=== PATIENT | female | born 1950 | race African-American/Black ===

== ENCOUNTER → 2017-08-12 11:40 | Outpatient (CLI) | payer MEDICARE, SELFPAY ==
[2017-08-12 13:11] LABS: Absolute Lymphocyte Count 1.58 X10^3/ul (0.83-4.51); Absolute Neutrophil Count 3.1 X10^3/uL (2.0-7.7); Basophil# 0.04 X10^3/uL; Basophil% 0.7 % (0-1); Eosinophil# 0.09 X10^3/uL; Eosinophils% 1.7 % (0-5); Hemoglobin 10.9 g/dl (12.0-15.0); Lymphocyte # 1.58 X10^3/ul (4.0); Lymphocyte % 29.4 % (19-41); Mean Corp Hgb Conc 32.1 g/gl (32-36); Mean Corpuscular Hgb 28.2 pg (27.0-32.0); Mean Corpuscular Volume 87.9 fL (81-99); Mean Platelet Vol. 11.7 fl (6.2-12.0); Monocyte# 0.54 X10^3/uL; Monocyte% 10.1 % (0-10); Neutrophil # 3.11 X10^3/uL (2.7-7.7); Neutrophil % 57.9 % (47-70); Platelet Count 206 K/mm3 (150-450); RBC Distribution Width CV 15.2 % (11.6-14.6); RBC Distribution Width SD 48.5 fl (35.1-43.9); Red Blood Count 3.87 M/mm3 (4.2-5.4); White Blood Count 5.4 K/mm3 (4.4-11.0)
[2017-08-12 13:27] LABS: ALB/GLOB Ratio 0.9 RATIO (0.9-2.4); AST(SGOT) 12 U/L (15-37); Alanine Aminotransfer ALT/SGPT 16 U/L (13-56); Albumin, Serum 3.4 g/dL (3.2-5.0); Alkaline Phosphatase 89 U/L (45-117); Anion Gap 10 (5-15); BUN 14 mg/dL (7-18); BUN/Creat Ratio 16.8 RATIO (10-20); Calcium,Total 8.8 mg/dL (8.5-10.1); Chloride 109 mmol/L (98-107); Creatinine, Serum 0.84 mg/dL (0.55-1.02); EST Glomerular Filtration Rate 72 mL/min (>60); Est Glom Filt Rate - Afr Amer 87 mL/min (>60); Globulin 3.8 g/dL (2.2-4.2); Glucose 164 mg/dL (74-106); Potassium 3.4 mmol/L (3.5-5.1); Protein, Total 7.2 g/dL (6.4-8.2); Sodium Level 142 mmol/L (136-145); Thyroid Stim Hormone (TSH) 1.43 uIU/mL (0.358-3.74)
[2017-08-13 08:23] LABS: Vitamin D,25 Hydroxy 67.2 ng/mL (29.95-100.01)
== END ==
PROVIDERS: Family Provider Family Medicine Geriatric Medicine; PCP Family Medicine Geriatric Medicine; Visit Provider Family Medicine Geriatric Medicine
DX: E55.9 Vitamin D deficiency, unspecified (principal); I10 Essential (primary) hypertension; E11.9 Type 2 diabetes mellitus without complications
CPT/HCPCS: 36415; 80053; 82306; 84443; 85025

== ENCOUNTER → 2017-11-15 12:13 | Outpatient (CLI) | payer MEDICARE, SELFPAY ==
--- NOTE | 2017-11-15 12:17 | BI_ITS ---
MAMMOGRAPHY - BILATERAL SCREENING REASON FOR EXAM: Female, 67 years old. Routine annual screening examination. PERTINENT HISTORY: Sister with breast cancer. TECHNIQUE: Digital bilateral breast cortney (3D mammographic acquisition) in the CC and MLO projections. 2-D mediolateral oblique (MLO) and craniocaudad (CC) views of both breasts were obtained. CAD: Full Field Digital Mammography with Computer Added Detection was performed. COMPARISON: Comparison is made with prior study dated November 11, 2016 and November 11, 2015. FINDINGS: Breast Composition: The breasts are heterogeneously dense, which may obscure small masses. There are no dominant masses or suspicious calcifications. A pacemaker battery pack is once again seen in the axillary region of the left breast. No other significant abnormalities are identified. There has been no significant change since the prior study. BI/SCREENING MAMM (CAD), BILAT IMPRESSION: Stable bilateral screening mammogram. Yearly follow-up mammogram recommended. (A) ASSESSMENT CATEGORY: BIRADS Category 2: Benign. A letter regarding these results will be sent to the patient by the facility within 30 days. Approximately 10% of breast cancers are not detected by mammography. A normal mammogram should not delay biopsy of a clinically suspicious abnormality. [id number] Electronically Signed: Keanu Hartley MD at 13:57 EDT Tel [phone], Service support ,
== END ==
PROVIDERS: Family Provider Family Medicine Geriatric Medicine; PCP Family Medicine Geriatric Medicine; Visit Provider Obstetrics & Gynecology Gynecology
DX: Z12.31 Encounter for screening mammogram for malignant neoplasm of breast (principal)
CPT/HCPCS: 77063; 77067

== ENCOUNTER → 2018-02-16 11:29 | Outpatient (CLI) | payer MEDICARE, SELFPAY ==
[2018-02-16 12:32] LABS: Absolute Lymphocyte Count 1.31 X10^3/ul (0.83-4.51); Absolute Neutrophil Count 2.9 X10^3/uL (2.0-7.7); Basophil# 0.04 X10^3/uL; Basophil% 0.8 % (0-1); Eosinophil# 0.09 X10^3/uL; Eosinophils% 1.9 % (0-5); Hematocrit 35.1 % (37-47); Hemoglobin 11.1 g/dl (12.0-15.0); Lymphocyte # 1.31 X10^3/ul (4.0); Lymphocyte % 27.6 % (19-41); Mean Corp Hgb Conc 31.6 g/gl (32-36); Mean Corpuscular Hgb 27.8 pg (27.0-32.0); Mean Corpuscular Volume 87.8 fL (81-99); Mean Platelet Vol. 10.8 fl (6.2-12.0); Monocyte# 0.42 X10^3/uL; Monocyte% 8.9 % (0-10); Neutrophil # 2.88 X10^3/uL (2.7-7.7); Neutrophil % 60.8 % (47-70); Platelet Count 225 K/mm3 (150-450); RBC Distribution Width CV 15.3 % (11.6-14.6); RBC Distribution Width SD 49.4 fl (35.1-43.9); White Blood Count 4.7 K/mm3 (4.4-11.0)
[2018-02-16 12:34] LABS: POSITIVE COUNT NO; POSITIVE DIFFERENTIAL NO; POSITIVE MORPHOLOGY NO
[2018-02-16 12:53] LABS: Vitamin D,25 Hydroxy 52.4 ng/mL (29.95-100.01)
[2018-02-16 13:01] LABS: ALB/GLOB Ratio 0.9 RATIO (0.9-2.4); AST(SGOT) 16 U/L (15-37); Alanine Aminotransfer ALT/SGPT 16 U/L (13-56); Albumin, Serum 3.5 g/dL (3.2-5.0); Alkaline Phosphatase 81 U/L (45-117); Anion Gap 7 (5-15); BUN 13 mg/dL (7-18); BUN/Creat Ratio 14.5 RATIO (10-20); Calcium,Total 9.2 mg/dL (8.5-10.1); Chloride 107 mmol/L (98-107); Cholesterol 138 mg/dL (200); EST Glomerular Filtration Rate 66 mL/min (>60); Est Glom Filt Rate - Afr Amer 80 mL/min (>60); Globulin 3.9 g/dL (2.2-4.2); Glucose 170 mg/dL (74-106); High Density Lipoprotein 49 mg/dL; Potassium 3.7 mmol/L (3.5-5.1); Protein, Total 7.4 g/dL (6.4-8.2); Sodium Level 140 mmol/L (136-145); Thyroid Stim Hormone (TSH) 1.98 uIU/mL (0.358-3.74); Triglycerides 85 mg/dL; Very Low Density Lipoprotein 17 mg/dL (5-40)
== END ==
PROVIDERS: Family Provider Family Medicine Geriatric Medicine; PCP Family Medicine Geriatric Medicine; Visit Provider Family Medicine Geriatric Medicine
DX: E11.9 Type 2 diabetes mellitus without complications (principal); E55.9 Vitamin D deficiency, unspecified
CPT/HCPCS: 36415; 80053; 80061; 82306; 84443; 85025

== ENCOUNTER → 2018-03-03 11:28 | Outpatient (CLI) | payer MEDICARE, SELFPAY ==
[2018-03-03 12:31] LABS: AST(SGOT) 16 U/L (15-37); Alanine Aminotransfer ALT/SGPT 20 U/L (13-56); Albumin, Serum 3.5 g/dL (3.2-5.0); Alkaline Phosphatase 75 U/L (45-117); Bilirubin, Direct 0.15 mg/dL (0.00-0.30); Cholesterol 146 mg/dL (200); Globulin 3.9 g/dL (2.2-4.2); High Density Lipoprotein 49 mg/dL; Protein, Total 7.4 g/dL (6.4-8.2); Triglycerides 81 mg/dL; Very Low Density Lipoprotein 16 mg/dL (5-40)
== END ==
PROVIDERS: Family Provider Family Medicine Geriatric Medicine; PCP Family Medicine Geriatric Medicine; Visit Provider Internal Medicine Cardiovascular Disease
DX: I10 Essential (primary) hypertension (principal); E78.5 Hyperlipidemia, unspecified
CPT/HCPCS: 36415; 80061; 80076

== ENCOUNTER → 2018-08-18 11:17 | Outpatient (CLI) | payer MEDICARE, SELFPAY ==
[2018-01-20 13:57] VITALS: BMI 30.4
[2018-08-18 12:49] LABS: Absolute Lymphocyte Count 2.27 X10^3/ul (0.83-4.51); Basophil# 0.04 X10^3/uL; Basophil% 0.7 % (0-1); Eosinophil# 0.13 X10^3/uL; Eosinophils% 2.1 % (0-5); Hematocrit 33.5 % (37-47); Hemoglobin 10.8 g/dl (12.0-15.0); Lymphocyte # 2.27 X10^3/ul (4.0); Lymphocyte % 37.2 % (19-41); Mean Corp Hgb Conc 32.2 g/gl (32-36); Mean Corpuscular Hgb 27.6 pg (27.0-32.0); Mean Corpuscular Volume 85.5 fL (81-99); Mean Platelet Vol. 10.9 fl (6.2-12.0); Monocyte# 0.61 X10^3/uL; Neutrophil # 3.04 X10^3/uL (2.7-7.7); Neutrophil % 49.8 % (47-70); Platelet Count 224 K/mm3 (150-450); RBC Distribution Width CV 15.9 % (11.6-14.6); RBC Distribution Width SD 49.8 fl (35.1-43.9); Red Blood Count 3.92 M/mm3 (4.2-5.4); White Blood Count 6.1 K/mm3 (4.4-11.0)
[2018-08-18 12:51] LABS: POSITIVE COUNT NO; POSITIVE DIFFERENTIAL NO; POSITIVE MORPHOLOGY NO
[2018-08-18 13:18] LABS: AST(SGOT) 16 U/L (15-37); Alanine Aminotransfer ALT/SGPT 18 U/L (13-56); Albumin, Serum 3.6 g/dL (3.2-5.0); Alkaline Phosphatase 82 U/L (45-117); Anion Gap 7 (5-15); BUN 20 mg/dL (7-18); BUN/Creat Ratio 23.1 RATIO (10-20); Calcium,Total 9.1 mg/dL (8.5-10.1); Chloride 109 mmol/L (98-107); Cholesterol 151 mg/dL (200); Creatinine, Serum 0.87 mg/dL (0.55-1.02); EST Glomerular Filtration Rate 69 mL/min (>60); Est Glom Filt Rate - Afr Amer 84 mL/min (>60); Globulin 3.6 g/dL (2.2-4.2); Glucose 108 mg/dL (74-106); High Density Lipoprotein 53 mg/dL; Potassium 3.5 mmol/L (3.5-5.1); Protein, Total 7.2 g/dL (6.4-8.2); Sodium Level 141 mmol/L (136-145); Thyroid Stim Hormone (TSH) 1.97 uIU/mL (0.358-3.74); Triglycerides 81 mg/dL; Very Low Density Lipoprotein 16 mg/dL (5-40)
[2018-08-18 14:15] LABS: Vitamin D,25 Hydroxy 53.3 ng/mL (29.95-100.01)
== END ==
PROVIDERS: Family Provider Family Medicine Geriatric Medicine; PCP Family Medicine Geriatric Medicine; Visit Provider Family Medicine Geriatric Medicine
DX: E11.9 Type 2 diabetes mellitus without complications (principal); E55.9 Vitamin D deficiency, unspecified; E78.5 Hyperlipidemia, unspecified; I10 Essential (primary) hypertension
CPT/HCPCS: 36415; 80053; 80061; 82306; 84443; 85025

== ENCOUNTER → 2018-11-16 12:47 | Outpatient (CLI) | payer MEDICARE, SELFPAY ==
[2018-09-15 11:31] VITALS: BMI 29.5
--- NOTE | 2018-11-16 12:50 | BI_ITS ---
MAMMOGRAPHY - BILATERAL SCREENING REASON FOR EXAM: Female, 68 years old. Routine annual screening examination. PERTINENT HISTORY: Sister with breast cancer. TECHNIQUE: Digital bilateral breast hiro (3D mammographic acquisition) in the CC and MLO projections. 2-D mediolateral oblique (MLO) and craniocaudad (CC) views of both breasts were obtained. CAD: Full Field Digital Mammography with Computer Added Detection was performed. COMPARISON: Comparison is made with prior study dated November 15, 2017 and November 11, 2016. FINDINGS: Breast Composition: The breasts are heterogeneously dense, which may obscure small masses. There are no dominant masses or suspicious calcifications. Stable appearance of the bilateral axillary lymph nodes. A pacemaker battery pack is once again seen in the left axillary region. No other significant abnormalities are identified. There has been no significant change since the prior study. BI/SCREEN MAMM (CAD) W/HIRO BILAT IMPRESSION: Stable bilateral screening mammogram. Yearly follow-up mammogram recommended. (A) ASSESSMENT CATEGORY: BIRADS Category 2: Benign. A letter regarding these results will be sent to the patient by the facility within 30 days. Approximately 10% of breast cancers are not detected by mammography. A normal mammogram should not delay biopsy of a clinically suspicious abnormality. [id number] Electronically Signed: Keanu Hartley, at 14:05 EDT , Service support ,
== END ==
PROVIDERS: Family Provider Family Medicine Geriatric Medicine; PCP Family Medicine Geriatric Medicine; Referring Provider Obstetrics & Gynecology Gynecology; Visit Provider Obstetrics & Gynecology Gynecology
DX: Z12.31 Encounter for screening mammogram for malignant neoplasm of breast (principal)
CPT/HCPCS: 77063; 77067

== ENCOUNTER → 2019-02-20 11:33 | Outpatient (CLI) | payer MEDICARE, SELFPAY ==
[2019-02-16 11:45] VITALS: BMI 29.7
[2019-02-20 12:44] LABS: Absolute Lymphocyte Count 2.02 X10^3/uL (0.83-4.51); Absolute Neutrophil Count 2.6 X10^3/uL (2.0-7.7); Basophil# 0.04 X10^3/uL; Basophil% 0.8 % (0-1); Eosinophil# 0.09 X10^3/uL; Eosinophils% 1.7 % (0-5); Hematocrit 35.3 % (37-47); Hemoglobin 11.2 g/dL (12.0-15.0); Lymphocyte # 2.02 X10^3/ul (4.0); Lymphocyte % 38.3 % (19-41); Mean Corp Hgb Conc 31.7 g/dL (32-36); Mean Corpuscular Hgb 27.7 pg (27.0-32.0); Mean Corpuscular Volume 87.2 fL (81-99); Mean Platelet Vol. 11.2 fl (6.2-12.0); Monocyte# 0.48 X10^3/uL; Monocyte% 9.1 % (0-10); NRBC Flagged by Analyzer 0 % (0-5); Neutrophil # 2.63 X10^3/uL (2.7-7.7); Neutrophil % 49.9 % (47-70); Platelet Count 215 K/mm3 (150-450); RBC Distribution Width CV 15.1 % (11.6-14.6); RBC Distribution Width SD 48.3 fl (35.1-43.9); Red Blood Count 4.05 M/mm3 (4.2-5.4); White Blood Count 5.3 K/mm3 (4.4-11.0)
[2019-02-20 13:09] LABS: ALB/GLOB Ratio 0.9 RATIO (0.9-2.4); AST(SGOT) 16 U/L (15-37); Alanine Aminotransfer ALT/SGPT 14 U/L (13-56); Albumin, Serum 3.5 g/dL (3.2-5.0); Alkaline Phosphatase 76 U/L (45-117); Anion Gap 7 (5-15); BUN 11 mg/dL (7-18); BUN/Creat Ratio 13.8 RATIO (10-20); Calcium,Total 9.2 mg/dL (8.5-10.1); Chloride 109 mmol/L (98-107); Cholesterol 127 mg/dL (200); EST Glomerular Filtration Rate 76 mL/min (>60); Est Glom Filt Rate - Afr Amer 92 mL/min (>60); Globulin 3.8 g/dL (2.2-4.2); Glucose 106 mg/dL (74-106); High Density Lipoprotein 48 mg/dL; Potassium 3.7 mmol/L (3.5-5.1); Protein, Total 7.3 g/dL (6.4-8.2); Sodium Level 140 mmol/L (136-145); Thyroid Stim Hormone (TSH) 1.91 uIU/mL (0.358-3.74); Triglycerides 75 mg/dL; Very Low Density Lipoprotein 15 mg/dL (5-40)
[2019-02-20 13:16] LABS: Vitamin D,25 Hydroxy 59.3 ng/mL (29.95-100.01)
== END ==
PROVIDERS: Family Provider Family Medicine Geriatric Medicine; PCP Family Medicine Geriatric Medicine; Visit Provider Family Medicine Geriatric Medicine
DX: E11.9 Type 2 diabetes mellitus without complications (principal); E78.5 Hyperlipidemia, unspecified; I10 Essential (primary) hypertension; E55.9 Vitamin D deficiency, unspecified
CPT/HCPCS: 36415; 80053; 80061; 82306; 84443; 85025

== ENCOUNTER → 2019-03-01 09:07 | Outpatient (CLI) | payer MEDICARE, SELFPAY ==
[2019-02-16 11:45] VITALS: BMI 29.7
--- NOTE | 2019-03-01 09:24 | BD_ITS ---
STUDY: DUAL ENERGY X-RAY ABSORPTIOMETRY / DXA REASON FOR EXAM: Female, 68 years old. The patient is postmenopausal. Loss of height. TECHNIQUE: Bone Mineral Density (BMD) measurements of lumbar spine and bilateral hips were obtained. COMPARISON: Comparison is made with prior examination dated August 22, 2009. FINDINGS: Lumbar Spine (L1-L4): g/cm2 (1.089) / T-score (-0.6) / Z-score (0.3) Findings are suggestive of normal bone density with a low fracture risk. Increased kyphosis. Left Femur Total: g/cm2 (1.144) / T-score (1.1) / Z-score (1.5) Left Femoral Neck: g/cm2 (1.049) / T-score (0.1) / Z-score (0.8) Right Femur Total: g/cm2 (1.104) / T-score (0.8) / Z-score (1.2) Right Femoral Neck: g/cm2 (1.035) / T-score (0.0) / Z-score (0.7) The T-Scores on the most recent prior examination were: Lumbar Spine (L1-L4): There has been worsening of bone density since the previous examination. Left Femur Total: which represents a worsening of 6%. Right Femur Total: which represents a worsening of 10.6%. BD/Dexa Bone Density Study IMPRESSION: The patient is considered normal as outlined below according to World Jose Organization (WHO) criteria with a low fracture risk. There has been worsening of bone density since the previous examination. Reference Information: The T-score is the number of standard deviations above or below the standard which is normal for young adults at their peak bone mineral density. The World Health Organization (WHO) interprets the T-scores as follows: Above -1 Normal bone density Between -1 and -2.5 Osteopenia Equal to / or below -2.5 Osteoporosis As a practical clinical guideline, osteopenia may be graded as follows: Mild -1 through -1.5 Moderate -1.6 through -2.0 Severe -2.1 through -2.4 The Z-score is the number of standard deviations above or below age-matched controls. A Z-score of less than -1.5 would be considered abnormal. References: 1. NIH Osteoporosis and Related Bone Diseases http://www.osteo.org 2. International Society for Clinical Densitometry http://www.iscd.org 3. National Osteoporosis Foundation http://www.nof.org Electronically Signed: Keanu Hartley, at 10:39 EST , Service support ,
== END ==
PROVIDERS: Family Provider Family Medicine Geriatric Medicine; PCP Family Medicine Geriatric Medicine; Referring Provider Family Medicine Geriatric Medicine; Visit Provider Family Medicine Geriatric Medicine
DX: Z78.0 Asymptomatic menopausal state (principal)
CPT/HCPCS: 77080

== ENCOUNTER → 2019-06-08 | Outpatient (CLI) | payer MEDICARE, SELFPAY ==
[2019-02-16 11:45] VITALS: BMI 29.7
--- NOTE | 2019-06-08 17:07 | RAD_ITS ---
STUDY: X-RAY - LEFT HAND REASON FOR EXAM: Left hand and wrist pain. TECHNIQUE: 3 view(s) of the hand. COMPARISON: None. FINDINGS: Normal radiocarpal articulation. Normal distal radioulnar joint. Normal visualized carpal bones. There is mild joint space narrowing of the scaphotrapezoid articulation. Normal carpometacarpal articulation of the thumb. Normal second through fifth carpometacarpal joints. Normal metacarpi. Normal metacarpophalangeal joint of the thumb. Normal interphalangeal joint of the thumb. Normal proximal and distal phalanges of the thumb. Normal metacarpophalangeal joints of the second through fifth fingers. Normal proximal and distal interphalangeal joints of the second through fifth fingers. Normal phalanges of the second through fifth fingers. There is chondrocalcinosis of the wrist. RAD/Hand Min 3 Views IMPRESSION: Mild arthrosis of the scaphotrapezoid articulation. Chondrocalcinosis of the wrist. Otherwise, unremarkable x-ray examination of the left hand. Electronically Signed: Stephen Yap MD at 15:23 EST Tel , Service support ,
--- NOTE | 2019-06-08 17:08 | RAD_ITS ---
STUDY: X-RAY - LEFT WRIST REASON FOR EXAM: Left hand and wrist pain. TECHNIQUE: 3 view(s) of the wrist were obtained. COMPARISON: None. FINDINGS: Normal visualized distal radius and ulna. Normal radiocarpal articulation. Normal distal radioulnar articulation. Normal carpal bones. There is mild joint space narrowing of the scaphotrapezoid articulation. Normal carpometacarpal articulation of the thumb. Normal second through fifth carpometacarpal articulations. Normal visualized metacarpal bones. There is chondrocalcinosis in the triangular fibrocartilage, lunotriquetral ligament and radial joint capsule of the wrist. RAD/Wrist min 3 Views IMPRESSION: Mild arthrosis of the scaphotrapezoid articulation. Chondrocalcinosis. Otherwise, unremarkable x-ray examination of the left wrist. Electronically Signed: Stephen Yap MD at 15:30 EST Tel , Service support ,
[2019-06-08 17:20] LABS: Absolute Neutrophil Count 5.8 X10^3/uL (2.0-7.7); Basophil# 0.03 X10^3/uL; Basophil% 0.4 % (0-1); Eosinophil# 0.05 X10^3/uL; Eosinophils% 0.6 % (0-5); Hematocrit 37.8 % (37-47); Hemoglobin 12.1 g/dL (12.0-15.0); Lymphocyte % 21.3 % (19-41); Mean Corpuscular Hgb 28.2 pg (27.0-32.0); Mean Corpuscular Volume 88.1 fL (81-99); Mean Platelet Vol. 10.9 fl (6.2-12.0); Monocyte# 0.76 X10^3/uL; NRBC Flagged by Analyzer 0 % (0-5); Neutrophil # 5.78 X10^3/uL (2.7-7.7); Neutrophil % 68.3 % (47-70); Platelet Count 226 K/mm3 (150-450); RBC Distribution Width CV 14.5 % (11.6-14.6); RBC Distribution Width SD 46.8 fl (35.1-43.9); Red Blood Count 4.29 M/mm3 (4.2-5.4); White Blood Count 8.5 K/mm3 (4.4-11.0)
[2019-06-08 17:57] LABS: Erythrocyte Sedimentation Rate 67 mm/hr (0-30)
[2019-06-08 17:59] LABS: Anion Gap 6 (5-15); BUN 13 mg/dL (7-18); BUN/Creat Ratio 15.3 RATIO (10-20); Calcium,Total 9.6 mg/dL (8.5-10.1); Chloride 107 mmol/L (98-107); Creatinine, Serum 0.85 mg/dL (0.55-1.02); EST Glomerular Filtration Rate 71 mL/min (>60); Est Glom Filt Rate - Afr Amer 85 mL/min (>60); Glucose 82 mg/dL (74-106); Potassium 3.3 mmol/L (3.5-5.1); Sodium Level 139 mmol/L (136-145); Uric Acid 2.9 mg/dL (2.6-6.0)
== END | disposition home or self-care (01) ==
PROVIDERS: PCP Family Medicine Geriatric Medicine; Referring Provider Family Medicine Geriatric Medicine; Visit Provider Family Medicine Geriatric Medicine
DX: M79.642 Pain in left hand (principal); M25.532 Pain in left wrist; R79.9 Abnormal finding of blood chemistry, unspecified
CPT/HCPCS: 36415; 73110; 73130; 80048; 84550; 85025; 85652; 86140

== ENCOUNTER → 2019-08-23 | Outpatient (CLI) | payer MEDICARE, SELFPAY ==
[2019-02-16 11:45] VITALS: BMI 29.7
[2019-08-23 13:13] LABS: Absolute Lymphocyte Count 1.98 X10^3/uL (0.83-4.51); Absolute Neutrophil Count 4.2 X10^3/uL (2.0-7.7); Basophil# 0.05 X10^3/uL; Basophil% 0.7 % (0-1); Eosinophil# 0.07 X10^3/uL; Hematocrit 37.4 % (37-47); Hemoglobin 11.7 g/dL (12.0-15.0); Lymphocyte # 1.98 X10^3/ul (4.0); Lymphocyte % 28.6 % (19-41); Mean Corp Hgb Conc 31.3 g/dL (32-36); Mean Corpuscular Hgb 28.2 pg (27.0-32.0); Mean Corpuscular Volume 90.1 fL (81-99); Monocyte# 0.59 X10^3/uL; Monocyte% 8.5 % (0-10); NRBC Flagged by Analyzer 0 % (0-5); Neutrophil # 4.21 X10^3/uL (2.7-7.7); Neutrophil % 60.8 % (47-70); Platelet Count 215 K/mm3 (150-450); RBC Distribution Width SD 53.2 fl (35.1-43.9); Red Blood Count 4.15 M/mm3 (4.2-5.4); White Blood Count 6.9 K/mm3 (4.4-11.0)
[2019-08-23 13:53] LABS: Vitamin D,25 Hydroxy 71.6 ng/mL
[2019-08-23 14:02] LABS: ALB/GLOB Ratio 0.9 RATIO (0.9-2.4); AST(SGOT) 17 U/L (15-37); Alanine Aminotransfer ALT/SGPT 21 U/L (13-56); Albumin, Serum 3.5 g/dL (3.2-5.0); Alkaline Phosphatase 73 U/L (45-117); Anion Gap 6 (5-15); BUN 15 mg/dL (7-18); BUN/Creat Ratio 18.7 RATIO (10-20); Calcium,Total 9.5 mg/dL (8.5-10.1); Chloride 108 mmol/L (98-107); Cholesterol 169 mg/dL (200); EST Glomerular Filtration Rate 75 mL/min (>60); Est Glom Filt Rate - Afr Amer 91 mL/min (>60); Globulin 3.7 g/dL (2.2-4.2); Glucose 138 mg/dL (74-106); High Density Lipoprotein 63 mg/dL; Potassium 3.9 mmol/L (3.5-5.1); Protein, Total 7.2 g/dL (6.4-8.2); Sodium Level 141 mmol/L (136-145); Thyroid Stim Hormone (TSH) 1.41 uIU/mL (0.358-3.74); Triglycerides 95 mg/dL; Very Low Density Lipoprotein 19 mg/dL (5-40)
== END | disposition home or self-care (01) ==
LOC: LAB 12:18
PROVIDERS: PCP Family Medicine Geriatric Medicine; Visit Provider Family Medicine Geriatric Medicine
DX: E11.9 Type 2 diabetes mellitus without complications (principal); E55.9 Vitamin D deficiency, unspecified; E78.5 Hyperlipidemia, unspecified; I10 Essential (primary) hypertension
CPT/HCPCS: 36415; 80053; 80061; 82306; 84443; 85025

== ENCOUNTER → 2019-11-20 | Outpatient (CLI) | payer MEDICARE, SELFPAY ==
[2019-02-16 11:45] VITALS: BMI 29.7
--- NOTE | 2019-11-20 14:55 | BI_ITS ---
MAMMOGRAPHY - BILATERAL SCREENING REASON FOR EXAM: Female, 69 years old. Routine annual screening examination. PERTINENT HISTORY: Sister with breast cancer. TECHNIQUE: Digital bilateral breast hior (3D mammographic acquisition) in the CC and MLO projections. 2-D mediolateral oblique (MLO) and craniocaudad (CC) views of both breasts were obtained. CAD: Full Field Digital Mammography with Computer Added Detection was performed. COMPARISON: Comparison is made with prior examination dated 11/16/2018 and 11/15/2017. FINDINGS: Breast Composition: The breasts are heterogeneously dense, which may obscure small masses. There are no dominant masses or suspicious calcifications. A battery pack from a pacemaker is seen in the left axillary region. This is unchanged. No other significant abnormalities are identified. There has been no significant change since the prior study. BI/SCREEN MAMM (CAD) W/HIRO BILAT IMPRESSION: Stable bilateral screening mammogram. Yearly follow-up mammogram recommended. (A) ASSESSMENT CATEGORY: BIRADS Category 2: Benign. A letter regarding these results will be sent to the patient by the facility within 30 days. Approximately 10% of breast cancers are not detected by mammography. A normal mammogram should not delay biopsy of a clinically suspicious abnormality. [id number] Electronically Signed: Keanu Hartley, at 15:26 EDT , Service support ,
== END | disposition home or self-care (01) ==
LOC: OPBI 14:50
PROVIDERS: PCP Family Medicine Geriatric Medicine; Referring Provider Obstetrics & Gynecology Gynecology; Visit Provider Obstetrics & Gynecology Gynecology
DX: Z12.31 Encounter for screening mammogram for malignant neoplasm of breast (principal)
CPT/HCPCS: 77063; 77067

== ENCOUNTER → 2019-11-22 10:46 | Outpatient (CLI) | payer MEDICARE, SELFPAY ==
[2019-02-16 11:45] VITALS: BMI 29.7
[2019-11-22 12:19] LABS: Absolute Lymphocyte Count 1.76 X10^3/uL (0.83-4.51); Basophil# 0.03 X10^3/uL; Basophil% 0.6 % (0-1); Eosinophil# 0.06 X10^3/uL; Eosinophils% 1.1 % (0-5); Hematocrit 34.4 % (37-47); Lymphocyte # 1.76 X10^3/ul (4.0); Mean Corpuscular Hgb 28.7 pg (27.0-32.0); Mean Corpuscular Volume 89.8 fL (81-99); Mean Platelet Vol. 11.9 fl (6.2-12.0); Monocyte# 0.48 X10^3/uL; NRBC Flagged by Analyzer 0 % (0-5); Neutrophil # 2.99 X10^3/uL (2.7-7.7); Neutrophil % 55.9 % (47-70); Platelet Count 221 K/mm3 (150-450); RBC Distribution Width CV 14.3 % (11.6-14.6); Red Blood Count 3.83 M/mm3 (4.2-5.4); White Blood Count 5.3 K/mm3 (4.4-11.0)
[2019-11-22 12:33] LABS: Vitamin D,25 Hydroxy 75.4 ng/mL
[2019-11-22 12:47] LABS: ALB/GLOB Ratio 0.9 RATIO (0.9-2.4); AST(SGOT) 11 U/L (15-37); Alanine Aminotransfer ALT/SGPT 12 U/L (13-56); Albumin, Serum 3.4 g/dL (3.2-5.0); Alkaline Phosphatase 60 U/L (45-117); Anion Gap 3 (5-15); BUN 15 mg/dL (7-18); BUN/Creat Ratio 18.9 RATIO (10-20); Calcium,Total 9.2 mg/dL (8.5-10.1); Chloride 110 mmol/L (98-107); Cholesterol 138 mg/dL (200); Creatinine, Serum 0.79 mg/dL (0.55-1.02); EST Glomerular Filtration Rate 76 mL/min (>60); Est Glom Filt Rate - Afr Amer 92 mL/min (>60); Globulin 3.7 g/dL (2.2-4.2); Glucose 99 mg/dL (74-106); High Density Lipoprotein 45 mg/dL; Potassium 3.6 mmol/L (3.5-5.1); Protein, Total 7.1 g/dL (6.4-8.2); Sodium Level 142 mmol/L (136-145); Thyroid Stim Hormone (TSH) 1.74 uIU/mL (0.358-3.74); Triglycerides 69 mg/dL; Very Low Density Lipoprotein 14 mg/dL (5-40)
== END ==
PROVIDERS: PCP Family Medicine Geriatric Medicine; Visit Provider Family Medicine Geriatric Medicine
DX: E11.9 Type 2 diabetes mellitus without complications (principal); E55.9 Vitamin D deficiency, unspecified; E78.5 Hyperlipidemia, unspecified; I10 Essential (primary) hypertension
CPT/HCPCS: 36415; 80053; 80061; 82306; 84443; 85025

== ENCOUNTER → 2020-02-22 11:00 | Outpatient (CLI) | payer MEDICARE, SELFPAY ==
[2020-02-13 14:39] VITALS: BMI 27.0
[2020-02-22 12:21] LABS: Absolute Lymphocyte Count 1.64 X10^3/uL (0.83-4.51); Absolute Neutrophil Count 2.7 X10^3/uL (2.0-7.7); Basophil# 0.05 X10^3/uL; Eosinophil# 0.07 X10^3/uL; Eosinophils% 1.5 % (0-5); Hematocrit 35.4 % (37-47); Hemoglobin 11.2 g/dL (12.0-15.0); Lymphocyte # 1.64 X10^3/ul (4.0); Lymphocyte % 34.1 % (19-41); Mean Corp Hgb Conc 31.6 g/dL (32-36); Mean Corpuscular Hgb 28.1 pg (27.0-32.0); Mean Corpuscular Volume 88.9 fL (81-99); Mean Platelet Vol. 11.1 fl (6.2-12.0); Monocyte# 0.36 X10^3/uL; Monocyte% 7.5 % (0-10); NRBC Flagged by Analyzer 0 % (0-5); Neutrophil # 2.67 X10^3/uL (2.7-7.7); Neutrophil % 55.5 % (47-70); Platelet Count 248 K/mm3 (150-450); RBC Distribution Width CV 15.1 % (11.6-14.6); RBC Distribution Width SD 49.6 fl (35.1-43.9); Red Blood Count 3.98 M/mm3 (4.2-5.4); White Blood Count 4.8 K/mm3 (4.4-11.0)
[2020-02-22 12:35] LABS: ALB/GLOB Ratio 0.9 RATIO (0.9-2.4); AST(SGOT) 15 U/L (15-37); Alanine Aminotransfer ALT/SGPT 17 U/L (13-56); Albumin, Serum 3.6 g/dL (3.2-5.0); Alkaline Phosphatase 68 U/L (45-117); Anion Gap 6 (5-15); BUN 19 mg/dL (7-18); BUN/Creat Ratio 22.1 RATIO (10-20); Calcium,Total 9.1 mg/dL (8.5-10.1); Chloride 106 mmol/L (98-107); Cholesterol 136 mg/dL (200); Creatinine, Serum 0.86 mg/dL (0.55-1.02); EST Glomerular Filtration Rate 69 mL/min (>60); Est Glom Filt Rate - Afr Amer 84 mL/min (>60); Globulin 3.9 g/dL (2.2-4.2); Glucose 129 mg/dL (74-106); High Density Lipoprotein 59 mg/dL; Potassium 3.9 mmol/L (3.5-5.1); Protein, Total 7.5 g/dL (6.4-8.2); Sodium Level 138 mmol/L (136-145); Thyroid Stim Hormone (TSH) 1.73 uIU/mL (0.358-3.74); Triglycerides 67 mg/dL; Very Low Density Lipoprotein 13 mg/dL (5-40)
== END ==
PROVIDERS: PCP Family Medicine Geriatric Medicine; Visit Provider Family Medicine Geriatric Medicine
DX: E55.9 Vitamin D deficiency, unspecified (principal); E78.5 Hyperlipidemia, unspecified; I10 Essential (primary) hypertension
CPT/HCPCS: 36415; 80053; 80061; 82306; 84443; 85025

== ENCOUNTER → 2020-02-27 10:50 | Outpatient (CLI) | payer MEDICARE, SELFPAY ==
[2020-02-13 14:39] VITALS: BMI 27.0
--- NOTE | 2020-02-27 10:51 | ECHOD_ITS ---
Reason For Study: HTN Procedure This was a 2D Doppler, Color Flow transthoracic echocardiogram. Exam performed in department. Left Ventricle Normal LV size. Left ventricular systolic function is lower limits of normal. The estimated ejection fraction is 53 %. Stage 1 diastolic dysfunction. No regional wall motion abnormalities noted. Right Ventricle Normal RV size. ICD or pacer leads identified within the right ventricle. Normal systolic function. Atria Normal left atrium. Normal right atrium. Mitral Valve Normal mitral valve. Tricuspid Valve Normal tricuspid valve. Mild tricuspid valve insufficiency. Pulmonary artery systolic pressure is 33 mmHg. Aortic Valve Trisinus/trileaflet aortic valve. Great Vessels Normal aortic root. The pulmonary artery is normal size. Normal inferior vena cava. Pericardium/Pleural No pericardial effusion. MMode/2D Measurements & Calculations LVIDd: 3.9 cm IVSd: 0.84 cm Ao root diam: 3.4 cm LVIDs: 3.1 cm LVPWd: 1.0 cm RVDd: 2.8 cm FS: 22.5 % LAV(MOD-bp): 40.7 ml LA A4 area: 16.5 cm2 LA dimension(2D): 4.3 cm LAV(MOD-bp) Indexed: 25.9 ml/m2 LAV(MOD-sp2): 35.1 ml LAV(MOD-sp4): 46.3 ml RA A4 area: 12.2 cm2 Time Measurements MV dec time: 0.18 sec Doppler Measurements & Calculations MV E max amol: 57.8 cm/sec Lat Peak E' Amol: 5.7 cm/sec Med Peak E' Amol: 4.3 cm/sec MV A max amol: 104.6 cm/sec E/E' lat: 10.2 E/E' med: 13.4 MV E/A: 0.55 Ao V2 max: 148.7 cm/sec LV V1 max: 85.4 cm/sec PA V2 max: 81.3 cm/sec Ao max P.9 mmHg LV V1 max P.9 mmHg TR max amol: 267.2 cm/sec TR max P.6 mmHg Interpretation Summary Normal LV size. Left ventricular systolic function is lower limits of normal. The estimated ejection fraction is 53 %. Stage 1 diastolic dysfunction. Compared to prior study, there is no significant change. Ordering Physician: Nik Felton Referring Physician: ANNI COREAS Performed By: Nandini Alvarado, ROMAINE, RVT
== END ==
PROVIDERS: PCP Family Medicine Geriatric Medicine; Referring Provider Internal Medicine Cardiovascular Disease; Visit Provider Internal Medicine Cardiovascular Disease
DX: I42.8 Other cardiomyopathies (principal); I10 Essential (primary) hypertension
CPT/HCPCS: 93306

== ENCOUNTER → 2020-05-22 11:22 | Outpatient (CLI) | payer MEDICARE, SELFPAY ==
[2020-02-13 14:39] VITALS: BMI 27.0
[2020-05-22 12:37] LABS: Absolute Lymphocyte Count 1.82 X10^3/uL (0.83-4.51); Absolute Neutrophil Count 4.3 X10^3/uL (2.0-7.7); Basophil# 0.03 X10^3/uL; Basophil% 0.4 % (0-1); Eosinophil# 0.09 X10^3/uL; Eosinophils% 1.3 % (0-5); Hematocrit 33.1 % (37-47); Hemoglobin 10.4 g/dL (12.0-15.0); Lymphocyte # 1.82 X10^3/ul (4.0); Lymphocyte % 26.6 % (19-41); Mean Corp Hgb Conc 31.4 g/dL (32-36); Mean Corpuscular Hgb 27.7 pg (27.0-32.0); Mean Platelet Vol. 11.1 fl (6.2-12.0); Monocyte# 0.56 X10^3/uL; Monocyte% 8.2 % (0-10); NRBC Flagged by Analyzer 0 % (0-5); Neutrophil # 4.33 X10^3/uL (2.7-7.7); Neutrophil % 63.2 % (47-70); Platelet Count 202 K/mm3 (150-450); RBC Distribution Width SD 48.3 fl (35.1-43.9); Red Blood Count 3.76 M/mm3 (4.2-5.4); White Blood Count 6.9 K/mm3 (4.4-11.0)
[2020-05-22 13:01] LABS: ALB/GLOB Ratio 0.8 RATIO (0.9-2.4); AST(SGOT) 14 U/L (15-37); Alanine Aminotransfer ALT/SGPT 20 U/L (13-56); Albumin, Serum 3.4 g/dL (3.2-5.0); Alkaline Phosphatase 90 U/L (45-117); Anion Gap 6 (5-15); BUN 20 mg/dL (7-18); BUN/Creat Ratio 24.2 RATIO (10-20); Calcium,Total 9.5 mg/dL (8.5-10.1); Chloride 110 mmol/L (98-107); Cholesterol 178 mg/dL (200); Creatinine, Serum 0.83 mg/dL (0.55-1.02); EST Glomerular Filtration Rate 72 mL/min (>60); Est Glom Filt Rate - Afr Amer 88 mL/min (>60); Globulin 4.2 g/dL (2.2-4.2); Glucose 112 mg/dL (74-106); High Density Lipoprotein 61 mg/dL; Potassium 3.6 mmol/L (3.5-5.1); Protein, Total 7.6 g/dL (6.4-8.2); Sodium Level 141 mmol/L (136-145); Triglycerides 63 mg/dL; Uric Acid 3.8 mg/dL (2.6-6.0); Very Low Density Lipoprotein 13 mg/dL (5-40)
[2020-05-22 13:05] LABS: Vitamin D,25 Hydroxy 42.6 ng/mL
== END ==
PROVIDERS: PCP Family Medicine Geriatric Medicine; Visit Provider Family Medicine Geriatric Medicine
DX: E11.9 Type 2 diabetes mellitus without complications (principal); E55.9 Vitamin D deficiency, unspecified; E78.5 Hyperlipidemia, unspecified; I10 Essential (primary) hypertension; M10.9 Gout, unspecified
CPT/HCPCS: 36415; 80053; 80061; 82306; 84443; 84550; 85025

== ENCOUNTER → 2020-05-29 15:24 | Outpatient (CLI) | payer MEDICARE, SELFPAY ==
[2020-02-13 14:39] VITALS: BMI 27.0
[2020-05-29 17:23] LABS: Absolute Lymphocyte Count 1.58 X10^3/uL (0.83-4.51); Absolute Neutrophil Count 3.9 X10^3/uL (2.0-7.7); Basophil# 0.02 X10^3/uL; Basophil% 0.3 % (0-1); Eosinophils% 1.6 % (0-5); Hematocrit 34.9 % (37-47); Hemoglobin 11.1 g/dL (12.0-15.0); Lymphocyte # 1.58 X10^3/ul (4.0); Lymphocyte % 25.6 % (19-41); Mean Corp Hgb Conc 31.8 g/dL (32-36); Mean Corpuscular Volume 87.9 fL (81-99); Mean Platelet Vol. 11.2 fl (6.2-12.0); Monocyte# 0.52 X10^3/uL; Monocyte% 8.4 % (0-10); NRBC Flagged by Analyzer 0 % (0-5); Neutrophil # 3.92 X10^3/uL (2.7-7.7); Neutrophil % 63.8 % (47-70); Platelet Count 314 K/mm3 (150-450); RBC Distribution Width CV 14.2 % (11.6-14.6); RET-HE 30.7 pg (30-35); Red Blood Count 3.97 M/mm3 (4.2-5.4); White Blood Count 6.2 K/mm3 (4.4-11.0)
[2020-05-29 17:35] LABS: Vitamin B12 1006 pg/mL (211-911)
[2020-05-29 17:57] LABS: Ferritin 54 ng/mL (8-252); Iron 55 ug/dL (50-170); Iron Binding Capacity,Total 330 ug/dL (250-450); PERCENT IRON SATURATION 16.7 % (15.0-55.0)
== END ==
PROVIDERS: PCP Family Medicine Geriatric Medicine; Visit Provider Family Medicine Geriatric Medicine
DX: D64.9 Anemia, unspecified (principal)
CPT/HCPCS: 36415; 82607; 82728; 82746; 83540; 83550; 85025; 85045

== ENCOUNTER → 2020-08-20 11:05 | Outpatient (CLI) | payer MEDICARE, SELFPAY ==
[2020-08-13 14:25] VITALS: BMI 27.0
[2020-08-20 12:34] LABS: Absolute Lymphocyte Count 1.55 X10^3/uL (0.83-4.51); Absolute Neutrophil Count 3.1 X10^3/uL (2.0-7.7); Basophil# 0.04 X10^3/uL; Basophil% 0.8 % (0-1); Eosinophil# 0.09 X10^3/uL; Eosinophils% 1.7 % (0-5); Hematocrit 35.7 % (37-47); Hemoglobin 11.1 g/dL (12.0-15.0); Lymphocyte # 1.55 X10^3/ul (0.83-4.51); Lymphocyte % 29.4 % (19-41); Mean Corp Hgb Conc 31.1 g/dL (32-36); Mean Corpuscular Hgb 26.9 pg (27.0-32.0); Mean Corpuscular Volume 86.7 fL (81-99); Mean Platelet Vol. 11.4 fl (6.2-12.0); Monocyte# 0.53 X10^3/uL; NRBC Flagged by Analyzer 0 % (0-5); Neutrophil # 3.06 X10^3/uL (2.7-7.7); Neutrophil % 57.9 % (47-70); Platelet Count 239 K/mm3 (150-450); RBC Distribution Width CV 15.5 % (11.6-14.6); RBC Distribution Width SD 49.4 fl (35.1-43.9); Red Blood Count 4.12 M/mm3 (4.2-5.4); White Blood Count 5.3 K/mm3 (4.4-11.0)
[2020-08-20 12:49] LABS: Vitamin D,25 Hydroxy 45.6 ng/mL
[2020-08-20 13:06] LABS: ALB/GLOB Ratio 0.9 RATIO (0.9-2.4); AST(SGOT) 16 U/L (15-37); Alanine Aminotransfer ALT/SGPT 16 U/L (13-56); Albumin, Serum 3.6 g/dL (3.2-5.0); Alkaline Phosphatase 103 U/L (45-117); Anion Gap 6 (5-15); BUN 19 mg/dL (7-18); Chloride 107 mmol/L (98-107); EST Glomerular Filtration Rate 58 mL/min (>60); Est Glom Filt Rate - Afr Amer 70 mL/min (>60); Globulin 3.8 g/dL (2.2-4.2); Glucose 122 mg/dL (74-106); Potassium 4.2 mmol/L (3.5-5.1); Protein, Total 7.4 g/dL (6.4-8.2); Sodium Level 140 mmol/L (136-145); Thyroid Stim Hormone (TSH) 1.83 uIU/mL (0.358-3.74)
== END ==
PROVIDERS: PCP Family Medicine Geriatric Medicine; Visit Provider Family Medicine Geriatric Medicine
DX: E11.9 Type 2 diabetes mellitus without complications (principal); E55.9 Vitamin D deficiency, unspecified; I10 Essential (primary) hypertension
CPT/HCPCS: 36415; 80053; 82306; 84443; 85025

== ENCOUNTER → 2020-11-19 09:07 | Outpatient (CLI) | payer MEDICARE, SELFPAY ==
[2020-08-13 14:25] VITALS: BMI 27.0
[2020-11-19 12:37] LABS: Absolute Lymphocyte Count 1.55 X10^3/uL (0.83-4.51); Absolute Neutrophil Count 2.8 X10^3/uL (2.0-7.7); Basophil# 0.04 X10^3/uL; Basophil% 0.8 % (0-1); Hemoglobin 10.9 g/dL (12.0-15.0); Lymphocyte # 1.55 X10^3/ul (0.83-4.51); Mean Corp Hgb Conc 31.1 g/dL (32-36); Mean Corpuscular Hgb 27.3 pg (27.0-32.0); Mean Corpuscular Volume 87.7 fL (81-99); Mean Platelet Vol. 11.5 fl (6.2-12.0); Monocyte# 0.46 X10^3/uL; Monocyte% 9.2 % (0-10); NRBC Flagged by Analyzer 0 % (0-5); Neutrophil # 2.83 X10^3/uL (2.7-7.7); Neutrophil % 56.6 % (47-70); Platelet Count 243 K/mm3 (150-450); RBC Distribution Width CV 15.3 % (11.6-14.6); RBC Distribution Width SD 49.1 fl (35.1-43.9); Red Blood Count 3.99 M/mm3 (4.2-5.4)
[2020-11-19 13:07] LABS: Vitamin D,25 Hydroxy 57.8 ng/mL
[2020-11-19 13:10] LABS: ALB/GLOB Ratio 0.8 RATIO (0.9-2.4); AST(SGOT) 19 U/L (15-37); Alanine Aminotransfer ALT/SGPT 21 U/L (13-56); Albumin, Serum 3.5 g/dL (3.2-5.0); Alkaline Phosphatase 87 U/L (45-117); Anion Gap 7 (5-15); BUN 16 mg/dL (7-18); BUN/Creat Ratio 17.2 RATIO (10-20); Calcium,Total 9.4 mg/dL (8.5-10.1); Chloride 106 mmol/L (98-107); Cholesterol 159 mg/dL (200); Creatinine, Serum 0.93 mg/dL (0.55-1.02); EST Glomerular Filtration Rate 63 mL/min (>60); Est Glom Filt Rate - Afr Amer 76 mL/min (>60); Globulin 4.2 g/dL (2.2-4.2); Glucose 190 mg/dL (74-106); High Density Lipoprotein 58 mg/dL; Potassium 3.6 mmol/L (3.5-5.1); Protein, Total 7.7 g/dL (6.4-8.2); Sodium Level 139 mmol/L (136-145); Thyroid Stim Hormone (TSH) 1.61 uIU/mL (0.358-3.74); Triglycerides 114 mg/dL; Very Low Density Lipoprotein 23 mg/dL (5-40)
== END ==
PROVIDERS: PCP Family Medicine Geriatric Medicine; Visit Provider Family Medicine Geriatric Medicine
DX: E11.9 Type 2 diabetes mellitus without complications (principal); E55.9 Vitamin D deficiency, unspecified; E78.5 Hyperlipidemia, unspecified; I10 Essential (primary) hypertension
CPT/HCPCS: 36415; 80053; 80061; 82306; 84443; 85025

== ENCOUNTER → 2020-11-22 12:50 | Outpatient (CLI) | payer MEDICARE, SELFPAY ==
[2020-08-13 14:25] VITALS: BMI 27.0
--- NOTE | 2020-11-22 12:51 | BI_ITS ---
MAMMOGRAPHY - BILATERAL SCREENING REASON FOR EXAM: Female, 70 years old. Routine annual screening examination. PERTINENT HISTORY: Sister with breast cancer. TECHNIQUE: Digital bilateral breast hiro (3D mammographic acquisition) in the CC and MLO projections. 2-D mediolateral oblique (MLO) and craniocaudad (CC) views of both breasts were obtained. CAD: Full Field Digital Mammography with Computer Added Detection was performed. COMPARISON: Comparison is made with prior study dated 11/20/2019 and 11/16/2018. FINDINGS: Breast Composition: The breasts are heterogeneously dense, which may obscure small masses. There are no dominant masses or suspicious calcifications. Once again, a battery pack from a pacemaker device is seen in the left axillary region. No other significant abnormalities are identified. There has been no significant change since the prior study. BI/SCRN MAMM (CAD)W/HIRO BILAT IMPRESSION: Stable bilateral screening mammogram. Yearly follow-up mammogram recommended. (A) ASSESSMENT CATEGORY: BIRADS Category 2: Benign. A letter regarding these results will be sent to the patient by the facility within 30 days. Approximately 10% of breast cancers are not detected by mammography. A normal mammogram should not delay biopsy of a clinically suspicious abnormality. [id number] Electronically Signed: Keanu Hartley MD at 9:33 EDT , Service support ,
== END ==
PROVIDERS: PCP Family Medicine Geriatric Medicine; Referring Provider Obstetrics & Gynecology Gynecology; Visit Provider Obstetrics & Gynecology Gynecology
DX: Z12.31 Encounter for screening mammogram for malignant neoplasm of breast (principal)
CPT/HCPCS: 77063; 77067

== ENCOUNTER → 2021-02-25 11:28 | Outpatient (CLI) | payer MEDICARE, SELFPAY ==
[2021-02-25 12:37] LABS: Absolute Lymphocyte Count 1.61 X10^3/uL (0.83-4.51); Absolute Neutrophil Count 3.8 X10^3/uL (2.0-7.7); Basophil# 0.03 X10^3/uL; Basophil% 0.5 % (0-1); Eosinophil# 0.09 X10^3/uL; Eosinophils% 1.5 % (0-5); Hematocrit 31.9 % (37-47); Hemoglobin 10.4 g/dL (12.0-15.0); Lymphocyte # 1.61 X10^3/ul (0.83-4.51); Mean Corp Hgb Conc 32.6 g/dL (32-36); Mean Corpuscular Hgb 28.3 pg (27.0-32.0); Mean Corpuscular Volume 86.7 fL (81-99); Mean Platelet Vol. 11.4 fl (6.2-12.0); Monocyte# 0.61 X10^3/uL; Monocyte% 9.9 % (0-10); NRBC Flagged by Analyzer 0 % (0-5); Neutrophil # 3.83 X10^3/uL (2.7-7.7); Neutrophil % 61.8 % (47-70); Platelet Count 233 K/mm3 (150-450); RBC Distribution Width CV 14.6 % (11.6-14.6); RBC Distribution Width SD 46.5 fl (35.1-43.9); Red Blood Count 3.68 M/mm3 (4.2-5.4); White Blood Count 6.2 K/mm3 (4.4-11.0)
[2021-02-25 12:53] LABS: Vitamin D,25 Hydroxy 44.9 ng/mL
[2021-02-25 12:56] LABS: ALB/GLOB Ratio 0.8 RATIO (0.9-2.4); AST(SGOT) 14 U/L (15-37); Alanine Aminotransfer ALT/SGPT 21 U/L (13-56); Albumin, Serum 3.1 g/dL (3.2-5.0); Alkaline Phosphatase 84 U/L (45-117); Anion Gap 6 (5-15); BUN 31 mg/dL (7-18); BUN/Creat Ratio 32.9 RATIO (10-20); Chloride 113 mmol/L (98-107); Cholesterol 151 mg/dL (200); Creatinine, Serum 0.94 mg/dL (0.55-1.02); EST Glomerular Filtration Rate 62 mL/min (>60); Est Glom Filt Rate - Afr Amer 75 mL/min (>60); Glucose 125 mg/dL (74-106); High Density Lipoprotein 48 mg/dL; Potassium 3.9 mmol/L (3.5-5.1); Protein, Total 7.1 g/dL (6.4-8.2); Sodium Level 142 mmol/L (136-145); Thyroid Stim Hormone (TSH) 1.02 uIU/mL (0.358-3.74); Triglycerides 102 mg/dL; Very Low Density Lipoprotein 20 mg/dL (5-40)
== END ==
PROVIDERS: PCP Family Medicine Geriatric Medicine; Visit Provider Family Medicine Geriatric Medicine
DX: E11.9 Type 2 diabetes mellitus without complications (principal); E55.9 Vitamin D deficiency, unspecified; E78.5 Hyperlipidemia, unspecified; I10 Essential (primary) hypertension
CPT/HCPCS: 36415; 80053; 80061; 82306; 84443; 85025

== ENCOUNTER 2021-05-09 13:05 | Outpatient (CLI) | payer MEDICARE, SELFPAY | END 2021-05-09 23:59 | disposition short-term general hospital (02) | LOC: PSN 13:07 | PROVIDERS: PCP Family Medicine Geriatric Medicine; Referring Provider Family Medicine Geriatric Medicine; Visit Provider Family Medicine Geriatric Medicine | DX: U07.1 COVID-19 (principal); R68.83 Chills (without fever) | CPT/HCPCS: 87635; 87804; 87807; C9803; U0003; U0005 ==

== ENCOUNTER → 2021-08-26 | Outpatient (CLI) | payer MEDICARE, SELFPAY ==
[2021-08-26 12:31] LABS: Absolute Lymphocyte Count 1.39 X10^3/uL (0.83-4.51); Absolute Neutrophil Count 6.1 X10^3/uL (2.0-7.7); Basophil# 0.01 X10^3/uL; Basophil% 0.1 % (0-1); Eosinophil# 0.01 X10^3/uL; Eosinophils% 0.1 % (0-5); Lymphocyte # 1.39 X10^3/ul (0.83-4.51); Lymphocyte % 17.4 % (19-41); Mean Corp Hgb Conc 33.3 g/dL (32-36); Mean Corpuscular Hgb 28.3 pg (27.0-32.0); Mean Corpuscular Volume 84.8 fL (81-99); Mean Platelet Vol. 11.3 fl (6.2-12.0); Monocyte# 0.43 X10^3/uL; Monocyte% 5.4 % (0-10); NRBC Flagged by Analyzer 0 % (0-5); Neutrophil # 6.12 X10^3/uL (2.7-7.7); Neutrophil % 76.7 % (47-70); Platelet Count 228 K/mm3 (150-450); RBC Distribution Width CV 15.5 % (11.6-14.6); Red Blood Count 3.89 M/mm3 (4.2-5.4)
[2021-08-26 12:45] LABS: Vitamin D,25 Hydroxy 51.8 ng/mL
[2021-08-26 13:44] LABS: ALB/GLOB Ratio 0.8 RATIO (0.9-2.4); AST(SGOT) 17 U/L (15-37); Alanine Aminotransfer ALT/SGPT 19 U/L (13-56); Albumin, Serum 3.5 g/dL (3.2-5.0); Alkaline Phosphatase 72 U/L (45-117); Anion Gap 9 (5-15); BUN 20 mg/dL (7-18); BUN/Creat Ratio 24.6 RATIO (10-20); Calcium,Total 9.6 mg/dL (8.5-10.1); Chloride 108 mmol/L (98-107); Cholesterol 189 mg/dL (200); Creatinine, Serum 0.81 mg/dL (0.55-1.02); EST Glomerular Filtration Rate 74 mL/min (>60); Est Glom Filt Rate - Afr Amer 89 mL/min (>60); Globulin 4.2 g/dL (2.2-4.2); Glucose 130 mg/dL (74-106); High Density Lipoprotein 60 mg/dL; Potassium 3.8 mmol/L (3.5-5.1); Protein, Total 7.7 g/dL (6.4-8.2); Sodium Level 139 mmol/L (136-145); Thyroid Stim Hormone (TSH) 0.85 uIU/mL (0.358-3.74); Triglycerides 67 mg/dL; Very Low Density Lipoprotein 13 mg/dL (5-40)
== END | disposition home or self-care (01) ==
LOC: POLAB3 11:52
PROVIDERS: PCP Family Medicine Geriatric Medicine; Visit Provider Family Medicine Geriatric Medicine
DX: E11.9 Type 2 diabetes mellitus without complications (principal); E55.9 Vitamin D deficiency, unspecified; E78.5 Hyperlipidemia, unspecified; I10 Essential (primary) hypertension
CPT/HCPCS: 36415; 80053; 80061; 82306; 84443; 85025

== ENCOUNTER → 2021-11-18 | Outpatient (CLI) | payer MEDICARE, SELFPAY ==
--- NOTE | 2021-11-18 15:38 | BI_ITS ---
MAMMOGRAPHY - BILATERAL SCREENING 3-D TOMOSYNTHESIS REASON FOR EXAM: Female, 71 years old. Routine screening PERTINENT HISTORY: Sister with breast cancer.. TECHNIQUE: 2-D mammograms and 3-D Tomosynthesis of the breast (s) were performed. CAD was performed. COMPARISON: 11/22/2020 FINDINGS: The breast composition is composed of scattered fibroglandular density. Scattered benign calcifications are seen. No dense spiculated masses or suspicious microcalcifications are identified. No architectural distortion is identified. There is no skin thickening or retraction. There has been no significant change since the prior study. BI/SCRN MAMM (CAD)W/HIRO BILAT IMPRESSION: No mammographic signs of malignancy. Routine yearly mammograms recommended. ASSESSMENT CATEGORY: BIRADS Category 2: Benign. A letter regarding these results will be sent to the patient by the facility within 30 days. FOLLOW UP RECOMMENDATION: Yearly follow up mammogram recommended. (A) Approximately 10% of breast cancers are not detected by mammography. A normal mammogram should not delay biopsy of a clinically suspicious abnormality. Electronically Signed: Harshal Garg MD at 11:19 EDT ,
== END | disposition home or self-care (01) ==
LOC: OPBI 15:34
PROVIDERS: PCP Family Medicine Geriatric Medicine; Visit Provider Obstetrics & Gynecology Gynecology
DX: Z12.31 Encounter for screening mammogram for malignant neoplasm of breast (principal); Z80.3 Family history of malignant neoplasm of breast
CPT/HCPCS: 77063; 77067

== ENCOUNTER → 2022-03-03 | Outpatient (CLI) | payer MEDICARE, SELFPAY ==
[2022-03-03 12:18] LABS: Absolute Lymphocyte Count 1.77 X10^3/uL (0.83-4.51); Basophil# 0.05 X10^3/uL; Basophil% 0.9 % (0-1); Eosinophil# 0.07 X10^3/uL; Eosinophils% 1.3 % (0-5); Hematocrit 35.2 % (37-47); Hemoglobin 11.3 g/dL (12.0-15.0); Lymphocyte # 1.77 X10^3/ul (0.83-4.51); Lymphocyte % 33.4 % (19-41); Mean Corp Hgb Conc 32.1 g/dL (32-36); Mean Corpuscular Hgb 26.8 pg (27.0-32.0); Mean Corpuscular Volume 83.6 fL (81-99); Mean Platelet Vol. 11.3 fl (6.2-12.0); Monocyte# 0.43 X10^3/uL; Monocyte% 8.1 % (0-10); NRBC Flagged by Analyzer 0 % (0-5); Neutrophil # 2.96 X10^3/uL (2.7-7.7); Neutrophil % 55.9 % (47-70); Platelet Count 296 K/mm3 (150-450); RBC Distribution Width CV 16.2 % (11.6-14.6); RBC Distribution Width SD 49.1 fl (35.1-43.9); Red Blood Count 4.21 M/mm3 (4.2-5.4); White Blood Count 5.3 K/mm3 (4.4-11.0)
[2022-03-03 12:54] LABS: Vitamin D,25 Hydroxy 58.7 ng/mL
[2022-03-03 13:01] LABS: ALB/GLOB Ratio 0.8 RATIO (0.9-2.4); AST(SGOT) 16 U/L (15-37); Alanine Aminotransfer ALT/SGPT 16 U/L (13-56); Albumin, Serum 3.3 g/dL (3.2-5.0); Alkaline Phosphatase 81 U/L (45-117); Anion Gap 6 (5-15); BUN 17 mg/dL (7-18); BUN/Creat Ratio 20.3 RATIO (10-20); Calcium,Total 9.6 mg/dL (8.5-10.1); Chloride 112 mmol/L (98-107); Cholesterol 170 mg/dL (200); Creatinine, Serum 0.84 mg/dL (0.55-1.02); EST Glomerular Filtration Rate 71 mL/min (>60); Est Glom Filt Rate - Afr Amer 86 mL/min (>60); Globulin 4.4 g/dL (2.2-4.2); Glucose 108 mg/dL (74-106); High Density Lipoprotein 58 mg/dL; Potassium 3.6 mmol/L (3.5-5.1); Protein, Total 7.7 g/dL (6.4-8.2); Sodium Level 143 mmol/L (136-145); Triglycerides 76 mg/dL; Very Low Density Lipoprotein 15 mg/dL (5-40)
== END | disposition home or self-care (01) ==
LOC: POLAB3 09:47
PROVIDERS: PCP Family Medicine Geriatric Medicine; Visit Provider Family Medicine Geriatric Medicine
DX: E11.9 Type 2 diabetes mellitus without complications (principal); I10 Essential (primary) hypertension; E55.9 Vitamin D deficiency, unspecified; E78.5 Hyperlipidemia, unspecified
CPT/HCPCS: 36415; 80053; 80061; 82306; 84443; 85025

== ENCOUNTER → 2022-07-14 | Outpatient (CLI) | payer MEDICARE, SELFPAY ==
[2022-07-14 16:02] LABS: Bacteria 0 SEEN /hpf (None Seen); Mucous, Urine 0 SEEN /hpf (<or=2+); Red Blood Cells-Urine 0 SEEN /hpf (0-5); Squamous Epithelial Cells - UA 0 SEEN /hpf (5-10); White Blood Cells 0 SEEN /hpf (0-5)
[2022-07-14 16:17] LABS: Color, Urine Yellow (Yellow); Glucose, Dipstick Normal (Normal); Ketone-Dipstick Negative (Negative); Leukocyte Esterase-Dipstick 25 /ul (Negative); Nitrite-Dipstick Negative (Negative); Occult Blood-Urine Negative /ul (Negative); Protein-Dipstick Negative (Negative); Urine Bilirubin Dipstick Negative (Negative); Urine Clarity Clear (Clear); Urine Urobilinogen Normal (Normal)
[2022-07-14 16:23] LABS: Hematocrit 36.1 % (37-47); Hemoglobin 11.5 g/dL (12.0-15.0); Mean Corp Hgb Conc 31.9 g/dL (32-36); Mean Corpuscular Hgb 27.5 pg (27.0-32.0); Mean Corpuscular Volume 86.4 fL (81-99); Mean Platelet Vol. 10.6 fl (6.2-12.0); Platelet Count 228 K/mm3 (150-450); RBC Distribution Width CV 15.7 % (11.6-14.6); RBC Distribution Width SD 49.3 fl (35.1-43.9); Red Blood Count 4.18 M/mm3 (4.2-5.4); White Blood Count 6.5 K/mm3 (4.4-11.0)
[2022-07-14 17:01] LABS: Anion Gap 3 (5-15); BUN 14 mg/dL (7-18); BUN/Creat Ratio 17.5 RATIO (10-20); Calcium,Total 9.3 mg/dL (8.5-10.1); Chloride 110 mmol/L (98-107); EST Glomerular Filtration Rate 75 mL/min (>60); Est Glom Filt Rate - Afr Amer 91 mL/min (>60); Glucose 103 mg/dL (74-106); Potassium 3.8 mmol/L (3.5-5.1); Prothrombin Time (Protime)PT. 12.7 SECONDS (11.7-14.9); Sodium Level 139 mmol/L (136-145)
== END | disposition home or self-care (01) ==
LOC: LAB 15:55
PROVIDERS: PCP Family Medicine Geriatric Medicine; Visit Provider Internal Medicine Cardiovascular Disease
DX: I42.8 Other cardiomyopathies (principal); I44.7 Left bundle-branch block, unspecified; Z95.810 Presence of automatic (implantable) cardiac defibrillator
CPT/HCPCS: 36415; 80048; 81001; 85027; 85610

== ENCOUNTER → 2022-07-16 | Outpatient (CLI) | payer MEDICARE, SELFPAY ==
--- NOTE | 2022-07-16 14:47 | ECHOD_ITS ---
Reason For Study: CARDIOMYOPATHY Procedure This was a 2D Doppler, Color Flow transthoracic echocardiogram. Exam performed in department. Left Ventricle Normal LV size. Left ventricular systolic function is normal. The estimated ejection fraction is 55 %. No regional wall motion abnormalities noted. Right Ventricle Normal RV size. ICD or pacer leads identified within the right ventricle. Normal systolic function. Atria Normal left atrium. Normal right atrium. Mitral Valve Mild (1+) eccentric mitral valve insufficiency. Tricuspid Valve Normal tricuspid valve. Mild tricuspid valve insufficiency. Pulmonary artery systolic pressure is 29 mmHg. Aortic Valve Trisinus/trileaflet aortic valve. Normal aortic valve. Pulmonic Valve Normal pulmonic valve. Great Vessels Normal aortic root. The pulmonary artery is normal size. Normal inferior vena cava. Pericardium/Pleural No pericardial effusion. MMode/2D Measurements & Calculations LVIDd: 3.7 cm IVSd: 1.1 cm Ao root diam: 3.3 cm LVIDs: 2.7 cm LVPWd: 1.1 cm RVDd: 4.3 cm FS: 27.3 % LAV(MOD-bp): 46.7 ml LVAd ap4: 25.8 cm2 LVAd ap2: 24.6 cm2 LAV(MOD-bp) Indexed: 28.8 ml/m2 LVLd ap4: 7.3 cm LVLd ap2: 7.5 cm LAV(MOD-sp2): 44.9 ml EDV(MOD-sp4): 77.9 ml EDV(MOD-sp2): 67.5 ml LAV(MOD-sp4): 44.9 ml EDV(sp4-el): 77.4 ml EDV(sp2-el): 68.5 ml LVAs ap4: 14.5 cm2 LVAs ap2: 13.9 cm2 LVLs ap4: 5.9 cm LVLs ap2: 6.5 cm ESV(MOD-sp4): 33.0 ml ESV(MOD-sp2): 27.6 ml ESV(sp4-el): 30.2 ml ESV(sp2-el): 25.3 ml EF(MOD-sp4): 57.6 % EF(MOD-sp2): 59.1 % EF(sp4-el): 60.9 % SV(MOD-sp4): 44.9 ml SV(MOD-sp2): 39.9 ml SV(sp4-el): 47.2 ml LA dimension(2D): 3.3 cm LA A4 area: 16.0 cm2 RA A4 area: 18.1 cm2 Time Measurements MV dec time: 0.28 sec Doppler Measurements & Calculations MV E max amol: 47.7 cm/sec Lat Peak E' Amol: 5.8 cm/sec Med Peak E' Amol: 4.0 cm/sec MV A max amol: 90.4 cm/sec E/E' lat: 8.2 E/E' med: 12.0 MV E/A: 0.53 MV dec slope: 181.4 cm/sec2 Ao V2 max: 116.3 cm/sec LV V1 max: 74.1 cm/sec Ao max P.4 mmHg LV V1 max P.2 mmHg Ao V2 mean: 83.1 cm/sec LV V1 mean P.2 mmHg Ao mean P.1 mmHg LV V1 mean: 50.7 cm/sec Ao V2 VTI: 26.3 cm LV V1 VTI: 16.3 cm AV (velocity ratio): 0.62 MR max amol: 541.5 cm/sec PA V2 max: 83.8 cm/sec PI dec slope: 90.3 cm/sec2 MR max P.3 mmHg MR mean amol: 440.5 cm/sec MR mean P.3 mmHg MR VTI: 187.8 cm TR max amol: 249.7 cm/sec TR max P.9 mmHg ECHO/Echo Complete Interpretation Summary Normal LV size. Left ventricular systolic function is normal. The estimated ejection fraction is 55 %. ICD or pacer leads identified within the right ventricle. Pulmonary artery systolic pressure is 29 mmHg. Compared to previous study, the left ventricular systolic function is the same. . Ordering Physician: Lisset Vo Referring Physician: Tej Lloyd Chi Performed By: Nina Hdz, ROMAINE, RVT
== END | disposition home or self-care (01) ==
LOC: CVS 14:46
PROVIDERS: PCP Family Medicine Geriatric Medicine; Referring Provider Physician Assistant Medical; Visit Provider Physician Assistant Medical
DX: I42.8 Other cardiomyopathies (principal)
CPT/HCPCS: 93306

== ENCOUNTER 2022-07-23 10:05 | Day surgery (SDC) | payer MEDICARE, SELFPAY ==
[2022-07-22 07:42] VITALS: BMI 28.1
--- NOTE | 2022-07-23 12:42 | ELECTROSTU_ITS ---
Electrophysiology Report Electrophysiology Report Diagnosis: NONISCHEMIC Cardiomyopathy with NYHA Class II. ICD for PRIMARY prevention. Device generator replacement for normal battery depletion Preoperative diagnosis is device at end of life for normal battery depletion. Postoperative diagnosis same as above. After informed consent and IV antibiotics the patient was brought to the [facility] catheterization laboratory and the skin over the device was prepped and draped in the usual sterile manner. Intermittent boluses of Versed, and fentanyl were used for sedation and analgesia as well as 1% subcutaneous lidocaine. An incision was made over the pre-existing device. Using blunt and Bovie dissection the pocket was opened and the device was removed. Careful attention was paid not to injure the pre-existing leads. The leads were removed from the device header and they were interrogated. There is normal lead function. H emostasis was obtained. The pocket was flushed with antibiotic solution. The sponge and needle count were correct. The new device was brought to the field. The leads were placed in the appropriate position in the header and secured by the set screw. The leads and the device were then placed in the pocket. The pocket was closed with a deep layer of running 2-0 Vicryl, a superficial layer of running 4-0 Vicryl, skin with Steri-Strips which were covered with a rolled 4 x 4 and Tegaderm. Patient left the room with the device programmed to proper parameters and there were no complications. The device is a BiV ICD [employer] generator. All lead parameters were tested and found to be functionally normal. Lead and device serial and model numbers are available in the chart documents provided by the device company business services representative procedure summary.
== END 2022-07-23 14:30 | disposition home or self-care (01) ==
LOC: CLSP 10:07
PROVIDERS: PCP Family Medicine Geriatric Medicine; Referring Provider Internal Medicine Cardiovascular Disease; Visit Provider Internal Medicine Cardiovascular Disease
DX: Z45.02 Encounter for adjustment and management of automatic implantable cardiac defibrillator (principal); I42.8 Other cardiomyopathies; E11.9 Type 2 diabetes mellitus without complications; I10 Essential (primary) hypertension; Z95.810 Presence of automatic (implantable) cardiac defibrillator; E78.5 Hyperlipidemia, unspecified; Z79.84 Long term (current) use of oral hypoglycemic drugs; Z79.899 Other long term (current) drug therapy
CPT/HCPCS: 33264; 93641; 99152; 99153; J7040; J7050

== ENCOUNTER → 2022-08-25 | Outpatient (CLI) | payer MEDICARE, SELFPAY ==
[2022-08-25 12:55] LABS: Absolute Lymphocyte Count 1.88 X10^3/uL (0.83-4.51); Absolute Neutrophil Count 3.1 X10^3/uL (2.0-7.7); Basophil# 0.06 X10^3/uL; Basophil% 1.1 % (0-1); Eosinophils% 1.8 % (0-5); Hematocrit 36.7 % (37-47); Hemoglobin 11.8 g/dL (12.0-15.0); Lymphocyte # 1.88 X10^3/ul (0.83-4.51); Lymphocyte % 33.5 % (19-41); Mean Corp Hgb Conc 32.2 g/dL (32-36); Mean Corpuscular Volume 87.2 fL (81-99); Mean Platelet Vol. 12.5 fl (6.2-12.0); Monocyte# 0.51 X10^3/uL; Monocyte% 9.1 % (0-10); NRBC Flagged by Analyzer 0 % (0-5); Neutrophil # 3.05 X10^3/uL (2.7-7.7); Neutrophil % 54.3 % (47-70); Platelet Count 201 K/mm3 (150-450); RBC Distribution Width CV 15.5 % (11.6-14.6); RBC Distribution Width SD 49.1 fl (35.1-43.9); Red Blood Count 4.21 M/mm3 (4.2-5.4); White Blood Count 5.6 K/mm3 (4.4-11.0)
[2022-08-25 13:13] LABS: Vitamin D,25 Hydroxy 74.1 ng/mL
[2022-08-25 13:38] LABS: ALB/GLOB Ratio 0.8 RATIO (0.9-2.4); AST(SGOT) 21 U/L (15-37); Alanine Aminotransfer ALT/SGPT 18 U/L (13-56); Albumin, Serum 3.3 g/dL (3.2-5.0); Alkaline Phosphatase 86 U/L (45-117); Anion Gap 9 (5-15); BUN 16 mg/dL (7-18); BUN/Creat Ratio 18.4 RATIO (10-20); Calcium,Total 9.6 mg/dL (8.5-10.1); Chloride 108 mmol/L (98-107); Creatinine, Serum 0.87 mg/dL (0.55-1.02); EST Glomerular Filtration Rate 68 mL/min (>60); Est Glom Filt Rate - Afr Amer 82 mL/min (>60); Globulin 4.3 g/dL (2.2-4.2); Glucose 134 mg/dL (74-106); Potassium 3.3 mmol/L (3.5-5.1); Protein, Total 7.6 g/dL (6.4-8.2); Sodium Level 140 mmol/L (136-145)
== END | disposition home or self-care (01) ==
LOC: POLAB3 10:42
PROVIDERS: PCP Family Medicine Geriatric Medicine; Visit Provider Family Medicine Geriatric Medicine
DX: I10 Essential (primary) hypertension (principal); E11.65 Type 2 diabetes mellitus with hyperglycemia; E55.9 Vitamin D deficiency, unspecified
CPT/HCPCS: 36415; 80053; 82306; 84443; 85025

== ENCOUNTER 2022-09-18 11:46 | Emergency (ER) | payer MEDICARE, SELFPAY ==
[2022-09-18 11:46] VITALS: BP 190/89; PULSE 77; RESP 18; TEMP 36.7; O2SAT 100; BMI 27.7
--- NOTE | 2022-09-18 12:00 | EDS_ITS ---
HPI History of Present Illness Chief Complaint: Back [facility] Medical History Anemia Diabetes Essential (primary) hypertension HLD (hyperlipidemia) ROB (iron deficiency anemia) Left bundle branch block Non-ischemic cardiomyopathy Home Medications timolol maleate 0.5 % eye drops 1 drp EACH EYE BID 03/01/13 [History Last Taken 03/02/13] atorvastatin 40 mg tablet 40 mg PO QHS 09/06/18 [History Last Taken Unknown] dorzolamide (PF) 2 % (PF) eye drops 10 ml OP BID 09/06/18 [History Last Taken Unknown] metformin 500 mg tablet 500 mg PO BID 02/16/19 [History Last Taken Unknown] cholecalciferol (vitamin D3) 25 mcg (1,000 unit) capsule 25 mcg PO DAILY 02/13/20 [History Last Taken Unknown] latanoprost (PF) 0.005 % eye drops 1 drp ophthalmic (eye) QHS 07/02/21 [History Last Taken 07/23/22] carvedilol 25 mg tablet (Coreg) 25 mg PO BID #180 tabs 05/04/22 [Rx Last Taken 07/23/22] amlodipine 10 mg tablet 10 mg PO QDAY #90 tabs 07/14/22 [Rx Last Taken 07/23/22] Allergy/AdvReac Type Severity Reaction Status Date / Time RAND Inhibitors Allergy Severe Swelling Verified 09/18/22 11:49 Sulfa (Sulfonamide Allergy Mild Rash Verified 09/18/22 11:49 Antibiotics) Family History Father No problems noted. Sister Breast cancer Sister Colon cancer Surgical History Biventricular ICD (implantable cardioverter-defibrillator) in place (07/23/22) H/O: hysterectomy History of left heart catheterization (1994) Hx of cataract surgery Social History Smoking Status: Never smoker alcohol intake: never substance use type: does not use caffeine: No EXAM Physical Exam Const Vital Signs: 09/18/22 11:46 Temperature 98.1 F Temperature Source Temporal Pulse Rate 77 Respiratory Rate 18 Blood Pressure 190/89 H Blood Pressure Mean 122 Pulse Ox 100 Oxygen Delivery Method Room Air Discharge Plan Triage Chief Complaint: Back ED Midlevel Provider: Viola Chapin ED Provider: Bill Foreman Dx/Rx/DC Orders Prescriptions: No Action metformin 500 mg tablet 500 mg PO BID cholecalciferol (vitamin D3) 25 mcg (1,000 unit) capsule 25 mcg PO DAILY amlodipine 10 mg tablet 10 mg PO QDAY Qty: 90 0RF timolol maleate 1 DROP drops 1 drp EACH EYE BID atorvastatin 40 MG tablet 40 mg PO QHS dorzolamide (PF) 10 ML drops 10 ml OP BID Rx Instructions: 1 gtt both eyes bid latanoprost (PF) 0.005 % drops 1 drp ophthalmic (eye) QHS Rx Instructions: 1 gtt both eyes qhs carvedilol [Coreg] 25 mg tablet 25 mg PO BID Qty: 180 3RF Rx Instructions: give with food (meal/snack) Primary Care Provider: Tej Lloyd Chi Referrals: Tej Lloyd Chi, MD [Primary Care Provider] -
--- NOTE | 2022-09-18 12:01 | EDS_ITS ---
HPI <FEMI Wilson - Last Filed: 09/18/22 14:48> History of Present Illness Chief Complaint: Back Narrative Narrative: Presenting today due to left-sided thoracic back pain that she has had now since Wednesday. She reports that on Wednesday she was in her garage cleaning and was lifting heavy objects, and doing things I am not supposed to be doing. The pain is worsened with range of motion. She has not tried taking anything today for her pain. She denies any fever, chills, urinary symptoms, history of IV drug use, bowel/bladder incontinence, saddle paresthesia. PFSH <FEMI Wilson - Last Filed: 09/18/22 14:48> [facility] Medical History Anemia Diabetes Essential (primary) hypertension HLD (hyperlipidemia) ROB (iron deficiency anemia) Left bundle branch block Non-ischemic cardiomyopathy Home Medications timolol maleate 0.5 % eye drops 1 drp EACH EYE BID 03/01/13 [History Last Taken 03/02/13] atorvastatin 40 mg tablet 40 mg PO QHS 09/06/18 [History Last Taken Unknown] dorzolamide (PF) 2 % (PF) eye drops 10 ml OP BID 09/06/18 [History Last Taken Unknown] metformin 500 mg tablet 500 mg PO BID 02/16/19 [History Last Taken Unknown] cholecalciferol (vitamin D3) 25 mcg (1,000 unit) capsule 25 mcg PO DAILY 02/13/20 [History Last Taken Unknown] latanoprost (PF) 0.005 % eye drops 1 drp ophthalmic (eye) QHS 07/02/21 [History Last Taken 07/23/22] carvedilol 25 mg tablet (Coreg) 25 mg PO BID #180 tabs 05/04/22 [Rx Last Taken 07/23/22] amlodipine 10 mg tablet 10 mg PO QDAY #90 tabs 07/14/22 [Rx Last Taken 07/23/22] Allergy/AdvReac Type Severity Reaction Status Date / Time RAND Inhibitors Allergy Severe Swelling Verified 09/18/22 11:49 Sulfa (Sulfonamide Allergy Mild Rash Verified 09/18/22 11:49 Antibiotics) Family History Father No problems noted. Sister Breast cancer Sister Colon cancer Surgical History Biventricular ICD (implantable cardioverter-defibrillator) in place (07/23/22) H/O: hysterectomy History of left heart catheterization (1994) Hx of cataract surgery Social History Smoking Status: Never smoker alcohol intake: never substance use type: does not use caffeine: No ROS <FEMI Wilson - Last Filed: 09/18/22 14:48> ROS ED Constitutional Constitutional ED: Denies chills or fever(s) Cardiovascular Cardiovascular: Denies chest pain or palpitations Respiratory/Chest Respiratory/Chest: Denies cough or dyspnea Gastrointestinal Gastrointestinal: Denies abdominal pain, nausea or vomiting Genitourinary Genitourinary ED: Denies dysuria, hematuria or urinary urgency Musculoskeletal Musculoskeletal: Reports back pain; Denies neck pain Integumentary Denies abscess, Abrasions or rash Neurologic Neurologic: Denies paresthesias or weakness EXAM <FEMI Wilson - Last Filed: 09/18/22 14:48> Physical Exam Const Vital Signs: 09/18/22 11:46 Temperature 98.1 F Temperature Source Temporal Pulse Rate 77 Respiratory Rate 18 Blood Pressure 190/89 H Blood Pressure Mean 122 Pulse Ox 100 Oxygen Delivery Method Room Air Positive well nourished, well developed and no apparent distress General Appearance ED: well developed HEENT Reports normocephalic and head/scalp atraumatic Mouth ED: Yes moist mucous membranes normal Eyes PERRL and EOMs intact bilaterally Neck full ROM and supple Chest Wall inspection of chest normal Resp normal respiratory effort and clear to auscultation bilaterally Cardio regular rate and regular rhythm GI soft to palpation, non-tender, non-distended and no masses Back/Spine normal ROM, normal to inspection and no thoracic nor lumbar tenderness Back/Spine Narrative: Paraspinal tenderness to the left thoracic region, no midline tenderness. Cervical Spine: Negative for cervical spine tenderness Extremity normal to inspection and full ROM Neuro oriented x3, CN's II-XII intact bilaterally, moves all extremities, no focal motor deficits and no sensory deficits noted Sensorium / Orientation: awake and alert Motor Exam: strength 5/5 throughout Psych mental status grossly normal and thought process normal Skin no rashes or lesions noted and no wounds <Dr. Bill Foreman, - Last Filed: 09/18/22 12:20> Physical Exam Const Vital Signs: 09/18/22 11:46 Temperature 98.1 F Temperature Source Temporal Pulse Rate 77 Respiratory Rate 18 Blood Pressure 190/89 H Blood Pressure Mean 122 Pulse Ox 100 Oxygen Delivery Method Room Air [facility] <FEMI Wilson - Last Filed: 09/18/22 14:48> [facility] Narrative Medical decision making narrative: Patient presenting today with back pain that she has had since Wednesday morning when she woke up. On Wednesday she was cleaning her garage and moving a lot of heavy objects. I have considered imaging, but it is not indicated given patient had no injury to her back, I considered cauda equina syndrome and spinal abscess but these are not likely given patient's history. Pain is reproducible to the left thoracic paraspinal muscles and is reproducible with range of motion and patient sitting up in the examination bed. She has not tried taking anything today for her pain. Given her age, mutual decision making was made regarding narcotic pain medication and patient would rather try [id number]-[id number] meds first. She has been given Tylenol here as well as a lidocaine patch. She is to tile [employer] and Tylenol and ibuprofen from the store for her back pain. She is to follow-up with her PCP and has been given strict return instructions. She will be discharged home in stable condition and is comfortable with plan. <Dr. Bill Foreman DO - Last Filed: 09/18/22 12:20> [facility] Treatment and Re-Evaluation Narrative: ED attending note: I evaluated the patient in conjunction with the JEREMIAS. I agree with his/her statements and above findings. I have personally performed a face to face assessment of the patient and have reviewed the JEREMIAS Note. I performed a substantive portion of the visit including all aspects of the following. I personally saw the patient performed chart review, physical exam, reviewed labs, imaging (if obtained), and formulated a treatment and management plan. Exam: Nursing triage notes reviewed, Vital signs reviewed Constitutional: please see [facility] Abdomen: Soft, there is no tenderness, rigidity, rebound or guarding, no obvious peritoneal signs, no palpable pulsatile abdominal masses, no auscultated abdominal bruit : No CVAT Extremities: No edema Neuro: Intact sensation L1-S1 dermatomal distributions. Intact 5/5 strength in hip flexion (T12-L3). Knee extension (L2-L4). Ankle dorsiflexion (L4-L5). Ankle plantar flexion (S1). Great toe extension (L5). 2+ patellar and Achilles DTRs. Skin: No rash or lesions noted MDM/plan: Chief Complaint: Back pain External records reviewed: No recent advanced imaging of the axial skeleton I considered the following differential diagnosis: Space-occupying lesion of spine, cauda equina, AAA, nephrolithiasis, pyelonephritis, muscle skeletal back pain. The patient's history and physical exam was most consistent with musculoskeletal back pain. She had no back pain red flags such as bowel or bladder incontinence, urinary retention, IV drug use, fever, loss of sensation or movement to suggest baseline by lesion spine or cauda equina. Abdominal exam is benign with no auscultated bruits or pulsatile abdominal masses to suggest AAA. She no urinary symptoms to suggest pyelonephritis or nephrolithiasis. We will give symptomatic treatment here in the form of anti-inflammatories, narcotic pain medicine and lidocaine pain patches. Will suggest similar medicines to go home. We gave strict return precautions and follow-up instructions. The patient presented complaining of back pain. There was no history of recent fall or trauma. There was no evidence to support genitourinary etiology. There is also no evidence to suggest vascular pathology such as AAA dissection. No fevers or other evidence to suspect infectious processes, abscess, osteomyelitis etc. The patient?s neurological exam is normal with normal motor and sensory. There is no saddle paresthesias reported and no bowel or bladder incontinence or retention. I suspect the pain is mechanical in nature. Clinical suspicion, plan of care and management was discussed with the patient. The patient was instructed to follow up with their health care provider. The patient was also instructed to return if the pain worsened, changed, or developed weakness or bowel or bladder trouble. The patient agreed with plan. I completed a structured, evidence-based clinical evaluation to screen for acute non-traumatic spinal emergencies. The patient has a normal detailed neurologic exam and red flag historical factors were negative. The evidence indicates that the patient is very low risk for an acute spinal emergency and this is consistent with my clinical intuition. The risk of further workup is higher than the likelihood of the patient having a spinal epidural abscess or other dangerous emergency spinal condition. It is, therefore, in the patient?s best interest not to do additional emergent testing at this time. Shared Decision-Making I have discussed with the patient my clinical impression and the result of an evidence-based clinical evaluation to screen for spinal epidural abscess and other spinal emergencies, as well as the risk of further testing and hospitalization. The evidence shows that the risk for an acute spinal emergency is less than 1%. Although the risk of an acute spinal emergency has not been completely eliminated, the risks of further testing likely exceed any potential benefit, and the patient agrees with not pursuing further emergent evaluation for causes of back pain at this time. Factors affecting care: Anemia, type 2 diabetes, hypertension, hyperlipidemia, left intermittent blood Social determinants of health: No drug use History obtained from others: None Shared decision making: I will have a discussion with the patient and or visitors regarding risk/benefits of further testing or admission. They will be made aware of of t he risk/benefits inherent in this decision they will be given the opportunity to voice understanding. Consults: None Discharge Plan Triage Chief Complaint: Back ED Midlevel Provider: Viola Chapin ED Provider: Bill Foreman Dx/Rx/DC Orders Clinical Impression: Strain of thoracic back region Instructions: ED Back Sprain/Strain Prescriptions: No Action metformin 500 mg tablet 500 mg PO BID cholecalciferol (vitamin D3) 25 mcg (1,000 unit) capsule 25 mcg PO DAILY amlodipine 10 mg tablet 10 mg PO QDAY Qty: 90 0RF timolol maleate 1 DROP drops 1 drp EACH EYE BID atorvastatin 40 MG tablet 40 mg PO QHS dorzolamide (PF) 10 ML drops 10 ml OP BID Rx Instructions: 1 gtt both eyes bid latanoprost (PF) 0.005 % drops 1 drp ophthalmic (eye) QHS Rx Instructions: 1 gtt both eyes qhs carvedilol [Coreg] 25 mg tablet 25 mg PO BID Qty: 180 3RF Rx Instructions: give with food (meal/snack) Primary Care Provider: Tej Lloyd Chi Referrals: Tej Lloyd Chi, MD [Primary Care Provider] - Activity Restrictions/Additional Instructions: Thank you for trusting us with your care today! Please take Tylenol (2 pills, 650 mg), ibuprofen (2 pills, 400 mg) every 6 hours as needed for pain and fever control. Please return to the emergency department if your symptoms change or worsen. Specifically if you develop bowel or bladder incontinence, urinary retention, loss of sensation or movement in your lower extremities. If you can tolerate you are able to drive as necessary. Please limit driving to necessity such as grocery store shopping, errands for bills etc. Please follow with your primary care physician for further outpatient evaluation and management. Disposition Disposition: Home, Self Care Discharge Date/Time: 09/18/22 12:38
[2022-09-18] MEDS: Lidocaine 5% Patch 1 PATCH TOPICAL (12:25)
[2022-09-18] MEDS: Acetaminophen 325 MG Tablet 650 MG PO (12:25)
[2022-09-18] MEDS: dexAMETHasone 4 MG Tablet PO (12:25)
== END 2022-09-18 12:38 | disposition home or self-care (01) ==
PROVIDERS: Emergency Provider Emergency Medicine; PCP Family Medicine Geriatric Medicine; Visit Provider Emergency Medicine
DX: S29.012A Strain of muscle and tendon of back wall of thorax, initial encounter (principal); E11.9 Type 2 diabetes mellitus without complications; D64.9 Anemia, unspecified; I10 Essential (primary) hypertension; E78.5 Hyperlipidemia, unspecified; X50.0XXA Overexertion from strenuous movement or load, initial encounter
CPT/HCPCS: 99283

== ENCOUNTER → 2022-09-18 | Outpatient (CLI) | payer MEDICARE, SELFPAY ==
[2022-09-18 13:21] LABS: Anion Gap 7 (5-15); BUN 14 mg/dL (7-18); BUN/Creat Ratio 16.1 RATIO (10-20); Calcium,Total 10.4 mg/dL (8.5-10.1); Chloride 108 mmol/L (98-107); Creatinine, Serum 0.87 mg/dL (0.55-1.02); EST Glomerular Filtration Rate 68 mL/min (>60); Est Glom Filt Rate - Afr Amer 82 mL/min (>60); Glucose 116 mg/dL (74-106); Potassium 4.4 mmol/L (3.5-5.1); Sodium Level 141 mmol/L (136-145)
== END | disposition home or self-care (01) ==
LOC: LAB 11:30
PROVIDERS: PCP Family Medicine Geriatric Medicine; Referring Provider Family Medicine Geriatric Medicine; Visit Provider Family Medicine Geriatric Medicine
DX: E87.6 Hypokalemia (principal)
CPT/HCPCS: 36415; 80048

== ENCOUNTER 2022-11-20 07:12 | Day surgery (SDC) | payer MEDICARE, SELFPAY ==
--- NOTE | 2022-11-20 07:24 | HP.PCM_ITS ---
History and Physical Date of Admission: 11/20/22 Date of Service: 11/02/22 MR#: [id number] Acct: [id number] Name: DARLEEN PIRES Rep #: [id number] : 1950 Provider: Dr. Kellie Jc MD Age/Sex: 71/F Location: [facility] Status: Signed Intake Vital Signs 09/18/2310:46 11/02/2313:06 Height 5 ft 5 ft Weight: 149 lb BMI 29.0 BP 154/88 H Blood Pressure Location Rt brachial Position Sitting Respiration 18 Pulse 80 Pulse Source Monitor Temp 97.2 F L Temp Source Tympanic Intake Visit Reasons: COLONOSCOPY Chief Complaint: colonoscopy Allergies RAND Inhibitors Allergy (Severe, Verified 11/02/22 14:07) SwellingSulfa (Sulfonamide Antibiotics) Allergy (Mild, Verified 11/02/22 14:07) Rash Medications timolol maleate 0.5 % eye drops 1 drp EACH EYE BID 03/01/13 [History Confirmed 08/28/22] atorvastatin 40 mg tablet 40 mg PO QHS 09/06/18 [History Confirmed 08/28/22] dorzolamide (PF) 2 % (PF) eye drops 10 ml OP BID 09/06/18 [History Confirmed 08/28/22] metformin 500 mg tablet 500 mg PO BID 02/16/19 [History Confirmed 08/28/22] cholecalciferol (vitamin D3) 25 mcg (1,000 unit) capsule 25 mcg PO DAILY 02/13/20 [History Confirmed 08/28/22] latanoprost (PF) 0.005 % eye drops 1 drp ophthalmic (eye) QHS 07/02/21 [History Confirmed 08/28/22] carvedilol 25 mg tablet (Coreg) 25 mg PO BID #180 tabs 05/04/22 [Rx Confirmed 08/28/22] amlodipine 10 mg tablet 10 mg PO QDAY #90 tabs 07/14/22 [Rx Confirmed 08/28/22] PFSH Medical History Anemia Diabetes Essential (primary) hypertension HLD (hyperlipidemia) ROB (iron deficiency anemia) Left bundle branch block Non-ischemic cardiomyopathy Surgical History Biventricular ICD (implantable cardioverter-defibrillator) in place (07/23/22) H/O: hysterectomy History of left heart catheterization (1994) Hx of cataract surgery Family History Father No problems noted. Sister Breast cancerSister Colon cancer Social History Smoking Status: Never smoker alcohol intake: never substance use type: does not use caffeine: No HPI HPI HPI: -year-old female presents for history of colon polyps for colonoscopy. Patient's previous colonoscopies were done by Dr. Hicks last one was on 08/13/2016 patient had a tubular adenoma in the right colon and then villous adenoma in the distal transverse colon. Patient is unable to have further screening with Dr. Hicks as he is now out of network. Patient currently does have Suprep at home. Patient states she has bowel movements daily or every other day denies any blood. Patient denies any abdominal pain nausea vomiting or reflux. Patient never had any abdominal surgeries. Patient does currently have a cardiac pacer patient states she has had no issues with this. Patient's sister was diagnosed with colon cancer. ROS General General: No weight change, appetite, fatigue, colon cancer or breast cancer HEENT HEENT: No difficulty swallowing, eye injury, eye surgery, swollen glands or hoarseness Endo Endocrine: No thyroid disease, diabetes mellitus, thyroid cancer, Hair loss, heat intolerance or cold intolerance Skin Skin: No rash or changing moles Musc Musculoskeletal: No back problems, arthritis, rheumatoid arthritis, gout or joint pain Cardio Cardiovascular: Yes pacemaker, high blood pressure and heart attack; No murmur, heart disease, atrial fibrillation, heart stent, palpitations, shortness of breat with exertion or chest pain Psych Psychiatric: No depression, anxiety or hearing voices Resp Respiratory: No shortness of breath, No sleep apnea, No cough, No COPD, No asthma, No emphysema and No wheezing Gastro Gastrointestinal: No abdominal pain, No nausea or vomiting, No diarrhea, No constipation, No blood in stool, No acid reflux, No hemorrhoids, No ulcers, No gallbladder problem and No black,tarry stools Darrel Hematologic: No blood thinners, No blood disorders, No bleeding, No anemia and No blood clots Neuro Neurologic: No numbness and No tingling Exam Const General: cooperative, healthy appearing, comfortable and no acute distress Neck Neck: normal visual inspection Resp Effort & Inspection: normal respiratory effort Cardio Rate: regular rate GI Inspection: non-distended Palpation: soft, no guarding and nontender Skin General: no rashes or lesions noted Neuro General: patient oriented x3 Psych Affect: normal affect Assessment and Plan Assessment and Plan (1) Villous adenoma of colon: Status: Acute Comment: hx of- on 2016 colonoscopy (2) Biventricular ICD (implantable cardioverter-defibrillator) in place: Status: Chronic Comment: implant 07/03/2003 08/23/08, 03/01 Bi-V ICD, Gen change 07/23/2022 Orders: Orders Colonoscopy Today Plan I have discussed the above with the patient. I have offered the patient colonoscopy for evaluation. I have explained the risks/benefits of the procedure and described the procedure. I have discussed the risks with the patient, including but not limited to: infection, bleeding, perforation of the GI tract requiring emergency surgery, inability to complete the procedure, injury to any internal organs, complications of anesthesia, etc. - the patient understands and agrees to proceed. I have answered all the patient's questions to the patient's satisfaction and the patient has no further questions. The patient has been given instructions for the colon cleansing preparation. Suprep as patient already has at home Kellie Jc M.D. Pager: [phone] [facility] [address] [place] [address], [address] [place] [id number] Office: [phone] Coding Level of Care Code Off vis,new,level 3 Diagnoses Villous adenoma of colon D37.4 Biventricular ICD (implantable cardioverter-defibrillator) in place Z95.810 11/02/22 1427 <Electronically signed by Kellie cJ MD> Date Kellie Jc MD
[2022-11-20 07:41] VITALS: BP 186/82; PULSE 72; RESP 18; TEMP 36.9; O2SAT 100; BMI 27.1
[2022-11-20] MEDS: Lactated Ringers 1,000 ML 15 ML IV (07:50)
[2022-11-20 08:17] LABS: Bedside Glucose 125 mg/dL (74-106)
[2022-11-20 08:31] VITALS: BP 186/82; BP 90/44; PULSE 77; RESP 18; TEMP 36.7; O2SAT 99
[2022-11-20 08:34] VITALS: BP 186/82; BP 88/40; PULSE 75; RESP 12; O2SAT 100
[2022-11-20 08:35] VITALS: BP 106/52; BP 186/82; PULSE 65; RESP 14; O2SAT 99
--- NOTE | 2022-11-20 08:40 | OP.COLON_ITS ---
Patient Name: Gila Gould Procedure Date: 11/20/2022 7:56 AM Date of : 1950 Age: 72 Procedure: Colonoscopy Indications: High risk colon cancer surveillance: Personal history of adenoma with villous component Providers: Kellie Jc MD Referring MD: Kellie Jc MD Medicines: Monitored Anesthesia Care Patient Profile: This is a 72 year old female. Last Colonoscopy: 2016. Complications: No immediate complications. Procedure: Pre-Anesthesia Assessment: - Prior to the procedure, a History and Physical was performed, and patient medications and allergies were reviewed. The patient's tolerance of previous anesthesia was also reviewed. The risks and benefits of the procedure and the sedation options and risks were discussed with the patient. All questions were answered, and informed consent was obtained. Prior Anticoagulants: The patient has taken no previous anticoagulant or antiplatelet agents. ASA Grade Assessment: Per anesthesia. After reviewing the risks and benefits, the patient was deemed in satisfactory condition to undergo the procedure. After I obtained informed consent, the scope was passed under direct vision. Throughout the procedure, the patient's blood pressure, pulse, and oxygen saturations were monitored continuously. The Colonoscope was introduced through the anus and advanced to the cecum, identified by appendiceal orifice and ileocecal valve. The colonoscopy was performed without difficulty. The patient tolerated the procedure well. The quality of the bowel preparation was good. Scope In: 8:09:13 AM Scope Withdrawal Time 0 hours 11 minutes 5 seconds Scope Out: 8:27:15 AM Total Procedure Duration Time 0 hours 18 minutes 2 seconds Findings: Hemorrhoids were found on perianal exam. Non-bleeding internal hemorrhoids were found. The hemorrhoids were Grade I (internal hemorrhoids that do not prolapse). Previous tattoo area-in about descending- no polyps in this area The entire examined colon appeared normal. Impression: - Hemorrhoids found on perianal exam. - Non-bleeding internal hemorrhoids. - The entire examined colon is normal. - No specimens collected. Recommendation: - Discharge patient to home. - Resume previous diet. - Continue present medications. - Repeat colonoscopy in 5 years for screening purposes. Procedure Code(s): --- Professional --- G0105, PT, Colorectal cancer screening; colonoscopy on individual at high risk Diagnosis Code(s): --- Professional --- Z86.010, Personal history of colonic polyps K64.0, First degree hemorrhoids CPT copyright 2017 [employer]. All rights reserved. The codes documented in this report are preliminary and upon chief of police review may be revised to meet current compliance requirements. MD Kellie Hernandez MD 11/20/2022 8:40:27 AM This report has been signed electronically. Number of Addenda: 0 Note Initiated On: 11/20/2022 7:56 AM
--- NOTE | 2022-11-20 08:41 | OP.CCLET_ITS ---
11/20/2022 Tej Lloyd MD [address] [place] [address] Re : Colonoscopy procedure for Gila Gould Dear Dr. Lloyd This procedure was performed on Sunday, November 20, 2022. My impressions and recommendations are as follows: Impressions : - Hemorrhoids found on perianal exam. - Non-bleeding internal hemorrhoids. - The entire examined colon is normal. - No specimens collected. Recommendations : - Discharge patient to home. - Resume previous diet. - Continue present medications. - Repeat colonoscopy in 5 years for screening purposes. My findings are described in the full procedure note, which is enclosed. If I can be of further assistance, please feel free to contact me at Doctor phone number(s): , Work: . Sincerely, MD Kellie Hernandez MD 11/20/2022 8:40:27 AM This report has been signed electronically.
[2022-11-20 08:49] VITALS: BP 117/54; BP 186/82; PULSE 60; RESP 18; TEMP 36.3; O2SAT 98
[2022-11-20 09:00] VITALS: BP 186/82
== END 2022-11-20 09:23 | disposition home or self-care (01) ==
LOC: EN 07:14 → AC 07:16
PROVIDERS: PCP Family Medicine Geriatric Medicine; Referring Provider Family Medicine Geriatric Medicine; Visit Provider Surgery
PROC: 0DJD8ZZ Inspection of Lower Intestinal Tract, Via Natural or Artificial Opening Endoscopic (ICD-10-PCS; CPT 45378; principal; 2022-11-20 08:10)
DX: Z12.11 Encounter for screening for malignant neoplasm of colon (principal); E11.9 Type 2 diabetes mellitus without complications; K64.0 First degree hemorrhoids; Z80.0 Family history of malignant neoplasm of digestive organs; Z95.810 Presence of automatic (implantable) cardiac defibrillator; Z79.84 Long term (current) use of oral hypoglycemic drugs; E78.00 Pure hypercholesterolemia, unspecified; I10 Essential (primary) hypertension; Z86.010 Personal history of colon polyps; K64.8 Other hemorrhoids; Z79.899 Other long term (current) drug therapy
CPT/HCPCS: G0105; 82962; J7120; J2405

== ENCOUNTER → 2022-11-23 | Outpatient (CLI) | payer MEDICARE, SELFPAY ==
--- NOTE | 2022-11-23 15:49 | BI_ITS ---
MAMMOGRAPHY - BILATERAL SCREENING REASON FOR EXAM: Female, 72 years old. Routine annual screening examination. PERTINENT HISTORY: Sister with breast cancer. TECHNIQUE: Digital bilateral breast hiro (3D mammographic acquisition) in the CC and MLO projections. 2-D mediolateral oblique (MLO) and craniocaudad (CC) views of both breasts were obtained. CAD: Full Field Digital Mammography with Computer Added Detection was performed. COMPARISON: Comparison is made with prior study November 18, 2021 and November 22, 2020. FINDINGS: Breast Composition: There are scattered areas of fibroglandular density. There are no dominant masses or suspicious calcifications. A battery pack from a pacemaker device is seen in the left axillary region. No other significant abnormalities are identified. There has been no significant change since the prior study. BI/SCRN MAMM (CAD)W/HIRO BILAT IMPRESSION: Stable bilateral screening mammogram. Yearly follow-up mammogram recommended. (A) ASSESSMENT CATEGORY: BIRADS Category 2: Benign. A letter regarding these results will be sent to the patient by the facility within 30 days. Approximately 10% of breast cancers are not detected by mammography. A normal mammogram should not delay biopsy of a clinically suspicious abnormality. [id number] Electronically Signed: Keanu Hartley MD at 10:52 EDT ,
== END | disposition home or self-care (01) ==
LOC: OPBI 15:47
PROVIDERS: PCP Family Medicine Geriatric Medicine; Referring Provider Obstetrics & Gynecology Gynecology; Visit Provider Obstetrics & Gynecology Gynecology
DX: Z12.31 Encounter for screening mammogram for malignant neoplasm of breast (principal); Z80.3 Family history of malignant neoplasm of breast
CPT/HCPCS: 77063; 77067

== ENCOUNTER → 2023-03-16 | Outpatient (CLI) | payer MEDICARE, SELFPAY ==
--- NOTE | 2023-03-16 12:35 | RAD_ITS ---
STUDY: X-RAY - RIGHT ELBOW REASON FOR EXAM: Female, 72 years old. Pain. TECHNIQUE: 3 view(s) of the elbow. COMPARISON: None. FINDINGS: Normal visualized humerus, radius and ulna. Normal radiocapitellar and ulnotrochlear articulations. Normal soft tissues. RAD/Elbow min 3 Views IMPRESSION: Normal x-ray examination of the elbow. Electronically Signed: Evan Hansen MD at 14:44 EST ,
--- NOTE | 2023-03-16 12:35 | RAD_ITS ---
STUDY: X-RAY - RIGHT WRIST REASON FOR EXAM: Female, 72 years old. Pain. TECHNIQUE: 3 view(s) of the wrist were obtained. COMPARISON: None. FINDINGS: Osteopenia. Mild arthrosis of the radiocarpal articulation. Mild arthrosis of the distal radioulnar articulation. Moderate arthrosis of the radial carpal row. Moderate arthrosis of the CMC joint. Moderate arthrosis of the visualized MCP and IP joints. Chondrocalcinosis and vascular calcification. RAD/Wrist min 3 Views IMPRESSION: Osteopenia with osteoarthritic changes and chondrocalcinosis. Electronically Signed: Evan Hansen MD at 12:05 EST ,
[2023-03-16 12:57] LABS: Vitamin D,25 Hydroxy 65.3 ng/mL
[2023-03-16 13:04] LABS: Erythrocyte Sedimentation Rate 33 mm/hr (0-30)
[2023-03-16 13:06] LABS: Absolute Neutrophil Count 5.4 X10^3/uL (2.0-7.7); Basophil# 0.06 X10^3/uL; Basophil% 0.7 % (0-1); Eosinophil# 0.08 X10^3/uL; Hemoglobin 10.9 g/dL (12.0-15.0); Lymphocyte % 24.2 % (19-41); Mean Corp Hgb Conc 31.1 g/dL (32-36); Mean Corpuscular Hgb 27.1 pg (27.0-32.0); Mean Corpuscular Volume 87.1 fL (81-99); Mean Platelet Vol. 12.3 fl (6.2-12.0); Monocyte# 0.72 X10^3/uL; Monocyte% 8.7 % (0-10); NRBC Flagged by Analyzer 0 % (0-5); Neutrophil # 5.39 X10^3/uL (2.7-7.7); Neutrophil % 65.2 % (47-70); Platelet Count 238 K/mm3 (150-450); RBC Distribution Width CV 15.9 % (11.6-14.6); RBC Distribution Width SD 51.1 fl (35.1-43.9); Red Blood Count 4.02 M/mm3 (4.2-5.4); White Blood Count 8.3 K/mm3 (4.4-11.0)
[2023-03-16 13:07] LABS: ALB/GLOB Ratio 0.8 RATIO (0.9-2.4); AST(SGOT) 11 U/L (15-37); Alanine Aminotransfer ALT/SGPT 18 U/L (13-56); Albumin, Serum 3.4 g/dL (3.2-5.0); Alkaline Phosphatase 76 U/L (45-117); Anion Gap 8 (5-15); BUN 15 mg/dL (7-18); BUN/Creat Ratio 17.4 RATIO (10-20); Calcium,Total 9.1 mg/dL (8.5-10.1); Chloride 111 mmol/L (98-107); Creatinine, Serum 0.86 mg/dL (0.55-1.02); EST Glomerular Filtration Rate 69 mL/min (>60); Est Glom Filt Rate - Afr Amer 83 mL/min (>60); Globulin 4.2 g/dL (2.2-4.2); Glucose 132 mg/dL (74-106); Potassium 3.5 mmol/L (3.5-5.1); Protein, Total 7.6 g/dL (6.4-8.2); Sodium Level 142 mmol/L (136-145); Thyroid Stim Hormone (TSH) 1.93 uIU/mL (0.358-3.74); Uric Acid 4.1 mg/dL (2.6-6.0)
== END | disposition home or self-care (01) ==
LOC: POLAB3 11:22 → RAD 12:29
PROVIDERS: PCP Family Medicine Geriatric Medicine; Referring Provider Family Medicine Geriatric Medicine; Visit Provider Family Medicine Geriatric Medicine
DX: I10 Essential (primary) hypertension (principal); E11.65 Type 2 diabetes mellitus with hyperglycemia; E55.9 Vitamin D deficiency, unspecified; M25.521 Pain in right elbow; M25.531 Pain in right wrist
CPT/HCPCS: 36415; 73080; 73110; 80053; 82306; 84443; 84550; 85025; 85652; 86140

== ENCOUNTER → 2023-04-05 | Outpatient (CLI) | payer MEDICARE, SELFPAY ==
--- NOTE | 2023-04-05 14:39 | CT_ITS ---
STUDY: CT BRAIN WITHOUT CONTRAST REASON FOR EXAM: Female, 72 years old. HEADACHES RADIATION DOSAGE (If Supplied By Facility): CTDIvol = ( 44.99 ) mGy, DLP = ( 745.49 ) mGycm TECHNIQUE: Transaxial CT imaging of the brain was performed without administration of intravenous contrast material. Individualized dose optimization techniques were used for this CT. COMPARISON: No relevant priors. FINDINGS: Normal soft tissue structures. Normal calvarium. There is mild cerebral atrophy with widening of the extra-axial spaces and ventricular dilatation. There are areas of decreased attenuation within the white matter tracts of the supratentorial brain, consistent with microvascular disease changes. Normal basal ganglia and thalami. Normal brainstem. Normal cerebellum. There is no intracranial hemorrhage. There are no findings of an acute ischemic infarction. There is a 1.8 cm retention cyst or polyp in the posterior aspect of the right maxillary sinus. CT/Brain/Head without Contrast IMPRESSION: Chronic involutional changes of the brain. Electronically Signed: Keanu Hartley MD at 15:06 EST ,
== END | disposition home or self-care (01) ==
LOC: CT 14:36
PROVIDERS: PCP Family Medicine Geriatric Medicine; Referring Provider Family Medicine Geriatric Medicine; Visit Provider Family Medicine Geriatric Medicine
DX: R51.9 Headache, unspecified (principal)
CPT/HCPCS: 70450

== ENCOUNTER → 2023-08-19 | Outpatient (CLI) | payer MEDICARE, SELFPAY ==
--- NOTE | 2023-08-19 14:36 | VDLE_ITS ---
Reason For Study: RLE PAIN RIGHT LEFT GSV is normal. CFV is compressible, spontaneous, phasic, CFV is compressible, spontaneous, phasic, competent, and demonstrates normal competent and demonstrates normal augmentation. augmentation. FV is compressible, spontaneous, phasic, competent and demonstrates normal augmentation. POP V is compressible, spontaneous, phasic, competent and demonstrates normal augmentation. T/P Trunk is compressible. PTV is compressible. RT PerV is compressible. Procedure This is a venous duplex using B-mode, color flow and spectral Doppler. Exam performed in department. A preliminary report was called and/or faxed to Dr. Felton @ 3 pm. VL/Venous Duplex US, Unilateral Interpretation Summary Deep veins of the right lower extremity are patent and compressible segmentally . There is no evidence of right lower extremity deep vein thrombosis. The right great sapheno us vein appears patent and compressible segmentally. Ordering Physician: Nik Felton Referring Physician: Tej Lloyd Chi Performed By: Nina Hdz, ROMAINE, RVT
== END | disposition home or self-care (01) ==
PROVIDERS: PCP Family Medicine Geriatric Medicine; Referring Provider Internal Medicine Cardiovascular Disease; Visit Provider Internal Medicine Cardiovascular Disease
DX: M79.604 Pain in right leg (principal)
CPT/HCPCS: 93971

== ENCOUNTER → 2023-09-16 | Outpatient (CLI) | payer MEDICARE, SELFPAY ==
[2023-09-16 14:55] LABS: Absolute Lymphocyte Count 1.99 X10^3/uL (0.83-4.51); Absolute Neutrophil Count 3.7 X10^3/uL (2.0-7.7); Basophil# 0.05 X10^3/uL; Basophil% 0.8 % (0-1); Eosinophils% 1.6 % (0-5); Hematocrit 38.1 % (37-47); Hemoglobin 12.1 g/dL (12.0-15.0); Lymphocyte # 1.99 X10^3/ul (0.83-4.51); Lymphocyte % 31.4 % (19-41); Mean Corp Hgb Conc 31.8 g/dL (32-36); Mean Corpuscular Hgb 27.8 pg (27.0-32.0); Mean Corpuscular Volume 87.4 fL (81-99); Mean Platelet Vol. 11.5 fl (6.2-12.0); Monocyte# 0.51 X10^3/uL; NRBC Flagged by Analyzer 0 % (0-5); Neutrophil # 3.67 X10^3/uL (2.7-7.7); Neutrophil % 57.9 % (47-70); Platelet Count 200 K/mm3 (150-450); RBC Distribution Width CV 15.2 % (11.6-14.6); RBC Distribution Width SD 48.5 fl (35.1-43.9); Red Blood Count 4.36 M/mm3 (4.2-5.4); White Blood Count 6.3 K/mm3 (4.4-11.0)
[2023-09-16 16:23] LABS: Vitamin D,25 Hydroxy 50.8 ng/mL
[2023-09-16 16:33] LABS: ALB/GLOB Ratio 0.9 RATIO (0.9-2.4); AST(SGOT) 18 U/L (15-37); Alanine Aminotransfer ALT/SGPT 14 U/L (13-56); Albumin, Serum 3.7 g/dL (3.2-5.0); Alkaline Phosphatase 69 U/L (45-117); Anion Gap 6 (5-15); BUN 16 mg/dL (7-18); BUN/Creat Ratio 19.3 RATIO (10-20); Calcium,Total 9.7 mg/dL (8.5-10.1); Chloride 107 mmol/L (98-107); Creatinine, Serum 0.83 mg/dL (0.55-1.02); EST Glomerular Filtration Rate 72 mL/min (>60); Est Glom Filt Rate - Afr Amer 87 mL/min (>60); Globulin 4.1 g/dL (2.2-4.2); Glucose 131 mg/dL (74-106); Potassium 3.8 mmol/L (3.5-5.1); Protein, Total 7.8 g/dL (6.4-8.2); Sodium Level 137 mmol/L (136-145); Thyroid Stim Hormone (TSH) 2.23 uIU/mL (0.358-3.74)
== END | disposition home or self-care (01) ==
LOC: LAB 13:51
PROVIDERS: PCP Family Medicine Geriatric Medicine; Referring Provider Family Medicine Geriatric Medicine; Visit Provider Family Medicine Geriatric Medicine
DX: E11.65 Type 2 diabetes mellitus with hyperglycemia (principal); I10 Essential (primary) hypertension; E55.9 Vitamin D deficiency, unspecified
CPT/HCPCS: 36415; 80053; 82306; 84443; 85025

== ENCOUNTER → 2023-11-25 | Outpatient (CLI) | payer MEDICARE, SELFPAY ==
--- NOTE | 2023-11-25 11:53 | BI_ITS ---
MAMMOGRAPHY - BILATERAL SCREENING 3-D TOMOSYNTHESIS REASON FOR EXAM: Female, 73 years old. SCREENING PERTINENT HISTORY: No significant family history. TECHNIQUE: 2-D mammograms and 3-D Tomosynthesis of the breast (s) were performed. CAD was performed. COMPARISON: 11/23/2022 FINDINGS: The breast composition is composed of scattered fibroglandular density. Scattered benign calcifications are seen. No dense spiculated masses or suspicious microcalcifications are identified. No architectural distortion is identified. There is no skin thickening or retraction. There has been no significant change since the prior study. BI/SCRN MAMM (CAD)W/HIRO BILAT IMPRESSION: No mammographic signs of malignancy. Routine yearly mammograms recommended. ASSESSMENT CATEGORY: BIRADS Category 1: Negative. A letter regarding these results will be sent to the patient by the facility within 30 days. FOLLOW UP RECOMMENDATION: Yearly follow up mammogram recommended. (A) Approximately 10% of breast cancers are not detected by mammography. A normal mammogram should not delay biopsy of a clinically suspicious abnormality. Electronically Signed: George Romo MD at 13:11 EDT ,
== END | disposition home or self-care (01) ==
LOC: OPBI 11:51
PROVIDERS: PCP Family Medicine Geriatric Medicine; Referring Provider Obstetrics & Gynecology Gynecology; Visit Provider Obstetrics & Gynecology Gynecology
DX: Z12.31 Encounter for screening mammogram for malignant neoplasm of breast (principal)
CPT/HCPCS: 77063; 77067

== ENCOUNTER → 2024-03-22 | Outpatient (CLI) | payer MEDICARE, SELFPAY ==
[2024-03-22 13:11] LABS: Absolute Lymphocyte Count 2.26 X10^3/uL (0.83-4.51); Absolute Neutrophil Count 3.1 X10^3/uL (2.0-7.7); Basophil# 0.06 X10^3/uL; Eosinophil# 0.09 X10^3/uL; Eosinophils% 1.5 % (0-5); Hematocrit 35.5 % (37-47); Hemoglobin 11.3 g/dL (12.0-15.0); Lymphocyte # 2.26 X10^3/ul (0.83-4.51); Mean Corp Hgb Conc 31.8 g/dL (32-36); Mean Corpuscular Hgb 27.3 pg (27.0-32.0); Mean Corpuscular Volume 85.7 fL (81-99); Mean Platelet Vol. 10.3 fl (6.2-12.0); Monocyte# 0.57 X10^3/uL; Monocyte% 9.3 % (0-10); NRBC Flagged by Analyzer 0 % (0-5); Neutrophil # 3.12 X10^3/uL (2.7-7.7); Platelet Count 255 K/mm3 (150-450); RBC Distribution Width SD 47.4 fl (35.1-43.9); Red Blood Count 4.14 M/mm3 (4.2-5.4); White Blood Count 6.1 K/mm3 (4.4-11.0)
[2024-03-22 13:39] LABS: ALB/GLOB Ratio 0.8 RATIO (0.9-2.4); AST(SGOT) 19 U/L (15-37); Alanine Aminotransfer ALT/SGPT 15 U/L (13-56); Albumin, Serum 3.5 g/dL (3.2-5.0); Alkaline Phosphatase 77 U/L (45-117); Anion Gap 6 (5-15); BUN 18 mg/dL (7-18); BUN/Creat Ratio 19.5 RATIO (10-20); Calcium,Total 9.5 mg/dL (8.5-10.1); Chloride 108 mmol/L (98-107); Creatinine, Serum 0.92 mg/dL (0.55-1.02); EST Glomerular Filtration Rate 63 mL/min (>60); Est Glom Filt Rate - Afr Amer 77 mL/min (>60); Globulin 4.2 g/dL (2.2-4.2); Glucose 141 mg/dL (74-106); Potassium 3.7 mmol/L (3.5-5.1); Protein, Total 7.7 g/dL (6.4-8.2); Sodium Level 140 mmol/L (136-145)
[2024-03-22 17:24] LABS: Vitamin D,25 Hydroxy 45.3 ng/mL
== END | disposition home or self-care (01) ==
PROVIDERS: PCP Family Medicine Geriatric Medicine; Visit Provider Family Medicine Geriatric Medicine
DX: E11.65 Type 2 diabetes mellitus with hyperglycemia (principal); I10 Essential (primary) hypertension; E55.9 Vitamin D deficiency, unspecified
CPT/HCPCS: 36415; 80053; 82306; 84443; 85025

== ENCOUNTER → 2024-09-13 | Outpatient (CLI) | payer MEDICARE, SELFPAY ==
[2024-09-13 15:01] LABS: Absolute Lymphocyte Count 2.07 X10^3/uL (0.83-4.51); Absolute Neutrophil Count 3.3 X10^3/uL (2.0-7.7); Basophil# 0.04 X10^3/uL; Basophil% 0.7 % (0-1); Eosinophil# 0.09 X10^3/uL; Eosinophils% 1.5 % (0-5); Hematocrit 35.3 % (37-47); Hemoglobin 11.5 g/dL (12.0-15.0); Lymphocyte # 2.07 X10^3/ul (0.83-4.51); Lymphocyte % 34.4 % (19-41); Mean Corp Hgb Conc 32.6 g/dL (32-36); Mean Corpuscular Volume 85.9 fL (81-99); Mean Platelet Vol. 11.2 fl (6.2-12.0); Monocyte# 0.51 X10^3/uL; Monocyte% 8.5 % (0-10); NRBC Flagged by Analyzer 0 % (0-5); Neutrophil # 3.29 X10^3/uL (2.7-7.7); Neutrophil % 54.6 % (47-70); Platelet Count 202 K/mm3 (150-450); RBC Distribution Width CV 16.4 % (11.6-14.6); RBC Distribution Width SD 51.8 fl (35.1-43.9); Red Blood Count 4.11 M/mm3 (4.2-5.4)
[2024-09-13 16:38] LABS: ALB/GLOB Ratio 1.3 RATIO (0.9-2.4); AST(SGOT) 25 U/L (<=31); Alanine Aminotransfer ALT/SGPT 15 U/L (<=34); Albumin, Serum 4.1 g/dL (3.4-4.8); Alkaline Phosphatase 86 U/L (35-104); Anion Gap 11 (5-15); BUN 14 mg/dL (4-19); BUN/Creat Ratio 17.5 RATIO (10-20); Calcium,Total 9.8 mg/dL (7.6-11.0); Carbon Dioxide 22.9 mmol/L (21.0-32.0); Chloride 106 mmol/L (98-108); Creatinine, Serum 0.81 mg/dL (0.70-1.20); EST Glomerular Filtration Rate 77 (>60); Globulin 3.3 g/dL (2.2-4.2); Glucose 131 mg/dL (70-99); Potassium 3.9 mmol/L (3.3-5.1); Protein, Total 7.4 g/dL (5.9-8.4); Sodium Level 140 mmol/L (133-145); Total Bilirubin 0.77 mg/dL (0.00-1.30); Vitamin D,25 Hydroxy 44.5 ng/mL (30-100)
== END | disposition home or self-care (01) ==
PROVIDERS: PCP Family Medicine Geriatric Medicine; Referring Provider Family Medicine Geriatric Medicine; Visit Provider Family Medicine Geriatric Medicine
DX: E11.65 Type 2 diabetes mellitus with hyperglycemia (principal); E55.9 Vitamin D deficiency, unspecified; I10 Essential (primary) hypertension
CPT/HCPCS: 36415; 80053; 82306; 84443; 85025

== ENCOUNTER → 2024-11-28 | Outpatient (CLI) | payer MEDICARE, SELFPAY ==
--- NOTE | 2024-11-28 13:56 | ECHOD_ITS ---
Reason For Study Reason For Study: CARDIOMYOPATHY Procedure This was a 2D Doppler, Color Flow transthoracic echocardiogram. Exam performed in department. Left Ventricle Normal LV size. The left ventricular ejection fraction is 45 %. Stage 1 diastolic dysfunction. No regional wall motion abnormalities noted. Right Ventricle Normal RV size. ICD or pacer leads identified within the right ventricle. Normal systolic function. Atria Normal left atrium. Normal right atrium. Mitral Valve Normal mitral valve. Mild (1+) eccentric mitral valve insufficiency. Tricuspid Valve Normal tricuspid valve. Mild to moderate (1-2+) tricuspid valve insufficiency. Pulmonary artery systolic pressure is 38 mmHg. Aortic Valve Trisinus/trileaflet aortic valve. Pulmonic Valve Normal pulmonic valve. Great Vessels Normal aortic root. The pulmonary artery is normal size. Inferior vena cava collapse with respiration. Pericardium/Pleural No pericardial effusion. MMode/2D Measurements & Calculations LVIDd: 3.6 cm IVSd: 0.99 cm LVOT diam: 1.9 cm LVIDs: 2.5 cm LVPWd: 1.0 cm LVOT area: 2.7 cm2 RVDd: 3.1 cm FS: 31.3 % asc Aorta Diam: 3.0 cm LAV(MOD-bp): 29.0 ml LVAd ap4: 17.9 cm2 LAV(MOD-bp) Indexed: 18.4 ml/m2 LVLd ap4: 6.9 cm LAV(MOD-sp2): 24.7 ml EDV(MOD-sp4): 38.8 ml LAV(MOD-sp4): 34.1 ml EDV(sp4-el): 39.5 ml LVAs ap4: 13.0 cm2 LVLs ap4: 6.5 cm ESV(MOD-sp4): 22.2 ml ESV(sp4-el): 22.1 ml EF(MOD-sp4): 42.7 % EF(sp4-el): 44.2 % LVAd ap2: 16.1 cm2 SV(MOD-sp4): 16.5 ml SV(MOD-sp2): 15.5 ml LVLd ap2: 6.5 cm SI(MOD-sp4): 10.5 ml/m2 SI(MOD-sp2): 9.8 ml/m2 EDV(MOD-sp2): 33.0 ml EDV(sp2-el): 34.0 ml LVAs ap2: 11.3 cm2 LVLs ap2: 6.1 cm ESV(MOD-sp2): 17.6 ml ESV(sp2-el): 17.7 ml EF(MOD-sp2): 46.8 % SV(sp4-el): 17.5 ml Ao sinus diam: 2.[address] Junction: 2.0 cm LA dimension(2D): 3.6 cm LA A4 area: 14.0 cm2 RA A4 area: 10.1 cm2 TAPSE: 1.6 cm Time Measurements MV dec time: 0.27 sec Doppler Measurements & Calculations MV E max amol: 51.6 cm/sec Lat Peak E' Amol: 6.3 cm/sec Med Peak E' Amol: 4.2 cm/sec MV A max amol: 92.9 cm/sec E/E' lat: 8.2 E/E' med: 12.2 MV E/A: 0.56 Ao V2 max: 139.4 cm/sec LV V1 max: 72.8 cm/sec PA V2 max: 77.2 cm/sec Ao max P.8 mmHg LV V1 max P.1 mmHg GERDA(V,D): 1.4 cm2 TR max amol: 288.2 cm/sec TR max P.2 mmHg ECHO/Echo Complete Interpretation Summary The left ventricular ejection fraction is 45 %. Normal LV size. Stage 1 diastolic dysfunction. Mild to moderate (1-2+) tricuspid valve insufficiency. Ordering Physician: Lisset Vo Referring Physician: Tej Lloyd Chi Performed By: Kori Todd RDCS
--- NOTE | 2024-11-28 14:46 | BI_ITS ---
EXAM: SCRN MAMM (CAD)W/HIRO BILAT DATE: 11/28/2024 CLINICAL HISTORY: F, Age 74 y/o , SCREENING TECHNIQUE: SCRN MAMM (CAD)W/HIRO BILAT COMPARISON: Prior exam(s) were compared FINDINGS: TISSUE DENSITY: The breasts are heterogeneously dense, which may obscure small masses. Bilateral Breast Mammographic Findings: No suspicious masses, calcifications or other abnormalities are identified. BI/SCRN MAMM (CAD)W/HIRO BILAT IMPRESSION: No mammographic evidence of malignancy in either breast OVERALL FINAL ASSESSMENT BI-RADS 1: NEGATIVE. RECOMMENDATION: Routine annual follow-up in 1 Year A letter with findings and recommendations will be mailed to the patient. Reading Location: [id number]
== END | disposition home or self-care (01) ==
LOC: OPBI 13:56
PROVIDERS: PCP Family Medicine Geriatric Medicine; Referring Provider Physician Assistant Medical; Visit Provider Physician Assistant Medical
DX: Z12.31 Encounter for screening mammogram for malignant neoplasm of breast (principal); I42.8 Other cardiomyopathies
CPT/HCPCS: 77063; 77067; 93306

== ENCOUNTER 2025-03-09 13:51 | Emergency (ER) | payer MEDICARE, SELFPAY ==
[2025-03-09 13:53] VITALS: BP 155/84; PULSE 84; RESP 16; TEMP 35.8; O2SAT 100; BMI 27.3
--- NOTE | 2025-03-09 16:06 | RAD_ITS ---
PROCEDURE: ELBOW MIN 3 VIEWS 03/09/2025 REASON FOR EXAM: PAIN. Pain from wrist to elbow for 2 days. TECHNIQUE: Procedure Code: RADCHRISTIANO Modality: DX Procedure: ELBOW MIN 3 VIEWS Laterality: Right COMPARISON: None. FINDINGS: BONES: No acute fracture or focal osseous lesion. JOINTS: No dislocation. An elbow joint effusion is present. The joint spaces are preserved. Chondrocalcinosis in the humeroradial joint. SOFT TISSUES: The soft tissues are unremarkable. RAD/Elbow min 3 Views IMPRESSION: Elbow joint effusion, without a fracture seen. In the setting of trauma, this o ften indicates an occult fracture. If no trauma, consider intra-articular infection or inflammation. Reading Location: [id number]
--- NOTE | 2025-03-09 16:35 | RAD_ITS ---
PROCEDURE: WRIST MIN 3 VIEWS 03/09/2025 REASON FOR EXAM: PAIN DIFFICULTY MOVING TECHNIQUE: Procedure Code: RADWR Modality: DX Procedure: WRIST MIN 3 VIEWS Laterality: Right COMPARISON: 03/16/2023 FINDINGS: BONES: No acute fracture or focal osseous lesion. JOINTS: No dislocation. Arthritic changes in the 1st MCP and IP joints, without significant change. Chondrocalcinosis the triangular fibrocartilage complex (TFCC). SOFT TISSUES: Vascular calcifications noted. RAD/Wrist min 3 Views IMPRESSION: NO ACUTE FRACTURE OR DISLOCATION. If acute hand or wrist trauma is suspected an d initial radiographs are negative or equivocal repeat radiographs in 10-14 days MRI without IV contrast or CT without IV contr ast is usually appropriate as the next imaging study. (ACR Appropriateness Criteria: Acute Hand and Wrist Trauma 2018) Reading Location: [id number]
--- OUTSIDE RECORDS SUMMARY | 2025-03-09 17:20 | XMS RPT_ITS | CCD ---
Author Organization [facility] Care Team Providers Care Mold Sander Name Role Phone Dr. Tej Lloyd Chi Primary Care Provider Purnima, Dr. Zaragoza Attending Provider [phone] Purnima, Dr. Zaragoza Referring Provider [phone] Gabino, Dr. Tej Trujillo Referring Provider FEMI Powell Attending Provider Gabino, Dr. Tej Trujillo Primary Care Provider [phone] Gabino, Dr. Tej Trujillo Referring Provider Purnima, Dr. Zaragoza Attending Provider Gabino, Dr. Tej Trujillo Primary Care Provider Purnima, Dr. Zaragoza Attending Provider Purnima, Dr. Zaragoza Referring Provider Gabino, Dr. Tej Trujillo Primary Care Provider [phone] Purnima, Dr. Zaragoza Attending Provider [phone] Purnima, Dr. Zaragoza Referring Provider Gabino, Dr. Tej Trujillo Referring Provider Kayla Queen Attending Provider Unavailable Gilda KAHN PA Lisset Romo Attending Provider Gabino, Dr. Tej Trujillo Primary Care Provider Purnima, Dr. Zaragoza Attending Provider Purnima, Dr. aZragoza Referring Provider Gabino, Tej Trujillo Primary Care Provider [phone] Gabino, Dr. Tej Trujillo Primary Care Provider Purnima, Dr. Zaragoza Attending Provider [phone] Purnima, Dr. Zaragoza Referring Provider [phone] Gabino, Dr. Tej Trujillo Primary Care Provider Purnima, Dr. Zaragoza Attending Provider [phone] Gabino, Dr. Tej Trujillo Referring Provider Hosea, Dr. Hopkins Attending Provider Kayla Queen Attending Provider Unavailable [facility] Other Provider GABINO BELLE, DR ZAMARRIPA Primary Care Physician GABINO BELLE, DR ZAMARRIPA Primary Care Unavailable AYAD BELLE, RAFAEL Benito Attending Unavail tomi GONZALEZ MD, DR WEEKS Attending Unavailandrews LLOYD MD, DR ZAMARRIPA Primary Care Unavailable Gabino, Dr. Tej Trujillo Primary Care Provider Gabino, Dr. Tej Trujillo Referring Provider [facility], Dr. Hopkins Attending Provider [facility], Dr. Hopkins Other Provider Gabino, Dr. Tej Trujillo Primary Care Provider Purnima, Dr. Zaragoza Attending Provider [phone] Gabino, Dr. Tej Trujillo Primary Care Provider Purnima, Dr. Zaragoza Attending Provider [phone] Purnima, Dr. Zaragoza Referring Provider [phone] Gabino, Dr. Tej Trujillo Referring Provider Dr. Ron Diaz Attending Provider [phone] SUSANNE BELLE, DR TRIPLETT Consulting Alejandra EVANS MD, DR NILS Rodriguez Attending Fred LLOYD MD, DR ZAMARRIPA Primary Care Unavailable GABINO BELLE, DR ZAMARRIPA Primary Care Unavailable ROSMERY NEWBERRY Attending Alejandra Lloyd MD, Dr. Tej Trujillo Primary Care Provider [phone] Purnima BELLE, Dr. Zaragoza Attending Provider [phone] Purnima BELLE, Dr. Zaragoza Referring Provider [phone] Gabino BELLE, Dr. Tej Trujillo Attending Provider Gabino BELLE, Dr. Tej Trujillo Referring Provider SUSANNE BELLE, DR TRIPLETT Attending Unavailable SUSANNE BELLE, DR TRIPLETT Admitting Unavailable GABINO BELLE, DR ZAMARRIPA Primary Care Unavailable Gabino BELLE, Dr. Tej Trujillo Primary Care Provider Purnima BELLE, Dr. Zaragoza Attending Provider [phone] Purnima BELLE, Dr. Zaragoza Referring Provider [phone] Kayla Queen Attending Provider Unavailable Lisset Powell Attending Provider [phone] Kia BELLE, Dr. Yancey Other Provider [phone] Lisset Powell Referring Provider [phone] Purnima, Wapello Referring Unavailable Gabino, Tej Chi Primary Care Unavailable Purnima, Wapello Attending Unavailable Gabino, Tej Chi Primary Care Unavailable Purnima, Nik Referring Unavailable Purnima, Nik Attending Unavailable Purnima, Wapello Referring Unavailable Purnima, Wapello Attending Unavailable Gabino, Tej Chi Primary Care Unavailable Purnmia, Nik Attending Unavailable Gabino, Tej Chi Primary Care Unavailable Gabino, Tej Chi Primary Care Unavailable Lisset Powell Attending Unavail able Gabino, Tej Chi Referring Unavailable Purnima, Nik Attending Unavailable Gabino, Tej Chi Primary Care Unavailable Purnima, Wapello Referring Unavailable Purnima, Wapello Attending Unavailable Gabino, Tej Chi Primary Care Unavailable Purnima, Wapello Referring Unavailable Purnima, Nik Attending Unavailable Purnima, Nik Referring Unavailable Gabino, Tej Chi Primary Care Unavailable Gabino, Tej Chi Primary Care Unavailable Gabino, Tej Chi Referring Unavailable Gabino, Tej Chi Attending Unavailable Naye Adam Consulting Unavailable Gabino, Tej Chi Primary Care Unavailable Lisset Powell Attending Unavail able Lisset Powell Referring Unavail able Gabino, Tej Chi Primary Care Unavailable Gabino, Tej Chi Attending Unavailable Gabino, Tej Chi Primary Care Unavailable Lisset Powell Referring Unavail able Lisset Powell Attending Unavail able Purnima, Wapello Referring Unavailable Gabino, Tej Chi Primary Care Unavailable Purnima, Nik Attending Unavailable Purnima, Wapello Referring Unavailable Gabino, Tej Chi Primary Care Unavailable Purnima, Nik Attending Unavailable Purnima, Wapello Referring Unavailable Gabino, Tej Chi Primary Care Unavailable Purnima, Wapello Attending Unavailable Purnima, Nik Referring Unavailable Gabino, Tej Chi Primary Care Unavailable Purnima, Nik Attending Unavailable Gabino, Tej Chi Primary Care Unavailable Gabino, Tej Chi Referring Unavailable Lisset Powell Attending Unavail able Kayla Queen Attending Unavailable Gabino, Tej Chi Primary Care Unavailable Gabino, Tej Chi Referring Unavailable Gabino, Tej Chi Primary Care Unavailable Purnima, Nik Attending Unavailable Purnima, Nik Referring Unavailable Gabino, Tej Chi Primary Care Unavailable Purnima, Nik Attending Unavailable Allergies Allergy Classification Reported Allergen(s) Allergy Type Date of Onset Reaction(s) Facility (20 sources) Angiotensin Converting Enzyme (Rand) Inhibitors; Translations: [RAND Inhibitors] Allergy to substance 2 Swelling [facility] (20 sources) Sulfonamides (Antibiotic); Translations: [Sulfa (Sulfonamide Antibiotics)] Allergy to substance 8 [facility] (5 sources) Lisinopril; Translations: [lisinopril] Drug Allergy 2 Swelling [facility] Work Phone: (1 source) Sulfonamides (Antibiotic); Translations: [sulfa drugs] Drug allergy [facility] (3 sources) Sulfonamide; Translations: [sulfa drugs] Drug allergy [facility] (6 sources) Environmental Allergies: Uncoded; Translations: [Environmental Allergies: Uncoded] Allergy to substance 5 Other [facility] Comment on above: nose runs, sneezing Medications Current Medications Medication Drug Class(es) Dates Sig (Normalized) Sig (Original) aspirin 81 mg chewable tablet (2 sources) Platelet Aggregation Inhibitor, Nonsteroidal Anti-inflammatory Drug Start: 09-27-2024 aspirin 81 mg oral tablet, chewable Dose : 81 mg = 1 tab(s), Oral, qDayM, # 90 tab(s), 3 Refill(s), Pharmacy: [facility], 137, cm, 09/27/24 2:47:00 EDT, Height, kg, 09/27/24 2:47:00 EDT, Dosing Weight Start Date: 09/27/24 Status: Ordered Quantity: 90.0 Unit: tab(s) Repeat number: 4 atorvastatin 40 mg oral tablet (20 sources) HMG-CoA Reductase Inhibitor Start: 06-30-2016 take 1 tablet by mouth at bedtime Atorvastatin 40 MG tablet Active 40 mg PO AT BEDTIME September 06, 2018 12:00am Comment on above: Take 40 mg by mouth once daily. carvedilol 25 mg oral tablet (20 sources) alpha-Adrenergic Ena, beta-Adrenergic Ena Start: 09-27-2024 carvedilol 6.25 mg oral tablet Dose : 6.25 mg = 1 tab(s), Oral, BIDM, # 60 tab(s), 3 Refill(s), Pharmacy: [facility], 137, cm, 09/27/24 2:47:00 EDT, Height, kg, 09/27/24 2:47:00 EDT, Dosing Weight Start Date: 09/27/24 Status: Ordered Quantity: 60.0 Unit: tab(s) Repeat number: 4 Start: 01-05-2016 End: 11-08-2024 take 1 tablet by mouth twice daily at mealtime Carvedilol (Coreg) 25 mg tablet Discontinued 25 mg PO TWICE A DAY 180 3 November 23, 2023 7:51am November 08, 2024 9:07am give with food (meal/snack) Start: 03-01-2013 End: 06-22-2017 take 1 capsule by mouth once daily Carvedilol Phosphate 40 MG capsule, ER multiphase 24 hr Discontinued 40 mg PO DAILY March 01, 2013 1:00am June 22, 2017 3:18pm Comment on above: Take 25 mg by mouth twice daily. cholecalciferol 0.025 mg oral capsule (20 sources) Vitamin D Start: 02-13-20 20 take 1 capsule by mouth once daily Cholecalciferol (Vitamin D3) 25 mcg (1,000 unit) capsule Active 25 ug PO DAILY February 13, 2020 12:00am dorzolamide (14 sources) Carbonic Anhydrase Inhibitor Start: 09-07-19 take 1 mL into the eye(s) twice daily Dorzolamide (Pf) Active 10 ML OP TWICE A DAY September 06, 2018 1:58pm 1 gtt both eyes bid Start: 09-06-2018 take 1 mL into the e ye(s) twice daily Dorzolamide (Pf) Active 10 ML OP TWICE A DAY September 05, 2018 11:00pm 1 gtt both eyes bid Start: 09-06-2018 take 1 mL into the e ye(s) twice daily Dorzolamide (Pf) Active 10 ML OP TWICE A DAY September 06, 2018 12:00am 1 gtt both eyes bid Dorzolamide (Pf) 10 ML drops (7 sources) Start: 09-06-2018 take 1 mL into the eye(s) twice daily Dorzolamide (Pf) 10 ML drops Active 10 mL OP TWICE A DAY September 06, 2018 12:00am 1 gtt both eyes bid latanoprost 0.05 mg/ml ophthalmic solution (20 sources) Prostaglandin Analog Start: 05-12-2019 take 1 drop(s) into the eye(s) once daily latanoprost 0.005% ophthalmic solution INSTILL 1 DROP INTO BOTH EYES EVERY DAY AT NIGHT Start Date: 05/12/19 Status: Ordered Repeat number: 1 Start: 09-06-2018 End: 07-02-2021 Latanoprost (Pf) 0.005 % stephanie ps Active 1 NMA OPHTHALMIC AT BEDTIME July 02, 2021 1:42pm 1 gtt both eyes qhs Start: 09-06-2018 End: 07-02-2021 Latanoprost (Pf) 7.5 ML drop s Discontinued 1 NMA OTIC AT BEDTIME September 06, 2018 12:00am July 02, 2021 1:43pm 1 gtt both eyes qhs Start: 05-14-2015 take 1 drop(s) into the eye(s) once daily at bedtime latanoprost (XALATAN) 0.005 % ophthalmic solution Use 1 Drop in both eyes daily at bedtime. 0 05/14/2015 Active Comment on above: Use 1 Drop in both e yes daily at bedtime. metFORMIN hydrochloride 500 mg oral tablet (20 sources) Biguanide Start: 02-16-2019 take 1 tablet by mouth twice daily Metformin 500 mg tablet Active 500 mg PO TWICE A DAY February 16, 2019 12:00am Start: 05-15-2017 take 1 tablet by vaishnavi twice daily metFORMIN (GLUCOPHAGE) 1,000 mg tablet Take 1,000 mg by mouth twice daily. 0 05/15/2017 Active Comment on above: Take 1,000 mg by vaishnavi twice daily. spironolactone 25 mg oral tablet (2 sources) Aldosterone Antagonist Start: 11-30-19 take 1 tablet by mouth once daily Spironolactone 25 mg tablet Active 25 mg PO DAILY 90 November 29, 2024 12:00am Timolol (20 sources) beta-Adrenergic Ena Start: 05-12-19 take 1 drop(s) into the eye(s) twice daily timolol maleate 0.5% ophthalmic solution INSTILL 1 DROP INTO BOTH EYES TWICE A DAY Start Date: 05/12/19 Status: Ordered Repeat number: 1 Start: 05-12-2019 take 1 drop(s) into the eye(s) twice daily timolol maleate 0.5% ophthalmic solution INSTILL 1 DROP INTO BOTH EYES TWICE A DAY Start Date: 05/12/19 Status: Ordered Start: 03-01-2013 Timolol Maleat e 1 DROP drops Active 1 NMA EACH EYE TWICE A DAY March 01, 2013 1:00am Start: 03-01-2013 Timolol Maleat e Active 1 DRP EACH EYE TWICE A DAY March 01, 2013 1:00am Start: 01-20-2008 TIMOLOL 0.5 % EYE DROPS OU twice daily 0 01/20/2008 Active Comment on above: OU twice daily Vitamin D3 (4 sources) Start: 05-12-2019 Vitamin D3 Dos e : 1,000 unit(s) = 1 tab(s), Oral, Daily, 0 Refill(s) Start Date: 05/12/19 Status: Ordered Repeat number: 1 Start: 05-12-2019 Vitamin D3 Dos e : 1,000 unit(s) = 1 tab(s), Oral, Daily, 0 Refill(s) Start Date: 05/12/19 Status: Ordered Completed/Discontinued Medications Medication Drug Class(es) Dates Sig (Normalized) Sig (Original) amLODIPine 10 mg oral tablet (20 sources) Dihydropyridine Calcium Channel Ena Start: 07-14-2022 End: 07-14-2022 take 5 mg by mouth once daily Amlodipine 10 mg tablet Discontinued 5 mg PO daily July 14, 2022 3:12pm July 14, 2022 3:38pm Start: 07-14-2022 End: 07-14-2022 take 5 mg by mouth once daily Amlodipine Discontinued 5 MG PO daily July 14, 2022 3:12pm July 14, 2022 3:38pm Start: 07-02-2021 End: 11-08-2024 take 1 tablet by mouth once daily Amlodipine 10 mg tablet Discontinued 10 mg PO daily 90 3 November 23, 2023 7:51am November 08, 2024 9:07am Start: 08-13-2020 End: 07-02-2021 take 5 mg by mouth once daily Amlodipine 10 mg tablet Discontinued 5 mg PO daily 45 3 January 28, 2021 9:45am July 02, 2021 2:05pm Start: 08-13-2020 End: 07-02-2021 take 5 mg by mouth once daily Amlodipine Discontinued 5 MG PO daily 45 January 28, 2021 9:45am July 02, 2021 2:05pm Start: 02-13-2020 End: 08-13-2020 take 1 tablet by mouth once daily Amlodipine 10 mg tablet Discontinued 10 mg PO daily 90 3 February 13, 2020 2:55pm August 13, 2020 2:24pm Start: 06-05-2016 End: 02-13-2020 take 1 tablet by mouth once daily Amlodipine 5 mg tablet Discontinued 5 mg PO daily 90 3 September 15, 2018 2:23pm February 13, 2020 2:55pm Comment on above: Take 5 mg by mouth o nce daily. brinzolamide 10 mg/ml ophthalmic suspension (1 source) Carbonic Anhydrase Inhibitor take 1 drop(s) into the eye(s) twice daily brinzolamide (AZOPT) 1 % ophthalmic suspension Use 1 Drop in both eyes twice daily. 0 Active Comment on above: Use 1 Drop in both e yes twice daily. cephalexin 500 mg oral capsule (12 sources) Cephalosporin Antibacterial Start: 023 End: 024 take 1 capsule by mouth twice daily Cephalexin 500 mg capsule Discontinued 500 mg PO TWICE A DAY 14 0 November 16, 2022 12:00am August 19, 2023 2:12pm ergocalciferol 1.25 mg oral capsule (1 source) Provitamin D2 Compound Start: 016 take 1 capsule by mouth every month VITAMIN D 50,000 unit capsule Take 50,000 Units by mouth once every month. 0 11/23/2015 Active Comment on above: Take 50,000 Units by mouth once every month. metFORMIN hydrochloride 1000 mg / SITagliptin 50 mg oral tablet (1 source) Biguanide, Dipeptidyl Peptidase 4 Inhibitor take 2 tablets by mouth once daily Sitagliptin-Metformin (JANUMET) 50-1,000 mg ORAL per tablet Take 2 tablets by mouth once daily. 0 Active Comment on above: Take 2 tablets by mo [facility] once daily. nitrofurantoin, macrocrystals 25 mg / nitrofurantoin, monohydrate 75 mg oral capsule (18 sources) Nitrofuran Antibacterial Start: 023 End: 023 take 1 capsule by mouth twice daily at mealtime Nitrofurantoin Monohyd/M-Cryst (Macrobid) 100 mg capsule Discontinued 100 mg PO TWICE A DAY 14 July 15, 2022 12:00am August 28, 2022 2:25pm must administer with a meal/food rosuvastatin calcium 40 mg oral tablet (1 source) HMG-CoA Reductase Inhibitor Start: rosuvastatin calcium(CRESTOR 40 MG TAB) Take one(1) tablet daily. 0 01/20/2008 Active Comment on above: Take one(1) tablet d aily. vitamin B12 (20 sources) Vitamin B12 Start: 019 End: 020 vitamin b 12 Discontinued IM EVERY MONTH February 16, 2019 1:54pm February 13, 2020 2:41pm Start: 02-16-2019 End: 02-13-2020 vitamin b 12 Discontinued IM EVERY MONTH 0 February 16, 2019 12:00am February 13, 2020 2:41pm Start: 02-16-2019 End: 02-13-2020 vitamin b 12 Discontinued IM EVERY MONTH February 15, 2019 11:00pm February 13, 2020 1:41pm Start: 02-16-2019 End: 02-13-2020 vitamin b 12 Discontinued IM EVERY MONTH February 16, 2019 12:00am February 13, 2020 2:41pm Start: 12-29-2010 inject 1 mL by intra muscular injection every week cyanocobalamin, Vitamin B12, (VITAMIN B-12) 1,000 mcg/mL INJECTION Soln Inject 1 mL intramuscularly once each week. 4 Syringe 0 12/29/2010 Active Comment on above: Inject 1 mL intramus cularly once each week. Problems Active Problems Problem Classification Problem Date Documented Da te Episodic/Chronic Conduction disorders (20 sources) Cardiac defibrillator in situ; Translations: [Presence of automatic (implantable) cardiac defibrillator] Onset: 02-17-2013 Chronic Comment on above: implant 07/03/2003, 03/01 Bi-V ICD, Gen change 07/23/2022 Congestive heart failure; nonhypertensive (1 source) Congestive heart failure; Translations: [Heart failure, unspecified] 01-20-2008 Chronic Diabetes mellitus with complications (1 source) Type 2 diabetes mellitus with hyperglycemia; Translations: [Type 2 diabetes mellitus with hyperglycemia] Onset: 09-19-2024 Chronic Diabetes mellitus without complication (4 sources) Type 2 diabetes mellitus 01-17-2017 Chronic Disorders of lipid metabolism (20 sources) Hyperlipidemia; Translations: [Hyperlipidemia, unspecified] Chronic Essential hypertension (20 sources) Essential hypertension; Translations: [Essential (primary) hypertension] Chronic Glaucoma (5 sources) Unspecified glaucoma; Translations: [Unspecified glaucoma] 01-20-2008 Chronic Neoplasms of unspecified nature or uncertain behavior (1 source) Monoclonal gammopathy (clinical); Translations: [Monoclonal gammopathy] Onset: 12-29-2010 12-29-2010 Chronic Neoplasms of unspecified nature or uncertain behavior (14 sources) Villous adenoma of colon; Translations: [Neoplasm of uncertain behavior of colon] 11-02-2022 Episodic Comment on above: hx of- on 2016 colon oscopy Nonspecific chest pain (2 sources) Chest pain; Translations: [Chest pain, unspecified] Onset: 09-26-2024 Episodic Nutritional deficiencies (4 sources) Vitamin D deficiency 02-19-2017 Chronic Nutritional deficiencies (5 sources) Cobalamin deficiency; Translations: [Deficiency of other specified B group vitamins] Onset: 01-26-2011 01-26-2011 Episodic Osteoarthritis (1 source) Osteoarthritis; Translations: [Unspecified osteoarthritis, unspecified site] Onset: 02-14-2023 Chronic Other connective tissue disease (1 source) Neuralgia; Translations: [Neuralgia and neuritis, unspecified] Onset: 02-14-2023 Episodic Other connective tissue disease (9 sources) Pain in right lower limb; Translations: [Pain in right leg] 08-19-2023 Episodic Other connective tissue disease (1 source) Pain in right leg; Translations: [Pain in limb] 08-19-2023 Episodic Other disorders of stomach and duodenum (4 sources) Gastroparesis syndrome 02-19-2017 Episodic Other non-traumatic joint disorders (1 source) Wrist joint pain; Translations: [Pain in unspecified wrist] Onset: 02-14-2023 Episodic Other screening for suspected conditions (not mental disorders or infectious disease) (1 source) Encounter for screening mammogram for malignant neoplasm of breast; Translations: [Encounter for screening mammogram for malignant neoplasm of breast] Onset: 12-05-2024 Episodic Jeri-; endo-; and myocarditis; cardiomyopathy (except that caused by tuberculosis or sexually transmitted disease) (20 sources) Cardiomyopathy; Translations: [Other cardiomyopathies] Onset: 11-15-2024 Chronic Sprains and strains (14 sources) Strain of thoracic region; Translations: [Strain of muscle and tendon of back wall of thorax, initial encounter] 09-18-2022 Episodic Past or Other Problems Problem Classification Problem Date Documented Da te Episodic/Chronic Deficiency and other anemia (1 source) Anemia; Translations: [Anemia, unspecified] Onset: 12-26-2010 12-26-2010 Episodic Results Test Name Value Interpretation Reference Range Facility Breast imaging reportOrdered By: Violet Nieto on 11-28-2024 Study report [facility] Imaging Services [address] [place], [place] [id number] SCRN MAMM (CAD)W/FABRICE BILAT MR#: [id number] Acct: [id number] Name: DARLEEN PIRES Rep #: [id number] : 1950 F 74 From: Dayrl Cordoba MD PCP: Dr. Tej Lloyd MD Status: SIMON ZAPATA Study:SCRN MAMM (CAD)W/FABRICE BILAT Date of Exa m: 11/28/24 Exam# [id number] Ordering Dr: Lisset Elliott PA EXAM: SCRN MAMM (CAD)W/FABRICE BILAT DATE: 11/28/2024 CLINICAL HISTORY: F, Age 74 y/o , SCREENING TECHNIQUE: SCRN MAMM (CAD)W/FABRICE BILAT COMPARISON: Prior exam(s) were compared FINDINGS: TISSUE DENSITY: The breasts are heterogeneously dense, which may obscure small masses. Bilateral Breast Mammographic Findings: No suspicious masses, calcifications or other abnormalities are identified. BI/SCRN MAMM (CAD)W/FABRICE BILAT IMPRESSION: No mammographic evidence of malignancy in either breast OVERALL FINAL ASSESSMENT BI-RADS 1: NEGATIVE. RECOMMENDATION: Routine annual follow-up in 1 Year A letter with findings and recommendations will be mailed to the patient. Reading Location: [id number] CC: Dr. Tej Lloyd MD; FEMI Sanders ~ Crust Sorter: Signed [facility] Echo Completeon 11-28-2024 Echo Complete [facility] Cardiovascular Services [address] [place] [address] Echo Complete 11/28/24 1406 MR#: [id number] Acct: [id number] Name: DARLEEN PIRES Rep #: [id number] : 1950 74 From: Nik Felton MD Attending Dr: FEMI Sanders Status: REG CLI Ordering Dr: Lisset Vo Date: 11/17 06/13 Location: [facility] Sex: F AA Admitted: Reason For Study Reason For Study: CARDIOMYOPATHY Procedure This was a 2D Doppler, Color Flow transthoracic echocardiogram. Exam performed in department. Left Ventricle Normal LV size. The left ventricular ejection fraction is 45 %. Stage 1 diastolic dysfunction. No regional wall motion abnormalities noted. Right Ventricle Normal RV size. ICD or pacer leads identified within the right ventricle. Normal systolic function. Atria Normal left atrium. Normal right atrium. Mitral Valve Normal mitral valve. Mild (1+) eccentric mitral valve insufficiency. Tricuspid Valve Normal tricuspid valve. Mild to moderate (1-2+) tricuspid valve insufficiency. Pulmonary artery systolic pressure is 38 mmHg. Aortic Valve Trisinus/trileaflet aortic valve. Pulmonic Valve Normal pulmonic valve. Great Vessels Normal aortic root. The pulmonary artery is normal size. Inferior vena cava collapse with respiration. Pericardium/Pleural No pericardial effusion. MMode/2D Measurements Calculations LVIDd: 3.6 cm IVSd: 0.99 cm LVOT diam: 1.9 cm LVIDs: 2.5 cm LVPWd: 1.0 cm LVOT area: 2.7 cm2 RVDd: 3.1 cm FS: 31.3 % asc Aorta Diam: 3.0 cm LAV(MOD-bp): 29.0 ml LVAd ap4: 17.9 cm2 LAV(MOD-bp) Indexed: 18.4 ml/m2 LVLd ap4: 6.9 cm LAV(MOD-sp2): 24.7 ml EDV(MOD-sp4): 38.8 ml LAV(MOD-sp4): 34.1 ml EDV(sp4-el): 39.5 ml LVAs ap4: 13.0 cm2 LVLs ap4: 6.5 cm ESV(MOD-sp4): 22.2 ml ESV(sp4-el): 22.1 ml EF(MOD-sp4): 42.7 % EF(sp4-el): 44.2 % LVAd ap2: 16.1 cm2 SV(MOD-sp4): 16.5 ml SV(MOD-sp2): 15.5 ml LVLd ap2: 6.5 cm SI(MOD-sp4): 10.5 ml/m2 SI(MOD-sp2): 9.8 ml/m2 EDV(MOD-sp2): 33.0 ml EDV(sp2-el): 34.0 ml LVAs ap2: 11.3 cm2 LVLs ap2: 6.1 cm ESV(MOD-sp2): 17.6 ml ESV(sp2-el): 17.7 ml EF(MOD-sp2): 46.8 % SV(sp4-el): 17.5 ml Ao sinus diam: 2.[address] Junction: 2.0 cm LA dimension(2D): 3.6 cm LA A4 area: 14.0 cm2 RA A4 area: 10.1 cm2 TAPSE: 1.6 cm Time Measurements MV dec time: 0.27 sec Doppler Measurements Calculations MV E max sunni: 51.6 cm/sec Lat Peak E' Sunni: 6.3 cm/sec Med Peak E' Sunni: 4.2 cm/sec MV A max sunni: 92.9 cm/sec E/E' lat: 8.2 E/E' med: 12.2 MV E/A: 0.56 Ao V2 max: 139.4 cm/sec LV V1 max: 72.8 cm/sec PA V2 max: 77.2 cm/sec Ao max P.8 mmHg LV V1 max P.1 mmHg GERDA(V,D): 1.4 cm2 TR max sunni: 288.2 cm/sec TR max P.2 mmHg ECHO/Echo Complete Interpretation Summary The left ventricular ejection fraction is 45 %. Normal LV size. Stage 1 diastolic dysfunction. Mild to moderate (1-2+) tricuspid valve insufficiency. Ordering Physician: Lisset Vo Referring Physician: Tej Lloyd Chi Performed By: Kori Todd RDCS 11/28/24 1741 Date Nik Felton MD CC: Dr. Tej Lloyd MD; FEMI Sanders Date Dictated: 11/28/24 140 Date Transcribed: 11/28/24 1741 Crust Sorter: Signed Normal [facility] Echocardiogram study reportO rdered By: Nik Felton on 11-28-2024 Study report [facility] Cardiovascular Services [address] [place] [address] Echo Complete 11/28/241405 MR#: [id number] Acct: [id number] Name: DARLEEN PIRES Rep #:[id number] : 1950 74 From: Nik Peacock Attending Dr: FEMI Sanders Status: REG CLI Ordering Dr: Lisset Vo Date: 11/28/24 Location: [facility] Sex: F AA Admitted: Reason For Study Reason For Study: CARDIOMYOPATHY Procedure This was a 2D Doppler, Color Flow transthoracic echocardiogram. Exam performed in department. Left Ventricle Normal LV size. The left ventricular ejection fraction is 45 %. Stage 1 diastolic dysfunction. No regional wall motion abnormalities noted. Right Ventricle Normal RV size. ICD or pacer leads identified within the right ventricle. Normalsystolic function. Atria Normal left atrium. Normal right atrium. Mitral Valve Normal mitral valve. Mild (1+) eccentric mitral valve insufficiency. Tricuspid Valve Normal tricuspid valve. Mild to moderate (1-2+) tricuspid valve insufficiency. Pulmonary artery systolic pressure is 38 mmHg. Aortic Valve Trisinus/trileaflet aortic valve. Pulmonic Valve Normal pulmonic valve. Great Vessels Normal aortic root. The pulmonary artery is normal size. Inferior vena cava collapse with respiration. Pericardium/Pleural No pericardial effusion. MMode/2D Measurements & Calculations LVIDd: 3.6 cm IVSd: 0.99 cm LVOT diam: 1.9 cm LVIDs: 2.5 cm LVPWd: 1.0 cm LVOT area: 2.7 cm2 RVDd: 3.1 cm FS: 31.3 % ___ asc Aorta Diam: 3.0 cm LAV(MOD-bp): 29.0 ml LVAd ap4: 17.9 cm2 LAV(MOD-bp) Indexed: 18.4 ml/m2 LVLd ap4: 6.9 cm LAV(MOD-sp2): 24.7 ml EDV(MOD-sp4): 38.8 ml LAV(MOD-sp4): 34.1 ml EDV(sp4-el): 39.5 ml LVAs ap4: 13.0 cm2 LVLs ap4: 6.5 cm ESV(MOD-sp4): 22.2 ml ESV(sp4-el): 22.1 ml EF(MOD-sp4): 42.7 % EF(sp4-el): 44.2 % LVAd ap2: 16.1 cm2 SV(MOD-sp4): 16.5 ml SV(MOD-sp2): 15.5 ml LVLd ap2: 6.5 cm SI(MOD-sp4): 10.5 ml/m2 SI(MOD-sp2): 9.8 ml/m2 EDV(MOD-sp2): 33.0 ml EDV(sp2-el): 34.0 ml LVAs ap2: 11.3 cm2 LVLs ap2: 6.1 cm ESV(MOD-sp2): 17.6 ml ESV(sp2-el): 17.7 ml EF(MOD-sp2): 46.8 % SV(sp4-el): 17.5 ml Ao sinus diam: 2.[address] Junction: 2.0 cm LA dimension(2D): 3.6 cm LA A4 area: 14.0 cm2 RA A4 area: 10.1 cm2 TAPSE: 1.6 cm Time Measurements MV dec time: 0.27 sec Doppler Measurements & Calculations MV E max sunni: 51.6 cm/sec Lat Peak E' Sunni: 6.3 cm/sec Med Peak E' Sunni: 4.2 cm/sec MV A max sunni: 92.9 cm/sec E/E' lat: 8.2 E/E' med: 12.2 MV E/A: 0.56 Ao V2 max: 139.4 cm/sec LV V1 max: 72.8 cm/sec PA V2 max: 77.2 cm/sec Ao max P.8 mmHg LV V1 max P.1 mmHg GERDA(V,D): 1.4 cm2 TR max sunni: 288.2 cm/sec TR max P.2 mmHg ECHO/Echo Complete Interpretation Summary The left ventricular ejection fraction is 45 %. Normal LV size. Stage 1 diastolic dysfunction. Mild to moderate (1-2+) tricuspid valve insufficiency. Ordering Physician: Lisset Vo Referring Physician: Tej Lloyd Chi Performed By: Kori Todd RDCS 11/28/241740 Date _ Nik Felton MD CC: Dr. Tej Lloyd MD; FEMI Sanders ~ Date Dictated: 11/28/241405 Date Transcribed: 11/28/241740 Crust Sorter: Signed [facility] Work Phone: SCRN MAMM (CAD)W/FABRICE BILATo n 11-28-2024 SCRN MAMM (CAD)W/FABRICE BILAT [facility] Imaging Services [address] [place] [address] SCRN MAMM (CAD)W/FABRICE BILAT MR#: [id number] Acct: [id number] Name: DARLEEN PIRES Rep #: [id number] : 1950 F 74 From: Violet Meza i, MD PCP: Dr. Tej Lloyd MD Status: [facility] CLI Study: SCRN MAMM (CAD)W/FABRICE BILAT Date of Exam: 11/17 06/13 Exam# [id number] Ordering Dr: Lisset Vo PA EXAM: SCRN MAMM (CAD)W/FABRICE BILAT DATE: 11/28/2024 CLINICAL HISTORY: F, Age 74 y/o , SCREENING TECHNIQUE: SCRN MAMM (CAD)W/FABRICE BILAT COMPARISON: Prior exam(s) were compared FINDINGS: TISSUE DENSITY: The breasts are heterogeneously dense, which may obscure small masses. Bilateral Breast Mammographic Findings: No suspicious masses, calcifications or other abnormalities are identified. BI/SCRN MAMM (CAD)W/FABRICE BILAT IMPRESSION: No mammographic evidence of malignancy in either breast OVERALL FINAL ASSESSMENT BI-RADS 1: NEGATIVE. RECOMMENDATION: Routine annual follow-up in 1 Year A letter with findings and recommendations will be mailed to the patient. Reading Location: [facility] CC: Dr. Tej Lloyd MD; FEMI Sanders Crust Sorter: Signed Normal [facility] Cardiology Visit Reporton Cardiology Visit Report [facility] [address] [place] [address] OFFICE VISIT Date of Service: 11/02/24 MR#: [id number] Acct: [id number] Name: DARLEEN PIRES Rep #: [id number] : 1950 Provider: FEMI Moe Age/Sex: 73/F Location: [facility] [place] Status: Signed HPI HPI History of Present Illness Details: DARLEEN PIRES, is a 72 F who presents to the office today for a follow-up visit. She is a lady with a history of nonischemic cardiomyopathy status post ICD implantation with cardiac resynchronization. She also has a history of diabetes mellitus and hyperlipidemia. Her major complaint at this time is that she has had right leg discomfort for over 3 weeks. From a cardiac standpoint, patient is doing well. She does not have any chest discomfort/heaviness/t ightness. She does not have any worsening symptoms of shortness of breath. She does not have any orthopnea. She denies PND. She does not have any symptoms of congestive heart failure. She does not have any palpitations that she is aware of. She does not have any lightheadedness or dizziness. She does not have any near-syncope or syncope. She does not have any lower extremity edema. She does not have any symptoms of claudication. Intake Vital Signs 08/19/23 14:00 11/02/24 15:38 11/02/24 15:46 Height 5 ft 5 ft Weight: 135 lb BMI 26.4 BP 154/87 H 150/85 H Blood Pressure Location Lt brachial Lt brachial Position Sitting Respiration 16 Pulse 63 Pulse Source Monitor Intake Visit Reasons: 1 Y FU/Sees Eliseo @ 3:30 Mechanic Required: No Accompanied by: Self Is patient in pain?: Yes (tightness in left chest) Pain scale (1-10): 6 Allergies RAND Inhibitors Allergy (Severe, Verified 11/02/24 15:39) Swelling Environmental Allergies: Uncoded Allergy (Mild, Verified 11/02/24 15:40) Other Sulfa (Sulfonamide Antibiotics) Allergy (Mild, Verified 11/02/24 15:39) Rash Medications ???Medication ???Instructions ???Recorded ???Confirmed ???Type timolol maleate 0.5 % eye drops 1 drp EACH EYE BID 03/01/13 History atorvastatin 40 mg tablet 40 mg PO QHS 09/06/18 11/02/24 His tory dorzolamide (PF) 2 % (PF) eye drops 10 ml OP BID 09/06/18 11/02/24 History metformin 500 mg tablet 500 mg PO BID 02/16/19 11/02/24 Hi story cholecalciferol (vitamin D3) 25 25 mcg PO DAILY 02/13/20 11/02/24 History mcg (1,000 unit) capsule latanoprost (PF) 0.005 % eye drops 1 drp ophthalmic (eye) QHS 07/0211/02/24 History amlodipine 10 mg tablet 10 mg PO QDAY #90 tabs 11/23/23 Rx carvedilol 25 mg tablet (Coreg) 25 mg PO BID #180 tabs 11/23/23 Rx Ejection fraction %: 55 Have you fallen in the past year?: No Nurse's Note: BP elevated but states she forgot to take BP pill in am today [facility] Medical History Wears glasses High cholesterol DVT (deep venous thrombosis) Non-smoker History of echocardiogram History of CHF (congestive heart failure) Hypertension Cardiology follow-up encounter Non-ischemic cardiomyopathy ROB (iron deficiency anemia) Anemia Diabetes Essential (primary) hypertension HLD (hyperlipidemia) Left bundle branch block Surgical History History of cardiac catheterization History of left heart catheterization (1994) Biventricular ICD (implantable cardioverter-defibrill ator) in place (07/23/22) H/O: hysterectomy Hx of cataract surgery Family History Father No problems noted. Sister Breast cancer Sister Colon cancer Social History Smoking Status: Never smoker alcohol intake: never substance use type: does not use caffeine: No ROS Const Const: Negative for fatigue or weakness Eyes Eyes: Negative for change in vision ENT ENT: Positive for dizziness and balance problems Cardio Chest Pain: Yes Frequency: daily Character: tightness Location: left chest Duration: minutes Palpitations: No Edema: None Resp Respiratory: Positive for SOB with activity; Negative for SOB at rest or SOB orthopnea SOB lying down GI GI: Positive for heartburn (occ); Negative nausea Musc Musc: Positive for balance problems Neuro Neuro: Positive for dizziness, lightheadedness and near syncope; Negative for syncope or weakness Endo Endo: Negative for fatigue Cardiology Exam Const Appearance: cooperative, no acute distress and well developed Orientation: alert, awake and oriented x3 Head Head: normocephalic and atraumatic Mouth: moist mucous membranes Eyes General: appearance normal, both eyes and all related structures Conjuncti (more content not included)... Normal [facility] Pacemaker Checkon 11-02-2024 Pacemaker Check [facility] [address] [place] [address] Pacemaker Check Date of Service: 11/02/241643 MR#: [id number] Acct: [id number] Name: DARLEEN PIRES Rep #: [id number] : 1950 From: Kayla Queen Age/Sex: 73/F Location: [facility] [place] Status: Signed Billing Codes ICD Device Billin ICD Dev Prog Eval, Multi Assessment and Plan Assessment and Plan (1) Non-ischemic cardiomyopathy: Status: Resolved (2) Biventricular ICD (implantable cardioverter-defibrill ator) in place: Status: Chronic Comment: implant 07/03/2003 08/23/08, 03/01 Bi-V ICD, Gen change 07/23/2022 11/02/24 164 Date Kayla Hannon Signature: Date (if applicable) CC: Normal [facility] .Auto Diffon 09-27-2024 Basophil, Absolute 0.1 10 3/mcL Normal 0.0-0.3 [facility] Comment on above: Performed By: #### A DIFF, PHOS, GFR, ANEU, MG, TSH, TROPHS, CAION, PBNP, CBC, CMP #### [address] [address] Basophils/100 WBC (Bld) 0.9 % Normal 0.0-2.5 [facility] Comment on above: Performed By: #### A DIFF, PHOS, GFR, ANEU, MG, TSH, TROPHS, CAION, PBNP, CBC, CMP #### [address] [address] Eosinophil, Absolute 0.1 10 3/mcL Normal 0.0-0.7 [facility] Comment on above: Performed By: #### A DIFF, PHOS, GFR, ANEU, MG, TSH, TROPHS, CAION, PBNP, CBC, CMP #### [address] [address] Eosinophils/100 WBC (Bld) 1.8 % Normal 0.0-6.0 [facility] Comment on above: Performed By: #### A DIFF, PHOS, GFR, ANEU, MG, TSH, TROPHS, CAION, PBNP, CBC, CMP #### [address] [address] Lymphocyte, Absolute 2.0 10 3/mcL Normal 0.9-4.3 [facility] Comment on above: Performed By: #### A DIFF, PHOS, GFR, ANEU, MG, TSH, TROPHS, CAION, PBNP, CBC, CMP #### [address] [address] Lymphocytes/100 WBC (Bld) 29.8 % Normal 20.0-40.0 [facility] Comment on above: Performed By: #### A DIFF, PHOS, GFR, ANEU, MG, TSH, TROPHS, CAION, PBNP, CBC, CMP #### [address] [address] Monocyte, Absolute 0.6 10 3/mcL Normal 0.1-1.4 [facility] Comment on above: Performed By: #### A DIFF, PHOS, GFR, ANEU, MG, TSH, TROPHS, CAION, PBNP, CBC, CMP #### [address] [address] Monocytes/100 WBC (Bld) 8.4 % Normal 2.0-13.0 [facility] Comment on above: Performed By: #### A DIFF, PHOS, GFR, ANEU, MG, TSH, TROPHS, CAION, PBNP, CBC, CMP #### [address] [address] Neutrophils/100 WBC (Bld) 59.1 % Normal 50.0-75.0 [facility] Comment on above: Performed By: #### A DIFF, PHOS, GFR, ANEU, MG, TSH, TROPHS, CAION, PBNP, CBC, CMP #### [address] [address] .GFRon 09-27-2024 Estimated Glomerular Filtration Rate 76 ml/min/1.73sqm Normal [facility] Comment on above: Result Comment: Stages of Chronic Kidney Disease (CKD) Stage Description eGFR(ml/min/1.73 sq.m.) CKD 1 Normal kidney function or >=90 normal kindney function with possible kidney damage (ex. Proteinuria) CKD 2 Kidney damage with mild loss 60-89 of kidney function CKD 3a Mild to moderate loss of kidney 45-59 function CKD 3b Moderate to severe loss of 30-44 of kindey function CKD 4 Severe loss of kidney function 15-29 CKD 5 Kidney failure <15 Note: (go live 2024) the eGFR calculation was updated to the 2020 CKD-EPI creatinine equation without a race factor to calculate the eGFR results. Performed By: #### A DIFF, PHOS, GFR, ANEU, MG, TSH, TROPHS, CAION, PBNP, CBC, CMP #### [address] [address] .NEUABSon 09-27-2024 Neutrophil, Absolute 3.9 10 3/mcL Normal 2.3-8.1 [facility] Comment on above: Performed By: #### A DIFF, PHOS, GFR, ANEU, MG, TSH, TROPHS, CAION, PBNP, CBC, CMP #### [address] [address] A1Con 09-27-2024 Glucose [Mass/Vol] 148 mg/dL Normal [facility] Comment on above: Result Comment: Pam mated Average Glucose calculated by equation ((28.7xA1C)-46.7) Estimated average glucose (eAG) is a calculated value from Hemoglobin A1C and is medical service representative of the average blood glucose level in the last 2-3 month period. Normal range: less than 114 mg/dL Performed By: #### A 1C #### [place] [address] HbA1c (Bld) [Mass fraction] 6.8 % High 4.0-6.0 [facility] Comment on above: Performed By: #### A 1C #### [place] [address] CAIONon 09-27-2024 Calcium Ionized 1.23 mmol/L Normal 1.12-1.32 [facility] Comment on above: Performed By: #### A DIFF, PHOS, GFR, ANEU, MG, TSH, TROPHS, CAION, PBNP, CBC, CMP #### [place] [address] CBCon 09-27-2024 Erythrocyte distribution width (RBC) [Ratio] 16.6 % High 11.5-15.5 [facility] Comment on above: Performed By: #### A DIFF, PHOS, GFR, ANEU, MG, TSH, TROPHS, CAION, PBNP, CBC, CMP #### [place] [address] Hematocrit (Bld) [Volume fraction] 33.8 % Low 34.0-46.0 [facility] Comment on above: Performed By: #### A DIFF, PHOS, GFR, ANEU, MG, TSH, TROPHS, CAION, PBNP, CBC, CMP #### [place] [address] Hgb 11.4 G/dL Low 12.0-16.0 [facility] Comment on above: Performed By: #### A DIFF, PHOS, GFR, ANEU, MG, TSH, TROPHS, CAION, PBNP, CBC, CMP #### [place] [address] MCH (RBC) [Entitic mass] 28.7 pg Normal 27.0-33.0 [facility] Comment on above: Performed By: #### A DIFF, PHOS, GFR, ANEU, MG, TSH, TROPHS, CAION, PBNP, CBC, CMP #### [place] [address] MCHC 33.7 G/dL Normal 32.0-36.0 [facility] Comment on above: Performed By: #### A DIFF, PHOS, GFR, ANEU, MG, TSH, TROPHS, CAION, PBNP, CBC, CMP #### [place] [address] MCV (RBC) [Entitic vol] 85.2 fL Normal 80.0-99.0 [facility] Comment on above: Performed By: #### A DIFF, PHOS, GFR, ANEU, MG, TSH, TROPHS, CAION, PBNP, CBC, CMP #### [place] [address] Platelet 173 10 3/mcL Normal 150-450 [facility] Comment on above: Performed By: #### A DIFF, PHOS, GFR, ANEU, MG, TSH, TROPHS, CAION, PBNP, CBC, CMP #### [place] [address] Platelet mean volume (Bld) [Entitic vol] 9.0 fL Normal 6.6-10.5 [facility] Comment on above: Performed By: #### A DIFF, PHOS, GFR, ANEU, MG, TSH, TROPHS, CAION, PBNP, CBC, CMP #### [place] [address] RBC 3.96 10 6/mcL Low 4.10-5.30 [facility] Comment on above: Performed By: #### A DIFF, PHOS, GFR, ANEU, MG, TSH, TROPHS, CAION, PBNP, CBC, CMP #### [place] [address] WBC 6.7 10 3/mcL Normal 4.5-10.8 [facility] Comment on above: Performed By: #### A DIFF, PHOS, GFR, ANEU, MG, TSH, TROPHS, CAION, PBNP, CBC, CMP #### [place] [address] CMPon 09-27-2024 Albumin Level 3.6 G/dL Normal 3.2-4.8 [facility] Comment on above: Performed By: #### A DIFF, PHOS, GFR, ANEU, MG, TSH, TROPHS, CAION, PBNP, CBC, CMP #### [address] [address] Albumin/Globulin [Mass ratio] 1.2 {ratio} Normal 0.9-1.6 [facility] Comment on above: Performed By: #### A DIFF, PHOS, GFR, ANEU, MG, TSH, TROPHS, CAION, PBNP, CBC, CMP #### [address] [address] ALP [Catalytic activity/Vol] 72 U/L Normal 38-126 [facility] Comment on above: Performed By: #### A DIFF, PHOS, GFR, ANEU, MG, TSH, TROPHS, CAION, PBNP, CBC, CMP #### [address] [address] ALT [Catalytic activity/Vol] 10 U/L Normal 10-49 [facility] Comment on above: Performed By: #### A DIFF, PHOS, GFR, ANEU, MG, TSH, TROPHS, CAION, PBNP, CBC, CMP #### [place] [id number] AST [Catalytic activity/Vol] 19 U/L Normal 8-34 [facility] Comment on above: Performed By: #### A DIFF, PHOS, GFR, ANEU, MG, TSH, TROPHS, CAION, PBNP, CBC, CMP #### [place] [id number] Bili Total 0.70 mg/dL Normal 0.20-1.20 [facility] Comment on above: Result Comment: Use of this assay is not recommended for patients undergoing treatment with eltrombopag due to the potential for falsely elevated results. Performed By: #### A DIFF, PHOS, GFR, ANEU, MG, TSH, TROPHS, CAION, PBNP, CBC, CMP #### [place] [id number] BUN/Creatinine Ratio 25.9 ratio High 10.0-22.0 [facility] Comment on above: Performed By: #### A DIFF, PHOS, GFR, ANEU, MG, TSH, TROPHS, CAION, PBNP, CBC, CMP #### [place] [id number] Calcium [Mass/Vol] 9.5 mg/dL Normal 8.7-10.4 [facility] Comment on above: Performed By: #### A DIFF, PHOS, GFR, ANEU, MG, TSH, TROPHS, CAION, PBNP, CBC, CMP #### [place] [id number] Chloride [Moles/Vol] 110 mmol/L Normal 98-110 [facility] Comment on above: Performed By: #### A DIFF, PHOS, GFR, ANEU, MG, TSH, TROPHS, CAION, PBNP, CBC, CMP #### [place] [id number] CO2 [Moles/Vol] 23 mmol/L Normal 22-32 [facility] Comment on above: Performed By: #### A DIFF, PHOS, GFR, ANEU, MG, TSH, TROPHS, CAION, PBNP, CBC, CMP #### [place] [id number] Creatinine [Mass/Vol] 0.81 mg/dL Normal 0.50-1.20 [facility] Comment on above: Result Comment: Test ing performed on [employer] analyzer using enzymatic creatinine methodology. Performed By: #### A DIFF, PHOS, GFR, ANEU, MG, TSH, TROPHS, CAION, PBNP, CBC, CMP #### [place] [id number] Electrolyte Balance 11.0 mEq/L Normal 4.0-15.0 [facility] Comment on above: Performed By: #### A DIFF, PHOS, GFR, ANEU, MG, TSH, TROPHS, CAION, PBNP, CBC, CMP #### [place] [id number] Globulin 3.1 G/dL Normal 2.5-4.2 [facility] Comment on above: Performed By: #### A DIFF, PHOS, GFR, ANEU, MG, TSH, TROPHS, CAION, PBNP, CBC, CMP #### [place] [id number] Glucose [Mass/Vol] 125 mg/dL High 82-115 [facility] Comment on above: Performed By: #### A DIFF, PHOS, GFR, ANEU, MG, TSH, TROPHS, CAION, PBNP, CBC, CMP #### [place] [id number] Potassium [Moles/Vol] 3.3 mmol/L Low 3.5-5.0 [facility] Comment on above: Performed By: #### A DIFF, PHOS, GFR, ANEU, MG, TSH, TROPHS, CAION, PBNP, CBC, CMP #### [place] [id number] Sodium [Moles/Vol] 144 mmol/L Normal 136-145 [facility] Comment on above: Performed By: #### A DIFF, PHOS, GFR, ANEU, MG, TSH, TROPHS, CAION, PBNP, CBC, CMP #### [place] [id number] Total Protein 6.7 G/dL Normal 5.7-8.2 [facility] Comment on above: Performed By: #### A DIFF, PHOS, GFR, ANEU, MG, TSH, TROPHS, CAION, PBNP, CBC, CMP #### [place] [id number] Urea nitrogen [Mass/Vol] 21.0 mg/dL Normal 8.0-22.0 [facility] Comment on above: Performed By: #### A DIFF, PHOS, GFR, ANEU, MG, TSH, TROPHS, CAION, PBNP, CBC, CMP #### [address] [address] LABORATORYOrdered By: Jenelle Renteria on 09-27-2024 Blood Glucose Testing Reason Routine (09/27/24 10:19 AM) [facility] Work Phone: Glucose [Mass/Vol] 195 mg/dL High 82 - 115 mg/dL [facility] Work Phone: LABORATORYOrdered By: SYSTEM SYSTEM on 09-27-2024 Troponin I.cardiac DL <= 0.01 ng/mL [Mass/Vol] 15 ng/L Normal 0 - 34 ng/L ADM SS Comment on above: Interpretive Data: High Sensitive Troponin I Reference Ranges: Female: 0-34 ng/L Male: 0-54 ng/L Testing performed on [employer] IM analyzer using direct chemiluminescent technology. Albumin BCP dye [Mass/Vol] 3.6 G/dL Normal 3.2 - 4.8 G/dL ADM SS Albumin/Globulin [Mass ratio] 1.2 {ratio} Normal 0.9 - 1.6 ratio AH ADM SS ALP [Catalytic activity/Vol] 72 U/L Normal 38 - 126 U/L ADM SS ALT No additional P-5'-P [Catalytic activity/Vol] 10 U/L Normal 10 - 49 U/L ADM SS AST [Catalytic activity/Vol] 19 U/L Normal 8 - 34 U/L ADM SS Basophils (Bld) [#/Vol] 0.1 103/mcL Normal 0.0 - 0.3 10^3/mcL Workflow SS Basophils/100 WBC (Bld) 0.9 % Normal 0.0 - 2.5 % Workflow SS Bilirubin [Mass/Vol] 0.70 mg/dL Normal 0.20 - 1.20 mg/dL ADM SS Comment on above: Interpretive Data: U se of this assay is not recommended for patients undergoing treatment with eltrombopag due to the potential for falsely elevated results. Calcium [Mass/Vol] 9.5 mg/dL Normal 8.7 - 10. 4 mg/dL ADM SS Chloride [Moles/Vol] 110 mmol/L Normal 98 - 11 0 mEq/L ADM SS CO2 [Moles/Vol] 23 mmol/L Normal 22 - 32 mEq/L AH ADM SS Creatinine [Mass/Vol] 0.81 mg/dL Normal 0.50 - 1.20 mg/dL ADM SS Comment on above: Interpretive Data: T esting performed on [employer] CH analyzer using enzymatic creatinine methodology. Electrolyte Balance 11.0 mEq/L Normal 4.0 - 15 .0 mEq/L ADM SS Eosinophils (Bld) [#/Vol] 0.1 103/mcL Normal 0.0 - 0.7 10^3/mcL Workflow SS Eosinophils/100 WBC (Bld) 1.8 % Normal 0.0 - 6.0 % Workflow SS Erythrocyte distribution width (RBC) [Ratio] 16.6 % High 11.5 - 15.5 % AH Workflow SS Estimated Glomerular Filtration Rate 76 ml/min/1.73sqm Invalid Interpretation Code ADM SS Comment on above: Interpretive Data: Stages of Chronic Kidney Disease (CKD) Stage Description eGFR(ml/min/1.73 sq.m.) CKD 1 Normal kidney function or >=90 normal kindney function with possible kidney damage (ex. Proteinuria) CKD 2 Kidney damage with mild loss 60-89 of kidney function CKD 3a Mild to moderate loss of kidney 45-59 function CKD 3b Moderate to severe loss of 30-44 of kindey function CKD 4 Severe loss of kidney function 15-29 CKD 5 Kidney failure <15 Note: (go live 2024) the eGFR calculation was updated to the 2020 CKD-EPI creatinine equation without a race factor to calculate the eGFR results. Globulin 3.1 G/dL Normal 2.5 - 4.2 G/dL ADM SS Glucose [Mass/Vol] 125 mg/dL High 82 - 115 mg/dL ADM SS Glucose [Mass/Vol] 148 mg/dL Invalid Interpretation Code Auto Chem SS Comment on above: Interpretive Data: E stimated average glucose (eAG) is a calculated value from Hemoglobin A1C and is medical service representative of the average blood glucose level in the last 2-3 month period. Normal range: less than 114 mg/dL HbA1c (Bld) [Mass fraction] 6.8 % High 4.0 - 6.0 % Auto Chem SS Hematocrit (Bld) [Volume fraction] 33.8 % Low 34.0 - 46.0 % Workflow SS Hemoglobin (Bld) [Mass/Vol] 11.4 G/dL Low 12.0 - 16.0 G/dL Workflow SS Lymphocytes (Bld) [#/Vol] 2.0 103/mcL Normal 0.9 - 4.3 10^3/mcL Workflow SS Lymphocytes/100 WBC (Bld) 29.8 % Normal 20.0 - 40.0 % Workflow SS Magnesium [Mass/Vol] 1.6 mg/dL Normal 1.6 - 2 .4 mg/dL AH ADM SS MCH (RBC) [Entitic mass] 28.7 pg Normal 27.0 - 33.0 pg AH Workflow SS MCHC 33.7 G/dL Normal 32.0 - 36.0 G/dL AH Workflow SS MCV (RBC) [Entitic vol] 85.2 fL Normal 80.0 - 99.0 fL AH Workflow SS Monocytes (Bld) [#/Vol] 0.6 103/mcL Normal 0.1 - 1.4 10^3/mcL AH Workflow SS Monocytes/100 WBC (Bld) 8.4 % Normal 2.0 - 13.0 % AH Workflow SS Natriuretic peptide.B prohormone N-Terminal IA [Mass/Vol] 125 pg/mL Normal 0 - 900 pg/mL AH ADM SS Neutrophils (Bld) [#/Vol] 3.9 103/mcL Normal 2.3 - 8.1 10^3/mcL AH Workflow SS Neutrophils/100 WBC (Bld) 59.1 % Normal 50.0 - 75.0 % AH Workflow SS Phosphate [Mass/Vol] 3.0 mg/dL Normal 2.4 - 5 .1 mg/dL AH ADM SS Platelet mean volume (Bld) [Entitic vol] 9.0 fL Normal 6.6 - 10.5 fL AH Workflow SS Platelets (Bld) [#/Vol] 173 103/mcL Normal 150 - 450 10^3/mcL AH Workflow SS Potassium [Moles/Vol] 3.3 mmol/L Low 3.5 - 5.0 mEq/L ADM SS Protein [Mass/Vol] 6.7 G/dL Normal 5.7 - 8.2 G/dL AH ADM SS RBC (Bld) [#/Vol] 3.96 106/mcL Low 4.10 - 5.3 0 10^6/mcL AH Workflow SS Sodium [Moles/Vol] 144 mmol/L Normal 136 - 145 mEq/L AH ADM SS Troponin I.cardiac DL <= 0.01 ng/mL [Mass/Vol] 15 ng/L Normal 0 - 34 ng/L AH ADM SS Comment on above: Interpretive Data: High Sensitive Troponin I Reference Ranges: Female: 0-34 ng/L Male: 0-54 ng/L Testing performed on [employer] analyzer using direct chemiluminescent technology. TSH Qn 4.540 mIU/mL Normal 0.550 - 4.780 mIU/mL AH ADM SS Urea nitrogen [Mass/Vol] 21.0 mg/dL Normal 8.0 - 22.0 mg/dL AH ADM SS Urea nitrogen/Creatinine [Mass ratio] 25.9 ratio High 10.0 - 22.0 ratio AH ADM SS WBC (Bld) [#/Vol] 6.7 103/mcL Normal 4.5 - 10.8 10^3/mcL Workflow SS LABORATORYOrdered By: Rickie Robin on 09-27-2024 Calcium Ionized 1.23 mmol/L Normal 1.12 - 1.32 mmol/L Main Rapid Comm SS MGon 09-27-2024 Magnesium [Mass/Vol] 1.6 mg/dL Normal 1.6-2.4 [facility] Comment on above: Performed By: #### A DIFF, PHOS, GFR, ANEU, MG, TSH, TROPHS, CAION, PBNP, CBC, CMP #### [place] [address] NM MYOCARDIAL SPECT STRESS/R ESTon 09-27-2024 NM MYOCARDIAL SPECT STRESS/REST ORIGINAL EXAMINATION: CARDIAC SPECT09/27/2024 9:53 am TECHNIQUE: The patient received an intravenous injection of 8.2 mCi of Tc-99m Sestamibi and resting emission tomographic (SPECT) images of the myocardium were acquired. The patient then received an intravenous infusion of 0.4 mg regadenoson (Lexiscan) followed by an additional injection of 27 mCi of Tc-99m Sestamibi. Stress phase SPECT images of the myocardium were then acquired. These included ECG-gated images to assess and quantify ventricular function. Low dose CT was acquired for attenuation correction. COMPARISON: None HISTORY: ORDERING SYSTEM PROVIDED HISTORY: Reason for Exam: Chest pain/anginal equiv, ECGs and troponins normal FINDINGS: Stress and rest images demonstrates grossly normal perfusion through the LV myocardium, without evidence of infarct or stress-induced ischemia. Decreased activity in the inferior wall demonstrates normal motion and thickening, and improves with attenuation correction, and is most suggestive of diaphragmatic or other extracardiac soft tissue attenuation artifact. The LV chamber is normal in size. Normal TID value. Gated post-stress images reveals normal myocardial contractility. The estimated LVEF is greater than 65%. Low-dose CT demonstrates no overt abnormalities. IMPRESSION: 1. No evidence of infarct or ischemia. 2. LV chamber is normal in size. 3. Normal LV wall motion, with LVEF of greater than 65%. I have personally reviewed the images of this examination and agree with the resident's findings and interpretation. Interpreted by: Kami Ford DO Preliminary Report By: Brooklyn Chen Electronically signed By Kami Ford DO Dictated Date: 09/27/2024 10:00:45 AM Prelim Date: 09/27/2024 10:49:00 AM Sign Date: 09/27/2024 10:49:00 AM Ordering Provider: REMY LUDWIG [facility] MAIN PBNPon 09-27-2024 Natriuretic peptide B (Bld) [Mass/Vol] 125 pg/mL Normal 0-900 [facility] Comment on above: Performed By: #### A DIFF, PHOS, GFR, ANEU, MG, TSH, TROPHS, CAION, PBNP, CBC, CMP #### [address] 09-27-2024 Phosphate [Mass/Vol] 3.0 mg/dL Normal 2.4-5.1 [facility] Comment on above: Performed By: #### A DIFF, PHOS, GFR, ANEU, MG, TSH, TROPHS, CAION, PBNP, CBC, CMP #### [address] 09-27-2024 High Sensitivity Troponin I 15 ng/L Normal 0-34 [facility] Comment on above: Result Comment: High Sensitive Troponin I Reference Ranges: Female: 0-34 ng/L Male: 0-54 ng/L Testing performed on AtellTreato IM analyzer using direct chemiluminescent technology. Performed By: #### A DIFF, PHOS, GFR, ANEU, MG, TSH, TROPHS, CAION, PBNP, CBC, CMP #### [place] [address] High Sensitivity Troponin I 15 ng/L Normal 0-[address] [place] [address] MAIN Comment on above: Result Comment: High Sensitive Troponin I Reference Ranges: Female: 0-34 ng/L Male: 0-54 ng/L Testing performed on AtellTreato IM analyzer using direct chemiluminescent technology. Performed By: #### A DIFF, PHOS, GFR, ANEU, MG, TSH, TROPHS, CAION, PBNP, CBC, CMP #### [address] [address] TSHon 09-27-2024 TSH 4.540 mIU/mL Normal 0.550-4.780 [facility] Comment on above: Performed By: #### A DIFF, PHOS, GFR, ANEU, MG, TSH, TROPHS, CAION, PBNP, CBC, CMP #### [address] [address] .Auto Diffon 09-26-2024 Basophil, Absolute 0.1 10 3/mcL Normal 0.0-0.3 [facility] Comment on above: Performed By: #### A DIFF, GFR, MDW, TROPHS, BMP, CBC, ANEU, DIMER, PBNP #### [address] [address] Basophils/100 WBC (Bld) 1.3 % Normal 0.0-2.5 [facility] Comment on above: Performed By: #### A DIFF, GFR, MDW, TROPHS, BMP, CBC, ANEU, DIMER, PBNP #### [address] [address] Eosinophil, Absolute 0.1 10 3/mcL Normal 0.0-0.7 [facility] Comment on above: Performed By: #### A DIFF, GFR, MDW, TROPHS, BMP, CBC, ANEU, DIMER, PBNP #### [address] [address] Eosinophils/100 WBC (Bld) 1.8 % Normal 0.0-6.0 [facility] Comment on above: Performed By: #### A DIFF, GFR, MDW, TROPHS, BMP, CBC, ANEU, DIMER, PBNP #### [address] [address] Lymphocyte, Absolute 1.5 10 3/mcL Normal 0.9-4.3 [facility] Comment on above: Performed By: #### A DIFF, GFR, MDW, TROPHS, BMP, CBC, ANEU, DIMER, PBNP #### [address] [address] Lymphocytes/100 WBC (Bld) 29.7 % Normal 20.0-40.0 [facility] Comment on above: Performed By: #### A DIFF, GFR, MDW, TROPHS, BMP, CBC, ANEU, DIMER, PBNP #### [address] [address] Monocyte, Absolute 0.4 10 3/mcL Normal 0.1-1.4 [facility] Comment on above: Performed By: #### A DIFF, GFR, MDW, TROPHS, BMP, CBC, ANEU, DIMER, PBNP #### [address] [address] Monocytes/100 WBC (Bld) 8.4 % Normal 2.0-13.0 [facility] Comment on above: Performed By: #### A DIFF, GFR, MDW, TROPHS, BMP, CBC, ANEU, DIMER, PBNP #### [address] [address] Neutrophils/100 WBC (Bld) 58.8 % Normal 50.0-75.0 [facility] Comment on above: Performed By: #### A DIFF, GFR, MDW, TROPHS, BMP, CBC, ANEU, DIMER, PBNP #### [address] [address] .GFRon 09-26-2024 Estimated Glomerular Filtration Rate 78 ml/min/1.73sqm Normal [facility] Comment on above: Result Comment: Stages of Chronic Kidney Disease (CKD) Stage Description eGFR(ml/min/1.73 sq.m.) CKD 1 Normal kidney function or >=90 normal kindney function with possible kidney damage (ex. Proteinuria) CKD 2 Kidney damage with mild loss 60-89 of kidney function CKD 3a Mild to moderate loss of kidney 45-59 function CKD 3b Moderate to severe loss of 30-44 of kindey function CKD 4 Severe loss of kidney function 15-29 CKD 5 Kidney failure <15 Note: (go live 2024) the eGFR calculation was updated to the 2020 CKD-EPI creatinine equation without a race factor to calculate the eGFR results. Performed By: #### A DIFF, GFR, MDW, TROPHS, BMP, CBC, ANEU, DIMER, PBNP ####[address] [address] .MDWon 09-26-2024 Monocyte Distribution Width 15.54 Normal 0.00-20.00 [facility] Comment on above: Result Comment: For ED adult patients suspected of sepsis, MDW<=20.0 does not rule out sepsis or risk of sepsis Performed By: #### A DIFF, GFR, MDW, TROPHS, BMP, CBC, ANEU, DIMER, PBNP #### [address] [address] .NEUABSon 09-26-2024 Neutrophil, Absolute 3.0 10 3/mcL Normal 2.3-8.1 [facility] Comment on above: Performed By: #### A DIFF, GFR, MDW, TROPHS, BMP, CBC, ANEU, DIMER, PBNP #### [address] [address] BMPon 09-26-2024 BUN/Creatinine Ratio 20 ratio Normal 7-27 [facility] Comment on above: Performed By: #### A DIFF, GFR, MDW, TROPHS, BMP, CBC, ANEU, DIMER, PBNP #### [address] [address] Calcium [Mass/Vol] 9.8 mg/dL Normal 8.4-10.2 [facility] Comment on above: Performed By: #### A DIFF, GFR, MDW, TROPHS, BMP, CBC, ANEU, DIMER, PBNP #### [address] [address] Chloride [Moles/Vol] 105 mmol/L Normal 98-107 [facility] Comment on above: Performed By: #### A DIFF, GFR, MDW, TROPHS, BMP, CBC, ANEU, DIMER, PBNP #### [address] [address] CO2 [Moles/Vol] 25 mmol/L Normal 23-31 [facility] Comment on above: Performed By: #### A DIFF, GFR, MDW, TROPHS, BMP, CBC, ANEU, DIMER, PBNP #### [address] [address] Creatinine [Mass/Vol] 0.79 mg/dL Normal 0.51-0.95 [facility] Comment on above: Performed By: #### A DIFF, GFR, MDW, TROPHS, BMP, CBC, ANEU, DIMER, PBNP #### [address] [address] Electrolyte Balance 10.0 mEq/L Normal 4.0-15.0 [facility] Comment on above: Performed By: #### A DIFF, GFR, MDW, TROPHS, BMP, CBC, ANEU, DIMER, PBNP #### [address] [address] Glucose [Mass/Vol] 202 mg/dL High 83-110 [facility] Comment on above: Performed By: #### A DIFF, GFR, MDW, TROPHS, BMP, CBC, ANEU, DIMER, PBNP #### [address] [address] Potassium [Moles/Vol] 3.6 mmol/L Normal 3.5-5.1 [facility] Comment on above: Performed By: #### A DIFF, GFR, MDW, TROPHS, BMP, CBC, ANEU, DIMER, PBNP #### [address] [address] Sodium [Moles/Vol] 140 mmol/L Normal 136-145 [facility] Comment on above: Performed By: #### A DIFF, GFR, MDW, TROPHS, BMP, CBC, ANEU, DIMER, PBNP #### [address] [address] Urea nitrogen [Mass/Vol] 16 mg/dL Normal 7-18 [facility] Comment on above: Performed By: #### A DIFF, GFR, MDW, TROPHS, BMP, CBC, ANEU, DIMER, PBNP #### [address] [address] CBCon 09-26-2024 Erythrocyte distribution width (RBC) [Ratio] 16.6 % High 11.5-15.5 [facility] Comment on above: Performed By: #### A DIFF, GFR, MDW, TROPHS, BMP, CBC, ANEU, DIMER, PBNP #### [address] [address] Hematocrit (Bld) [Volume fraction] 37.0 % Normal 34.0-46.0 [facility] Comment on above: Performed By: #### A DIFF, GFR, MDW, TROPHS, BMP, CBC, ANEU, DIMER, PBNP #### [address] [address] Hgb 12.2 G/dL Normal 12.0-16.0 [facility] Comment on above: Performed By: #### A DIFF, GFR, MDW, TROPHS, BMP, CBC, ANEU, DIMER, PBNP #### [address] [address] MCH (RBC) [Entitic mass] 28.3 pg Normal 27.0-33.0 [facility] Comment on above: Performed By: #### A DIFF, GFR, MDW, TROPHS, BMP, CBC, ANEU, DIMER, PBNP #### [address] [address] MCHC 33.0 G/dL Normal 32.0-36.0 [facility] Comment on above: Performed By: #### A DIFF, GFR, MDW, TROPHS, BMP, CBC, ANEU, DIMER, PBNP #### [address] [address] MCV (RBC) [Entitic vol] 85.8 fL Normal 80.0-99.0 [facility] Comment on above: Performed By: #### A DIFF, GFR, MDW, TROPHS, BMP, CBC, ANEU, DIMER, PBNP #### [address] [address] Platelet 195 10 3/mcL Normal 150-450 [facility] Comment on above: Performed By: #### A DIFF, GFR, MDW, TROPHS, BMP, CBC, ANEU, DIMER, PBNP #### [place] [address] [place], [place] [address] Platelet mean volume (Bld) [Entitic vol] 8.9 fL Normal 6.6-10.5 [facility] Comment on above: Performed By: #### A DIFF, GFR, MDW, TROPHS, BMP, CBC, ANEU, DIMER, PBNP #### [place] [address] [place], [place] [address] RBC 4.31 10 6/mcL Normal 4.10-5.30 [facility] Comment on above: Performed By: #### A DIFF, GFR, MDW, TROPHS, BMP, CBC, ANEU, DIMER, PBNP #### [address] [address] WBC 5.1 10 3/mcL Normal 4.5-10.8 [facility] Comment on above: Performed By: #### A DIFF, GFR, MDW, TROPHS, BMP, CBC, ANEU, DIMER, PBNP #### [address] [address] [address] ANGIOGRAPHY CHEST W/CONTR Reid 09-26-2024 CT ANGIOGRAPHY CHEST W/CONTRAST ORIGINAL EXAMINATION: CTA OF THE CHEST 09/26/2024 3:19 pm TECHNIQUE: CTA of the chest was performed after the administration of intravenous contrast. Multiplanar reformatted images are provided for review. MIP images are provided for review. Automated exposure control, iterative reconstruction, and/or weight based adjustment of the mA/kV was utilized to reduce the radiation dose to as low as reasonably achievable. COMPARISON: Same day chest x-ray HISTORY: ORDERING SYSTEM PROVIDED HISTORY: Reason for Exam: Pulmonary embolism (PE) suspected, low to intermediate prob, positive D-dimer FINDINGS: Pulmonary Arteries: Pulmonary arteries are adequately opacified for evaluation. No evidence of pulmonary embolism. Main pulmonary artery is normal in caliber. Mediastinum: No evidence of mediastinal lymphadenopathy. The heart and pericardium demonstrate no acute abnormality. There is no acute abnormality of the thoracic aorta. Lungs/pleura: The lungs are without acute process. No focal consolidation or pulmonary edema. No evidence of pleural effusion or pneumothorax. A 4 mm pulmonary nodule seen in the right middle lobe. Bibasilar atelectasis. Upper Abdomen: No acute abnormalities seen in the visualized portions of the upper abdomen. Partially visualized large simple appearing cyst in the left kidney measures up to 4.9 cm.. Soft Tissues/Bones: No acute bone or soft tissue abnormality. A left-sided AICD device is present. IMPRESSION: No evidence of pulmonary embolism or acute pulmonary abnormality. Right solid pulmonary nodule measuring 4 mm. Per Fleischner Society Guidelines, no routine follow-up imaging is recommended. These guidelines do not apply to immunocompromised patients and patients with cancer. Follow up in patients with significant comorbidities as clinically warranted. For lung cancer screening, adhere to Lung-RADS guidelines. Reference: Radiology. 2017; 284(1):228-43. I have personally reviewed the images of this examination and agree with the resident's findings and interpretation. Interpreted by: Philippe Hitchcock DO Preliminary Report By: Nish Gonzalez Electronically signed By Philippe Hitchcock DO Dictated Date: 09/26/2024 3:22:49 PM Prelim Date: 09/26/2024 3:49:35 PM Sign Date: 09/26/2024 3:49:35 PM Ordering Provider: CARLOS [place] [facility] DIMERon 09-26-2024 D-Dimer 594 ng/mL D-DU High 0-230 [facility] Comment on above: Result Comment: Resu lts reported in D-DU ng/mL. Positive for D-dimer. A positive D-Dimer may occur in the following: DVT, PE, DIC, Trauma, Cancer, Sepsis, , Rheumatoid arthritis, Myocardial infarction and Cirrhosis. The presence of Rheumatoid Factor and HAMA (human mouse antibody) produces an overestimation of test results. The result of the D-Dimer test should be evaluated in the context of all the clinical and laboratory data available. In those instances where the laboratory result does not agree with the clinical evaluation, additional tests should be performed accordingly. If the D-Dimer result is used to exclude DVT or PE, the recommended cutoff value is less than 230 ng/mL. The D-Dimer result should not be used alone to rule in DVT/PE, but should be used in conjunction with a clinical pretest probability (PTP)assessment model to exclude venous thromboembolism (VTE) in patients suspected of deep venous thrombosis (DVT) and pulmonary embolism (PE). Performed By: #### A DIFF, GFR, MDW, TROPHS, BMP, CBC, ANEU, DIMER, PBNP ####[address] [place], [place] [address] LABORATORYOrdered By: SYSTEM SYSTEM on 09-26-2024 Troponin I.cardiac DL <= 0.01 ng/mL [Mass/Vol] 29 ng/L Normal 0 - 51 ng/L AO ADM SS Comment on above: Interpretive Data: H igh Sensitive Troponin I Reference Ranges: Female: 0-51 ng/L Male: 0-76 ng/L Testing performed on Kid[employer]om using a homogeneous sandwich chemiluminescent immunoassay based on Acompli technology. Basophils (Bld) [#/Vol] 0.1 103/mcL Normal 0.0 - 0.3 10^3/mcL AO Workflow SS Basophils/100 WBC (Bld) 1.3 % Normal 0.0 - 2.5 % AO Workflow SS Calcium [Mass/Vol] 9.8 mg/dL Normal 8.4 - 10. 2 mg/dL AO ADM SS Chloride [Moles/Vol] 105 mmol/L Normal 98 - 10 7 mmol/L AO ADM SS CO2 [Moles/Vol] 25 mmol/L Normal 23 - 31 mmol/L AO ADM SS Creatinine [Mass/Vol] 0.79 mg/dL Normal 0.51 - 0.95 mg/dL AO ADM SS Electrolyte Balance 10.0 mEq/L Normal 4.0 - 15 .0 mEq/L AO ADM SS Eosinophil, Absolute 0.1 103/mcL Normal 0.0 - 0 .7 10^3/mcL AO Workflow SS Eosinophils/100 WBC (Bld) 1.8 % Normal 0.0 - 6.0 % AO Workflow SS Erythrocyte distribution width (RBC) [Ratio] 16.6 % High 11.5 - 15.5 % AO Workflow SS Estimated Glomerular Filtration Rate 78 ml/min/1.73sqm Invalid Interpretation Code AO Chemistry S Comment on above: Interpretive Data: Stages of Chronic Kidney Disease (CKD) Stage Description eGFR(ml/min/1.73 sq.m.) CKD 1 Normal kidney function or >=90 normal kindney function with possible kidney damage (ex. Proteinuria) CKD 2 Kidney damage with mild loss 60-89 of kidney function CKD 3a Mild to moderate loss of kidney 45-59 function CKD 3b Moderate to severe loss of 30-44 of kindey function CKD 4 Severe loss of kidney function 15-29 CKD 5 Kidney failure <15 Note: (go live 2024) the eGFR calculation was updated to the 2020 CKD-EPI creatinine equation without a race factor to calculate the eGFR results. Fibrin D-dimer DDU (PPP) [Mass/Vol] 594 ng/mL D-DU High 0 - 230 ng/mL D-DU AO [employer] SS Comment on above: Result Comment: Resu lts reported in D-DU ng/mL. Positive for D-dimer. A positive D-Dimer may occur in the following: DVT, PE, DIC, Trauma, Cancer, Sepsis, , Rheumatoid arthritis, Myocardial infarction and Cirrhosis. The presence of Rheumatoid Factor and HAMA (human mouse antibody) produces an overestimation of test results. Interpretive Data: T he result of the D-Dimer test should be evaluated in the context of all the clinical and laboratory data available. In those instances where the laboratory result does not agree with the clinical evaluation, additional tests should be performed accordingly. If the D-Dimer result is used to exclude DVT or PE, the recommended cutoff value is less than 230 ng/mL. The D-Dimer result should not be used alone to rule in DVT/PE, but should be used in conjunction with a clinical pretest probability (PTP)assessment model to exclude venous thromboembolism (VTE) in patients suspected of deep venous thrombosis (DVT) and pulmonary embolism (PE). Glucose [Mass/Vol] 202 mg/dL High 83 - 110 mg/dL AO ADM SS Hematocrit (Bld) [Volume fraction] 37.0 % Normal 34.0 - 46.0 % AO Workflow SS Hemoglobin (Bld) [Mass/Vol] 12.2 G/dL Normal 12.0 - 16.0 G/dL AO Workflow SS Lymphocytes (Bld) [#/Vol] 1.5 103/mcL Normal 0.9 - 4.3 10^3/mcL AO Workflow SS Lymphocytes/100 WBC (Bld) 29.7 % Normal 20.0 - 40.0 % AO Workflow SS MCH (RBC) [Entitic mass] 28.3 pg Normal 27.0 - 33.0 pg AO Workflow SS MCHC 33.0 G/dL Normal 32.0 - 36.0 G/dL AO Workflow SS MCV (RBC) [Entitic vol] 85.8 fL Normal 80.0 - 99.0 fL AO Workflow SS Monocyte distribution width Auto (Bld) [Entitic vol] 15.54 1 Normal 0.00 - 20.00 AO Workflow SS Comment on above: Result Comment: For ED adult patients suspected of sepsis, MDW<=20.0 does not rule out sepsis or risk of sepsis Monocytes (Bld) [#/Vol] 0.4 103/mcL Normal 0.1 - 1.4 10^3/mcL AO Workflow SS Monocytes/100 WBC (Bld) 8.4 % Normal 2.0 - 13.0 % AO Workflow SS Natriuretic peptide.B prohormone N-Terminal [Mass/Vol] 165 pg/mL High 0 - 125 pg/mL AO ADM SS Comment on above: Interpretive Data: N T-proBNP results of less than 300 pg/mL effectively rules out acute congestive heart failure with 99% negative predictive value. Neutrophils (Bld) [#/Vol] 3.0 103/mcL Normal 2.3 - 8.1 10^3/mcL AO Workflow SS Neutrophils/100 WBC (Bld) 58.8 % Normal 50.0 - 75.0 % AO Workflow SS Platelet mean volume (Bld) [Entitic vol] 8.9 fL Normal 6.6 - 10.5 fL AO Workflow SS Platelets (Bld) [#/Vol] 195 103/mcL Normal 150 - 450 10^3/mcL AO Workflow SS Potassium [Moles/Vol] 3.6 mmol/L Normal 3.5 - 5.1 mmol/L AO ADM SS RBC (Bld) [#/Vol] 4.31 106/mcL Normal 4.10 - 5.3 0 10^6/mcL AO Workflow SS Sodium [Moles/Vol] 140 mmol/L Normal 136 - 145 mmol/L AO ADM SS Troponin I.cardiac DL <= 0.01 ng/mL [Mass/Vol] 28 ng/L Normal 0 - 51 ng/L AO ADM SS Comment on above: Interpretive Data: H igh Sensitive Troponin I Reference Ranges: Female: 0-51 ng/L Male: 0-76 ng/L Testing performed on Kidamom using a homogeneous sandwich chemiluminescent immunoassay based on Acompli technology. Urea nitrogen [Mass/Vol] 16 mg/dL Normal 7 - 18 mg/dL AO ADM SS Urea nitrogen/Creatinine [Mass ratio] 20 ratio Normal 7 - 27 ratio AO ADM SS WBC (Bld) [#/Vol] 5.1 103/mcL Normal 4.5 - 10.8 10^3/mcL AO Workflow SS PBNPon 09-26-2024 Natriuretic peptide B (Bld) [Mass/Vol] 165 pg/mL High 0-125 [facility] Comment on above: Result Comment: NT-p roBNP results of less than 300 pg/mL effectively rules out acute congestive heart failure with 99% negative predictive value. Performed By: #### A DIFF, GFR, MDW, TROPHS, BMP, CBC, ANEU, DIMER, PBNP ####[address] [address] TROPHSon 09-26-2024 High Sensitivity Troponin I 29 ng/L Normal 0-51 [facility] Comment on above: Result Comment: High Sensitive Troponin I Reference Ranges: Female: 0-51 ng/L Male: 0-76 ng/L Testing performed on Dimension EX[employer] using a homogeneous sandwich chemiluminescent immunoassay based on Acompli technology. Performed By: #### Marilee RANDOLPH #### [address] [address] High Sensitivity Troponin I 28 ng/L Normal 0-51 [facility] Comment on above: Result Comment: High Sensitive Troponin I Reference Ranges: Female: 0-51 ng/L Male: 0-76 ng/L Testing performed on Dimension EXL using a homogeneous sandwich chemiluminescent immunoassay based on Acompli technology. Performed By: #### A DIFF, GFR, MDW, TROPHS, BMP, CBC, ANEU, DIMER, PBNP #### [address] [address] XR CHEST 1 VIEWon 09-26-2024 XR CHEST 1 VIEW ORIGINAL EXAMINATION: ONE XRAY VIEW OF THE CHEST 09/26/2024 1:44 pm COMPARISON: None. HISTORY: ORDERING SYSTEM PROVIDED HISTORY: Reason for Exam: chest pain FINDINGS: Low lung volumes with hypoventilatory changes. Rotation to the left. Triple lead left chest wall pacer device with leads overlying the region of the right atrium, right ventricle coronary sinus. Aortic arch calcifications. Vascular congestion and or bronchovascular crowding. Left cross phrenic angles obscured secondary to pacer. Right costophrenic angle is sharp. No pneumothorax. No acute osseous abnormality. IMPRESSION: Low lung volumes with hypoventilatory changes. Vascular congestion and or bronchovascular crowding. Interpreted by: Kyugn Honeycutt Preliminary Report By: Kyung Honeycutt Electronically signed By Kyung Honeycutt Dictated Date: 09/26/2024 1:50:37 PM Prelim Date: 09/26/2024 1:51:19 PM Sign Date: 09/26/2024 1:51:19 PM Ordering Provider: CARLOS AVILA [facility] Absolute lymphocyte countOrd ered By: Tej Lloyd on 09-13-2024 Lymphocytes Auto (Unsp spec) [#/Vol] 2.07 10*3/uL 0.83-4.51 [facility] Absolute neutrophil countOrd ered By: Tej Lloyd on 09-13-2024 Neutrophils (Bld) [#/Vol] 3.3 10*3/uL 2.0-7.7 [facility] Anion gap in Serum or Plasma Ordered By: Tej Lloyd on 09-13-2024 Anion gap [Moles/Vol] 11 mmol/L 5-15 [facility] Automated lymphocyte count a s percentage of total leukocytesOrdered By: Tej Lloyd on 09-13-2024 Lymphocytes/100 WBC Auto (Unsp spec) 34.4 % 19-41 [facility] BUN/creatinine ratioOrdered By: [facility] Gabino on 09-13-2024 Urea nitrogen/Creatinine [Mass ratio] 17.5 mg/mg 10-20 [facility] Basophil percentageOrdered B y: Tej Lloyd on 09-13-2024 Basophils/100 WBC (Bld) 0.7 % 0-1 [facility] Bilirubin, totalOrdered By: Tej Lloyd on 09-13-2024 Bilirubin [Mass/Vol] 0.77 mg/dL 0.00-1.30 [facility] CBC W/Diff, Automatedon 08-18 Absolute Lymph 2.07 X10 3/uL Normal 0.83-4.51 [facility] Comment on above: Performed By: #### L 100.0100, L501.9520, L500.4050, L506.1001 #### [facility] [address], [address] Absolute Neut 3.3 X10 3/uL Normal 2.0-7.7 [facility] Comment on above: Performed By: #### L 100.0100, L501.9520, L500.4050, L506.1001 #### [facility] [address] [place], [address] Basophils/100 WBC (Bld) 0.7 % Normal 0-1 [facility] Comment on above: Performed By: #### L 100.0100, L501.9520, L500.4050, L506.1001 #### [facility] [address] [place], [address] Eosinophils/100 WBC (Bld) 1.5 % Normal 0-5 [facility] Comment on above: Performed By: #### L 100.0100, L501.9520, L500.4050, L506.1001 #### [facility] [address] [place], [address] Erythrocyte distribution width (RBC) [Ratio] 16.4 % High 11.6-14.6 [facility] Comment on above: Performed By: #### L 100.0100, L501.9520, L500.4050, L506.1001 #### [facility] [address] [place], [address] Hematocrit (Bld) [Volume fraction] 35.3 % Low 37-47 [facility] Comment on above: Performed By: #### L 100.0100, L501.9520, L500.4050, L506.1001 #### [facility] [address] [place], [address] Hemoglobin (Bld) [Mass/Vol] 11.5 g/dL Low 12.0-15.0 [facility] Comment on above: Performed By: #### L 100.0100, L501.9520, L500.4050, L506.1001 #### [facility] [address] [place], [address] IG% 0.300 Normal 0.0-0.9 [facility] Comment on above: Result Comment: IG% - Immature Granulocytes (promyelocytes, myelocytes and metamyelocytes) > 1% indicates that a LEFT SHIFT is Present. Performed By: #### L 100.0100, L501.9520, L500.4050, L506.1001 #### [facility] [address] [place], [address] Lymphocytes/100 WBC (Bld) 34.4 % Normal 19-41 [facility] Comment on above: Performed By: #### L 100.0100, L501.9520, L500.4050, L506.1001 #### [facility] [address] [place], [address] MCH (RBC) [Entitic mass] 28.0 pg Normal 27.0-32.0 [facility] Comment on above: Performed By: #### L 100.0100, L501.9520, L500.4050, L506.1001 #### [facility] [address] [place], [address] MCHC (RBC) [Mass/Vol] 32.6 g/dL Normal 32-36 [facility] Comment on above: Performed By: #### L 100.0100, L501.9520, L500.4050, L506.1001 #### [facility] [address] [place], [address] MCV (RBC) [Entitic vol] 85.9 fL Normal 81-99 [facility] Comment on above: Performed By: #### L 100.0100, L501.9520, L500.4050, L506.1001 #### [facility] [address] [place], [address] Monocytes/100 WBC (Bld) 8.5 % Normal 0-10 [facility] Comment on above: Performed By: #### L 100.0100, L501.9520, L500.4050, L506.1001 #### [facility] [address] [place], [address] Neutrophils/100 WBC (Bld) 54.6 % Normal 47-70 [facility] Comment on above: Performed By: #### L 100.0100, L501.9520, L500.4050, L506.1001 #### [facility] [address] [place], [address] Nucleated RBC (Bld) [#/Vol] 0 10*3/uL Normal 0-5 [facility] Comment on above: Performed By: #### L 100.0100, L501.9520, L500.4050, L506.1001 #### [facility] [address] [place], [address] Platelet mean volume (Bld) [Entitic vol] 11.2 fL Normal 6.2-12.0 [facility] Comment on above: Performed By: #### L 100.0100, L501.9520, L500.4050, L506.1001 #### [facility] [address] [place], [address] Platelets (Bld) [#/Vol] 202 10*3/uL Normal 150-450 [facility] Comment on above: Performed By: #### L 100.0100, L501.9520, L500.4050, L506.1001 #### [facility] [address] [place], [address] RBC (Bld) [#/Vol] 4.11 10*6/uL Low 4.2-5.4 [facility] Comment on above: Performed By: #### L 100.0100, L501.9520, L500.4050, L506.1001 #### [facility] [address] [place], [address] RDW SD 51.8 fl High 35.1-43.9 [facility] Comment on above: Performed By: #### L 100.0100, L501.9520, L500.4050, L506.1001 #### [facility] [address] [place], [address] WBC (Bld) [#/Vol] 6.0 10*3/uL Normal 4.4-11.0 [facility] Comment on above: Performed By: #### L 100.0100, L501.9520, L500.4050, L506.1001 #### [facility] [address] [place], [address] Carbon dioxide, total [Moles /volume] in Central venous bloodOrdered By: Tej Lloyd on 09-13-2024 CO2 [Moles/Vol] 22.9 mmol/L 21.0-32.0 [facility] Chloride assayOrdered By: Sameer Lloyd on 09-13-2024 Chloride [Moles/Vol] 106 mmol/L 98-108 [facility] Comprehensive Metabolic Prof ilon 09-13-2024 Albumin [Mass/Vol] 4.1 g/dL Normal 3.4-4.8 [facility] Comment on above: Performed By: #### L 100.0100, L501.9520, L500.4050, L506.1001 #### [facility] [address] [place], [address] Albumin/Globulin [Mass ratio] 1.3 {ratio} Normal 0.9-2.4 [facility] Comment on above: Performed By: #### L 100.0100, L501.9520, L500.4050, L506.1001 #### [facility] [address] [place], [address] ALK PHOS 86 U/L Normal 35-104 [facility] Comment on above: Performed By: #### L 100.0100, L501.9520, L500.4050, L506.1001 #### [facility] [address] [place], [address] ALT [Catalytic activity/Vol] 15 U/L Normal <=34 [facility] Comment on above: Performed By: #### L 100.0100, L501.9520, L500.4050, L506.1001 #### [facility] [address] [place], [address] AST [Catalytic activity/Vol] 25 U/L Normal <=31 [facility] Comment on above: Performed By: #### L 100.0100, L501.9520, L500.4050, L506.1001 #### [facility] [address] [place], [address] Bilirubin [Mass/Vol] 0.77 mg/dL Normal 0.00-1.30 [facility] Comment on above: Performed By: #### L 100.0100, L501.9520, L500.4050, L506.1001 #### [facility] [address] [place], [address] BUN/CRE 17.5 RATIO Normal 10-20 [facility] Comment on above: Performed By: #### L 100.0100, L501.9520, L500.4050, L506.1001 #### [facility] [address] [place], [address] Calcium [Mass/Vol] 9.8 mg/dL Normal 7.6-11.0 [facility] Comment on above: Performed By: #### L 100.0100, L501.9520, L500.4050, L506.1001 #### [facility] [address] [place], [address] Chloride [Moles/Vol] 106 mmol/L Normal 98-108 [facility] Comment on above: Performed By: #### L 100.0100, L501.9520, L500.4050, L506.1001 #### [facility] [address] [place], [address] CO2 [Moles/Vol] 22.9 mmol/L Normal 21.0-32.0 [facility] Comment on above: Performed By: #### L 100.0100, L501.9520, L500.4050, L506.1001 #### [facility] [address] [place], [address] Creatinine [Mass/Vol] 0.81 mg/dL Normal 0.70-1.20 [facility] Comment on above: Performed By: #### L 100.0100, L501.9520, L500.4050, L506.1001 #### [facility] [address] [place], [address] GAP 11 Normal 5-15 [facility] Comment on above: Performed By: #### L 100.0100, L501.9520, L500.4050, L506.1001 #### [facility] [address] [place], [address] GFR/1.73 sq M.predicted among non-blacks MDRD (S/P/Bld) [Vol rate/Area] 77 mL/min/{1.73_m2} Normal >60 [facility] Comment on above: Result Comment: mL/m in/1.73m2 CKD-EPI Creatinine Equation (2020) Performed By: #### L 100.0100, L501.9520, L500.4050, L506.1001 #### [facility] [address] [place], [address] Globulin (S) [Mass/Vol] 3.3 g/dL Normal 2.2-4.2 [facility] Comment on above: Performed By: #### L 100.0100, L501.9520, L500.4050, L506.1001 #### [facility] [address] [place], [address] Glucose [Mass/Vol] 131 mg/dL High 70-99 [facility] Comment on above: Performed By: #### L 100.0100, L501.9520, L500.4050, L506.1001 #### [facility] [address] [place], [address] Potassium [Moles/Vol] 3.9 mmol/L Normal 3.3-5.1 [facility] Comment on above: Performed By: #### L 100.0100, L501.9520, L500.4050, L506.1001 #### [facility] [address] [place], [address] Sodium [Moles/Vol] 140 mmol/L Normal 133-145 [facility] Comment on above: Performed By: #### L 100.0100, L501.9520, L500.4050, L506.1001 #### [facility] [address] [place], [address] T PROT 7.4 g/dL Normal 5.9-8.4 [facility] Comment on above: Performed By: #### L 100.0100, L501.9520, L500.4050, L506.1001 #### [facility] [address] [place], [address] Urea nitrogen [Mass/Vol] 14 mg/dL Normal 4-19 [facility] Comment on above: Performed By: #### L 100.0100, L501.9520, L500.4050, L506.1001 #### [facility] [place], [address] Eosinophil percentageOrdered By: Tej Lloyd on 09-13-2024 Eosinophils/100 WBC (Bld) 1.5 % 0-5 [facility] Erythrocyte distribution wid th ratioOrdered By: [facility] Erythrocyte distribution width (RBC) [Ratio] 16.4 % High 11.6-14.6 [facility] Erythrocyte distribution wid th standard deviationOrdered By: Tej Gabino on 09-13-2024 Erythrocyte distribution width (RBC) [Ratio] 51.8 fl High 35.1-43.9 [facility] Glomerular filtration rate ( GFR) estimation/1.73 sq m using serum, plasma, or whole bOrdered By: [facility] on 09-13-2024 GFR/1.73 sq M.predicted among non-blacks MDRD (S/P/Bld) [Vol rate/Area] 77 mL/min/{1.73_m2} >60 [facility] Comment on above: mL/min/1.73m2 CKD-EP I Creatinine Equation (2020) Hematocrit Auto (Bld) [Volum e fraction]Ordered By: Tej Gabino 09-13-2024 Hematocrit (Bld) [Volume fraction] 35.3 % Low 37-47 [facility] Hemoglobin measurementOrdere d By: Tej Gabino 09-13-2024 Hemoglobin (Bld) [Mass/Vol] 11.5 g/dL Low 12.0-15.0 [facility] Immature granulocytes/100 WB C Auto (Bld)Ordered By: Tej Lloyd 09-13-2024 Immature granulocytes/100 WBC (Bld) 0.300 % 0.0-0.9 [facility] Comment on above: IG% - Immature Granu locytes (promyelocytes, myelocytes and metamyelocytes) > 1% indicates that a LEFT SHIFT is Present. Laboratory - Chemistry and C hemistry - challengeOrdered By: Tej Gabino 09-13-2024 AST [Catalytic activity/Vol] 25 U/L <32 [facility] MCV (mean corpuscular volume ) determinationOrdered By: Tej Lloyd 09-13-2024 MCV (RBC) [Entitic vol] 85.9 fL 81-99 [facility] Mean corpuscular hemoglobin (MCH) determinationOrdered By: Tej Lloyd on 09-13-2024 MCH (RBC) [Entitic mass] 28.0 pg 27.0-32.0 [facility] Mean corpuscular hemoglobin concentration (MCHC) determinationOrdered By: Tej Lloyd on 09-13-2024 MCHC (RBC) [Mass/Vol] 32.6 g/dL 32-36 [facility] Mean platelet volume determi nationOrdered By: Tej Lloyd on 09-13-2024 Platelet mean volume (Bld) [Entitic vol] 11.2 fL 6.2-12.0 [facility] Monocyte percentageOrdered B y: Tej Lloyd on 09-13-2024 Monocytes/100 WBC (Bld) 8.5 % 0-10 [facility] Neutrophil percentageOrdered By: Tej Lloyd on 09-13-2024 Neutrophils/100 WBC (Bld) 54.6 % 47-70 [facility] Nucleated red blood cell per centageOrdered By: Tej Lloyd on 09-13-2024 Nucleated RBC/100 WBC (Bld) [Ratio] 0 % 0-5 [facility] Platelet countOrdered By: Sameer Lloyd on 09-13-2024 Platelets (Bld) [#/Vol] 202 10*3/uL 150-450 [facility] Potassium measurement (mass/ volume)Ordered By: Tej Lloyd on 09-13-2024 Potassium (Unsp spec) [Mass/Vol] 3.9 mmol/L 3.3-5.1 [facility] RBC Auto (Bld) [#/Vol]Ordere d By: Tej Lloyd on 09-13-2024 RBC (Bld) [#/Vol] 4.11 10*6/uL Low 4.2-5.4 [facility] Serum creatinine measurement (mass/volume)Ordered By: Tej Lloyd on 09-13-2024 Creatinine [Mass/Vol] 0.81 mg/dL 0.70-1.20 [facility] Serum globulin measurementOr dered By: Tej Lloyd on 09-13-2024 Globulin (S) [Mass/Vol] 3.3 g/dL 2.2-4.2 [facility] Serum glucose measurement (m ass/volume)Ordered By: Tej lLoyd on 09-13-2024 Glucose [Mass/Vol] 131 mg/dL High 70-99 [facility] Serum or plasma alanine starks otransferase (ALT) measurementOrdered By: Tej Lloyd on 09-13-2024 ALT [Catalytic activity/Vol] 15 U/L <35 [facility] Serum or plasma albumin mitul urement (mass/volume)Ordered By: Tej Lloyd on 09-13-2024 Albumin [Mass/Vol] 4.1 g/dL 3.4-4.8 [facility] Serum or plasma albumin/glob ulin mass ratioOrdered By: Tej Lloyd on 09-13-2024 Albumin/Globulin [Mass ratio] 1.3 {ratio} 0.9-2.4 [facility] Serum or plasma alkaline chalo sphatase measurementOrdered By: Tej Lloyd on 09-13-2024 ALP [Catalytic activity/Vol] 86 U/L 35-104 [facility] Serum or plasma calcium mitul urement (mass/volume)Ordered By: Tej Lloyd on 09-13-2024 Calcium [Mass/Vol] 9.8 mg/dL 7.6-11.0 [facility] Serum or plasma urea nitroge n measurement (mass/volume)Ordered By: Tej Lloyd on 09-13-2024 Urea nitrogen [Mass/Vol] 14 mg/dL 4-19 [facility] Sodium levelOrdered By: Tej Lloyd on 09-13-2024 Sodium [Moles/Vol] 140 mmol/L 133-145 [facility] TSH DL <= 0.005 mIU/L QnOrde red By: Tej Lloyd on 09-13-2024 TSH Qn 1.750 uIU/mL 0.300-4.200 [facility] Thyroid Stim Hormone (TSH)on 09-13-2024 TSH 1.750 uIU/mL Normal 0.300-4.200 [facility] Comment on above: Performed By: #### L 100.0100, L501.9520, L500.4050, L506.1001 ####[facility] [id number] [place], [place], [address] Total proteinOrdered By: Tej Lloyd on 09-13-2024 Protein [Mass/Vol] 7.4 g/dL 5.9-8.4 [facility] Vitamin D,25 Hydroxyon 09-13 Vitamin D 25-OH 44.5 ng/mL Normal 30-100 [facility] Comment on above: Result Comment: Amanda min D Status Deficiency: <20 ng/mL (50nmol/L) Insufficiency: 20-30 ng/mL (50-75 nmol/L) Sufficiency: 30-100 ng/mL (75-250 nmol/L) Toxicity: >100 ng/mL (>250 nmol/L) Performed By: #### L 100.0100, L501.9520, L500.4050, L506.1001 ####[facility] [id number] [place], [place], [address] White blood cell (WBC) count Ordered By: Tej Lloyd on 09-13-2024 WBC (Bld) [#/Vol] 6.0 10*3/uL 4.4-11.0 [facility] XR FOOT MINIMUM 3 VIEWS RIGH Ton 05-18-2024 XR FOOT MINIMUM 3 VIEWS RIGHT ORIGINAL EXAMINATION: THREE XRAY VIEWS OF THE RIGHT FOOT 05/18/2024 2:33 pm COMPARISON: 04/23/2020 HISTORY: ORDERING SYSTEM PROVIDED HISTORY: Reason for Exam: plantar fascitis FINDINGS: Marked peripheral vascular calcification is redemonstrated. Minimal osteophyte arises from the origin of the plantar aponeurosis, similar to prior assessment. Advanced degenerative osteoarthritis affects the 1st metatarsophalangeal joint. IMPRESSION: 1. 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 2. No acute bony abnormality. Interpreted by: Philippe Hitchcock DO Preliminary Report By: Philippe Hitchcock DO Electronically signed By Philippe Hitchcock DO Dictated Date: 05/18/2024 2:51:00 PM Prelim Date: 05/18/2024 2:52:31 PM Sign Date: 05/18/2024 2:52:31 PM Ordering Provider: ROSMERY NEWBERRY [facility] CBC W/Diff, Automatedon 12-0 Absolute Lymph 2.26 X10 3/uL Normal 0.83-4.51 [facility] Comment on above: Performed By: #### L 506.1000, L100.0100, L500.4050, L501.9520 #### [facility] [address] [place], [address] Absolute Neut 3.1 X10 3/uL Normal 2.0-7.7 [facility] Comment on above: Performed By: #### L 506.1000, L100.0100, L500.4050, L501.9520 #### [facility] [address] [place], [address] Basophils/100 WBC (Bld) 1.0 % Normal 0-1 [facility] Comment on above: Performed By: #### L 506.1000, L100.0100, L500.4050, L501.9520 #### [facility] [address] [place], [address] Eosinophils/100 WBC (Bld) 1.5 % Normal 0-5 [facility] Comment on above: Performed By: #### L 506.1000, L100.0100, L500.4050, L501.9520 #### [facility] [address] [place], [address] Erythrocyte distribution width (RBC) [Ratio] 15.0 % High 11.6-14.6 [facility] Comment on above: Performed By: #### L 506.1000, L100.0100, L500.4050, L501.9520 #### [facility] [address] [place], [address] Hematocrit (Bld) [Volume fraction] 35.5 % Low 37-47 [facility] Comment on above: Performed By: #### L 506.1000, L100.0100, L500.4050, L501.9520 #### [facility] [address] [place], [address] Hemoglobin (Bld) [Mass/Vol] 11.3 g/dL Low 12.0-15.0 [facility] Comment on above: Performed By: #### L 506.1000, L100.0100, L500.4050, L501.9520 #### [facility] [address] [place], [address] IG% 0.200 Normal 0.0-0.9 [facility] Comment on above: Result Comment: IG% - Immature Granulocytes (promyelocytes, myelocytes and metamyelocytes) > 1% indicates that a LEFT SHIFT is Present. Performed By: #### L 506.1000, L100.0100, L500.4050, L501.9520 #### [facility] [address] [place], [address] Lymphocytes/100 WBC (Bld) 37.0 % Normal 19-41 [facility] Comment on above: Performed By: #### L 506.1000, L100.0100, L500.4050, L501.9520 #### [facility] [address] [place], [address] MCH (RBC) [Entitic mass] 27.3 pg Normal 27.0-32.0 [facility] Comment on above: Performed By: #### L 506.1000, L100.0100, L500.4050, L501.9520 #### [facility] [address] [place], [address] MCHC (RBC) [Mass/Vol] 31.8 g/dL Low 32-36 [facility] Comment on above: Performed By: #### L 506.1000, L100.0100, L500.4050, L501.9520 #### [facility] [address] [place], [address] MCV (RBC) [Entitic vol] 85.7 fL Normal 81-99 [facility] Comment on above: Performed By: #### L 506.1000, L100.0100, L500.4050, L501.9520 #### [facility] [address] [place], [address] Monocytes/100 WBC (Bld) 9.3 % Normal 0-10 [facility] Comment on above: Performed By: #### L 506.1000, L100.0100, L500.4050, L501.9520 #### [facility] [address] [place], [address] Neutrophils/100 WBC (Bld) 51.0 % Normal 47-70 [facility] Comment on above: Performed By: #### L 506.1000, L100.0100, L500.4050, L501.9520 #### [facility] [address] [place], [address] Nucleated RBC (Bld) [#/Vol] 0 10*3/uL Normal 0-5 [facility] Comment on above: Performed By: #### L 506.1000, L100.0100, L500.4050, L501.9520 #### [facility] [address] [place], [address] Platelet mean volume (Bld) [Entitic vol] 10.3 fL Normal 6.2-12.0 [facility] Comment on above: Performed By: #### L 506.1000, L100.0100, L500.4050, L501.9520 #### [facility] [address] [place], [address] Platelets (Bld) [#/Vol] 255 10*3/uL Normal 150-450 [facility] Comment on above: Performed By: #### L 506.1000, L100.0100, L500.4050, L501.9520 #### [facility] [address] [place], [address] RBC (Bld) [#/Vol] 4.14 10*6/uL Low 4.2-5.4 [facility] Comment on above: Performed By: #### L 506.1000, L100.0100, L500.4050, L501.9520 #### [facility] [address] [place], [address] RDW SD 47.4 fl High 35.1-43.9 [facility] Comment on above: Performed By: #### L 506.1000, L100.0100, L500.4050, L501.9520 #### [facility] [address] [place], [address] WBC (Bld) [#/Vol] 6.1 10*3/uL Normal 4.4-11.0 [facility] Comment on above: Performed By: #### L 506.1000, L100.0100, L500.4050, L501.9520 #### [facility] [address] [place], [address] Comprehensive Metabolic Prof [facility] 03-22-2024 Albumin [Mass/Vol] 3.5 g/dL Normal 3.2-5.0 [facility] Comment on above: Performed By: #### L 506.1000, L100.0100, L500.4050, L501.9520 #### [facility] [address] [place], [address] Albumin/Globulin [Mass ratio] 0.8 {ratio} Low 0.9-2.4 [facility] Comment on above: Performed By: #### L 506.1000, L100.0100, L500.4050, L501.9520 #### [facility] [address] [place], [address] ALK P 77 U/L Normal 45-117 [facility] Comment on above: Performed By: #### L 506.1000, L100.0100, L500.4050, L501.9520 #### [facility] [address] [place], [address] ALT [Catalytic activity/Vol] 15 U/L Normal 13-56 [facility] Comment on above: Performed By: #### L 506.1000, L100.0100, L500.4050, L501.9520 #### [facility] [address] [place], [address] AST [Catalytic activity/Vol] 19 U/L Normal 15-37 [facility] Comment on above: Performed By: #### L 506.1000, L100.0100, L500.4050, L501.9520 #### [facility] [address] [place], [address] Bilirubin [Mass/Vol] 0.50 mg/dL Normal 0.20-1.00 [facility] Comment on above: Result Comment: For patients on eltrombopag therapy, use of Dimension [place] TBIL is not recommended. Performed By: #### L 506.1000, L100.0100, L500.4050, L501.9520 #### [facility] [address] [place], [address] BUN/CRE 19.5 RATIO Normal 10-20 [facility] Comment on above: Performed By: #### L 506.1000, L100.0100, L500.4050, L501.9520 #### [facility] [address] [place], [address] CA,Total 9.5 mg/dL Normal 8.5-10.1 [facility] Comment on above: Performed By: #### L 506.1000, L100.0100, L500.4050, L501.9520 #### [facility] [address] [place], [address] Chloride [Moles/Vol] 108 mmol/L High 98-107 [facility] Comment on above: Performed By: #### L 506.1000, L100.0100, L500.4050, L501.9520 #### [facility] [address] [place], [address] CO2 [Moles/Vol] 26.0 mmol/L Normal 21.0-32.0 [facility] Comment on above: Performed By: #### L 506.1000, L100.0100, L500.4050, L501.9520 #### [facility] [address] [place], [address] Creatinine [Mass/Vol] 0.92 mg/dL Normal 0.55-1.02 [facility] Comment on above: Result Comment: The validity of the calculated GFR GFRAA in patients over 70 years has not been determined. Clinical correlation is essential. Performed By: #### L 506.1000, L100.0100, L500.4050, L501.9520 #### [facility] [address] [place], [address] EST GFR - AA 77 mL/min Normal >60 [facility] Comment on above: Result Comment: Afri can [place] GFR Calc Performed By: #### L 506.1000, L100.0100, L500.4050, [id number] #### [facility] [address] [place], [address] GAP 6 Normal 5-15 [facility] Comment on above: Performed By: #### L 506.1000, L100.0100, L500.4050, [id number] #### [facility] [address] [place], [address] GFR/1.73 sq M.predicted among non-blacks MDRD (S/P/Bld) [Vol rate/Area] 63 mL/min/{1.73_m2} Normal >60 [facility] Comment on above: Result Comment: Non- GFR Calc Performed By: #### L 506.1000, L100.0100, L500.4050, [id number] #### [facility] [address] [place], [address] Globulin (S) [Mass/Vol] 4.2 g/dL Normal 2.2-4.2 [facility] Comment on above: Performed By: #### L 506.1000, L100.0100, L500.4050, [id number] #### [facility] [address] [place], [address] Glucose [Mass/Vol] 141 mg/dL High 74-106 [facility] Comment on above: Result Comment: Fast ing Glucose result greater than or equal to 126 mg/dL suggests DIABETES MELLITUS per A.D.A. criteria. Performed By: #### L 506.1000, L100.0100, L500.4050, [id number] #### [facility] [address] [place], [address] Potassium [Moles/Vol] 3.7 mmol/L Normal 3.5-5.1 [facility] Comment on above: Performed By: #### L 506.1000, L100.0100, L500.4050, [id number] #### [facility] [address] [place], [address] Sodium [Moles/Vol] 140 mmol/L Normal 136-145 [facility] Comment on above: Performed By: #### L 506.1000, L100.0100, L500.4050, [id number] #### [facility] [address] [place], [address] T PROT 7.7 g/dL Normal 6.4-8.2 [facility] Comment on above: Performed By: #### L 506.1000, L100.0100, L500.4050, [id number] #### [facility] [address] [place], [address] Urea nitrogen [Mass/Vol] 18 mg/dL Normal 7-18 [facility] Comment on above: Performed By: #### L 506.1000, L100.0100, L500.4050, [id number] #### [facility] [address] [place], [address] Thyroid Stim Hormone (TSH)on 03-22-2024 TSH 2.190 uIU/mL Normal 0.358-3.740 [facility] Comment on above: Performed By: #### L 506.1000, L100.0100, L500.4050, [id number] #### [facility] [address] [place], [address] Vitamin D,25 Hydroxyon 03-22 Vitamin D 25-OH 45.3 ng/mL Normal [facility] Comment on above: Result Comment: Amanda min D 25(OH) Status Range Deficiency <20 ng/mL (50nmol/L) Insufficiency 20 - 30 ng/mL (50 - 75 nmol/L) Sufficiency 30 - 100 ng/mL (75 - 250 nmol/L) Toxicity >100 ng/mL (>250 nmol/L) Performed By: #### L 506.1000, L100.0100, L500.4050, [id number] #### [facility] [address] [place], [address] Absolute lymphocyte countOrd ered By: Tej Lloyd on 03-16-2023 Lymphocytes Auto (Unsp spec) [#/Vol] 2.00 10*3/uL 0.83-4.51 [facility] Basophil percentageOrdered B y: Tej Lloyd on 03-16-2023 Basophils/100 WBC (Bld) 0.7 % 0-1 [facility] Bilirubin [Mass/Vol] 0.70 mg/dL 0.20-1.00 [facility] Comment on above: For patients on eltr ombopag therapy, use of Dimension [place] TBIL is not recommended. Chloride [Moles/Vol] 111 mmol/L 98-107 [facility] Eosinophils/100 WBC (Bld) 1.0 % 0-5 [facility] Glucose [Mass/Vol] 132 mg/dL 74-106 [facility] Comment on above: Fasting Glucose resu lt greater than or equal to 126 mg/dL suggests DIABETES MELLITUS per A.D.A. criteria. Neutrophils (Bld) [#/Vol] 5.4 10*3/uL 2.0-7.7 [facility] Neutrophils/100 WBC (Bld) 65.2 % 47-70 [facility] Potassium [Moles/Vol] 3.5 mmol/L 3.5-5.1 [facility] Protein [Mass/Vol] 7.6 g/dL 6.4-8.2 [facility] Sodium [Moles/Vol] 142 mmol/L 136-145 [facility] WBC (Bld) [#/Vol] 8.3 10*3/uL 4.4-11.0 [facility] Blood erythrocytes count (nu mber/volume)Ordered By: Tej Lloyd on 03-16-2023 RBC (Bld) [#/Vol] 4.02 10*6/uL 4.2-5.4 [facility] Blood hemoglobin measurement (mass/volume)Ordered By: Tej Lloyd on 03-16-2023 Hemoglobin (Bld) [Mass/Vol] 10.9 g/dL 12.0-15.0 [facility] Blood lymphocytes/100 leukoc ytesOrdered By: Tej Lloyd on 03-16-2023 Lymphocytes/100 WBC (Bld) 24.2 % 19-41 [facility] Blood monocytes/100 leukocyt esOrdered By: Tej Lloyd on 03-16-2023 Monocytes/100 WBC (Bld) 8.7 % 0-10 [facility] Blood platelet mean volumeOr dered By: Tej Lloyd on 03-16-2023 Platelet mean volume (Bld) [Entitic vol] 12.3 fL 6.2-12.0 [facility] Determination of erythrocyte mean corpuscular volume (MCV)Ordered By: Tej Lloyd on 03-16-2023 MCV (RBC) [Entitic vol] 87.1 fL 81-99 [facility] Erythrocyte sedimentation ra teOrdered By: Tej Lloyd on 03-16-2023 ESR (Bld) [Velocity] 33 mm/h 0-30 [facility] Hematocrit Auto (Bld) [Volum e fraction][facility]23 Hematocrit (Bld) [Volume fraction] 35.0 % 37-47 [facility] - Chemistry and C hemistry - challengeOrdered By: [facility] on 03-16-2023 ALP [Catalytic activity/Vol] 76 U/L 45-117 [facility] ALT [Catalytic activity/Vol] 18 U/L 13-56 [facility] CO2 [Moles/Vol] 23.0 mmol/L 21.0-32.0 [facility] Globulin (S) [Mass/Vol] 4.2 g/dL 2.2-4.2 [facility] Urea nitrogen/Creatinine [Mass ratio] 17.4 mg/mg 10-20 [facility] - Hematology and Cell countsOrdered By: [facility] on 03-16-2023 Erythrocyte distribution width (RBC) [Entitic vol] 51.1 fL 35.1-43.9 [facility] Erythrocyte distribution width (RBC) [Ratio] 15.9 % 11.6-14.6 [facility] Immature granulocytes/100 WBC (Bld) 0.200 % 0.0-0.9 [facility] Comment on above: IG% - Immature Granu locytes (promyelocytes, myelocytes and metamyelocytes) > 1% indicates that a LEFT SHIFT is Present. MCH (RBC) [Entitic mass] 27.1 pg 27.0-32.0 [facility] Nucleated RBC/100 WBC (Bld) [Ratio] 0 % 0-5 [facility] MCHC Auto (RBC) [Mass/Vol]Or dered By: Tej Lloyd on 03-16-2023 MCHC (RBC) [Mass/Vol] 31.1 g/dL 32-36 [facility] No Panel InformationOrdered By: Tej Lloyd on 03-16-2023 Estimated GFR (MDRD) Amer 83 mL/min >60 [facility] Comment on above: GFR Calc Estimated GFR (MDRD) Non-Af Amer 69 mL/min >60 [facility] Comment on above: Non- GFR Calc Thyroid Stimulating Hormone (TSH) 1.93 uIU/mL 0.358-3.74 [facility] Vitamin D 25-Hydroxy 65.3 ng/mL [facility] Comment on above: Vitamin D 25(OH) Sta tus Range Deficiency <20 ng/mL (50nmol/L) Insufficiency 20 - 30 ng/mL (50 - 75 nmol/L) Sufficiency 30 - 100 ng/mL (75 - 250 nmol/L) Toxicity >100 ng/mL (>250 nmol/L) Platelets bldOrdered By: Tej Lloyd on 03-16-2023 Platelets (Bld) [#/Vol] 238 10*3/uL 150-450 [facility] Serum or plasma C reactive p rotein measurement (mass/volume)Ordered By: Tej Lloyd on 03-16-2023 CRP [Mass/Vol] 18.70 mg/L 0.0-3.0 [facility] Comment on above: C-Reactive Protein ( CRP) provides useful information for thediagnosis, therapy and monitoring of inflammatory processesand associated diseases. For the evaluation of Relative Riskfor Cardiovascular Disease, a High Sensitivity CRP (HSCRP)should be ordered. Serum or plasma albumin mitul urement (mass/volume)Ordered By: Tej Lloyd 03-16-2023 Albumin [Mass/Vol] 3.4 g/dL 3.2-5.0 [facility] Serum or plasma albumin/glob ulin mass ratioOrdered By: Tej Lloyd 03-16-2023 Albumin/Globulin [Mass ratio] 0.8 {ratio} 0.9-2.4 [facility] Serum or plasma calcium mitul urement (mass/volume)Ordered By: Tej Gabino on 03-16-2023 Calcium [Mass/Vol] 9.1 mg/dL 8.5-10.1 [facility] Serum or plasma creatinine m easurement (mass/volume)Ordered By: Tej Lloyd on 03-16-2023 Creatinine [Mass/Vol] 0.86 mg/dL 0.55-1.02 [facility] Comment on above: The validity of the calculated GFR & GFRAA in patients over 70 years has not been determined. Clinical correlation is essential. Serum or plasma urea nitroge n measurement (mass/volume)Ordered By: Tej Lloyd on 03-16-2023 Urea nitrogen [Mass/Vol] 15 mg/dL 7-18 [facility] Serum or plasma uric acid me asurement (mass/volume)Ordered By: Tej Lloyd on 03-16-2023 Urate [Mass/Vol] 4.1 mg/dL 2.6-6.0 [facility] Comment on above: The drugs N-Acetylcy steine and Metamizole may falsely depress this assay. Thin prep Papanicolaou smear with manual screeningOrdered By: Tej Lloyd on 03-16-2023 Thin prep Papanicolaou smear with manual screening 11 U/L 15-37 [facility] Thin prep Papanicolaou smear with manual screening 8 5-15 [facility] XR HAND AND WRIST 6 VIEWS RI ROLDANTon 02-14-2023 XR HAND AND WRIST 6 VIEWS RIGHT ORIGINAL EXAMINATION: 6 TOTAL XRAY VIEWS OF THE RIGHT HAND AND WRIST02/14/2023 7:33 PM Delete COMPARISON: None available. HISTORY: ORDERING SYSTEM PROVIDED HISTORY: Reason for Exam: Wrist and hand swelling and pain. Unsure if injury. FINDINGS: No definite acute fracture or dislocation. Corticated ossific densities near the 2nd MCP joint may be due to prior/remote injury, and is probably of no acute significance. No significant soft tissue swelling. No radiopaque foreign body. There are vascular calcifications and chondrocalcinosis. IMPRESSION: No acute osseous abnormality identified. I have personally reviewed the images of this examination and agree with the resident's finding and interpretation. Interpreted by: Babatunde Obando MD Preliminary Report By: Hung Napier Electronically signed By Babatunde Obando MD Dictated Date: 02/14/2023 7:34:22 PM Prelim Date: 02/14/2023 7:39:17 PM Sign Date: 02/14/2023 7:54:27 PM Ordering Provider: ELBA KRAFT [facility] ([place]) Glucose Glucometer (BldC) [M ass/Vol]Ordered By: Kellie Jc on 11-20-2022 Glucose [Mass/Vol] 125 mg/dL 74-106 [facility] Comment on above: MANAGEMENT OF PATIEN T CARE PER NURSING PROTOCOL Marissa 09-22-2022 CNPN Telephone (GSTNOR) LEXISDARLEEN ([id number]) 1950 [address] [facility] Date Time Provider Department 09/22/22 JF BROWN GSTNOR During your visit today, we recorded the following information about you: Allergies As of Date: 09/22/2022 Noted Allergy Reaction LISINOPRIL 07/15/2011 7 - Swelling SULFA (SULFONAMIDE ANTIBIOTICS) 01/20/2008 2 - Rash Date Reviewed: 07/16/2017 Reviewed by: Amy Murphy - Fully Assessed Reason for Visit: Orders [681] Cmt: Screening checklist, order - pt has Implanted defibrillator - gave number to schedule at hospital Prescriptions as of 09/22/2022 - metFORMIN (GLUCOPHAGE) 1,000 mg tablet Take 1,000 mg by mouth twice daily. - amLODIPine (NORVASC) 5 mg tablet Take 5 mg by mouth once daily. - atorvastatin (LIPITOR) 40 mg tablet Take 40 mg by mouth once daily. - carvedilol (COREG) 25 mg tablet Take 25 mg by mouth twice daily. - VITAMIN D 50,000 unit capsule Take 50,000 Units by mouth once every month. - latanoprost (XALATAN) 0.005 % ophthalmic solution Use 1 Drop in both eyes daily at bedtime. - brinzolamide (AZOPT) 1 % ophthalmic suspension Use 1 Drop in both eyes twice daily. - cyanocobalamin, Vitamin B12, (VITAMIN B-12) 1,000 mcg/mL INJECTION Soln Inject 1 mL intramuscularly once each week. - Sitagliptin-Metformin (JANUMET) 50-1,000 mg ORAL per tablet Take 2 tablets by mouth once daily. - rosuvastatin calcium(CRESTOR 40 MG TAB) Take one(1) tablet daily. - TIMOLOL 0.5 % EYE DROPS OU twice daily Problem List As Of Date 09/22/2022 Noted Resolved CARDIAC PACEMAKER IN SITU [Z95.0] CONGESTIVE HEART FAILURE NOS [I50.9] GLAUCOMA NOS [H40.9] MIXED HYPERLIPIDEMIA [E78.2] HYPERTENSION NOS [I10] Anemia, unspecified [D64.9] 12/26/2010 Monoclonal gammopathy [D47.2] 12/29/2010 Vitamin B12 deficiency [E53.8] 01/26/2011 Encounter Status:Closed by JACKY GONZALEZ on 09/22/22 Normal [facility] Basophil percentageOrdered B y: Dr. Lloyd on 09-18-2022 Chloride [Moles/Vol] 108 mmol/L 98-107 [facility] Glucose [Mass/Vol] 116 mg/dL 74-106 [facility] Comment on above: Fasting Glucose resu lt from 100 to 125 mg/dL suggests IMPAIRED HOMEOSTASIS per A.D.A. criteria. Potassium [Moles/Vol] 4.4 mmol/L 3.5-5.1 [facility] Sodium [Moles/Vol] 141 mmol/L 136-145 [facility] - Chemistry and C hemistry - challengeOrdered By: Dr. Lloyd on 09-18-2022 CO2 [Moles/Vol] 26.0 mmol/L 21.0-32.0 [facility] Urea nitrogen/Creatinine [Mass ratio] 16.1 mg/mg 10-20 [facility] No Panel InformationOrdered By: Dr. Lloyd on 09-18-2022 Estimated GFR (MDRD) Amer 82 mL/min >60 [facility] Comment on above: GFR Calc Estimated GFR (MDRD) Non-Af Amer 68 mL/min >60 [facility] Comment on above: Non- GFR Calc Serum or plasma calcium mitul urement (mass/volume)Ordered By: Dr. Lloyd on 09-18-2022 Calcium [Mass/Vol] 10.4 mg/dL 8.5-10.1 [facility] Serum or plasma creatinine m easurement (mass/volume)Ordered By: Dr. Lloyd on 09-18-2022 Creatinine [Mass/Vol] 0.87 mg/dL 0.55-1.02 [facility] Comment on above: The validity of the calculated GFR & GFRAA in patients over 70 years has not been determined. Clinical correlation is essential. Serum or plasma urea nitroge n measurement (mass/volume)Ordered By: Dr. Lloyd on 09-18-2022 Urea nitrogen [Mass/Vol] 14 mg/dL 7-18 [facility] Thin prep Papanicolaou smear with manual screeningOrdered By: Dr. Lloyd on 09-18-2022 Thin prep Papanicolaou smear with manual screening 7 5-15 [facility] Absolute lymphocyte countOrd ered By: Dr. Lloyd on 08-25-2022 Lymphocytes Auto (Unsp spec) [#/Vol] 1.88 10*3/uL 0.83-4.51 [facility] Basophil percentageOrdered B y: Dr. Lloyd on 08-25-2022 Basophils/100 WBC (Bld) 1.1 % 0-1 [facility] Bilirubin [Mass/Vol] 0.70 mg/dL 0.20-1.00 [facility] Comment on above: For patients on eltr ombopag therapy, use of Dimension [place] TBIL is not recommended. Chloride [Moles/Vol] 108 mmol/L 98-107 [facility] Eosinophils/100 WBC (Bld) 1.8 % 0-5 [facility] Glucose [Mass/Vol] 134 mg/dL 74-106 [facility] Comment on above: Fasting Glucose resu lt greater than or equal to 126 mg/dL suggests DIABETES MELLITUS per A.D.A. criteria. Neutrophils (Bld) [#/Vol] 3.1 10*3/uL 2.0-7.7 [facility] Neutrophils/100 WBC (Bld) 54.3 % 47-70 [facility] Potassium [Moles/Vol] 3.3 mmol/L 3.5-5.1 [facility] Protein [Mass/Vol] 7.6 g/dL 6.4-8.2 [facility] Sodium [Moles/Vol] 140 mmol/L 136-145 [facility] WBC (Bld) [#/Vol] 5.6 10*3/uL 4.4-11.0 [facility] Blood erythrocytes count (nu mber/volume)Ordered By: Dr. Lloyd on 08-25-2022 RBC (Bld) [#/Vol] 4.21 10*6/uL 4.2-5.4 [facility] Blood hemoglobin measurement (mass/volume)Ordered By: Dr. Lloyd on 08-25-2022 Hemoglobin (Bld) [Mass/Vol] 11.8 g/dL 12.0-15.0 [facility] Blood lymphocytes/100 leukoc ytesOrdered By: Dr. Lloyd on 08-25-2022 Lymphocytes/100 WBC (Bld) 33.5 % 19-41 [facility] Blood monocytes/100 leukocyt esOrdered By: Dr. Lloyd on 08-25-2022 Monocytes/100 WBC (Bld) 9.1 % 0-10 [facility] Blood platelet mean volumeOr dered By: Dr. Lloyd on 08-25-2022 Platelet mean volume (Bld) [Entitic vol] 12.5 fL 6.2-12.0 [facility] Determination of erythrocyte mean corpuscular volume (MCV)Ordered By: Dr. Lloyd on 08-25-2022 MCV (RBC) [Entitic vol] 87.2 fL 81-99 [facility] Hematocrit Auto (Bld) [Volum e fraction]Ordered By: Dr. Lloyd on 08-25-2022 Hematocrit (Bld) [Volume fraction] 36.7 % 37-47 [facility] - Chemistry and C hemistry - challengeOrdered By: Dr. Lloyd on 08-25-2022 ALP [Catalytic activity/Vol] 86 U/L 45-117 [facility] ALT [Catalytic activity/Vol] 18 U/L 13-56 [facility] CO2 [Moles/Vol] 23.0 mmol/L 21.0-32.0 [facility] Globulin (S) [Mass/Vol] 4.3 g/dL 2.2-4.2 [facility] Urea nitrogen/Creatinine [Mass ratio] 18.4 mg/mg 10-20 [facility] - Hematology and Cell countsOrdered By: Dr. Lloyd on 08-25-2022 Erythrocyte distribution width (RBC) [Entitic vol] 49.1 fL 35.1-43.9 [facility] Erythrocyte distribution width (RBC) [Ratio] 15.5 % 11.6-14.6 [facility] Immature granulocytes/100 WBC (Bld) 0.200 % 0.0-0.9 [facility] Comment on above: IG% - Immature Granu locytes (promyelocytes, myelocytes and metamyelocytes) > 1% indicates that a LEFT SHIFT is Present. MCH (RBC) [Entitic mass] 28.0 pg 27.0-32.0 [facility] Nucleated RBC/100 WBC (Bld) [Ratio] 0 % 0-5 [facility] MCHC Auto (RBC) [Mass/Vol]Or dered By: Dr. Lloyd on 08-25-2022 MCHC (RBC) [Mass/Vol] 32.2 g/dL 32-36 [facility] No Panel InformationOrdered By: Dr. Lloyd on 08-25-2022 Estimated GFR (MDRD) Amer 82 mL/min >60 [facility] Comment on above: GFR Calc Estimated GFR (MDRD) Non-Af Amer 68 mL/min >60 [facility] Comment on above: Non- GFR Calc Thyroid Stimulating Hormone (TSH) 2.50 uIU/mL 0.358-3.74 [facility] Vitamin D 25-Hydroxy 74.1 ng/mL [facility] Comment on above: Vitamin D 25(OH) Sta tus Range Deficiency <20 ng/mL (50nmol/L) Insufficiency 20 - 30 ng/mL (50 - 75 nmol/L) Sufficiency 30 - 100 ng/mL (75 - 250 nmol/L) Toxicity >100 ng/mL (>250 nmol/L) Platelets bldOrdered By: Dr. Lloyd on 08-25-2022 Platelets (Bld) [#/Vol] 201 10*3/uL 150-450 [facility] Serum or plasma albumin mitul urement (mass/volume)Ordered By: Dr. Lloyd on 08-25-2022 Albumin [Mass/Vol] 3.3 g/dL 3.2-5.0 [facility] Serum or plasma albumin/glob ulin mass ratioOrdered By: Dr. Lloyd on 08-25-2022 Albumin/Globulin [Mass ratio] 0.8 {ratio} 0.9-2.4 [facility] Serum or plasma calcium mitul urement (mass/volume)Ordered By: Dr. Lloyd on 08-25-2022 Calcium [Mass/Vol] 9.6 mg/dL 8.5-10.1 [facility] Serum or plasma creatinine m easurement (mass/volume)Ordered By: Dr. Lloyd on 08-25-2022 Creatinine [Mass/Vol] 0.87 mg/dL 0.55-1.02 [facility] Comment on above: The validity of the calculated GFR & GFRAA in patients over 70 years has not been determined. Clinical correlation is essential. Serum or plasma urea nitroge n measurement (mass/volume)Ordered By: Dr. Lloyd on 08-25-2022 Urea nitrogen [Mass/Vol] 16 mg/dL 7-18 [facility] Thin prep Papanicolaou smear with manual screeningOrdered By: Dr. Lloyd on 08-25-2022 Thin prep Papanicolaou smear with manual screening 21 U/L 15-37 [facility] Thin prep Papanicolaou smear with manual screening 9 5-15 [facility] Basophil percentageOrdered B y: Dr. Felton on 07-14-2022 Basophil percentage 0 SEEN /hpf 0-5 [facility] Chloride [Moles/Vol] 110 mmol/L 98-107 [facility] Glucose [Mass/Vol] 103 mg/dL 74-106 [facility] Comment on above: Fasting Glucose resu lt from 100 to 125 mg/dL suggests IMPAIRED HOMEOSTASIS per A.D.A. criteria. Potassium [Moles/Vol] 3.8 mmol/L 3.5-5.1 [facility] Sodium [Moles/Vol] 139 mmol/L 136-145 [facility] WBC (Bld) [#/Vol] 6.5 10*3/uL 4.4-11.0 [facility] Bilirubin Test strip Ql (U)O rdered By: Dr. Felton on 07-14-2022 Bilirubin Ql (U) Negative Negative [facility] Blood erythrocytes count (nu mber/volume)Ordered By: Dr. Felton on 07-14-2022 RBC (Bld) [#/Vol] 4.18 10*6/uL 4.2-5.4 [facility] Blood hemoglobin measurement (mass/volume)Ordered By: Dr. Felton on 07-14-2022 Hemoglobin (Bld) [Mass/Vol] 11.5 g/dL 12.0-15.0 [facility] Blood platelet mean volumeOr dered By: Dr. Felton on 07-14-2022 Platelet mean volume (Bld) [Entitic vol] 10.6 fL 6.2-12.0 [facility] Determination of erythrocyte mean corpuscular volume (MCV)Ordered By: Dr. Felton on 07-14-2022 MCV (RBC) [Entitic vol] 86.4 fL 81-99 [facility] Hematocrit Auto (Bld) [Volum e fraction]Ordered By: Dr. Felton on 07-14-2022 Hematocrit (Bld) [Volume fraction] 36.1 % 37-47 [facility] INR in Blood by Coagulation assayOrdered By: Dr. Felton on 07-14-2022 INR Coag (Bld) [Relative time] 1.0 {INR} [facility] Ketones Test strip Ql (U)Ord ered By: Dr. Felton on 07-14-2022 Ketones Ql (U) Negative Negative [facility] Laboratory - Chemistry and C hemistry - challengeOrdered By: Dr. Felton on 07-14-2022 CO2 [Moles/Vol] 26.0 mmol/L 21.0-32.0 [facility] Urea nitrogen/Creatinine [Mass ratio] 17.5 mg/mg 10-20 [facility] Laboratory - CoagulationOrde red By: Dr. Felton on 07-14-2022 PT Coag (PPP) [Time] 12.7 s 11.7-14.9 [facility] - Hematology and Cell countsOrdered By: Dr. Felton on 07-14-2022 Erythrocyte distribution width (RBC) [Entitic vol] 49.3 fL 35.1-43.9 [facility] Erythrocyte distribution width (RBC) [Ratio] 15.7 % 11.6-14.6 [facility] MCH (RBC) [Entitic mass] 27.5 pg 27.0-32.0 [facility] MCHC Auto (RBC) [Mass/Vol]Or dered By: Dr. Felton on 07-14-2022 MCHC (RBC) [Mass/Vol] 31.9 g/dL 32-36 [facility] Mucus LM Ql (Urine sed)Order ed By: Dr. Felton on 07-14-2022 Mucus Ql (Urine sed) 0 SEEN /hpf [facility] Nitrite Test strip Ql (U)Ord ered By: Dr. Felton on 07-14-2022 Nitrite Ql (U) Negative Negative [facility] No Panel InformationOrdered By: Dr. Felton on 07-14-2022 Estimated GFR (MDRD) Amer 91 mL/min >60 [facility] Comment on above: GFR Calc Estimated GFR (MDRD) Non-Af Amer 75 mL/min >60 [facility] Comment on above: Non- GFR Calc Platelets bldOrdered By: Dr. Felton on 07-14-2022 Platelets (Bld) [#/Vol] 228 10*3/uL 150-450 [facility] Protein Test strip Ql (U)Ord ered By: Dr. Felton on 07-14-2022 Protein Ql (U) Negative Negative [facility] Serum or plasma calcium mitul urement (mass/volume)Ordered By: Dr. Felton on 07-14-2022 Calcium [Mass/Vol] 9.3 mg/dL 8.5-10.1 [facility] Serum or plasma creatinine m easurement (mass/volume)Ordered By: Dr. Felton on 07-14-2022 Creatinine [Mass/Vol] 0.80 mg/dL 0.55-1.02 [facility] Comment on above: The validity of the calculated GFR & GFRAA in patients over 70 years has not been determined. Clinical correlation is essential. Serum or plasma urea nitroge n measurement (mass/volume)Ordered By: Dr. Felton on 07-14-2022 Urea nitrogen [Mass/Vol] 14 mg/dL 7-18 [facility] Squamous epithelial cells de tection in urine sediment by light microscopyOrdered By: Dr. Felton on 07-14-2022 Epithelial cells.squamous LM Ql (Urine sed) 0 SEEN /hpf 5-10 [facility] Thin prep Papanicolaou smear with manual screeningOrdered By: Dr. Felton on 07-14-2022 Thin prep Papanicolaou smear with manual screening 3 5-15 [facility] Urine blood detectionOrdered By: Dr. Felton on 07-14-2022 RBC Ql (U) Negative Negative [facility] RBC Ql (U) 0 SEEN /hpf 0-5 [facility] Urine clarityOrdered By: Dr. Felton on 07-14-2022 Clarity (U) Clear Clear [facility] Urine color determinationOrd ered By: Dr. Felton on 07-14-2022 Color (U) Yellow Yellow [facility] Urine glucose detectionOrder ed By: Dr. Felton on 07-14-2022 Glucose Ql (U) Normal mg/dl Normal [facility] Urine leukocyte esterase det ection by dipstickOrdered By: Dr. Felton on 07-14-2022 Leukocyte esterase Test strip Ql (U) 25 /ul Negative [facility] Urine pHOrdered By: Dr. Zee marin on 07-14-2022 pH (U) 6.0 [pH] 5.0 - 8.0 [facility] Urine sediment bacteria coun t by microscopy (number/high power field)Ordered By: Dr. Felton on 07-14-2022 Bacteria LM.HPF (Urine sed) [#/Area] 0 /[HPF] None Seen [facility] Urine specific gravity measu rementOrdered By: Dr. Felton on 07-14-2022 Specific gravity (U) [Rel density] 1.010 1.002-1.030 [facility] Urobilinogen Auto test strip Ql (U)Ordered By: Dr. Felton on 07-14-2022 Urobilinogen Ql (U) Normal mg/dl Normal [facility] Absolute lymphocyte counton 03-03-2022 Lymphocytes Auto (Unsp spec) [#/Vol] 1.77 10*3/uL 0.83-4.51 [facility] Work Phone: Basophil percentageon 2021 Basophils/100 WBC (Bld) 0.9 % 0-1 [facility] Work Phone: Bilirubin [Mass/Vol] 0.50 mg/dL 0.20-1.00 [facility] Work Phone: Comment on above: For patients on eltr ombopag therapy, use of Dimension [place] TBIL is not recommended. Chloride [Moles/Vol] 112 mmol/L 98-107 [facility] Work Phone: Cholesterol [Mass/Vol] 170 mg/dL <200 [facility] Work Phone: Comment on above: <200 mg/dL Desirable 200-240 mg/dL Borderline >240 mg/dL High Risk Eosinophils/100 WBC (Bld) 1.3 % 0-5 [facility] Work Phone: [phone] Glucose [Mass/Vol] 108 mg/dL 74-106 [facility] Work Phone: Comment on above: Fasting Glucose resu lt from 100 to 125 mg/dL suggests IMPAIRED HOMEOSTASIS per A.D.A. criteria. Neutrophils (Bld) [#/Vol] 3.0 10*3/uL 2.0-7.7 [facility] Work Phone: [phone] Neutrophils/100 WBC (Bld) 55.9 % 47-70 [facility] Work Phone: Potassium [Moles/Vol] 3.6 mmol/L 3.5-5.1 [facility] Work Phone: [phone] Protein [Mass/Vol] 7.7 g/dL 6.4-8.2 [facility] Work Phone: [phone] Sodium [Moles/Vol] 143 mmol/L 136-145 [facility] Work Phone: Triglyceride [Mass/Vol] 76 mg/dL <199 [facility] Work Phone: Comment on above: The drugs N-Acetylcy steine and Metamizole may falsely depress this assay.Serum Triglycerides Reference Interval Normal <150 mg/dL Borderline high 150 - 199 mg/dL High 200 - 499 mg/dL Very High > or = 500 mg/dL WBC (Bld) [#/Vol] 5.3 10*3/uL 4.4-11.0 [facility] Work Phone: Blood erythrocytes count (nu mber/volume)on 03-03-2022 RBC (Bld) [#/Vol] 4.21 10*6/uL 4.2-5.4 [facility] Work Phone: Blood hemoglobin measurement (mass/volume)on 03-03-2022 Hemoglobin (Bld) [Mass/Vol] 11.3 g/dL 12.0-15.0 [facility] Work Phone: [phone] Blood lymphocytes/100 leukoc yteson 03-03-2022 Lymphocytes/100 WBC (Bld) 33.4 % 19-41 [facility] Work Phone: [phone] Blood monocytes/100 leukocyt eson 03-03-2022 Monocytes/100 WBC (Bld) 8.1 % 0-10 [facility] Work Phone: [phone] Blood platelet mean volumeon 03-03-2022 Platelet mean volume (Bld) [Entitic vol] 11.3 fL 6.2-12.0 [facility] Work Phone: [phone] Determination of erythrocyte mean corpuscular volume (MCV)on 03-03-2022 MCV (RBC) [Entitic vol] 83.6 fL 81-99 [facility] Work Phone: [phone] Hematocrit Auto (Bld) [Volum e fraction]on 03-03-2022 Hematocrit (Bld) [Volume fraction] 35.2 % 37-47 [facility] Work Phone: Laboratory - Chemistry and C hemistry - challengeon 03-03-2022 ALP [Catalytic activity/Vol] 81 U/L 45-117 [facility] Work Phone: [phone] ALT [Catalytic activity/Vol] 16 U/L 13-56 [facility] Work Phone: [phone] CO2 [Moles/Vol] 25.0 mmol/L 21.0-32.0 [facility] Work Phone: [phone] Globulin (S) [Mass/Vol] 4.4 g/dL 2.2-4.2 [facility] Work Phone: [phone] Urea nitrogen/Creatinine [Mass ratio] 20.3 mg/mg 10-20 [facility] Work Phone: Laboratory - Hematology and Cell countson 03-03-2022 Erythrocyte distribution width (RBC) [Entitic vol] 49.1 fL 35.1-43.9 [facility] Work Phone: [phone] Erythrocyte distribution width (RBC) [Ratio] 16.2 % 11.6-14.6 [facility] Work Phone: [phone] Immature granulocytes/100 WBC (Bld) 0.400 % 0.0-0.9 [facility] Work Phone: [phone] Comment on above: IG% - Immature Granu locytes (promyelocytes, myelocytes and metamyelocytes) > 1% indicates that a LEFT SHIFT is Present. MCH (RBC) [Entitic mass] 26.8 pg 27.0-32.0 [facility] Work Phone: [phone] Nucleated RBC/100 WBC (Bld) [Ratio] 0 % 0-5 [facility] Work Phone: [phone] MCHC Auto (RBC) [Mass/Vol]on 03-03-2022 MCHC (RBC) [Mass/Vol] 32.1 g/dL 32-36 [facility] Work Phone: No Panel Informationon 03-03 Estimated GFR (MDRD) Amer 86 mL/min >60 [facility] Work Phone: [phone] Comment on above: GFR Calc Estimated GFR (MDRD) Non-Af Amer 71 mL/min >60 [facility] Work Phone: [phone] Comment on above: Non- GFR Calc Thyroid Stimulating Hormone (TSH) 2.10 uIU/mL 0.358-3.74 [facility] Work Phone: [phone] Vitamin D 25-Hydroxy 58.7 ng/mL [facility] Work Phone: [phone] Comment on above: Vitamin D 25(OH) Sta tus Range Deficiency <20 ng/mL (50nmol/L) Insufficiency 20 - 30 ng/mL (50 - 75 nmol/L) Sufficiency 30 - 100 ng/mL (75 - 250 nmol/L) Toxicity >100 ng/mL (>250 nmol/L) Platelets bldon 03-03-2022 Platelets (Bld) [#/Vol] 296 10*3/uL 150-450 [facility] Work Phone: [phone] Serum or plasma albumin mitul urement (mass/volume)on 03-03-2022 Albumin [Mass/Vol] 3.3 g/dL 3.2-5.0 [facility] Work Phone: Serum or plasma albumin/glob ulin mass ratioon 03-03-2022 Albumin/Globulin [Mass ratio] 0.8 {ratio} 0.9-2.4 [facility] Work Phone: [phone] Serum or plasma calcium mitul urement (mass/volume)on 03-03-2022 Calcium [Mass/Vol] 9.6 mg/dL 8.5-10.1 [facility] Work Phone: [phone] Serum or plasma cholesterol in HDL measurement (mass/volume)on 03-03-2022 Cholesterol in HDL [Mass/Vol] 58 mg/dL >40 [facility] Work Phone: Comment on above: The drugs N-Acetylcy steine and Metamizole may falsely depress this assay. Reference Range HDL <40 mg/dL Low HDL Cholesterol HDL >or= 60 mg/dL High HDL Cholesterol Serum or plasma cholesterol in VLDL measurement (mass/volume)on 03-03-2022 Cholesterol in VLDL [Mass/Vol] 15 mg/dL 5-40 [facility] Work Phone: [phone] Serum or plasma creatinine m easurement (mass/volume)on 03-03-2022 Creatinine [Mass/Vol] 0.84 mg/dL 0.55-1.02 [facility] Work Phone: Comment on above: The validity of the calculated GFR & GFRAA in patients over 70 years has not been determined. Clinical correlation is essential. Serum or plasma low density lipoprotein (LDL) cholesterol measurement (mass/volume)on 03-03-2022 Cholesterol in LDL [Mass/Vol] 97 mg/dL 0-130 [facility] Work Phone: Serum or plasma urea nitroge n measurement (mass/volume)on 03-03-2022 Urea nitrogen [Mass/Vol] 17 mg/dL 7-18 [facility] Work Phone: Thin prep Papanicolaou smear with manual screeningon 03-03-2022 Thin prep Papanicolaou smear with manual screening 16 U/L 15-37 [facility] Work Phone: Thin prep Papanicolaou smear with manual screening 6 5-15 [facility] Work Phone: Absolute lymphocyte counton 08-26-2021 Lymphocytes Auto (Unsp spec) [#/Vol] 1.39 10*3/uL 0.83-4.51 [facility] Work Phone: Basophil percentageon 2021 Basophils/100 WBC (Bld) 0.1 % 0-1 [facility] Work Phone: Bilirubin [Mass/Vol] 0.60 mg/dL 0.20-1.00 [facility] Work Phone: Comment on above: For patients on eltr ombopag therapy, use of Dimension [place] TBIL is not recommended. Chloride [Moles/Vol] 108 mmol/L 98-107 [facility] Work Phone: Cholesterol [Mass/Vol] 189 mg/dL <200 [facility] Work Phone: Comment on above: <200 mg/dL Desirable 200-240 mg/dL Borderline >240 mg/dL High Risk Eosinophils/100 WBC (Bld) 0.1 % 0-5 [facility] Work Phone: Glucose [Mass/Vol] 130 mg/dL 74-106 [facility] Work Phone: Comment on above: Fasting Glucose resu lt greater than or equal to 126 mg/dL suggests DIABETES MELLITUS per A.D.A. criteria. Neutrophils (Bld) [#/Vol] 6.1 10*3/uL 2.0-7.7 [facility] Work Phone: Neutrophils/100 WBC (Bld) 76.7 % 47-70 [facility] Work Phone: Potassium [Moles/Vol] 3.8 mmol/L 3.5-5.1 [facility] Work Phone: [phone] Protein [Mass/Vol] 7.7 g/dL 6.4-8.2 [facility] Work Phone: [phone] Sodium [Moles/Vol] 139 mmol/L 136-145 [facility] Work Phone: [phone] Triglyceride [Mass/Vol] 67 mg/dL <199 [facility] Work Phone: [phone] Comment on above: The drugs N-Acetylcy steine and Metamizole may falsely depress this assay.Serum Triglycerides Reference Interval Normal <150 mg/dL Borderline high 150 - 199 mg/dL High 200 - 499 mg/dL Very High > or = 500 mg/dL WBC (Bld) [#/Vol] 8.0 10*3/uL 4.4-11.0 [facility] Work Phone: [phone] Blood erythrocytes count (nu mber/volume)on 08-26-2021 RBC (Bld) [#/Vol] 3.89 10*6/uL 4.2-5.4 [facility] Work Phone: [phone] Blood hemoglobin measurement (mass/volume)on 08-26-2021 Hemoglobin (Bld) [Mass/Vol] 11.0 g/dL 12.0-15.0 [facility] Work Phone: [phone] Blood lymphocytes/100 leukoc yteson 08-26-2021 Lymphocytes/100 WBC (Bld) 17.4 % 19-41 [facility] Work Phone: [phone] Blood monocytes/100 leukocyt eson 08-26-2021 Monocytes/100 WBC (Bld) 5.4 % 0-10 [facility] Work Phone: [phone] Blood platelet mean volumeon 08-26-2021 Platelet mean volume (Bld) [Entitic vol] 11.3 fL 6.2-12.0 [facility] Work Phone: [phone] Determination of erythrocyte mean corpuscular volume (MCV)on 08-26-2021 MCV (RBC) [Entitic vol] 84.8 fL 81-99 [facility] Work Phone: Hematocrit Auto (Bld) [Volum e fraction]on 08-26-2021 Hematocrit (Bld) [Volume fraction] 33.0 % 37-47 [facility] Work Phone: [phone] Laboratory - Chemistry and C hemistry - challengeon 08-26-2021 ALP [Catalytic activity/Vol] 72 U/L 45-117 [facility] Work Phone: [phone] ALT [Catalytic activity/Vol] 19 U/L 13-56 [facility] Work Phone: [phone] CO2 [Moles/Vol] 22.0 mmol/L 21.0-32.0 [facility] Work Phone: [phone] Globulin (S) [Mass/Vol] 4.2 g/dL 2.2-4.2 [facility] Work Phone: [phone] Urea nitrogen/Creatinine [Mass ratio] 24.6 mg/mg 10-20 [facility] Work Phone: [phone] Laboratory - Hematology and Cell countson 08-26-2021 Erythrocyte distribution width (RBC) [Entitic vol] 48.0 fL 35.1-43.9 [facility] Work Phone: [phone] Erythrocyte distribution width (RBC) [Ratio] 15.5 % 11.6-14.6 [facility] Work Phone: [phone] Immature granulocytes/100 WBC (Bld) 0.300 % 0.0-0.9 [facility] Work Phone: [phone] Comment on above: IG% - Immature Granu locytes (promyelocytes, myelocytes and metamyelocytes) > 1% indicates that a LEFT SHIFT is Present. MCH (RBC) [Entitic mass] 28.3 pg 27.0-32.0 [facility] Work Phone: [phone] Nucleated RBC/100 WBC (Bld) [Ratio] 0 % 0-5 [facility] Work Phone: [phone] MCHC Auto (RBC) [Mass/Vol]on 08-26-2021 MCHC (RBC) [Mass/Vol] 33.3 g/dL 32-36 [facility] Work Phone: No Panel Informationon 08-26 Estimated GFR (MDRD) Amer 89 mL/min >60 [facility] Work Phone: Comment on above: GFR Calc Estimated GFR (MDRD) Non-Af Amer 74 mL/min >60 [facility] Work Phone: Comment on above: Non- GFR Calc Thyroid Stimulating Hormone (TSH) 0.85 uIU/mL 0.358-3.74 [facility] Work Phone: Vitamin D 25-Hydroxy 51.8 ng/mL [facility] Work Phone: Comment on above: Vitamin D 25(OH) Sta tus Range Deficiency <20 ng/mL (50nmol/L) Insufficiency 20 - 30 ng/mL (50 - 75 nmol/L) Sufficiency 30 - 100 ng/mL (75 - 250 nmol/L) Toxicity >100 ng/mL (>250 nmol/L) Platelets bldon 08-26-2021 Platelets (Bld) [#/Vol] 228 10*3/uL 150-450 [facility] Work Phone: Serum or plasma albumin mitul urement (mass/volume)on 08-26-2021 Albumin [Mass/Vol] 3.5 g/dL 3.2-5.0 [facility] Work Phone: [phone] Serum or plasma albumin/glob ulin mass ratioon 08-26-2021 Albumin/Globulin [Mass ratio] 0.8 {ratio} 0.9-2.4 [facility] Work Phone: [phone] Serum or plasma calcium mitul urement (mass/volume)on 08-26-2021 Calcium [Mass/Vol] 9.6 mg/dL 8.5-10.1 [facility] Work Phone: [phone] Serum or plasma cholesterol in HDL measurement (mass/volume)on 08-26-2021 Cholesterol in HDL [Mass/Vol] 60 mg/dL >40 [facility] Work Phone: Comment on above: The drugs N-Acetylcy steine and Metamizole may falsely depress this assay. Reference Range HDL <40 mg/dL Low HDL Cholesterol HDL >or= 60 mg/dL High HDL Cholesterol Serum or plasma cholesterol in VLDL measurement (mass/volume)on 08-26-2021 Cholesterol in VLDL [Mass/Vol] 13 mg/dL 5-40 [facility] Work Phone: Serum or plasma creatinine m easurement (mass/volume)on 08-26-2021 Creatinine [Mass/Vol] 0.81 mg/dL 0.55-1.02 [facility] Work Phone: Comment on above: The validity of the calculated GFR & GFRAA in patients over 70 years has not been determined. Clinical correlation is essential. Serum or plasma low density lipoprotein (LDL) cholesterol measurement (mass/volume)on 08-26-2021 Cholesterol in LDL [Mass/Vol] 116 mg/dL 0-130 [facility] Work Phone: Serum or plasma urea nitroge n measurement (mass/volume)on 08-26-2021 Urea nitrogen [Mass/Vol] 20 mg/dL 7-18 [facility] Work Phone: Thin prep Papanicolaou smear with manual screeningon 08-26-2021 Thin prep Papanicolaou smear with manual screening 17 U/L 15-37 [facility] Work Phone: Thin prep Papanicolaou smear with manual screening 9 5-15 [facility] Work Phone: Laboratory - Microbiology an d Antimicrobial susceptibilityon 05-09-2021 SARS-CoV-2 (COVID-19) RNA JAZMYN+probe Ql (Unsp spec) Detected Not Detect [facility] Work Phone: Comment on above: Normal Reference Ran ge: Not DetectedMethod:(RT-PCR) real-time reverse transcriptase PCRLuminex NATTY Instrument*The Food and Drug Administration (FDA) has issued an Emergency Use Authorization (EAU) for the NATTY SARS-CoV-2 Assay for the rapid detection of the virus that causes COVID-19. This test has been validated, but the FDAs independent review of this validation is pending.*Negative results do not preclude infection and should not be used as the sole basis for treatment or patient management. Optimum specimen types and timing for peak viral levels during infections caused by SARS-CoV-2 have not been determined. Collection of multiple specimens from the same patient may be necessary to detect the virus. The possibility of a false negative result should be considered if the patient has clinical presentation or has had recent exposure. No Panel Informationon 05-09 Influenza Types A,B Direct FA ([facility]) [facility] Work Phone: Vital Signs Date Time Vital Sign Value Performing Clinician Facility 11-02-2024 15:46-0400 Diastolic blood pressure 85 mm[Hg] Dr. Tej Lloyd MD Work Phone: [phone] [place] [address] 11-02-2024 15:46-0400 Systolic blood pressure 150 mm[Hg] Dr. Tej Lloyd MD Work Phone: [phone] [place] [address] 11-02-2024 15:38-0400 Body height 152.[address] Tej Lloyd MD Work Phone: [phone] [place] [address] 11-02-2024 15:38-0400 Body mass index (BMI) [Ratio] 26.4 kg/m2 Dr. Tej Lloyd MD Work Phone: [phone] [place] [address] 11-02-2024 15:38-0400 Body weight 61.[address] Tej Lloyd MD Work Phone: [facility] 11-02-2024 15:38-0400 Heart rate 63 /min Dr. Tej Lloyd MD Work Phone: [facility] 11-02-2024 15:38-0400 Respiratory rate 16 /min Dr. Tej Lloyd MD Work Phone: [facility] 08-19-2023 14:00-0400 Body height 152.[address] Tej Lloyd Work Phone: [facility] 08-19-2023 14:00-0400 Body mass index (BMI) [Ratio] 26.4 kg/m2 Dr. Tej Lloyd Work Phone: [facility] 08-19-2023 14:00-0400 Body weight 61.[address] Tej Lloyd Work Phone: [facility] 08-19-2023 14:00-0400 Diastolic blood pressure 70 mm[Hg] Dr. Tej Lloyd Work Phone: [facility] 08-19-2023 14:00-0400 Heart rate 80 /min Dr. Tej Lloyd Work Phone: [facility] 08-19-2023 14:00-0400 Respiratory rate 14 /min Dr. Tej Lloyd Work Phone: [facility] 08-19-2023 14:00-0400 Systolic blood pressure 113 mm[Hg] Dr. Tej Lloyd Work Phone: [facility] 02-14-2023 20:05-0400 Diastolic Blood Pressure Non-Invasive 96 1 RAFAEL LION MD [facility] 02-14-2023 20:05-0400 Heart rate 73 /min RAFAEL LION MD [facility] 02-14-2023 20:05-0400 Reason For Taking VItal Signs RAFAEL LION MD [facility] 02-14-2023 20:05-0400 Respiratory rate 18 /min RAFAEL LION MD [facility] 02-14-2023 20:05-0400 Systolic Blood Pressure Non-Invasive 168 1 RAFAEL LION MD [facility] 02-14-2023 18:46-0400 Body temperature 98.78 [degF] RAFAEL LION MD [facility] 02-14-2023 18:46-0400 Diastolic Blood Pressure Non-Invasive 94 1 RAFAEL LION MD [facility] 02-14-2023 18:46-0400 Heart rate 70 /min RAFAEL LION MD [facility] 02-14-2023 18:46-0400 Respiratory rate 20 /min RAFAEL LION MD [facility] 02-14-2023 18:46-0400 Systolic Blood Pressure Non-Invasive 151 1 RAFAEL LION MD [facility] 11-20-2022 08:49-0400 Body temperature 97.3 [degF] Dr. Tej Lloyd Work Phone: [facility] 11-20-2022 08:49-0400 Diastolic blood pressure 54 mm[Hg] Dr. Tej Lloyd Work Phone: [facility] 11-20-2022 08:49-0400 Heart rate 60 /min Dr. Tej Lloyd Work Phone: [facility] 11-20-2022 08:49-0400 Respiratory rate 18 /min Dr. Tej Lloyd Work Phone: [facility] 11-20-2022 08:49-0400 SaO2% (BldA) [Mass fraction] 98 % Dr. Tej Lloyd Work Phone: [facility] 11-20-2022 08:49-0400 Systolic blood pressure 117 mm[Hg] Dr. Tej Lloyd Work Phone: [facility] 11-20-2022 07:41-0400 Body height 152.[address] Tej Lloyd Work Phone: [facility] 11-20-2022 07:41-0400 Body mass index (BMI) [Ratio] 27.1 kg/m2 Dr. Tej Lloyd Work Phone: [facility] 11-20-2022 07:41-0400 Body weight 63.[address] Tej Lloyd Work Phone: [phone] [place] [address] 11-02-2022 14:06-0400 Body mass index (BMI) [Ratio] 29 kg/m2 Dr. Tej Lloyd Work Phone: [phone])[phone] [place] [address] 11-02-2022 14:06-0400 Body temperature 97.2 [degF] Dr. Tej Lloyd Work Phone: [phone] [place] [address] 11-02-2022 14:06-0400 Body weight 67.[address] Tej Lloyd Work Phone: [phone] [place] [address] 11-02-2022 14:06-0400 Diastolic blood pressure 88 mm[Hg] Dr. Tej Lloyd Work Phone: 8(695)334-971955 [place] [address] 11-02-2022 14:06-0400 Heart rate 80 /min Dr. Tej Lloyd Work Phone: [phone] [place] [address] 11-02-2022 14:06-0400 Respiratory rate 18 /min Dr. Tej Lloyd Work Phone: 7(415)121-318855 [place] [address] 11-02-2022 14:06-0400 Systolic blood pressure 154 mm[Hg] Dr. Tej Lloyd Work Phone: 7(187)915-674724 [address] 09-18-2022 11:46-0400 Body height 152.[address] Tej Lloyd Work Phone: 2([phone])471-799655 [place] [address] 09-18-2022 11:46-0400 Body mass index (BMI) [Ratio] 27.7 kg/m2 Dr. Tej Lloyd Work Phone: [phone])[phone] [place] [address] 09-18-2022 11:46-0400 Body temperature 98.1 [degF] Dr. Tej Lloyd Work Phone: [phone] [place] [address] 09-18-2022 11:46-0400 Body weight 64.[address] Tej Lloyd Work Phone: 1(820)[phone] [place] [address] 09-18-2022 11:46-0400 Diastolic blood pressure 89 mm[Hg] Dr. Tej Lloyd Work Phone: 4(988)773-465355 [place] [address] 09-18-2022 11:46-0400 Heart rate 77 /min Dr. Tej Lloyd Work Phone: [facility] 09-18-2022 11:46-0400 Respiratory rate 18 /min Dr. Tej Lloyd Work Phone: [facility] 09-18-2022 11:46-0400 SaO2% (BldA) [Mass fraction] 100 % Dr. Tej Lloyd Work Phone: [facility] 09-18-2022 11:46-0400 Systolic blood pressure 190 mm[Hg] Dr. Tej Lloyd Work Phone: [phone] [place] [address] 08-28-2022 14:23-0400 Body height 152.[address] Tej Lloyd Work Phone: [phone] [place] [address] 08-28-2022 14:23-0400 Body mass index (BMI) [Ratio] 27.7 kg/m2 Dr. Tej Lloyd Work Phone: 0([phone] [place] [address] 08-28-2022 14:23-0400 Body weight 64.[address] Tej Lloyd Work Phone: 4([phone])[phone] [place] [address] 08-28-2022 14:23-0400 Diastolic blood pressure 79 mm[Hg] Dr. Tej Lloyd Work Phone: [facility] 08-28-2022 14:23-0400 Heart rate 77 /min Dr. Tej Lloyd Work Phone: [facility] 08-28-2022 14:23-0400 Respiratory rate 16 /min Dr. Tej Lloyd Work Phone: [facility] 08-28-2022 14:23-0400 Systolic blood pressure 129 mm[Hg] Dr. Tej Lloyd Work Phone: [facility] 07-23-2022 10:20-0400 Body height 152.[address] Tej Lloyd Work Phone: [facility] 07-23-2022 10:20-0400 Body weight 65.[address] Tej Lloyd Work Phone: [phone])467-669655 [place] [address] 07-22-2022 07:42-0400 Body mass index (BMI) [Ratio] 28.1 kg/m2 Dr. Tej Lloyd Work Phone: [facility] 07-14-2022 14:52-0400 Body height 152.[address] Tej Lloyd Work Phone: [facility] 07-14-2022 14:52-0400 Body mass index (BMI) [Ratio] 28.1 kg/m2 Dr. Tej Lloyd Work Phone: [facility] 07-14-2022 14:52-0400 Body weight 65.[address] Tej Lloyd Work Phone: [facility] 07-14-2022 14:52-0400 Diastolic blood pressure 93 mm[Hg] Dr. Tej Lloyd Work Phone: [facility] 07-14-2022 14:52-0400 Heart rate 68 /min Dr. Tej Lloyd Work Phone: [facility] 07-14-2022 14:52-0400 Respiratory rate 18 /min Dr. Tej Lloyd Work Phone: [facility] 07-14-2022 14:52-0400 SaO2% (BldA) [Mass fraction] 100 % Dr. Tej Lloyd Work Phone: [facility] 07-14-2022 14:52-0400 Systolic blood pressure 155 mm[Hg] Dr. Tej Lloyd Work Phone: [facility] 07-02-2021 13:41-0400 Body height 152.[address] Tej Lloyd Work Phone: [facility] Work Phone: 07-02-2021 13:41-0400 Body mass index (BMI) [Ratio] 28.1 kg/m2 Dr. Tej Lloyd Work Phone: [facility] [facility] Work Phone: 07-02-2021 13:41-0400 Body weight 65.[address] Tej Lloyd Work Phone: [facility] Work Phone: 07-02-2021 13:41-0400 Diastolic blood pressure 69 mm[Hg] Dr. Tej Lloyd Work Phone: [facility] Work Phone: 07-02-2021 13:41-0400 Heart rate 80 /min Dr. Tej Lloyd Work Phone: [facility] Work Phone: 07-02-2021 13:41-0400 Respiratory rate 16 /min Dr. Tej Lloyd Work Phone: [facility] Work Phone: 07-02-2021 13:41-0400 Systolic blood pressure 121 mm[Hg] Dr. Tej Lloyd Work Phone: [facility] Work Phone: Encounters Encounter Date Encounter Type Care Provider Facility Start: 12-18-2024 End: 12-18-2024 ambulatory Tej Lloyd Facility:[facility] Start: 11-28-2024 Non-patient / Non-visit Dr. Dk BELLE [facility] Start: 11-28-2024 End: 11-28-[address] Tej Lloyd MD Work Phone: -Outpatient Breast [facility] Start: 11-28-2024 End: 11-28-2024 Patient encounter procedure Lisset Vo PA -Outpatient Breast Imaging Work Phone: Start: 11-28-2024 End: 11-28-2024 ambulatory Naye Adam Facility:[facility] Start: 11-15-2024 End: 11-15-[address] Tej Lloyd MD Work Phone: -[facility] Start: 11-15-2024 End: 11-15-[address] Nik Felton MD -[facility] Work Phone: Start: 11-02-2024 End: 11-02-[address] Tej Lloyd MD Work Phone: -[facility] Start: 11-02-2024 End: 11-02-2024 Patient encounter procedure Lisset KAHN -[facility] Work Phone: Start: 09-27-2024 ambulatory Tej Trujillo Gabino Facility:[facility] Start: 09-27-2024 End: 09-27-[address] UZIEL SKINNER MD Facility:[facility] Start: 09-27-2024 End: 09-27-[address] UZIEL SKINNER MD [facility] Start: 09-26-2024 End: 09-27-2024 Emergency department patient visit MEDHAT ELENA DO [facility] Start: 09-13-2024 End: 09-13-[address] Tej Lloyd MD Work Phone: [facility] Work Phone: Start: 09-13-2024 End: 09-13-[address] Tej Lloyd MD -Laboratory Work Phone: Start: 09-13-2024 End: 09-13-2024 ambulatory Tej Lloyd Facility:[facility] Start: 09-11-2024 End: 09-11-[address] Tej Lloyd MD Work Phone: [facility] Work Phone: Start: 09-11-2024 End: 09-11-[address] Nik Felton MD -[facility] Work Phone: Start: 08-16-2024 End: 08-16-2024 ambulatory Nik Felton Facility:[facility] Start: 08-16-2024 End: 08-16-[address] Nik Felton MD -[facility] Work Phone: Start: 06-12-2024 End: 06-12-2024 ambulatory Nik Felton Facility:[facility] Start: 06-12-2024 End: 06-12-[address] Nik Felton MD -[facility] Work Phone: Start: 05-18-2024 End: 05-18-[address] MARILOU LLOYD MD Facility:[facility] Start: 05-18-2024 End: 05-18-[address] ROSMERY NEWBERRY [facility] Start: 05-17-2024 End: 05-17-2024 ambulatory Nik Purnima Facility:[facility] Start: 05-15-2024 End: 05-15-2024 ambulatory Wapello Purnima Facility:[facility] Start: 03-22-2024 End: 03-22-2024 ambulatory Tej Lloyd Facility:[facility] Start: 03-06-2024 End: 03-06-2024 ambulatory Nik Purnima Facility:[facility] Start: 02-16-2024 End: 02-16-2024 ambulatory Nik Purnima Facility:[facility] Start: 02-14-2024 End: 02-14-2024 ambulatory Nik Purnima Facility:[facility] Start: 08-23-2023 End: 08-23-[address] Tej Lloyd Work Phone: [facility] Work Phone: Start: 08-19-2023 Non-patient / Non-visit Dr. Sameer Lloyd Work Phone: [facility] Start: 08-19-2023 End: 08-19-[address] Tej Lloyd Work Phone: [facility] Work Phone: Start: 08-19-2023 End: 08-19-[address] [facility] Work [facility] Start: 08-19-2023 End: 08-19-[address] Tej Lloyd Work Phone: [facility] Work Phone: Start: 08-18-2023 End: 08-18-[address] [facility] Work [facility]: Start: 06-14-2023 End: 06-14-[address] Tej Lloyd Work Phone: [facility] Work Phone: Start: 05-10-2023 End: 05-10-[address] Tej Lloyd Work Phone: [facility] Work Phone: Start: 04-07-[address] Tej Lloyd Work Phone: [facility] Work Phone: Start: 04-05-2023 End: 04-05-[address] Tej Lloyd Work Phone: [facility] Work Phone: Start: 04-05-2023 End: 04-05-[address] Tej Lloyd Work Phone: [facility] Work Phone: Start: 03-16-2023 End: 03-16-[address] Tej Lloyd Work Phone: [facility] Work Phone: Start: 03-16-2023 End: 03-16-[address] Tej Lloyd Work Phone: [facility] Work Phone: Start: 02-14-2023 End: 02-14-2023 Emergency department patient visit DR MARILOU LLOYD MD Facility:[facility] Start: 02-14-2023 End: 02-14-2023 Emergency department patient visit RAFAEL LION MD [facility] Start: 11-23-2022 End: 11-23-[address] Tej Lloyd Work Phone: [facility] Work Phone: Start: 11-23-2022 End: 11-23-[address] Tej Lloyd Work Phone: [facility]-Outpatient Breast Imaging Work Phone: Start: 11-20-2022 Non-patient / Non-visit Dr. Sameer Lloyd Work Phone: [facility] Start: 11-20-2022 End: 11-20-2022 Admission to same day surgery center Dr. Tej Lloyd Work Phone: [facility]-Endoscopy Work Phone: Start: 11-20-2022 End: 11-20-[address] Tej Lloyd Work Phone: [facility] Work Phone: Start: 11-16-2022 End: 11-16-[address] Tej Lloyd Work Phone: [facility] Work Phone: Start: 11-02-2022 End: 11-02-[address] Tej Lloyd Work Phone: [facility] Work Phone: Start: 09-22-2022 Telephone encounter Jf wolf MD Work Phone: [facility] [place] Comment on above: Orders (Screening ch ecklist, order - pt has Implanted defibrillator - gave number to schedule at hospital) Start: 09-18-2022 End: 09-18-2022 Emergency department patient visit Dr. Tej Lloyd Work Phone: [facility]-Emergency Department Start: 09-18-2022 End: 09-18-[address] Tej Lloyd Work Phone: [facility] Work Phone: Start: 09-18-2022 End: 09-18-[address] Tej Lloyd Work Phone: [facility]-Laboratory Start: 08-28-2022 End: 08-28-[address] Tej Lloyd Work Phone: [facility] Start: 08-25-2022 End: 08-25-[address] Tej Lloyd Work Phone: [facility] Work Phone: Start: 08-25-2022 End: 08-25-[address] Tej Lloyd Work Phone: [facility]-Laboratory, y Office [address] [place] [address] Start: 07-30-2022 End: 07-30-[address] Tej Lloyd Work Phone: [facility] Start: 07-23-2022 End: 07-23-2022 Admission to same day surgery center Dr. Tej Lloyd Work Phone: [facility]-News Analyst/Special Procedures Start: 07-23-2022 End: 07-23-[address] Tej Lloyd Work Phone: [facility] Work Phone: Start: 07-16-2022 Non-patient / Non-visit Dr. Sameer Lloyd Work Phone: [facility] Start: 07-16-2022 End: 07-16-[address] Tej Lloyd Work Phone: [facility] Work Phone: Start: 07-16-2022 End: 07-16-[address] Tej Lloyd Work Phone: [facility]-Cardiovascular Services Start: 07-14-2022 End: 07-14-[address] Tej Lloyd Work Phone: [facility] Work Phone: Start: 07-14-2022 End: 07-14-[address] Tej Lloyd Work Phone: [facility]-Laboratory Start: 07-14-2022 End: 07-14-[address] Tej Lloyd Work Phone: [facility] Start: 05-25-2022 End: 05-25-[address] Tej Lloyd Work Phone: [facility] Start: 05-15-[address] MICKY MATTSON MD Facility:[facility] Start: 04-08-2022 End: 04-08-[address] Tej Lloyd Work Phone: [facility] Start: 03-03-2022 End: 03-03-[address] Tej Lloyd Work Phone: [facility] Work Phone: Start: 03-03-2022 End: 03-03-[address] Tej Lloyd Work Phone: [facility]-Laboratory, y Office 3rd Cor Start: 01-02-2022 End: 01-02-[address] Tej Lloyd Work Phone: [facility] Start: 11-18-2021 End: 11-18-[address] Tej Lloyd Work Phone: [facility]-Outpatient Breast Imaging Start: 09-26-2021 End: 09-26-[address] Tej Lloyd Work Phone: [facility] Start: 08-26-2021 End: 08-26-[address] Tej Lloyd Work Phone: [facility]-Laboratory, Phy Office 3rd Flr Start: 07-02-2021 End: 07-02-[address] Tej Lloyd Work Phone: [facility] Start: 06-20-2021 End: 06-20-[address] Tej Lloyd Work Phone: [facility] Start: 05-09-2021 End: 05-09-[address] Tej Lloyd Work Phone: [facility]-Pulmonary Services/Neurology Procedures Date Procedure Procedure Detail Performing Clinician Start: 11-28-2024 Screening mammography Ayush Lloyd MD Work Phone: Start: 09-13-2024 Vitamin D, 25-hydrox y measurement Dr. Tej Lloyd MD Work Phone: Comment on above: Vitamin D StatusDefi ciency: <20 ng/mL (50nmol/L)Insufficiency: 20-30 ng/mL (50-75 nmol/L)Sufficiency: 30-100 ng/mL (75-250 nmol/L)Toxicity: >100 ng/mL (>250 nmol/L) Start: 04-05-2023 CT of head without contrast Dr. Tej Lloyd Work Phone: Start: 03-16-2023 Plain x-ray of elbow Dr Charli Lloyd Work Phone: Start: 03-16-2023 Plain x-ray of wrist Dr Charli Lloyd Work Phone: Start: 11-23-2022 Screening mammography Ayush Lloyd Work Phone: Start: 11-20-[address] Tej pederson Work Phone: Start: 11-18-2021 Screening mammography D sagar Lloyd Work Phone: Start: 05-09-2021 Influenza Types A,B Direct FA (BALJIT) Dr. Tej Lloyd Work Phone: Start: 05-09-2021 End: 05-09-2021 Respiratory syncytial virus antigen assay Dr. Tej Lloyd Work Phone: Start: 05-12-2019 Colonoscopy RAFAEL CARRERO MD section RAFAEL MUNSON MD Comment on above: x3 Colonoscopy RAFAEL BETTS MD Excision of bunion RAFAEL CAMPOS MD Comment on above: Right Hysterectomy RAFAEL BETTS MD Plan of Treatment Date Care Activity Detail Author Start: 12-18-2022 Influenza [facility] Start: 11-20-2022 Patient discharge [facility] Start: 09-18-2022 Blood chemistry [facility] Start: 04-19-2022 ADVANCE DIRECTIVE DISCUSSION ADVANCE DIRECTIVE DISCUSSION [facility] Start: 04-19-2022 DEPRESSION ASSESSMENT DEPRESSION ASSESSMENT [facility] Start: 07-09-2020 DIABETES SCREEN DIABETES SCREEN [facility] Start: 2014 BONE DENSITY BONE DENSITY [facility] Start: 2014 PNEUMOCOCCAL: 65+ (1 - PCV) PNEUMOCOCCAL: 65+ (1 - PCV) [facility] Start: 11-05-1999 SHINGRIX VACCINE (1 of 2) SHINGRIX VACCINE (1 of 2) [facility] Start: 1994 COLOGUARD (FIT-DNA) COLOGUARD (FIT-DNA) [facility] Start: 1994 Colonoscopy COLONOSCOPY [facility] Start: 1994 COLORECTAL CANCER SCREENING COLORECTAL CANCER SCREENING [facility] Start: [address] COLONOGRAPHY [facility] Start: 1994 FECAL OCCULT BLOOD FECAL OCCULT BLOOD [facility] Start: 1994 LIPID SCREEN LIPID SCREEN [facility] Start: 1994 SIGMOIDOSCOPY SIGMOIDOSCOPY [facility] Start: 1989 Mammography MAMMOGRAM [facility] Start: 1968 Urine microalbumin profile DTAP,TDAP,TD (1 - Tdap) [facility] Start: 11-05-1967 HEPATITIS C SCREENING HEPATITIS C SCREENING [facility] Start: 05-07-1950 COVID-19 VACCINE (#1) COVID-19 VACCINE (#1) [facility] Anion gap measurement [facility] BUN/Creatinine ratio [facility] Calcium [Mass/volume ] in Serum or Plasma [facility] Carbon dioxide, tota l [Moles/volume] in Serum or Plasma [facility] Chloride [Moles/volu me] in Serum or Plasma [facility] Colonoscopy [facility] Creatinine [Moles/vo lume] in Serum or Plasma [facility] Glucose [Mass/volume ] in Serum or Plasma [facility] Measurement of renal function [facility] Patient Education ED Back Sprain/Strain [facility] Work Phone: Patient referral [facility] Work Phone: Potassium [Moles/vol ume] in Serum or Plasma [facility] Sodium [Moles/volume ] in Serum or Plasma [facility] Urea nitrogen [Mass/volume] in Serum or Plasma [facility] Payers Date Payer Category Payer Private Health Insurance [id number] 2024 Self-pay [id number] 2023 Unknown [id number] 2018 Medicare [id number] 2015 Medicare [id number] 1949 Unknown [id number] 1949 Unknown [id number] [id number]7 1949 Unknown [id number] [id number]7 1949 Unknown [id number] 2.840.1.629878.3.579.2.627 1949 Unknown [id number] 2.840.1.169080.3.579.2.627 Medicare MEDICARE PART A B [id number] Unknown [id number] [id number] Unknown [id number] 2.840.1.110818.3.579.2.462 Unknown [id number] 2.840.1.787462.3.579.2.462 Unknown [id number] 2.840.1.903902.3.579.2.462 Unknown [id number] 2.840.1.202499.3.579.2.462 Unknown [id number] 2.840.1.588453.3.579.2.462 Unknown [id number] 2.840.1.433241.3.579.2.462 Unknown [id number] 2.840.1.734607.3.579.2.462 Unknown [id number] 2.840.1.690675.3.579.2.462 Unknown [id number] 2.840.1.849919.3.579.2.462 Unknown [id number] 2.840.1.949706.3.579.2.462 Unknown [id number] 2.840.1.752262.3.579.2.462 Unknown [id number] 2.16840.1.592928.3.579.2.462 Unknown [id number] 2.16840.1.170715.3.579.2.462 Unknown [id number] 2.840.1.951127.3.579.2.462 Unknown [id number] 2.16.840.1.729202.3.579.2.462 Unknown [id number] 2.16.840.1.308745.3.579.2.462 Unknown [id number] 2.16.840.1.359062.3.579.2.462 Unknown [id number] 2.16.840.1.504240.3.579.2.462 Unknown [id number] [id number]2 Social History Date Type Detail Facility Start: 07-02-2021 End: 11-18-2022 Tobacco smoking status [facility] Unknown if ever smoked [facility] Start: 09-15-2018 Non-smoker [facility] Start: 1950 Sex Assigned At Female [facility] Start: 12-29-2010 End: 11-18-2022 Tobacco smoking status [facility] Never smoked tobacco [facility] Start: 12-29-2010 Tobacco use and exposure Smokeless tobacco non-user [facility] Start: 07-16-2017 Alcohol intake Current non-dr construction executive of alcohol (finding) [facility] Start: 1950 Sex Assigned At Not on file C [facility] Sexual Orientation [facility] Start: 06-09-2018 Sex Female (finding) [facility] NEGATED: Highlighted row [facility] Medical Equipment Procedure Code Equipment Code Equipment Original Text Equipment Identifier Dates ([id number]) Cardiac resynchr onization therapy implantable defibrillator ([id number] FDA Start: 07-23-2022 Goals Date Patient Goal Desired Activity /State Functional Status Date Assessment Result Facility 02-14-2023 Functional Status Independent [facility] 02-14-2023 Functional Status Standard Safet y ID band on, Call device within reach, Bed in low position, Wheels locked [facility] Mental Status Date Assessment Result Facility 02-14-2023 Mental Status Orientation Oriented x 4 [facility] 02-14-2023 Mental Status [facility] 11-20-2022 Cognitive function Drowsy [facility] Work Phone: Clinical Notes 02-17-2013 to 11-02-2024 Note Date & Type Note Facility 11-02-2024 Procedure note [facility] 09-27-2024 Note Date of Service STRESS TEST DATE OF PROCEDURE: 09/27/2024 ATTENDING PHYSICIAN: Dr Fisher REASON FOR STRESS TEST: Chest pain PROTOCOL: Lexiscan Resting blood pressure 143/73. Resting heart rate is 65 bpm. Resting EKG shows ventricular paced rhythm. PROCEDURE: The patient underwent stress test as per protocol with infusion of 0.4 mg regadenoson intravenously. Postinfusion the patient complained of shortness of breath and chest pressure which improved in the recovery phase. EKG portion of the stress test today ventricular paced rhythm. No arrhythmias were noted. Impression 1. nondiagnostic stress test as per EKG protocol due to ventricular paced rhythm. 2.No significant arrhythmia noted. 3 Please follow-up on nuclear images to be dictated separately. 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 On encounter, the patient was examined in room 332. She was alone. She follows at [facility] for her cardiac care, patient is a poor historian and does not know most of her history. She stated that she has: --Chest pain since the last few weeks. Insidious in onset, progressively worsening, substernal, lasts for a few hours each time, subsides on its own Denies shortness of breath, cough, PND, orthopnea Denies abdominal pain Denies bowel respiratory disturbances [place] ED course: In [place] ED, the patient was vitally stable. Her initial labs were suggestive normal CBC, BMP, proBNP of 165. Troponin negative x 2. CT angio chest was not suggestive of PE. EKG was a sensed V paced rhythm. She was transferred to [facility] for further care. Review of Systems General: negative for weight change, fevers/night sweats/chills, fatigue/weakness Skin: negative for skin changes HEENT: negative for headache, visual changes, hearing loss, rhinorrhea/congestion/epistaxis, bleeding gums, hoarseness/sore throat Breasts: negative for skin changes, discharge Cardiac: Chest pain negative for murmurs, palpitations, ONTIVEROS, orthopnea, PND, edema Pulmonary: negative for SOB, wheezing, cough, sputum/hemoptysis, PNA, asthma/bronchitis/COPD GI: negative for N/V, change in appetite, dysphagia, change in BM, stool color, hematemesis/melena/hematochezia, constipation/diarrhea : negative for polydipsia, polyuria, hematuria, dysuria, nocturia MSK: negative for muscle weakness, joint pain/stiffness, redness/swelling Heme: negative for anemia, easy bruising Neurologic: negative for loss of sensation/numbness/tingling, weakness/paralysis Physical Exam Vitals and Measurements T: 36.7 C (Oral) HR: 66 (Apical) RR: 16 BP: 158/63 SpO2: 98% HT: 137 cm WT: 66.2 kg BMI: 35.27 Weight Dosing Weight: 66.2 kg (09/27/24) General: AAOX3, NAD HEENT: Anicteric sclera, MMM Neck: Trachea midline, no JVD appreciated CVS: RRR, normal S1/S2, no murmurs/rubs/gallops Lung: CTAB, no wheezes/rhonchi/rales Abd: Soft, NT/ND Extrem: WWP, no LE edema Skin: Warm, Intact Neuro: AAOX3, spontaneous movement of all extremities Psych: Appropriate mood & affect Lab Results No 36 Hour Lab Data Assessment/Plan 1. Chest pain, rule out ACS Patient presented to [place] ED because of chest pain EKG: A sensed BiV paced rhythm Troponins: 28, 26 Patient follows up with [facility], has a ANIMAL CYTOLOGIST-D in, but does not know the reason. Plan START aspirin 81 mg p.o. daily START atorvastatin 40 mg p.o. daily START nitroglycerin 0.4 mg sublingual as needed for chest pain TREND troponins FOLLOW ECHO N.p.o. past midnight for possible stress test 2. Hypertension Blood pressure in acceptable range Plan CONTINUE carvedilol 25 mg p.o. twice daily CONTINUE amlodipine 5 mg p.o. daily 3. Hyperlipidemia Plan CONTINUE atorvastatin 40 mg p.o. daily 4. DM2 Fingerstick in acceptable range Plan START sliding scale insulin Problem List/Past Medical History Ongoing Diabetes mellitus type 2 Gastroparesis Glaucoma High blood pressure Hypercholesterolemia Vitamin B12 deficiency Vitamin D deficiency Procedure/Surgical History Colonoscopy: 05/12/19 Bunionectomy section Hysterectomy Colonoscopy Medications Home Medications (7) Active amLODIPine 5 mg oral tablet 5 mg = 1 tab(s), Oral, qDay atorvastatin 40 mg oral tablet 40 mg = 1 tab(s), Oral, qDay carvedilol 25 mg oral tablet 25 mg = 1 tab(s), Oral, BID latanoprost 0.005% ophthalmic solution metFORMIN 500 mg oral tablet timolol maleate 0.5% ophthalmic solution Vitamin D3 1,000 unit(s) = 1 tab(s), Oral, Daily Allergies lisinopril sulfa drug Social History Smoking Status - 02/19/2017 Never smoker Alcohol - Denies Alcohol Use, 01/17/2017 Use: Never., 05/12/2019 Home/Environment Domestic Concerns: None. Living situation: Home/Independent. Lives In: Single level home. Current Home Treatments Blood glucose monitoring. Professional Skilled Services or Special Community Resources None. Spouse Name: Gege. Marital Status: ., 05/12/2019 Nutrition/Health Type of diet: Regular, Diabetic. Appetite Fair. Eating Difficulties None. Caffeine intake amount: Denies., 05/12/2019 Substance Abuse - Denies Substance Abuse, 01/17/2017 Use: Never., 05/12/2019 Tobacco Nicotine Use: Never (less than 100 in lifetime)., 05/12/2019 Family History Cancer: Sister. Diabetes mellitus: Father. Health Status Family Member(s) Immunizations No qualifying data available. Code Status No qualifying data available. Digitally Signed by REMY LUDWIG MD on 09/27/2024 07:46 AM [facility] 09-27-2024 Discharge summary Date of Service 09/27/2024 Discharge Diagnosis Atypical chest pain, noncardiac Hypertension Type 2 diabetes Hyperlipidemia Status post ANIMAL CYTOLOGIST-D placement Hospital Course 73-year-old female with PMH of hypertension, DM 2, hyperlipidemia, ANIMAL CYTOLOGIST-D placement presented as a transfer from [place] ED because of chest pain. Patient describes her chest pain as substernal, intermittent, not associated with exertion. Lasting different period of time every time. It is unclear why she has a ANIMAL CYTOLOGIST-D in place. On echocardiogram her EF was 55 to 60%. Patient is unaware as to why the ANIMAL CYTOLOGIST-D was placed. Stress test was obtained for her chest pain which was negative. Patient previously on Coreg 25 mg twice daily and amlodipine but were discontinued in 2023. Was mildly hypertensive when she presented. Will restart Coreg 6.25 mg twice daily. Will have her follow-up with Dr. Skinner in the outpatient setting in 4 weeks. Allergies lisinopril sulfa drug Consults No qualifying data available. Imaging Results and Diagnostics NM Myocardial Spect Rest/Stress Result Date: September 27, 2024 Verified By: KAMI FORD DO CLINICAL STATEMENT: IMPRESSION: 1. No evidence of infarct or ischemia.2. LV chamber is normal in size.3. Normal LV wall motion, with LVEF of greater than 65%.I have personally reviewed the images of this examination and agree with theresident's findings and interpretation. Objective Vitals and Measurements T: 36.6 C (Oral) TMIN: 36.6 C (Oral) TMAX: 36.7 C (Oral) HR: 75 (Monitored) RR: 18 BP: 105/60 SpO2: 97% HT: 137 cm WT: 66.2 kg BMI: 35.27 Weight Dosing Weight: 66.2 kg (09/27/24) Code Status Code Status - Ordered -- 09/27/24 3:47:00 EDT, Full Code, Constant Order Admission Date 09/27/2024 Discharge Date 09/27/2024 Patient Instructions 1. Kindly follow up with your Primary Care Physician and Graduate School Dean as recommended. _ 2. Some of your medications may have changed during this hospital stay. Please go over these changes with your nurse before you leave the hospital. _ 3. Take all your medications as prescribed. If you have any queries, please reach out to our [facility] office at [phone] for general queries and [phone] for medication refills. 4. All your medical records and results are available to you through our [facility] Patient Portal. To sign up, please visit [email or web address] Medications New Prescription aspirin (aspirin 81 mg oral tablet, chewable)1 tab(s) by mouth once a day with a meal. Refills: 3. atorvastatin (atorvastatin 40 mg oral tablet)1 tab(s) by mouth once a day. Refills: 3. carvedilol (carvedilol 6.25 mg oral tablet)1 tab(s) by mouth twice daily with meals. Refills: 3. Unchanged cholecalciferol (Vitamin D3)1,000 unit(s) by mouth every day. latanoprost ophthalmic (latanoprost 0.005% ophthalmic solution)INSTILL 1 DROP INTO BOTH EYES EVERY DAY AT NIGHT. metFORMIN (metFORMIN 500 mg oral tablet)TAKE 1 TABLET BY MOUTH TWICE A DAY. timolol ophthalmic (timolol maleate 0.5% ophthalmic solution)INSTILL 1 DROP INTO BOTH EYES TWICE A DAY. Follow Up Follow Up with readmission score is 7 Follow Up with UZIEL SKINNER MD When:In 4 weeks Where:[address] [facility] [place] [address]- Follow Up with Return to if symptoms worsen When:Within 1-2 days Follow Up with MARILOU LLOYD MD When:Within 1-2 days Where:[facility]AT[facility]ICS/[place] [facility] [place] [address]- Follow Up Appointments No qualifying data available. Follow Up Labs/Studies Discharge Labs No Follow-up Labs Discharge Studies No Follow-up Studies Discharge Diet Discharge Diet - Ordered -- No changes were made to your diet during your hospital stay. Please resume your pre hospitalization diet on discharge., 09/27/24 11:37:00 EDT Discharge Activity Discharge Activity - Ordered -- NO activity restrictions, 09/27/24 11:37:00 EDT Condition on Discharge Fair Readmission Risk/Palliative Score No qualifying data available. Discharge Disposition Home Digitally Signed by WING LEWIS MD on 09/27/2024 03:32 PM [facility] 09-27-2024 Evaluation + Plan note Extrac varun from: Title:History and Physical Author:REMY LUDWIG MD Date:09/27/24 1. Chest pain, rule out ACS Patient presented to [place] ED because of chest pain EKG: A sensed BiV paced rhythm Troponins: 28, 26 Patient follows up with [facility], has a ANIMAL CYTOLOGIST-D in, but does not know the reason. Plan START aspirin 81 mg p.o. daily START atorvastatin 40 mg p.o. daily START nitroglycerin 0.4 mg sublingual as needed for chest pain TREND troponins FOLLOW ECHO N.p.o. past midnight for possible stress test 2. Hypertension Blood pressure in acceptable range Plan CONTINUE carvedilol 25 mg p.o. twice daily CONTINUE amlodipine 5 mg p.o. daily 3. Hyperlipidemia Plan CONTINUE atorvastatin 40 mg p.o. daily 4. DM2 Fingerstick in acceptable range Plan START sliding scale insulin Addendum by UZIEL SKINNER on September 27, 2024 15:55:12 EDT I have personally seen, examined, and evaluated the patient on the encounter date. I have reviewed the fellow s documentation and agree with the fellow s findings and plan as documented, unless otherwise stated. A3 Future Scheduled Tests Radiology* MA Mammo Screening Bilateral w/ Fabrice 11/08/23 [facility] 06-11-2025 Hospital Discharge instructions Patient Education 09/27/2024 11:43:14 Heart-Healthy Eating Plan, Ljgv-od-Urtp Heart-Healthy Eating Plan Heart-healthy meal planning includes: Eating less unhealthy fats. Eating more healthy fats. Making other changes in your diet. Talk with your doctor or a diet specialist (dietitian) to create an eating plan that is right for you. What is my plan? Your doctor may recommend an eating plan that includes: Total fat: % or less of total calories a day. Saturated fat: % or less of total calories a day. Cholesterol: less than mg a day. What are tips for following this plan? Cooking Avoid frying your food. Try to bake, boil, grill, or broil it instead. You can also reduce fat by: Removing the skin from poultry. Removing all visible fats from meats. Steaming vegetables in water or broth. Meal planning At meals, divide your plate into four equal parts: ?Fill one-half of your plate with vegetables and green salads. ?Fill one-fourth of your plate with whole grains. ?Fill one-fourth of your plate with lean protein foods. Eat 4 5 servings of vegetables per day. A serving of vegetables is: ?1 cup of raw or cooked vegetables. ?2 cups of raw leafy greens. Eat 4 5 servings of fruit per day. A serving of fruit is: ?1 medium whole fruit. ? cup of dried fruit. ? cup of fresh, frozen, or canned fruit. ? cup of 100% fruit juice. Eat more foods that have soluble fiber. These are apples, broccoli, carrots, beans, peas, and barley. Try to get 20 30 g of fiber per day. Eat 4 5 servings of nuts, legumes, and seeds per week: ?1 serving of dried beans or legumes equals cup after being cooked. ?1 serving of nuts is cup. ?1 serving of seeds equals 1 tablespoon. General information Eat more home-cooked food. Eat less restaurant, buffet, and fast food. Limit or avoid alcohol. Limit foods that are high in starch and sugar. Avoid fried foods. Lose weight if you are overweight. Keep track of how much salt (sodium) you eat. This is important if you have high blood pressure. Ask your doctor to tell you more about this. Try to add vegetarian meals each week. Fats Choose healthy fats. These include olive oil and canola oil, flaxseeds, walnuts, almonds, and seeds. Eat more omega-3 fats. These include salmon, mackerel, sardines, tuna, flaxseed oil, and ground flaxseeds. Try to eat fish at least 2 times each week. Check food labels. Avoid foods with trans fats or high amounts of saturated fat. Limit saturated fats. ?These are often found in animal products, such as meats, butter, and cream. ?These are also found in plant foods, such as palm oil, palm kernel oil, and coconut oil. Avoid foods with partially hydrogenated oils in them. These have trans fats. Examples are stick margarine, some tub margarines, cookies, crackers, and other baked goods. What foods can I eat? Fruits All fresh, canned (in natural juice), or frozen fruits. Vegetables Fresh or frozen vegetables (raw, steamed, roasted, or grilled). Green salads. Grains Most grains. Choose whole wheat and whole grains most of the time. Rice and pasta, including brown rice and pastas made with whole wheat. Meats and other proteins Lean, well-trimmed beef, veal, pork, and shah. Chicken and turkey without skin. All fish and shellfish. Wild duck, rabbit, pheasant, and venison. Egg whites or low-cholesterol egg substitutes. Dried beans, peas, lentils, and tofu. Seeds and most nuts. Dairy Low-fat or nonfat cheeses, including ricotta and mozzarella. Skim or 1% milk that is liquid, powdered, or evaporated. Buttermilk that is made with low-fat milk. Nonfat or low-fat yogurt. Fats and oils Non-hydrogenated (trans-free) margarines. Vegetable oils, including soybean, sesame, sunflower, olive, peanut, safflower, corn, canola, and cottonseed. Salad dressings or mayonnaise made with a vegetable oil. Beverages Mineral water. Coffee and tea. Diet carbonated beverages. Sweets and desserts Sherbet, gelatin, and fruit ice. Small amounts of dark chocolate. Limit all sweets and desserts. Seasonings and condiments All seasonings and condiments. The items listed above may not be a complete list of foods and drinks you can eat. Contact a dietitian for more options. What foods should I avoid? Fruits Canned fruit in heavy syrup. Fruit in cream or butter sauce. Fried fruit. Limit coconut. Vegetables Vegetables cooked in cheese, cream, or butter sauce. Fried vegetables. Grains Breads that are made with saturated or trans fats, oils, or whole milk. Croissants. Sweet rolls. Donuts. High-fat crackers, such as cheese crackers. Meats and other proteins Fatty meats, such as hot dogs, ribs, sausage, underwood, rib-eye roast or steak. High-fat deli meats, such as salami and bologna. Caviar. Domestic duck and goose. Organ meats, such as liver. Dairy Cream, sour cream, cream cheese, and creamed cottage cheese. Whole-milk cheeses. Whole or 2% milk that is liquid, evaporated, or condensed. Whole buttermilk. Cream sauce or high-fat cheese sauce. Yogurt that is made from whole milk. Fats and oils Meat fat, or shortening. [place] butter, hydrogenated oils, palm oil, coconut oil, palm kernel oil. Solid fats and shortenings, including underwood fat, salt pork, lard, and butter. Nondairy cream substitutes. Salad dressings with cheese or sour cream. Beverages Regular sodas and juice drinks with added sugar. Sweets and desserts Frosting. Pudding. Cookies. Cakes. Pies. Milk chocolate or white chocolate. Buttered syrups. Full-fat ice cream or ice cream drinks. The items listed above may not be a complete list of foods and drinks to avoid. Contact a dietitianfor more information. Summary Heart-healthy meal planning includes eating less unhealthy fats, eating more healthy fats, and making other changes in your diet. Eat a balanced diet. This includes fruits and vegetables, low-fat or nonfat dairy, lean protein, nuts and legumes, whole grains, and heart-healthy oils and fats. This information is not intended to replace advice given to you by your health care provider. Make sure you discuss any questions you have with your health care provider. Document Released: 10/04/2012 Document Revised: 06/09/2018 Document Reviewed: 05/13/2018 [employer] Patient Education 2020 [employer]. 09/27/2024 11:42:53 Nonspecific Chest Pain, Adult, Yqrw-go-Bwgy Nonspecific Chest Pain Chest pain can be caused by many different conditions. Some causes of chest pain can be life-threatening. These will require treatment right away. Serious causes of chest pain include: Heart attack. A tear in the body's main blood vessel. Redness and swelling (inflammation) around your heart. Blood clot in your lungs. Other causes of chest pain may not be so serious. These include: Heartburn. Anxiety or stress. Damage to bones or muscles in your chest. Lung infections. Chest pain can feel like: Pain or discomfort in your chest. Crushing, pressure, aching, or squeezing pain. Burning or tingling. Dull or sharp pain that is worse when you move, cough, or take a deep breath. Pain or discomfort that is also felt in your back, neck, jaw, shoulder, or arm, or pain that spreads to any of these areas. It is hard to know whether your pain is caused by something that is serious or something that is not so serious. So it is important to see your doctor right away if you have chest pain. Follow these instructions at home: Medicines Take dgeg-dms-nirytco and prescription medicines only as told by your doctor. If you were prescribed an antibiotic medicine, take it as told by your doctor. Do not stop taking the antibiotic even if you start to feel better. Lifestyle Rest as told by your doctor. Do not use any products that contain nicotine or tobacco, such as cigarettes, e- cigarettes, and chewing tobacco. If you need help quitting, ask your doctor. Do not drink alcohol. Make lifestyle changes as told by your doctor. These may include: ?Getting regular exercise. Ask your doctor what activities are safe for you. ?Eating a heart-healthy diet. A diet and nutrition instructor (dietitian) can help you to learn healthy eating options. ?Staying at a healthy weight. ?Treating diabetes or high blood pressure, if needed. ?Lowering your stress. Activities such as yoga and relaxation techniques can help. General instructions Pay attention to any changes in your symptoms. Tell your doctor about them or any new symptoms. Avoid any activities that cause chest pain. Keep all follow-up visits as told by your doctor. This is important. You may need more testing if your chest pain does not go away. Contact a doctor if: Your chest pain does not go away. You feel depressed. You have a fever. Get help right away if: Your chest pain is worse. You have a cough that gets worse, or you cough up blood. You have very bad (severe) pain in your belly (abdomen). You pass out (faint). You have either of these for no clear reason: ?Sudden chest discomfort. ?Sudden discomfort in your arms, back, neck, or jaw. You have shortness of breath at any time. You suddenly start to sweat, or your skin gets clammy. You feel sick to your stomach (nauseous). You throw up (vomit). You suddenly feel lightheaded or dizzy. You feel very weak or tired. Your heart starts to beat fast, or it feels like it is skipping beats. These symptoms may be an emergency. Do not wait to see if the symptoms will go away. Get medical help right away. Call your local emergency services (911 in the [place] Do not drive yourself to the hospital. Summary Chest pain can be caused by many different conditions. The cause may be serious and need treatment right away. If you have chest pain, see your doctor right away. Follow your doctor's instructions for taking medicines and making lifestyle changes. Keep all follow-up visits as told by your doctor. This includes visits for any further testing if your chest pain does not go away. Be sure to know the signs that show that your condition has become worse. Get help right away if you have these symptoms. This information is not intended to replace advice given to you by your health care provider. Make sure you discuss any questions you have with your health care provider. Document Released: 09/21/2008 Document Revised: 10/06/2018 Document Reviewed: 10/06/2018 [employer]) Patient Education 2020 [employer]. Follow Up Care 09/26/2024 16:49:38 With:readmission score is 7 Address:Unknown When: Unknown With:UZIEL SKINNER MD Address: [address] [facility] [address] [facility] [place] [address]- When:Within 4 Week(s) With:Return to if symptoms worsen Address:Unknown When:1-2 days With:MARILOU LLOYD MD Address: ADULT GERIATRICS/[address] [place] [address]- When:1-2 days [facility] 06-11-2025 Note Discharge Instructions Thank you for allowing [facility] to assist you with your healthcare needs. The following is importantdischarge information regarding your hospital visit. Your Care Team MARILOU LLOYD MD What to do next Instructions From Your Doctor 1. Kindly follow up with your Primary Care Physician and Graduate School Dean as recommended. _ 2. Some of your medications may have changed during this hospital stay. Please go over these changes with your nurse before you leave the hospital. _ 3. Take all your medications as prescribed. If you have any queries, please reach out to our [facility] office at [phone] for general queries and [phone] for medication refills. 4. All your medical records and results are available to you through our [facility] Patient Portal. Tosign up, please visit [email or web address] Follow Up Appointments Follow Up with UZIEL SKINNER MD When:In 4 weeks Where:[address] [facility] [place] [address]- Follow Up with Return to if symptoms worsen When:Within 1-2 days Follow Up with MARILOU LLOYD MD When:Within 1-2 days Where:[facility]AT[facility]/[place] [address] [place] [address]- The Following Activity and Diet Have Been Ordered for You Discharge Activity - Ordered -- NO activity restrictions, 09/27/24 11:37:00 EDT Discharge Diet - Ordered -- No changes were made to your diet during your hospital stay. Please resume your pre hospitalization diet on discharge., 09/27/24 11:37:00 EDT The Following Equipment Has Been Ordered for You No qualifying data available. The Following Treatments Have Been Ordered for You Discharge Labs No qualifying data available. Discharge Radiology No qualifying data available. Other Therapies No qualifying data available. Post Acute Orders No qualifying data available. Someone Will Contact You Regarding These Home Health Referrals No home referrals have been ordered for you. No one will call you. Allergies lisinopril sulfa drug Medications Please ask your primary doctor or pharmacist before taking any other medication not listed, including over the counter drugs, herbal medications, vitamins and or supplements as they may interact withyour home medications. What How Much When Instructions Last Dose New aspirin (aspirin 81 mg oral tablet, chewable) 1 tab(s) by mouth Once a day with a meal Refills: 3 Pickup at [facility] New atorvastatin (atorvastatin 40 mg oral tablet) 1 tab(s) by mouth Once a day Refills: 3 Pickup at [facility] New carvedilol (carvedilol 6.25 mg oral tablet) 1 tab(s) by mouth Twice daily with meals Refills: 3 Pickup at [facility] Unchanged cholecalciferol (Vitamin D3) 1,000 unit(s) by mouth Every day Unchanged latanoprost ophthalmic (latanoprost 0.005% ophthalmic solution) INSTILL 1 DROP INTO BOTH EYES EVERY DAY AT NIGHT Unchanged metFORMIN (metFORMIN 500 mg oral tablet) TAKE 1 TABLET BY MOUTH TWICE A DAY Unchanged timolol ophthalmic (timolol maleate 0.5% ophthalmic solution) INSTILL 1 DROP INTO BOTH EYES TWICE A DAY Pharmacy Information [facility]: [address] [place] [address] [phone] Please take this list to your next doctor s visit. Bring all medications you take, including over the counter medications, herbals and other supplements with you to your doctor s visit. Patients and families are reminded to discard old lists and to update any records with all medication providers or retail pharmacies. Medication Leaflets atorvastatin (a TOR va sta tin) Atorvaliq, Lipitor What is the most important information I should know about atorvastatin? You should not take atorvastatin if you have liver disease or cirrhosis. Atorvastatin can cause the breakdown of muscle tissue, which can lead to kidney failure. Call your doctor right away if you have unexplained muscle pain, tenderness, or weakness especially if you also have fever, unusual tiredness, or dark urine. What is atorvastatin? Atorvastatin is used together with diet to lower blood levels of 'bad' cholesterol (low-density lipoprotein, or LDL), to increase levels of 'good' cholesterol (high-density lipoprotein, or HDL), and to lower triglycerides (a type of fat in the blood). Atorvastatin is used to lower the risk of stroke, heart attack, or other heart complications in adults with or without type 2 diabetes or heart disease or other risk factors. Atorvastatin is also used alone, or along with diet, or with other cholesterol- lowering medicationsin adults and children aged 10 years and older with an inherited condition that causes high levels of bad cholesterol. Atorvastatin may also be used for purposes not listed in this medication guide. What should I discuss with my healthcare provider before taking atorvastatin? You should not use atorvastatin if you are allergic to it, or if you have liver failure or cirrhosis. Tell your doctor if you have or have ever had: muscle pain or weakness; diabetes; stroke; a thyroid disorder; a habit of drinking more than 2 alcoholic beverages per day; or kidney disease. Atorvastatin can cause the breakdown of muscle tissue, which can lead to kidney failure. This happens more often in women, in older adults, or people who have kidney disease or poorly controlled hypothyroidism (underactive thyroid). Atorvastatin may harm an unborn baby. Tell your doctor if you are . Ask a doctor if it is safe to breastfeed while using this medicine. How should I take atorvastatin? Follow all directions on your prescription label and read all medication guides or instruction sheets. Your doctor may occasionally change your dose. Use the medicine exactly as directed. Do not change your dose or stop taking any of your medications without your doctor's advice. Atorvastatin is usually taken once per day. Follow your doctor's instructions. You may take atorvastatin tablet with or without food. Take atorvastatin liquid medicine on an empty stomach, at least 1 hour before a meal or 2 hours after a meal. It may take up to 2 weeks before your cholesterol levels improve, and you may need frequent blood tests. Even if you have no symptoms, tests can help your doctor determine if this medicine is effective. Shake the oral suspension (liquid). Measure a dose with the supplied measuring device (not a kitchen spoon). Your treatment may also include diet, exercise, weight control, and blood tests. Store at room temperature away from moisture, heat, and light. Throw away in the trash any unused liquid 60 days after opening the bottle. What happens if I miss a dose? Take the medicine as soon as you can, but skip the missed dose if you are more than 12 hours late for the dose. Do not take two doses at one time. What happens if I overdose? Seek emergency medical attention or call the Poison Help line at . What should I avoid while taking atorvastatin? Avoid eating foods high in fat or cholesterol, or atorvastatin will not be as effective. Drinking alcohol may increase your risk of liver damage. Grapefruit may interact with atorvastatin and cause side effects. Avoid consuming grapefruit products and drinking more than 1.2 liters of grapefruit juice each day. What are the possible side effects of atorvastatin? Get emergency medical help if you have signs of an allergic reaction (hives, difficult breathing, swelling in your face or throat) or a severe skin reaction (fever, sore throat, burning eyes, skin pain, red or purple skin rash with blistering and peeling). Atorvastatin can cause the breakdown of muscle tissue, which can lead to kidney failure. Call your doctor right away if you have unexplained muscle pain, tenderness, or weakness especially if you also have fever, unusual tiredness, or dark urine. Muscle problems may be more likely in older adults and those who have kidney problems, thyroid problems, or take certain other medicines. Also call your doctor at once if you have: muscle weakness in your hips, shoulders, neck, and back; trouble lifting your arms, trouble climbing or standing; liver problems--loss of appetite, stomach pain (upper right side), tiredness, itching, dark urine, niurka-colored stools, jaundice (yellowing of the skin or eyes); kidney problems--swelling, urinating less, feeling tired or short of breath; or high blood sugar--increased thirst, increased urination, dry mouth, fruity breath odor. Common side effects may include: pain in your bones, spine, joints, or muscles; pain and burning when you urinate, painful urination; muscle spasms; upset stomach; trouble sleeping; stuffy nose, runny nose, sore throat; diarrhea, nausea; or pain in your arms or legs. This is not a complete list of side effects and others may occur. Call your doctor for medical advice about side effects. You may report side effects to FDA at 3-604-TPA-3187. What other drugs will affect atorvastatin? Sometimes it is not safe to use certain medicines at the same time. Some drugs can affect your blood levels of other drugs you use, which can increase risk of serious muscle problems or make the medicines less effective. Tell your doctor about all your current medicines. Many drugs can affect atorvastatin, especially: other cholesterol lowering medicine--gemfibrozil, niacin, fenofibrate, fenofibric acid, and others; colchicine; antibiotic or antifungal medicine--rifampin, erythromycin, clarithromycin, itraconazole, ketoconazole, posaconazole, and voriconazole; control pills; medicine to prevent organ transplant rejection; or antiviral medicine to treat hepatitis C or HIV. This list is not complete and many other drugs may affect atorvastatin. This includes prescription and hfcv-dis-vcfhwtl medicines, vitamins, and herbal products. Not all possible drug interactions are listed here. Where can I get more information? Your doctor or pharmacist can provide more information about atorvastatin. Remember, keep this and all other medicines out of the reach of children, never share your medicines with others, and use this medication only for the indication prescribed. Every effort has been made to ensure that the information provided by [employer]. [employer] is accurate, up-to-date, and complete, but no guarantee is made to that effect. Drug information contained herein may be time sensitive. [employer] information has been compiled for use by healthcare practitioners and consumers in the [place] and therefore [employer] does not warrant that uses outside of the [place] are appropriate, unless specifically indicated otherwise. [employer] drug information does not endorse drugs, diagnose patients or recommend therapy. [employer] drug information isan informational resource designed to assist licensed healthcare practitioners in caring for their p atients and/or to serve consumers viewing this service as a supplement to, and not a substitute for, the expertise, skill, knowledge and judgment of healthcare practitioners. The absence of a warningfor a given drug or drug combination in no way should be construed to indicate that the drug or drug combination is safe, effective or appropriate for any given patient. [employer] does not assume any responsibility for any aspect of healthcare administered with the aid of information [employer] provides. The information contained herein is not intended to cover all possible uses, directions, precautions, warnings, drug interactions, allergic reactions, or adverse effects. If you have questions about the drugs you are taking, check with your doctor, nurse or pharmacist. Copyright [address] Version: 23.02. Revision Date: 10/08/2022. aspirin (oral) ( pir in) Aspi-Cor, Moose Plus, Ecotrin, Miniprin, [place] What is the most important information I should know about aspirin? Aspirin can cause Kathie's syndrome, a serious and sometimes fatal condition in children. What is aspirin? Aspirin is a salicylate (lm-GDV-xq-ate) that is used to treat pain, and reduce fever or inflammation. Aspirin is sometimes used to treat or prevent heart attacks, strokes, and chest pain (angina). Aspirin should be used for these conditions only under the supervision of a doctor. Aspirin may also be used for purposes not listed in this medication guide. What should I discuss with my healthcare provider before taking aspirin? Using aspirin in a child or teenager with flu symptoms or chickenpox can cause a serious or fatal condition called Kathie's syndrome. You should not use aspirin if you are allergic to it, or if you have: a recent history of stomach or intestinal bleeding; a bleeding disorder such as hemophilia; or if you have ever had an asthma attack or severe allergic reaction after taking aspirin or an NSAID (non-steroidal anti-inflammatory drug). Tell your doctor if you have ever had: asthma or seasonal allergies; stomach ulcers; liver disease; kidney disease; a bleeding or blood clotting disorder; gout; or heart disease, high blood pressure, or congestive heart failure. Taking aspirin during late may cause bleeding in the mother or the baby during delivery. Tell your doctor if you are or plan to become . You should not breastfeed while using this medicine. How should I take aspirin? Use exactly as directed on the label, or as prescribed by your doctor. Always follow directions on the medicine label about giving aspirin to a child. Take with food if aspirin upsets your stomach. You must chew the chewable tablet before you swallow it. Do not crush, chew, break, or open an enteric-coated or delayed/extended-release pill. Swallow it whole. Tell your doctor if you have a planned surgery. Store at room temperature away from moisture and heat. Do not use aspirin if you smell a strong vinegar odor in the aspirin bottle. The medicine may no longer be effective. What happens if I miss a dose? Aspirin is used when needed. If you are on a dosing schedule, skip any missed dose. Do not use two doses at one time. What happens if I overdose? Seek emergency medical attention or call the Poison Help line at . Overdose may cause stomach pain, vomiting, diarrhea, vision or hearing problems, fast or slow breathing, or confusion. What should I avoid while taking aspirin? Avoid alcohol. Heavy drinking can increase your risk of stomach bleeding. Avoid taking ibuprofen if you take aspirin to prevent stroke or heart attack. Ibuprofen can make aspirin less effective in protecting your heart and blood vessels. Ask your doctor how far apart your doses should be. Ask a doctor or pharmacist before using other medicines for pain, fever, swelling, or cold/flu symptoms. They may contain ingredients similar to aspirin (such as magnesium salicylate, ibuprofen, ketoprofen, or naproxen). What are the possible side effects of aspirin? Get emergency medical help if you have signs of an allergic reaction: hives; difficult breathing; swelling of your face, lips, tongue, or throat. Stop using aspirin and call your doctor at once if you have: ringing in your ears, confusion, hallucinations, rapid breathing, seizure (convulsions); severe nausea, vomiting, or stomach pain; bloody or tarry stools, coughing up blood or vomit that looks like coffee grounds; fever lasting longer than 3 days; or swelling, or pain lasting longer than 10 days. Common side effects may include: upset stomach, heartburn; drowsiness; or mild headache. This is not a complete list of side effects and others may occur. Call your doctor for medical advice about side effects. You may report side effects to FDA at 9-250-VDP-6845. What other drugs will affect aspirin? Ask your doctor before using aspirin if you take an antidepressant. Taking certain antidepressants with aspirin may cause you to bruise or bleed easily. Ask a doctor or pharmacist before using aspirin with any other medications, especially: a blood thinner (warfarin, Coumadin, Jantoven), or other medication used to prevent blood clots; or other salicylates such as Nuprin Backache Caplet, Kaopectate, KneeRelief, Pamprin Cramp Formula, Pepto-Bismol, Tricosal, Trilisate, and others. This list is not complete. Other drugs may affect aspirin, including prescription and gzah-mfh-rcgbmzw medicines, vitamins, and herbal products. Not all possible drug interactions are listed here. Where can I get more information? Your pharmacist can provide more information about aspirin. Remember, keep this and all other medicines out of the reach of children, never share your medicines with others, and use this medication only for the indication prescribed. Every effort has been made to ensure that the information provided by [employer] [address]. [employer] is accurate, up-to-date, and complete, but no guarantee is made to that effect. Drug information contained herein may be time sensitive. [employer] information has been compiled for use by healthcare practitioners and consumers in the [place] and therefore [employer] does not warrant that uses outside of the [place] are appropriate, unless specifically indicated otherwise. [employer]'s drug information does not endorse drugs, diagnose patients or recommend therapy. [employer] drug information isan informational resource designed to assist licensed healthcare practitioners in caring for their p atients and/or to serve consumers viewing this service as a supplement to, and not a substitute for, the expertise, skill, knowledge and judgment of healthcare practitioners. The absence of a warningfor a given drug or drug combination in no way should be construed to indicate that the drug or drug combination is safe, effective or appropriate for any given patient. [facility] does not assume any responsibility for any aspect of healthcare administered with the aid of information [facility] provides. The information contained herein is not intended to cover all possible uses, directions, precautions, warnings, drug interactions, allergic reactions, or adverse effects. If you have questions about the drugs you are taking, check with your doctor, nurse or pharmacist. Copyright [address] Version: 18.. Revision Date: 04/05/2024. carvedilol (JEYSON ve dil tammie) Coreg, Coreg CR What is the most important information I should know about carvedilol? You should not take carvedilol if you have asthma, bronchitis, emphysema, severe liver disease, or a serious heart condition such as heart block, 'sick sinus syndrome,' or slow heart rate (unless youhave a pacemaker). What is carvedilol? Carvedilol is a beta-ena that is used to treat heart failure and hypertension (high blood pressure). Carvedilol is also used after a heart attack that has caused your heart not to pump as well. Carvedilol may also be used for purposes not listed in this medication guide. What should I discuss with my healthcare provider before taking carvedilol? You should not take carvedilol if you are allergic to it, or if you have: asthma, bronchitis, emphysema; severe liver disease; or a serious heart condition such as severe heart failure, heart block, 'sick sinus syndrome,' or slowheart rate (unless you have a pacemaker). Tell your doctor if you have ever had: coronary artery disease (clogged arteries); slow heartbeats that have caused you to faint; fluid retention; asthma or other lung problems; angina (chest pain); diabetes (taking carvedilol can make it harder for you to tell when you have low blood sugar); a thyroid disorder; kidney disease; circulation problems (such as Raynaud's syndrome); or pheochromocytoma (tumor of the adrenal gland). Tell your doctor if you are or . Carvedilol is not approved for use by anyone younger than 18 years old. How should I take carvedilol? Follow all directions on your prescription label and read all medication guides or instruction sheets. Your doctor may occasionally change your dose. Use the medicine exactly as directed. Carvedilol works best if you take it with food, at the same time every day. Swallow the extended-release capsule whole and do not crush, chew, break, or open it. If you cannot swallow a capsule whole, open it and sprinkle the medicine into a spoonful of cold applesauce. Swallow the mixture right away without chewing. Do not save it for later use. If you are switched from carvedilol tablets to carvedilol extended-release capsules (Coreg CR), your daily total dose of this medicine may be higher or lower than before. Older adults may be more likely to become dizzy or feel faint when switching from tablets to extended-release capsules. Follow your doctor's instructions. Your blood pressure will need to be checked often. If you need surgery (including cataract surgery), tell your surgeon you currently use this medicine. You may need to stop for a short time. You should not stop using carvedilol suddenly. Stopping suddenly may cause chest pain or a heart attack. Follow your doctor's instructions about tapering your dose. If you are being treated for high blood pressure, keep using this medication even if you feel well.High blood pressure often has no symptoms. You may need to use blood pressure medication for the rest of your life. Carvedilol is only part of a complete treatment program that may also include diet, exercise, and weight control. Follow your doctor's instructions very closely. Store at room temperature away from moisture and heat. What happens if I miss a dose? Take the medicine as soon as you can, but skip the missed dose if it is almost time for your next dose. Do not take two doses at one time. What happens if I overdose? Seek emergency medical attention or call the Poison Help line at . Overdose symptoms may include uneven heartbeats, shortness of breath, bluish- colored fingernails, dizziness, weakness, fainting, and seizure (convulsions). What should I avoid while taking carvedilol? Avoid driving or hazardous activity until you know how this medicine will affect you. Your reactions could be impaired. Avoid getting up too fast from a sitting or lying position, or you may feel dizzy. What are the possible side effects of carvedilol? Get emergency medical help if you have signs of an allergic reaction: hives; difficulty breathing; swelling of your face, lips, tongue, or throat. Call your doctor at once if you have: a light-headed feeling, like you might pass out; slow or uneven heartbeats; cold feeling or numbness in your fingers or toes; chest pain, dry cough, wheezing, chest tightness; heart problems--swelling, rapid weight gain, feeling short of breath; or high blood sugar--increased thirst, increased urination, dry mouth, fruity breath odor. Common side effects may include: dizziness; slow heartbeats; diarrhea; weight gain; dry eyes; or problems wearing contact lenses. This is not a complete list of side effects and others may occur. Call your doctor for medical advice about side effects. You may report side effects to FDA at 5-427-OJK-8805. What other drugs will affect carvedilol? Sometimes it is not safe to use certain medications at the same time. Some drugs can affect your blood levels of other drugs you take, which may increase side effects or make the medications less effective. Other drugs may affect carvedilol, including prescription and pbzc-azy-iqkbdcf medicines, vitamins,and herbal products. Tell your doctor about all your current medicines and any medicine you start or stop using. Where can I get more information? Your pharmacist can provide more information about carvedilol. Remember, keep this and all other medicines out of the reach of children, never share your medicines with others, and use this medication only for the indication prescribed. Every effort has been made to ensure that the information provided by [employer]. [employer] is accurate, up-to-date, and complete, but no guarantee is made to that effect. Drug information contained herein may be time sensitive. [employer] information has been compiled for use by healthcare practitioners and consumers in the [place] and therefore [employer] does not warrant that uses outside of the [place] are appropriate, unless specifically indicated otherwise. [employer] drug information does not endorse drugs, diagnose patients or recommend therapy. [facility] drug information isan informational resource designed to assist licensed healthcare practitioners in caring for their p atients and/or to serve consumers viewing this service as a supplement to, and not a substitute for, the expertise, skill, knowledge and judgment of healthcare practitioners. The absence of a warningfor a given drug or drug combination in no way should be construed to indicate that the drug or drug combination is safe, effective or appropriate for any given patient. [facility] does not assume any responsibility for any aspect of healthcare administered with the aid of information [facility] provides. The information contained herein is not intended to cover all possible uses, directions, precautions, warnings, drug interactions, allergic reactions, or adverse effects. If you have questions about the drugs you are taking, check with your doctor, nurse or pharmacist. Copyright 5089-8821 [facility]. Version: 16.. Revision Date: 08/11/2018. Education Materials Heart-Healthy Eating Plan Heart-healthy meal planning includes: Eating less unhealthy fats. Eating more healthy fats. Making other changes in your diet. Talk with your doctor or a diet specialist (dietitian) to create an eating plan that is right for you. What is my plan? Your doctor may recommend an eating plan that includes: Total fat: % or less of total calories a day. Saturated fat: % or less of total calories a day. Cholesterol: less than mg a day. What are tips for following this plan? Cooking Avoid frying your food. Try to bake, boil, grill, or broil it instead. You can also reduce fat by: Removing the skin from poultry. Removing all visible fats from meats. Steaming vegetables in water or broth. Meal planning At meals, divide your plate into four equal parts: ? Fill one-half of your plate with vegetables and green salads. ? Fill one-fourth of your plate with whole grains. ? Fill one-fourth of your plate with lean protein foods. Eat 4 5 servings of vegetables per day. A serving of vegetables is: ? 1 cup of raw or cooked vegetables. ? 2 cups of raw leafy greens. Eat 4 5 servings of fruit per day. A serving of fruit is: ? 1 medium whole fruit. ? cup of dried fruit. ? cup of fresh, frozen, or canned fruit. ? cup of 100% fruit juice. Eat more foods that have soluble fiber. These are apples, broccoli, carrots, beans, peas, and barley. Try to get 20 30 g of fiber per day. Eat 4 5 servings of nuts, legumes, and seeds per week: ? 1 serving of dried beans or legumes equals cup after being cooked. ? 1 serving of nuts is cup. ? 1 serving of seeds equals 1 tablespoon. General information Eat more home-cooked food. Eat less restaurant, buffet, and fast food. Limit or avoid alcohol. Limit foods that are high in starch and sugar. Avoid fried foods. Lose weight if you are overweight. Keep track of how much salt (sodium) you eat. This is important if you have high blood pressure. Ask your doctor to tell you more about this. Try to add vegetarian meals each week. Fats Choose healthy fats. These include olive oil and canola oil, flaxseeds, walnuts, almonds, and seeds. Eat more omega-3 fats. These include salmon, mackerel, sardines, tuna, flaxseed oil, and ground flaxseeds. Try to eat fish at least 2 times each week. Check food labels. Avoid foods with trans fats or high amounts of saturated fat. Limit saturated fats. ? These are often found in animal products, such as meats, butter, and cream. ? These are also found in plant foods, such as palm oil, palm kernel oil, and coconut oil. Avoid foods with partially hydrogenated oils in them. These have trans fats. Examples are stick margarine, some tub margarines, cookies, crackers, and other baked goods. What foods can I eat? Fruits All fresh, canned (in natural juice), or frozen fruits. Vegetables Fresh or frozen vegetables (raw, steamed, roasted, or grilled). Green salads. Grains Most grains. Choose whole wheat and whole grains most of the time. Rice and pasta, including brown rice and pastas made with whole wheat. Meats and other proteins Lean, well-trimmed beef, veal, pork, and shah. Chicken and turkey without skin. All fish and shellfish. Wild duck, rabbit, pheasant, and venison. Egg whites or low-cholesterol egg substitutes. Dried beans, peas, lentils, and tofu. Seeds and most nuts. Dairy Low-fat or nonfat cheeses, including ricotta and mozzarella. Skim or 1% milk that is liquid, powdered, or evaporated. Buttermilk that is made with low-fat milk. Nonfat or low-fat yogurt. Fats and oils Non-hydrogenated (trans-free) margarines. Vegetable oils, including soybean, sesame, sunflower, olive, peanut, safflower, corn, canola, and cottonseed. Salad dressings or mayonnaise made with a vegetable oil. Beverages Mineral water. Coffee and tea. Diet carbonated beverages. Sweets and desserts Sherbet, gelatin, and fruit ice. Small amounts of dark chocolate. Limit all sweets and desserts. Seasonings and condiments All seasonings and condiments. The items listed above may not be a complete list of foods and drinks you can eat. Contact a dietitian for more options. What foods should I avoid? Fruits Canned fruit in heavy syrup. Fruit in cream or butter sauce. Fried fruit. Limit coconut. Vegetables Vegetables cooked in cheese, cream, or butter sauce. Fried vegetables. Grains Breads that are made with saturated or trans fats, oils, or whole milk. Croissants. Sweet rolls. Donuts. High-fat crackers, such as cheese crackers. Meats and other proteins Fatty meats, such as hot dogs, ribs, sausage, underwood, rib-eye roast or steak. High-fat deli meats, such as salami and bologna. Caviar. Domestic duck and goose. Organ meats, such as liver. Dairy Cream, sour cream, cream cheese, and creamed cottage cheese. Whole-milk cheeses. Whole or 2% milk that is liquid, evaporated, or condensed. Whole buttermilk. Cream sauce or high-fat cheese sauce. Yogurt that is made from whole milk. Fats and oils Meat fat, or shortening. [place] butter, hydrogenated oils, palm oil, coconut oil, palm kernel oil. Solid fats and shortenings, including underwood fat, salt pork, lard, and butter. Nondairy cream substitutes. Salad dressings with cheese or sour cream. Beverages Regular sodas and juice drinks with added sugar. Sweets and desserts Frosting. Pudding. Cookies. Cakes. Pies. Milk chocolate or white chocolate. Buttered syrups. Full-fat ice cream or ice cream drinks. The items listed above may not be a complete list of foods and drinks to avoid. Contact a dietitianfor more information. Summary Heart-healthy meal planning includes eating less unhealthy fats, eating more healthy fats, and making other changes in your diet. Eat a balanced diet. This includes fruits and vegetables, low-fat or nonfat dairy, lean protein, nuts and legumes, whole grains, and heart-healthy oils and fats. This information is not intended to replace advice given to you by your health care provider. Make sure you discuss any questions you have with your health care provider. Document Released: 10/04/2012 Document Revised: 06/09/2018 Document Reviewed: 05/13/2018 [employer] Patient Education 2020 [employer] Nonspecific Chest Pain Chest pain can be caused by many different conditions. Some causes of chest pain can be life-threatening. These will require treatment right away. Serious causes of chest pain include: Heart attack. A tear in the body's main blood vessel. Redness and swelling (inflammation) around your heart. Blood clot in your lungs. Other causes of chest pain may not be so serious. These include: Heartburn. Anxiety or stress. Damage to bones or muscles in your chest. Lung infections. Chest pain can feel like: Pain or discomfort in your chest. Crushing, pressure, aching, or squeezing pain. Burning or tingling. Dull or sharp pain that is worse when you move, cough, or take a deep breath. Pain or discomfort that is also felt in your back, neck, jaw, shoulder, or arm, or pain that spreads to any of these areas. It is hard to know whether your pain is caused by something that is serious or something that is not so serious. So it is important to see your doctor right away if you have chest pain. Follow these instructions at home: Medicines Take mnnh-nxd-kthosom and prescription medicines only as told by your doctor. If you were prescribed an antibiotic medicine, take it as told by your doctor. Do not stop taking the antibiotic even if you start to feel better. Lifestyle Rest as told by your doctor. Do not use any products that contain nicotine or tobacco, such as cigarettes, e- cigarettes, and chewing tobacco. If you need help quitting, ask your doctor. Do not drink alcohol. Make lifestyle changes as told by your doctor. These may include: ? Getting regular exercise. Ask your doctor what activities are safe for you. ? Eating a heart-healthy diet. A diet and nutrition instructor (dietitian) can help you to learn healthy eating options. ? Staying at a healthy weight. ? Treating diabetes or high blood pressure, if needed. ? Lowering your stress. Activities such as yoga and relaxation techniques can help. General instructions Pay attention to any changes in your symptoms. Tell your doctor about them or any new symptoms. Avoid any activities that cause chest pain. Keep all follow-up visits as told by your doctor. This is important. You may need more testing if your chest pain does not go away. Contact a doctor if: Your chest pain does not go away. You feel depressed. You have a fever. Get help right away if: Your chest pain is worse. You have a cough that gets worse, or you cough up blood. You have very bad (severe) pain in your belly (abdomen). You pass out (faint). You have either of these for no clear reason: ? Sudden chest discomfort. ? Sudden discomfort in your arms, back, neck, or jaw. You have shortness of breath at any time. You suddenly start to sweat, or your skin gets clammy. You feel sick to your stomach (nauseous). You throw up (vomit). You suddenly feel lightheaded or dizzy. You feel very weak or tired. Your heart starts to beat fast, or it feels like it is skipping beats. These symptoms may be an emergency. Do not wait to see if the symptoms will go away. Get medical help right away. Call your local emergency services (911 in the [place] Do not drive yourself to the hospital. Summary Chest pain can be caused by many different conditions. The cause may be serious and need treatment right away. If you have chest pain, see your doctor right away. Follow your doctor's instructions for taking medicines and making lifestyle changes. Keep all follow-up visits as told by your doctor. This includes visits for any further testing if your chest pain does not go away. Be sure to know the signs that show that your condition has become worse. Get help right away if you have these symptoms. This information is not intended to replace advice given to you by your health care provider. Make sure you discuss any questions you have with your health care provider. Document Released: 09/21/2008 Document Revised: 10/06/2018 Document Reviewed: 10/06/2018 [employer] Patient Education 2020 [employer] Additional Information VACCINATE! IT SAVES LIVES! Members of the community who have not yet received the COVID-19 vaccine and would like to receive it can visit one of [facility] vaccine clinics. There are many vaccine clinic locations within the [facility]. For locations and available times, please visit [email or web address] It is important to note that some COVID mobile vaccine clinics are held outdoors and may be canceled in rainy or stormy conditions. To learn more about pediatric vaccinations (ages 5-11), we invite you to visit the [facility] webpage. [email or web address]/[email or web address] learn more about the COVID-19 vaccine, we invite you to visit the CDC website for a list of frequently asked questions.https://www.cdc.gov/coronavirus/2019-ncov/vaccines/faq.html [facility] Patient Portal Access Instructions: Stay connected with your healthcare team and access your personal medical information anytime with the [facility] Patient Portal. Please follow the directions below to create your [facility] account: 1.Access the email account you provided upon registration to the hospital/physician office.2.Look for an invitation email from [facility].3.Open the email and access the invitation link: AcceptInvitation to [facility].4.Fill in the required torres to create your account. To access your account, visit [employer]. Click the blue button labeled Access Patient Portal and then log in with the username and password that you created in the steps above. You will be able to view your test results, lab results, a summary of your visits, upcoming appointments and more. There is also a convenient messaging option where you can send secure messages to your p ricyhvider. In addition, you will have the ability to download any documents or summaries to your computer and/or send the information securely to a physician. Remember that your healthcare information is confidential, so carefully consider who you will allowto register on the [facility] for access to your information. You can also access the [facility] on the [place] [facility] billie. Simply click on Patient Portal and then log into your account. If you would like to receive a full copy of your medical records, please contact the [facility] Medical Records Department by calling [phone], Wednesday through Wednesday between 8 a.m. and 4:30 p.m. HOW TO SAFELY DISPOSE OF PRESCRIPTION MEDICATIONS Please use one of the following methods to safely dispose of your unused medications. 1.Use a drug disposal kit: the drug disposal pouch allows you to safely discard your old and unuseddrugs. Ask your nurse to give you one when you are discharged.2.Visit a local take-back location: Many local pharmacies and police departments have programs that collect old and unwanted prescriptiondrugs. Call your local pharmacy or go to http://BigRoad.Talent Flush/5X9Rt3t to find one close to you.3.Make use of household items: Use cat litter or old coffee grounds to dispose medications if other options arenot available. Mix your drugs with these household products, seal them in an airtight container andthrow it into the garbage. Call [facility]: [phone] to be sure your drugs can be disposed of in this way. Some medicines may require a different approach.4.Never flush your medications down the toilet. IF YOU HAVE BEEN PRESCRIBED AN OPIOID FOR PAIN If you have been prescribed an opioid (such as hydrocodone, oxycodone or morphine), it is critical to understand the possible side effects and risks of opioid pain medications. Even when taken as directed, opioids can have several side effects including: Tolerance, meaning you might need to take more of a medication for the same pain relief. Nausea, vomiting and/or constipation. Sleepiness, dizziness, dry mouth, confusion, depression or itching. Physical dependence, meaning you have withdrawal symptoms when a medicati (more content not included)... [id number] Discharge summary Date of Service 09/27/2024 Discharge Diagnosis Atypical chest pain, noncardiac Hypertension Type 2 diabetes Hyperlipidemia Status post ANIMAL CYTOLOGIST-D placement Hospital Course 73-year-old female with PMH of hypertension, DM 2, hyperlipidemia, ANIMAL CYTOLOGIST-D placement presented as a transfer from [place] ED because of chest pain. Patient describes her chest pain as substernal, intermittent, not associated with exertion. Lastingdifferent period of time every time. It is unclear why she has a ANIMAL CYTOLOGIST-D in place. On echocardiogram her EF was 55 to 60%. Patient is unaware as to why the ANIMAL CYTOLOGIST-D was placed. Stress test was obtained for her chest pain which was negative. Patient previously on Coreg 25 mg twice daily and amlodipine but were discontinued in 2023. Was mildly hypertensive when she presented.Will restart Coreg 6.25 mg twice daily. Will have her follow-up with Dr. Skinner in the outpatient setting in 4 weeks. Allergies lisinopril sulfa drug Consults No qualifying data available. Imaging Results and Diagnostics NM Myocardial Spect Rest/Stress Result Date: September 27, 2024 Verified By: KAMI FORD DO CLINICAL STATEMENT: IMPRESSION: 1. No evidence of infarct or ischemia.2. LV chamber is normal in size.3. Normal LV wallmotion, with LVEF of greater than 65%.I have personally reviewed the images of this examination andagree with theresident's findings and interpretation. Objective Vitals and Measurements T: 36.6 C (Oral) TMIN: 36.6 C (Oral) TMAX: 36.7 C (Oral) HR: 75 (Monitored) RR: 18 BP: 105/60 SpO2:97% HT: 137 cm WT: 66.2 kg BMI: 35.27 Weight Dosing Weight: 66.2 kg (09/27/24) Code Status Code Status - Ordered -- 09/27/24 3:47:00 EDT, Full Code, Constant Order Admission Date 09/27/2024 Discharge Date 09/27/2024 Patient Instructions 1. Kindly follow up with your Primary Care Physician and Graduate School Dean as recommended. _ 2. Some of your medications may have changed during this hospital stay. Please go over these changes with your nurse before you leave the hospital. _ 3. Take all your medications as prescribed. If you have any queries, please reach out to our [facility] office at [phone] for general queries and [phone] for medication refills. 4. All your medical records and results are available to you through our [facility] Patient Portal. Tosign up, please visit [email or web address]/#/ Medications New Prescription aspirin (aspirin 81 mg oral tablet, chewable)1 tab(s) by mouth once a day with a meal. Refills: 3. atorvastatin (atorvastatin 40 mg oral tablet)1 tab(s) by mouth once a day. Refills: 3. carvedilol (carvedilol 6.25 mg oral tablet)1 tab(s) by mouth twice daily with meals. Refills: 3. Unchanged cholecalciferol (Vitamin D3)1,000 unit(s) by mouth every day. latanoprost ophthalmic (latanoprost 0.005% ophthalmic solution)INSTILL 1 DROP INTO BOTH EYES EVERY DAY AT NIGHT. metFORMIN (metFORMIN 500 mg oral tablet)TAKE 1 TABLET BY MOUTH TWICE A DAY. timolol ophthalmic (timolol maleate 0.5% ophthalmic solution)INSTILL 1 DROP INTO BOTH EYES TWICE A DAY. Follow Up Follow Up with readmission score is 7 Follow Up with UZIEL SKINNER MD When:In 4 weeks Where:[address] [facility] [place] [address]- Follow Up with Return to if symptoms worsen When:Within 1-2 days Follow Up with MARILOU LLOYD MD When:Within 1-2 days Where:[facility] [place] [address]- Follow Up Appointments No qualifying data available. Follow Up Labs/Studies Discharge Labs No Follow-up Labs Discharge Studies No Follow-up Studies Discharge Diet Discharge Diet - Ordered -- No changes were made to your diet during your hospital stay. Please resume your pre hospitalization diet on discharge., 09/27/24 11:37:00 EDT Discharge Activity Discharge Activity - Ordered -- NO activity restrictions, 09/27/24 11:37:00 EDT Condition on Discharge Fair Readmission Risk/Palliative Score No qualifying data available. Discharge Disposition Home Digitally Signed by WING LEWIS MD on 09/27/2024 03:32 PM [id number] Note* Exam Date Time Procedure Performing Provider Status 09/27/24 11:17 AM Echocardiogram, Adult - CV KISHOR DOW MD; Auth (Verified) [id number] Note* Exam Date Time Procedure Performing Provider Status 09/27/24 9:53 AM NM Myocardial Spect Rest/Stress KAMI ELIZABETH DO; Auth (Verified) [id number] ORIGINAL EXAMINATION: CARDIAC SPECT09/27/2024 9:53 am TECHNIQUE: The patient received an intravenous injection of 8.2 mCi of Tc-99m Sestamibi and resting emission tomographic (SPECT) images of the myocardium were acquired. The patient then received an intravenous infusion of 0.4 mg regadenoson (Lexiscan) followed by an additional injection of 27 mCi of Tc-99m Sestamibi. Stress phase SPECT images of the myocardium were then acquired. These included ECG-gated images to assess and quantify ventricular function. Low dose CT was acquired for attenuation correction. COMPARISON: None HISTORY: ORDERING SYSTEM PROVIDED HISTORY: Reason for Exam: Chest pain/anginal equiv, ECGs and troponins normal FINDINGS: Stress and rest images demonstrates grossly normal perfusion through the LV myocardium, without evidence of infarct or stress-induced ischemia. Decreased activity in the inferior wall demonstrates normal motion and thickening, and improves with attenuation correction, and is most suggestive of diaphragmatic or other extracardiac soft tissue attenuation artifact. The LV chamber is normal in size. Normal TID value. Gated post-stress images reveals normal myocardial contractility. The estimated LVEF is greater than 65%. Low-dose CT demonstrates no overt abnormalities. IMPRESSION: 1. No evidence of infarct or ischemia. 2. LV chamber is normal in size. 3. Normal LV wall motion, with LVEF of greater than 65%. I have personally reviewed the images of this examination and agree with the resident's findings and interpretation. Interpreted by: Kami Ford DO Preliminary Report By: Brooklyn Chen Electronically signed By Kami Ford DO Dictated Date: 09/27/2024 10:00:45 AM Prelim Date: 09/27/2024 10:49:00 AM Sign Date: 09/27/2024 10:49:00 AM Ordering Provider: REMY LUDWIG [id number] Note Date of Service STRESS TEST DATE OF PROCEDURE: 09/27/2024 ATTENDING PHYSICIAN: Dr Fisher REASON FOR STRESS TEST: Chest pain PROTOCOL: Lexiscan Resting blood pressure 143/73. Resting heart rate is 65 bpm. Resting EKG shows ventricular paced rhythm. PROCEDURE: The patient underwent stress test as per protocol with infusion of 0.4 mg regadenoson intravenously. Postinfusion the patient complained of shortness of breath and chest pressure which improved in the recovery phase. EKG portion of the stress test today ventricular paced rhythm. No arrhythmias were noted. Impression 1. nondiagnostic stress test as per EKG protocol due to ventricular paced rhythm. 2.No significant arrhythmia noted. 3 Please follow-up on nuclear images to be dictated separately. Susan Anaya MD Digitally Signed by SUSAN ANAYA MD on 09/27/2024 09:10 AM [facility] [id number] Note* Exam Date Time Procedure Performing Provider Status 09/27/24 4:24 AM Electrocardiogram - EKG - CV JEROME FISHER MD; Auth (Verified) ECG Final Report ATRIAL-SENSED VENTRICULAR-PACED RHYTHM Electronic Signature: JEROME FISHER MD 09/27/2024 15:08:14 [facility] [id number] History and physical note Date of Service 09/27/2024 Chief Complaint Chest pain History of Present Illness A 73-year-old female with PMH of hypertension, DM 2, hyperlipidemia, ANIMAL CYTOLOGIST-D placement presented as atransfer from [place] ED because of chest pain. On encounter, the patient was examined in room 332. She was alone. She follows at [facility] for her cardiac care, patient is a poor historian and does not know most of her history. She stated that she has: --Chest pain since the last few weeks. Insidious in onset, progressively worsening, substernal, lasts for a few hours each time, subsides on its own Denies shortness of breath, cough, PND, orthopnea Denies abdominal pain Denies bowel respiratory disturbances [place] ED course: In [place] ED, the patient was vitally stable. Her initial labs were suggestive normal CBC, BMP, proBNP of 165. Troponin negative x 2. CT angio chest was not suggestive of PE. EKG was a sensed V paced rhythm. She was transferred to [facility] for further care. Review of Systems General: negative for weight change, fevers/night sweats/chills, fatigue/weakness Skin: negative for skin changes HEENT: negative for headache, visual changes, hearing loss, rhinorrhea/congestion/epistaxis, bleeding gums, hoarseness/sore throat Breasts: negative for skin changes, discharge Cardiac: Chest pain negative for murmurs, palpitations, ONTIVEROS, orthopnea, PND, edema Pulmonary: negative for SOB, wheezing, cough, sputum/hemoptysis, PNA, asthma/bronchitis/COPD GI: negative for N/V, change in appetite, dysphagia, change in BM, stool color, hematemesis/melena/hematochezia, constipation/diarrhea : negative for polydipsia, polyuria, hematuria, dysuria, nocturia MSK: negative for muscle weakness, joint pain/stiffness, redness/swelling Heme: negative for anemia, easy bruising Neurologic: negative for loss of sensation/numbness/tingling, weakness/paralysis Physical Exam Vitals and Measurements T: 36.7 C (Oral) HR: 66 (Apical) RR: 16 BP: 158/63 SpO2: 98% HT: 137 cm WT: 66.2 kg BMI: 35.27 Weight Dosing Weight: 66.2 kg (09/27/24) General: AAOX3, NAD HEENT: Anicteric sclera, MMM Neck: Trachea midline, no JVD appreciated CVS: RRR, normal S1/S2, no murmurs/rubs/gallops Lung: CTAB, no wheezes/rhonchi/rales Abd: Soft, NT/ND Extrem: WWP, no LE edema Skin: Warm, Intact Neuro: AAOX3, spontaneous movement of all extremities Psych: Appropriate mood & affect Lab Results No 36 Hour Lab Data Assessment/Plan 1. Chest pain, rule out ACS Patient presented to [place] ED because of chest pain EKG: A sensed BiV paced rhythm Troponins: 28, 26 Patient follows up with [facility], has a ANIMAL CYTOLOGIST-D in, but does not know the reason. Plan START aspirin 81 mg p.o. daily START atorvastatin 40 mg p.o. daily START nitroglycerin 0.4 mg sublingual as needed for chest pain TREND troponins FOLLOW ECHO N.p.o. past midnight for possible stress test 2. Hypertension Blood pressure in acceptable range Plan CONTINUE carvedilol 25 mg p.o. twice daily CONTINUE amlodipine 5 mg p.o. daily 3. Hyperlipidemia Plan CONTINUE atorvastatin 40 mg p.o. daily 4. DM2 Fingerstick in acceptable range Plan START sliding scale insulin Problem List/Past Medical History Ongoing Diabetes mellitus type 2 Gastroparesis Glaucoma High blood pressure Hypercholesterolemia Vitamin B12 deficiency Vitamin D deficiency Procedure/Surgical History Colonoscopy: 05/12/19 Bunionectomy section Hysterectomy Colonoscopy Medications Home Medications (7) Active amLODIPine 5 mg oral tablet 5 mg = 1 tab(s), Oral, qDay atorvastatin 40 mg oral tablet 40 mg = 1 tab(s), Oral, qDay carvedilol 25 mg oral tablet 25 mg = 1 tab(s), Oral, BID latanoprost 0.005% ophthalmic solution metFORMIN 500 mg oral tablet timolol maleate 0.5% ophthalmic solution Vitamin D3 1,000 unit(s) = 1 tab(s), Oral, Daily Allergies lisinopril sulfa drug Social History Smoking Status - 02/19/2017 Never smoker Alcohol - Denies Alcohol Use, 01/17/2017 Use: Never., 05/12/2019 Home/Environment Domestic Concerns: None. Living situation: Home/Independent. Lives In: Single level home. Current Home Treatments Blood glucose monitoring. Professional Skilled Services or Special Community Resources None. Spouse Name: Gege. Marital Status: ., 05/12/2019 Nutrition/Health Type of diet: Regular, Diabetic. Appetite Fair. Eating Difficulties None. Caffeine intake amount: Denies., 05/12/2019 Substance Abuse - Denies Substance Abuse, 01/17/2017 Use: Never., 05/12/2019 Tobacco Nicotine Use: Never (less than 100 in lifetime)., 05/12/2019 Family History Cancer: Sister. Diabetes mellitus: Father. Health Status Family Member(s) Immunizations No qualifying data available. Code Status No qualifying data available. Digitally Signed by REMY LUDWIG MD on 09/27/2024 07:46 AM [facility] [id number] Hospital Discharge instructions Patient Education 09/26/2024 16:35:51 Angina, Stable Stable Angina The chest discomfort you have appears to be coming from your heart a condition called angina. Angina is a pain in the heart due to poor blood flow to the heart muscle. This can occur when plaque builds up on the artery wall or a blood clot forms in one or more of the small blood vessels that deliver oxygen to the heart muscle. Plaque is a fatty material made up of cholesterol, calcium deposits, and other materials. Exercise, increased activity, emotional upset, or stress can trigger this pain. It can also occur in cold weather or in the morning when you are about to state your day. With proper treatment and lifestyle changes to reduce risk factors, most people with angina are able to maintain a full and active life. Angina is not a heart attack. But if angina pain is severe or prolonged, it is a sign of an impending heart attack, also called acute myocardial infarction, or AMI. Your angina is under control at this time. Therefore, it is safe for you to go home. Follow up as instructed by your doctor for any further tests and office visits. Home care Rest at home today and avoid any emotional or physically strenuous activity. Take medicine (usually nitroglycerin) for chest pain exactly as prescribed. Keep your nitroglycerinwith you at all times. When taking nitroglycerin for angina, sit or lie down. The medicine may make you feel dizzy. oPlace 1 tablet under your tongue, or between your lip and gum, or between your cheek and gum. Let the tablet dissolve completely; don't chew or swallow the tablet. oIf you use a spray, then spray once on or under your tongue. Don't inhale. Right after you use thespray, close your mouth. Wait a few seconds before you swallow. oAfter taking 1 tablet or spraying once, continue sitting or lying for 5 minutes. oIf the angina goes away completely, rest awhile and continue your normal routine. oIf angina persists, you may take 1 or 2 more doses if that was recommended by your healthcare provider. Don't take more than 3 doses within a 15 minute period. Note: Your healthcare provider may give you slightly different instructions than those above. If so, follow them carefully. Prevention Learn how to take your own blood pressure. Keep a record of your results. Ask your doctor which readings mean that you need medical attention. Reduce salt intake and follow lifestyle change instructions if you have high blood pressure (hypertension). Maintain a healthy weight. Get help to lose any extra pounds. Talk to your doctor about a safe dietprogram. Sudden large weight losses can be dangerous. If you have diabetes, talk to your doctor about healthy control of your blood sugar. Begin an exercise program. Ask your doctor how to get started. You can benefit from simple activities such as walking or gardening and can gradually increase your exercise levels. Enrolling in cardiac rehabilitation is a good way to start an exercise program. Break the smoking habit. Enroll in a stop-smoking program to improve your chances of success. Get adequate rest. Stay away from stressful situations. Learn stress-management techniques. Follow-up care Follow up with your doctor, or as advised. If an X-ray was done , it will be reviewed by another specialist. You will be notified of any new findings that may affect your care. Call 911 This is the fastest and safest way to get to the nearest emergency department. The paramedics can also start treatment on the way to the hospital, saving valuable time for your heart. If angina gets worse, it continues, or if it stops and returns, call 911 right away. Don't delay. You may be having a heart attack. Don't wait until your symptoms are severe to call 911. Other reasons to call 911 besides chest paininclude: Trouble breathing Feeling lightheaded, faint, or dizzy Rapid heart beat Slower than usual heart rate compared to your normal Angina with weakness, dizziness, fainting, heavy sweating, nausea, or vomiting Extreme drowsiness, or confusion Weakness of an arm or leg or on one side of the face Trouble with speech or vision When to seek medical advice Remember, the signs and symptoms of a heart attack are not always like they are on TV. Sometimes they are not so obvious. You may only feel weak or just not right. If it is not clear or if you haveany doubt, call for advice. Seek help if there is a change in the type of pain, if it feels different, or if your symptoms are mild. Don't drive yourself. Have someone else drive. If no one can drive you, call 911. If your doctor has given you medicine to take when you have symptoms, take them, but don't delay getting help. Don't delay. Fast diagnosis and treatment can prevent or limit the amount of heart damage during a heart attack or stroke. Don't go to your doctor's office or a clinic because they may not be able to provide all the testing and treatment you need. [phone] [employer] [place] [address]. All rights reserved. This information is not intended as a substitute for professional medical care. Always follow yourhealthcare professional's instructions. Follow Up Care 09/26/2024 13:02:25 With:MARILOU LLOYD MD Address: ADULT GERIATRICS/[address] [place] [address]- When:2-4 days [facility] 06-10-2025 Note* Exam Date Time Procedure Performing Provider Status 09/26/24 3:[address] Angiography Chest w/ Contrast PHILIPPE HITCHCOCK DO; Auth ([place]) [id number] ORIGINAL EXAMINATION: CTA OF THE CHEST 09/26/2024 3:19 pm TECHNIQUE: CTA of the chest was performed after the administration of intravenous contrast. Multiplanar reformatted images are provided for review. MIP images are provided for review. Automated exposure control, iterative reconstruction, and/or weight based adjustment of the mA/kV was utilized to reduce the radiation dose to as low as reasonably achievable. COMPARISON: Same day chest x-ray HISTORY: ORDERING SYSTEM PROVIDED HISTORY: Reason for Exam: Pulmonary embolism (PE) suspected, low to intermediate prob, positive D-dimer FINDINGS: Pulmonary Arteries: Pulmonary arteries are adequately opacified for evaluation. No evidence of pulmonary embolism. Main pulmonary artery is normal in caliber. Mediastinum: No evidence of mediastinal lymphadenopathy. The heart and pericardium demonstrate no acute abnormality. There is no acute abnormality of the thoracic aorta. Lungs/pleura: The lungs are without acute process. No focal consolidation or pulmonary edema. No evidence of pleural effusion or pneumothorax. A 4 mm pulmonary nodule seen in the right middle lobe. Bibasilar atelectasis. Upper Abdomen: No acute abnormalities seen in the visualized portions of the upper abdomen. Partially visualized large simple appearing cyst in the left kidney measures up to 4.9 cm.. Soft Tissues/Bones: No acute bone or soft tissue abnormality. A left-sided AICD device is present. IMPRESSION: No evidence of pulmonary embolism or acute pulmonary abnormality. Right solid pulmonary nodule measuring 4 mm. Per Fleischner Society Guidelines, no routine follow-up imaging is recommended. These guidelines do not apply to immunocompromised patients and patients with cancer. Follow up in patients with significant comorbidities as clinically warranted. For lung cancer screening, adhere to Lung-RADS guidelines. Reference: Radiology. 2017; 284(1):228-43. I have personally reviewed the images of this examination and agree with the resident's findings and interpretation. Interpreted by: Philippe Hitchcock DO Preliminary Report By: Nish Gonzalez Electronically signed By Philippe Hitchcock DO Dictated Date: 09/26/2024 3:22:49 PM Prelim Date: 09/26/2024 3:49:35 PM Sign Date: 09/26/2024 3:49:35 PM Ordering Provider: [facility]06-10-2025 Note* Exam Date Time Procedure Performing Provider Status 09/26/24 1:43 PM XR Chest 1 View KYUNG HONEYCUTT MD; Aut h (Verified) [id number] ORIGINAL EXAMINATION: ONE XRAY VIEW OF THE CHEST 09/26/2024 1:44 pm COMPARISON: None. HISTORY: ORDERING SYSTEM PROVIDED HISTORY: Reason for Exam: chest pain FINDINGS: Low lung volumes with hypoventilatory changes. Rotation to the left. Triple lead left chest wall pacer device with leads overlying the region of the right atrium, right ventricle coronary sinus. Aortic arch calcifications. Vascular congestion and or bronchovascular crowding. Left cross phrenic angles obscured secondary to pacer. Right costophrenic angle is sharp. No pneumothorax. No acute osseous abnormality. IMPRESSION: Low lung volumes with hypoventilatory changes. Vascular congestion and or bronchovascular crowding. Interpreted by: Kyung Honeycutt Preliminary Report By: Kyung Honeycutt Electronically signed By Kyung Honeycutt Dictated Date: 09/26/2024 1:50:37 PM Prelim Date: 09/26/2024 1:51:19 PM Sign Date: 09/26/2024 1:51:19 PM Ordering Provider: [facility]06-10-2025 Note* Exam Date Time Procedure Performing Provider Status 09/26/24 1:10 PM EKG [ED AOH] - CV LANIAUSKAS, MD NILS V MD; Auth (Verified) ECG Final Report Atrial-sensed ventricular-paced rhythm No further analysis attempted due to paced rhythm Baseline wander in lead(s) V3 Electronic Signature: MD NILS EVANS MD 09/26/2024 13:42:05 [facility]01-30-2025 Note* Exam Date Time Procedure Performing Provider Status 05/18/24 2:31 PM XR Foot Minimum [address] CARLOS HITCHCOCK W DO; Auth (Verified) [id number] ORIGINAL EXAMINATION: THREE XRAY VIEWS OF THE RIGHT FOOT 05/18/2024 2:33 pm COMPARISON: 04/23/2020 HISTORY: ORDERING SYSTEM PROVIDED HISTORY: Reason for Exam: plantar fascitis FINDINGS: Marked peripheral vascular calcification is redemonstrated. Minimal osteophyte arises from the origin of the plantar aponeurosis, similar to prior assessment. Advanced degenerative osteoarthritis affects the 1st metatarsophalangeal joint. IMPRESSION: 1. 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 2. No acute bony abnormality. Interpreted by: Philippe Hitchcock DO Preliminary Report By: Philippe Hitchcock DO Electronically signed By Philippe Hitchcock DO Dictated Date: 05/18/2024 2:51:00 PM Prelim Date: 05/18/2024 2:52:31 PM Sign Date: 05/18/2024 2:52:31 PM Ordering Provider: [facility]07-22-2024 Evaluation + Plan note Future Scheduled Tests Radiology* MA Mammo Screening Bilateral w/ Fabrice 11/08/23 [facility] 10-29-2023 Hospital Discharge instructions Patient Education 02/14/2023 19:46:46 R.I.C.E. RICE RICE stands for rest, ice, compression, and elevation. Doing these things helps limit pain and swelling after an injury. RICE also helps injuries heal faster. Use RICE for sprains, strains, and severe bruises or bumps. Follow the tips on this handout and begin RICE as soon as possible after an injury. Rest Pain is your body s way of telling you to rest an injured area. Whether you have hurt an elbow, hand, foot, or knee, limiting its use will prevent further injury and help you heal. Ice Applying ice right after an injury helps prevent swelling and reduce pain. Don t place ice directlyon your skin. Wrap a cold pack or bag of ice in a thin cloth. Place it over the injured area. Ice for 10 minutes every 3 hours. Don t ice for more than 20 minutes at a time. Compression Putting pressure (compression) on an injury helps prevent swelling and provides support. Wrap the injured area firmly with an elastic bandage. If your hand or foot tingles, becomes discolored, or feels cold to the touch, the bandage may be too tight. Rewrap it more loosely. If your bandage becomes too loose, rewrap it. Do not wear an elastic bandage overnight. Elevation Keeping an injury elevated helps reduce swelling, pain, and throbbing. Elevation is most effective when the injury is kept elevated higher than the heart. Call your healthcare provider if you notice any of the following: Fingers or toes feel numb, are cold to the touch, or change color. Skin looks shiny or tight. Pain, swelling, or bruising worsens and is not improved with elevation. [id number] [employer]. [address] [place] [address]. All rights reserved. This information is not intended as a substitute for professional medical care. Always follow yourhealthcare professional's instructions. Follow Up Care 02/14/2023 18:29:33 With:MARILOU LLOYD MD Address: [facility]ERIATRICS[address] [place] [address]- When:2-4 days [facility] 10-29-2023 Note Discharge Instructions Thank you for allowing [facility] to assist you with your healthcare needs. The following is importantdischarge information regarding your hospital visit. Diagnosis from Today's Visit Arthritis Hand pain Hand pain-swelling Wrist pain What to Do Next Instructions from Your Care Team No qualifying data available. Post Acute Orders No qualifying data available. You Need to Schedule the Following Appointments Follow Up with MARILOU LLOYD MD When Within 2-4 days Where: ADULT GERIATRICS/[facility] [address] [place] [address]- Allergies lisinopril sulfa drug Medications Please ask your primary doctor or pharmacist before taking any other medication not listed, including over the counter drugs, herbal medications, vitamins and or supplements as they may interact withyour home medications. What How Much When Instructions Last Dose Unchanged amLODIPine (amLODIPine 5 mg oral tablet) 1 tab(s) by mouth Once a day Unchanged atorvastatin (atorvastatin 40 mg oral tablet) 1 tab(s) by mouth Once a day Unchanged carvedilol (carvedilol 25 mg oral tablet) 1 tab(s) by mouth Two (2) times a day Unchanged cholecalciferol (Vitamin D3) 1,000 unit(s) by mouth Every day Unchanged latanoprost ophthalmic (latanoprost 0.005% ophthalmic solution) INSTILL 1 DROP INTO BOTH EYES EVERY DAY AT NIGHT Unchanged metFORMIN (metFORMIN 500 mg oral tablet) TAKE 1 TABLET BY MOUTH TWICE A DAY Unchanged timolol ophthalmic (timolol maleate 0.5% ophthalmic solution) INSTILL 1 DROP INTO BOTH EYES TWICE A DAY Please take this list to your next doctor s visit. Bring all medications you take, including over the counter medications, herbals and other supplements with you to your doctor s visit. Patients and families are reminded to discard old lists and to update any records with all medication providers or retail pharmacies. Education Materials RICE RICE stands for rest, ice, compression, and elevation. Doing these things helps limit pain and swelling after an injury. RICE also helps injuries heal faster. Use RICE for sprains, strains, and severe bruises or bumps. Follow the tips on this handout and begin RICE as soon as possible after an injury. Rest Pain is your body s way of telling you to rest an injured area. Whether you have hurt an elbow, hand, foot, or knee, limiting its use will prevent further injury and help you heal. Ice Applying ice right after an injury helps prevent swelling and reduce pain. Don t place ice directlyon your skin. Wrap a cold pack or bag of ice in a thin cloth. Place it over the injured area. Ice for 10 minutes every 3 hours. Don t ice for more than 20 minutes at a time. Compression Putting pressure (compression) on an injury helps prevent swelling and provides support. Wrap the injured area firmly with an elastic bandage. If your hand or foot tingles, becomes discolored, or feels cold to the touch, the bandage may be too tight. Rewrap it more loosely. If your bandage becomes too loose, rewrap it. Do not wear an elastic bandage overnight. Elevation Keeping an injury elevated helps reduce swelling, pain, and throbbing. Elevation is most effective when the injury is kept elevated higher than the heart. Call your healthcare provider if you notice any of the following: Fingers or toes feel numb, are cold to the touch, or change color. Skin looks shiny or tight. Pain, swelling, or bruising worsens and is not improved with elevation. [phone] [employer]. [address] [place] [address], [place] [address]. All rights reserved. This information is not intended as a substitute for professional medical care. Always follow yourhealthcare professional's instructions. Additional Information VACCINATE! IT SAVES LIVES! Members of the community who have not yet received the COVID-19 vaccine and would like to receive it can visit one of [facility] vaccine clinics. There are many vaccine clinic locations within the [facility]. For locations and available times, please visit www.gettheshot.coronavirus.[place].gov/. It is important to note that some COVID mobile vaccine clinics are held outdoors and may be canceled in rainy or stormy conditions. To learn more about pediatric vaccinations (ages 5-11), we invite you to visit the [facility] webpage. https://www.[email or web address].org/pages/6280-Qccfm-Fzktwtckxyi-Jowlonymfs-Bxplk-Nbn stions.htmlTo learn more about the COVID-19 vaccine, we invite you to visit the CDC website for a list of frequently asked questions. https://www.cdc.gov/coronavirus/2019-ncov/vaccines/faq.html [facility] Patient Portal Access Instructions: Stay connected with your healthcare team and access your personal medical information anytime with the [facility] Patient Portal. If you would like a full copy of your medical records please contact the [facility] Medical Records Department Wednesday through Wednesday between 8a.m. and 4:30p.m. Please follow the directions below to access the portal: 1.Access the email account you provided upon registration to the [facility].2.Look for an invitation email from [facility].3.Open the email and access the invitation link: Accept Invitation to [facility]4.Fill in the required torres to create your account. Sign into [email or web address] with your username and password that you created in the above steps to stay up to date. You can then view a summary of results, a summary of your visits, and the ability to download your summaries to your computer or send the information securely to a physician. Remember that your healthcare information is confidential, so carefully consider who you will allow to register on the [facility] Patient Portal for access to your information. You can also access the [facility] Patient Portal on the [employer]. Simply click on Health Records under [employer] and then click on the [facility] logo. HOW TO SAFELY DISPOSE OF PRESCRIPTION MEDICATIONS Please use one of the following methods to safely dispose of your unused medications. 1.Use a drug disposal kit: the drug disposal pouch allows you to safely discard your old and unuseddrugs. Ask your nurse to give you one when you are discharged.2.Visit a local take-back location: Many local pharmacies and police departments have programs that collect old and unwanted prescriptiondrugs. Call your local pharmacy or go to http://BigRoad.Talent Flush/7N1Eo8e to find one close to you.3.Make use of household items: Use cat litter or old coffee grounds to dispose medications if other options arenot available. Mix your drugs with these household products, seal them in an airtight container andthrow it into the garbage. Call [facility]: [phone] to be sure your drugs can be disposed of in this way. Some medicines may require a different approach.4.Never flush your medications down the toilet. IF YOU HAVE BEEN PRESCRIBED AN OPIOIDS FOR PAIN If you have been prescribed an opioid (such as hydrocodone, oxycodone or morphine), it is critical to understand the possible side effects and risks of opioid pain medications. Even when taken as directed, opioids can have several side effects including: Tolerance, meaning you might need to take more of a medication for the same pain relief. Nausea, vomiting and/or constipation. Sleepiness, dizziness, dry mouth, confusion, depression or itching. Physical dependence, meaning you have withdrawal symptoms when a medication is stopped ? this can develop within a few days. KNOW YOUR RESPONSIBILITIES It is important to know exactly how much and how often to take the opioid pain medications you are prescribed. Never take opioids in higher amounts or more often than prescribed. Do not combine opioids with alcohol or other drugs that cause drowsiness, such as benzodiazepines, also known as benzos,including diazepam and alprazolam, muscle relaxants or sleep aids. Never sell or share prescriptionopioids. This is illegal. Store opioids in a secure place and out of reach of others (including children, family, friends and visitors). The last page(s) of this document has been signed and retained as a CHART COPY Signatures Patient Education Materials R.I.C.E. Medication Leaflets My discharge plan and instructions have been reviewed and explained to me and ILEXIS GLADYS M understand my current condition and have read and understand these discharge instructions. I have received a written copy of the plan/instructions. If I have questions, I am aware that I should contact my doctor. 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 HISTORY: ORDERING SYSTEM PROVIDED HISTORY: Reason for Exam: Wrist and hand swelling and pain. Unsure if injury. FINDINGS: No definite acute fracture or dislocation. Corticated ossific densities near the 2nd MCP joint may be due to prior/remote injury, and is probably of no acute significance. No significant soft tissue swelling. No radiopaque foreign body. There are vascular calcifications and chondrocalcinosis. IMPRESSION: No acute osseous abnormality identified. I have personally reviewed the images of this examination and agree with the resident's finding and interpretation. Interpreted by: Babatunde Obando MD Preliminary Report By: Hung Napier Electronically signed By Babatunde Obando MD Dictated Date: 02/14/2023 7:34:22 PM Prelim Date: 02/14/2023 7:39:17 PM Sign Date: 02/14/2023 7:54:27 PM Ordering Provider: [facility]08-04-2023 History and physical note Author Kellie Jc [facility] November 20, 2022 7:25am Note Date/Time November 20, 2022 7:2 4am [facility] Medical Records Department [address] [place] [address] History & Physical Exam 11/20/22723 MR#: [id number] Acct: [id number] Name: DARLEEN PIRES Rep #:[id number] : 1950 72 From: Kellie Jc MD PCP: Dr. Tej Lloyd MD Status:REG S DC Location: [place] [address] History and Physical Date of Admission: 11/20/22 Date of Service: 11/02/22 MR#: [id number] Acct: [id number] Name: DARLEEN PIRES SHAQ Rep #: [id number] : 1950 Provider: Dr. Kellie Jc MD Age/Sex: 71/F Location: [facility] Status: Signed Intake Vital Signs 09/18/2310:46 11/02/2313:06 Height 5 ft 5 ft Weight: 149 lb BMI 29.0 BP 154/88 H Blood Pressure Location Rt brachial Position Sitting Respiration 18 Pulse 80 Pulse Source Monitor Temp 97.2 F L Temp Source Tympanic Intake Visit Reasons: COLONOSCOPY Chief Complaint: colonoscopy Allergies RAND Inhibitors Allergy (Severe, Verified 11/02/22 14:07) SwellingSulfa (Sulfonamide Antibiotics) Allergy (Mild, Verified 11/02/22 14:07) Rash Medications timolol maleate 0.5 % eye drops 1 drp EACH EYE BID 03/01/13 [History Confirmed 08/28/22] atorvastatin 40 mg tablet 40 mg PO QHS 09/06/18 [History Confirmed 08/28/22] dorzolamide (PF) 2 % (PF) eye drops 10 ml OP BID 09/06/18 [History Confirmed 08/28/22] metformin 500 mg tablet 500 mg PO BID 02/16/19 [History Confirmed 08/28/22] cholecalciferol (vitamin D3) 25 mcg (1,000 unit) capsule 25 mcg PO DAILY 02/13/20 [History Confirmed 08/28/22] latanoprost (PF) 0.005 % eye drops 1 drp ophthalmic (eye) QHS 07/02/21 [History Confirmed 08/28/22] carvedilol 25 mg tablet (Coreg) 25 mg PO BID #180 tabs 05/04/22 [Rx Confirmed 08/28/22] amlodipine 10 mg tablet 10 mg PO QDAY #90 tabs 07/14/22 [Rx Confirmed 08/28/22] PFSH Medical History Anemia Diabetes Essential (primary) hypertension HLD (hyperlipidemia) ROB (iron deficiency anemia) Left bundle branch block Non-ischemic cardiomyopathy Surgical History Biventricular ICD (implantable cardioverter-defibrillator) in place (07/23/22) H/O: hysterectomy History of left heart catheterization (1994) Hx of cataract surgery Family History Father No problems noted. Sister Breast cancerSister Colon cancer Social History Smoking Status: Never smoker alcohol intake: never substance use type: does not use caffeine: No HPI HPI HPI: -year-old female presents for history of colon polyps for colonoscopy. Patient's previous colonoscopies were done by Dr. Gonzalez last one was on 08/13/2016 patient had a tubular adenoma in the right colon and then villous adenoma in the distal transverse colon. Patient is unable to have further screening with Dr. Gonzalez as he is now out of network. Patient currently does have Suprep at home. Patient states she has bowel movements daily or every other day denies any blood. Patient denies any abdominal pain nausea vomiting or reflux. Patient never had any abdominal surgeries. Patient does currently have a cardiac pacer patient states she has had no issues with this. Patient's sister was diagnosed with colon cancer. ROS General General: No weight change, appetite, fatigue, colon cancer or breast cancer HEENT HEENT: No difficulty swallowing, eye injury, eye surgery, swollen glands or hoarseness Endo Endocrine: No thyroid disease, diabetes mellitus, thyroid cancer, Hair loss, heat intolerance or cold intolerance Skin Skin: No rash or changing moles Musc Musculoskeletal: No back problems, arthritis, rheumatoid arthritis, gout or joint pain Cardio Cardiovascular: Yes pacemaker, high blood pressure and heart attack; No murmur, heart disease, atrial fibrillation, heart stent, palpitations, shortness of breat with exertion or chest pain Psych Psychiatric: No depression, anxiety or hearing voices Resp Respiratory: No shortness of breath, No sleep apnea, No cough, No COPD, No asthma, No emphysema and No wheezing Gastro Gastrointestinal: No abdominal pain, No nausea or vomiting, No diarrhea, No constipation, No blood in stool, No acid reflux, No hemorrhoids, No ulcers, No gallbladder problem and No black,tarry stools Darrel Hematologic: No blood thinners, No blood disorders, No bleeding, No anemia and No blood clots Neuro Neurologic: No numbness and No tingling Exam Const General: cooperative, healthy appearing, comfortable and no acute distress Neck Neck: normal visual inspection Resp Effort & Inspection: normal respiratory effort Cardio Rate: regular rate GI Inspection: non-distended Palpation: soft, no guarding and nontender Skin General: no rashes or lesions noted Neuro General: patient oriented x3 Psych Affect: normal affect Assessment and Plan Assessment and Plan (1) Villous adenoma of colon: Status: Acute Comment: hx of- on 2016 colonoscopy (2) Biventricular ICD (implantable cardioverter-defibrillator) in place: Status: Chronic Comment: implant 07/03/2003 08/23/08, 03/01 Bi-V ICD, Gen change 07/23/2022 Orders: Orders Colonoscopy Today Plan I have discussed the above with the patient. I have offered the patient colonoscopy for evaluation. I have explained the risks/benefits of the procedure and described the procedure. I have discussed the risks with the patient, including but not limited to: infection, bleeding, perforation of the GI tract requiring emergency surgery, inability to complete the procedure, injury to any internal organs, complications of anesthesia, etc. - the patient understands and agrees to proceed. I have answered all the patient's questions to the patient's satisfaction and the patient has no further questions. The patient has been given instructions for the colon cleansing preparation. Suprep as patient already has at home Kellie Jc M.D. Pager: [phone] [facility] [address] [place] [address], [facility] [address] [place] [address] Office: [phone] Coding Level of Care Code Off vis,new,level 3 Diagnoses Villous adenoma of colon D37.4 Biventricular ICD (implantable cardioverter-defibrillator) in place Z95.810 11/02/22 1427 <Electronically signed by Kellie Jc MD> Date Kellie Jc MD 11/20/22 0724 <Electronically signed by Kellie Jc MD> Cosigner Signature (if applicable): CC: Dr. Tej Lloyd MD; Dr. Kellie Jc MD~ Signed ADDENDUM by Dr. Kellie Jc MD on 11/20/22 at 0725 Addendum I have examined the patient and the H&P has been reviewed. There are no clinicalchanges since date of exam. 11/20/22 07<Electronically signed by Kellie Jc MD> Cosigner Signature (if applicable): cc: Dr. Tej Lloyd MD; Dr. Kellie Jc MD ~* Signed [facility] Work Phone: 1(770) 486-942808-04-2023 Procedure [facility] 11-20-2022 Procedure [facility]17[facility]23 Evaluation + Plan note Future Scheduled Tests Radiology* MA Mammo Screening Bilateral w/ Fabrice 11/02/22 [facility] 04-06-2023 Evaluation note* Diagnosis Onset Date Resolution Status Biventricular ICD (implantab le cardioverter-defibrillator) in place July 23, 2022 chr onic Left bundle branch block chr onic Non-ischemic cardiomyopathy resolved Biventricular ICD (implantab le cardioverter-defibrillator) in place July 23, 2022 chr onic Left bundle branch block chr onic Non-ischemic cardiomyopathy resolved Biventricular ICD (implantab le cardioverter-defibrillator) in place July 23, 2022 chr onic Essential (primary) hypertension chronic HLD (hyperlipidemia) chronic Non-ischemic cardiomyopathy resolved Biventricular ICD (implantab le cardioverter-defibrillator) in place July 23, 2022 chr onic Left bundle branch block chr onic Non-ischemic cardiomyopathy resolved Biventricular ICD (implantab le cardioverter-defibrillator) in place July 23, 2022 chr onic Essential (primary) hypertension chronic HLD (hyperlipidemia) chronic Non-ischemic cardiomyopathy resolved [facility] Work Phone: [phone]) 846-555304-06-2023 Evaluation note* Diagnosis Onset Date Resolution Status Biventricular ICD (implantab le cardioverter-defibrillator) in place July 23, 2022 chr onic Left bundle branch block chr onic Non-ischemic cardiomyopathy resolved Biventricular ICD (implantab le cardioverter-defibrillator) in place July 23, 2022 chr onic Essential (primary) hypertension chronic HLD (hyperlipidemia) chronic Non-ischemic cardiomyopathy resolved Biventricular ICD (implantab le cardioverter-defibrillator) in place July 23, 2022 chr onic Left bundle branch block chr onic Non-ischemic cardiomyopathy resolved Biventricular ICD (implantab le cardioverter-defibrillator) in place July 23, 2022 chr onic Essential (primary) hypertension chronic HLD (hyperlipidemia) chronic Non-ischemic cardiomyopathy resolved [facility] Work Phone: 1([phone]) 790-951804-06-2023 Evaluation note* Diagnosis Onset Date Resolution Status Biventricular ICD (implantab le cardioverter-defibrillator) in place July 23, 2022 chr onic Left bundle branch block chr onic Non-ischemic cardiomyopathy resolved Biventricular ICD (implantab le cardioverter-defibrillator) in place July 23, 2022 chr onic Essential (primary) hypertension chronic HLD (hyperlipidemia) chronic Non-ischemic cardiomyopathy resolved Villous adenoma of colon acu te Biventricular ICD (implantab le cardioverter-defibrillator) in place July 23, 2022 chr onic Biventricular ICD (implantab le cardioverter-defibrillator) in place July 23, 2022 chr onic Left bundle branch block chr onic Non-ischemic cardiomyopathy resolved [facility] Work Phone: 1([phone]) 531-985404-06-2023 Evaluation note* Diagnosis Onset Date Resolution Status Right leg pain acute Biventricular ICD (implantab le cardioverter-defibrillator) in place July 23, 2022 chr onic Essential (primary) hypertension chronic HLD (hyperlipidemia) chronic Non-ischemic cardiomyopathy resolved [facility] Work Phone: 1(445) 908-829004-06-2023 Evaluation note* Diagnosis Onset Date Resolution Status Admit Date Right leg pain acute November 02, 2024 3:05pm Biventricular ICD (implantable cardioverter-defibrillator) in place July 23, 2022 chronic November 02, 2024 3:05pm Essential (primary) hypertension chronic November 02, 2024 3:05pm HLD (hyperlipidemia) chronic November 02, 2024 3:05pm Non-ischemic cardiomyopathy resolved November 02, 2024 3:05pm [place] Work Phone: 1(729) 679-915804-06-2023 Evaluation note* Diagnosis Onset Date Resolution Status Admit Date Biventricular ICD (implantable cardioverter-defibrillator) in place July 23, 2022 chronic November 02, 2024 3:04pm Non-ischemic cardiomyopathy resolved November 02, 2024 3:04pm Biventricular ICD (implantable cardioverter-defibrillator) in place July 23, 2022 chronic November 02, 2024 3:05pm Essential (primary) hypertension chronic November 02, 2024 3:05pm HLD (hyperlipidemia) chronic November 02, 2024 3:05pm Non-ischemic cardiomyopathy resolved November 02, 2024 3:05pm [place] [facility] Work Phone: 1(999) 835-681511-01-2013 Evaluation note* Diagnosis Onset Date Resolution Status Biventricular ICD (implantab le cardioverter-defibrillator) in place February, chr onic Left bundle branch block chr onic Non-ischemic cardiomyopathy resolved Biventricular ICD (implantab le cardioverter-defibrillator) in place February, chr onic Essential (primary) hypertension chronic HLD (hyperlipidemia) chronic Non-ischemic cardiomyopathy resolved [facility] Work Phone: 1(222) 603-146411-01-2013 Evaluation note* Diagnosis Onset Date Resolution Status Biventricular ICD (implantab le cardioverter-defibrillator) in place February, chr onic Left bundle branch block chr onic Non-ischemic cardiomyopathy resolved [facility] Work Phone: [phone] 178-946311-01-2013 Evaluation note* Diagnosis Onset Date Resolution Status Biventricular ICD (implantab le cardioverter-defibrillator) in place February, chr onic Left bundle branch block chr onic Non-ischemic cardiomyopathy resolved Biventricular ICD (implantab le cardioverter-defibrillator) in place February, chr onic Left bundle branch block chr onic Non-ischemic cardiomyopathy resolved Biventricular ICD (implantab le cardioverter-defibrillator) in place February, chr onic Left bundle branch block chr onic Non-ischemic cardiomyopathy resolved Biventricular ICD (implantab le cardioverter-defibrillator) in place February, chr onic Essential (primary) hypertension chronic HLD (hyperlipidemia) chronic Non-ischemic cardiomyopathy resolved [facility] Work Phone: Evaluation noteNo assessment information available [facility] Work Phone: Hospital course Narrative No data available for this section [facility] Hospital Discharge instructions Additional Instructions Thank you for trusting us with your care today! Please take Tylenol (2 pills, 650 mg), ibuprofen (2 pills, 400 mg) every 6 hours as needed for pain and fever control. Please return to the emergency department if your symptoms change or worsen. Specifically if you develop bowel or bladder incontinence, urinary retention, loss of sensation or movement in your lower extremities. If you can tolerate you are able to drive as necessary. Please limit driving to necessity such as grocery store shopping, errands for bills etc. Please follow with your primary care physician for further outpatient evaluation and management.[facility] Work Phone: Hospital Discharge instructions No data available for this section [facility] Nurse Progress note* Brooklyn Gray: PERFORM Event Display: Progress Note-Nurse Authored Date: [id number] [facility] Progress note No data available for this section [facility] Reason for referral (narrative)No reason for referral [facility] Work [facility]: Summary note* Brooklyn Gray: PERFORM Event Display: Patient Summary Documents Authored Date: [id number] [facility] Chief Complaint and Reason for Visit Chief Complaint TESTING 3 mos remote ANIMAL CYTOLOGIST-D f/u 9 MO F/U (R/S FROM 2-8 MMM) Reason for Visit Biventricular ICD (i mplantable cardioverter-defibrillator) in place Left bundle branch block Non-ischemic cardiomyopathy Biventricular ICD (implantable cardioverter-defibrillator) in place Essential (primary) hypertension HLD (hyperlipidemia) Non-ischemic cardiomyopathy Chief Complaint 3 mos remote ANIMAL CYTOLOGIST-D f /u SCREENING Reason for Visit Biventricular ICD (i mplantable cardioverter-defibrillator) in place Left bundle branch block Non-ischemic cardiomyopathy Chief Complaint SCREENING remote ICD f/u Reason for Visit Biventricular ICD (i mplantable cardioverter-defibrillator) in place Left bundle branch block Non-ischemic cardiomyopathy Chief Complaint 3 mos remote ANIMAL CYTOLOGIST-D f /u approaching ERIN Remote ALERT TEACHING BEFORE GEN CHANGE/[id number] UPDATE H & P BEFORE GEN CHANGE/eliseo@330 E ORDER I42.8 OTHER CARDIOMYOPATHIES Reason for Visit Biventricular ICD (i mplantable cardioverter-defibrillator) in place Left bundle branch block Non-ischemic cardiomyopathy Biventricular ICD (implantable cardioverter-defibrillator) in place Left bundle branch block Non-ischemic cardiomyopathy Biventricular ICD (implantable cardioverter-defibrillator) in place Left bundle branch block Non-ischemic cardiomyopathy Biventricular ICD (implantable cardioverter-defibrillator) in place Essential (primary) hypertension HLD (hyperlipidemia) Non-ischemic cardiomyopathy Chief Complaint 3 mos remote ANIMAL CYTOLOGIST-D f /u approaching ERIN Remote ALERT TEACHING BEFORE GEN CHANGE/[id number] UPDATE H & P BEFORE GEN CHANGE/eliseo@330 E ORDER I42.8 OTHER CARDIOMYOPATHIES CHANGE OUT Reason for Visit Biventricular ICD (i mplantable cardioverter-defibrillator) in place Left bundle branch block Non-ischemic cardiomyopathy Biventricular ICD (implantable cardioverter-defibrillator) in place Left bundle branch block Non-ischemic cardiomyopathy Biventricular ICD (implantable cardioverter-defibrillator) in place Left bundle branch block Non-ischemic cardiomyopathy Biventricular ICD (implantable cardioverter-defibrillator) in place Essential (primary) hypertension HLD (hyperlipidemia) Non-ischemic cardiomyopathy Chief Complaint Remote ALERT TEACHING BEFORE GEN CHANGE/[id number] UPDATE H & P BEFORE GEN CHANGE/eliseo@330 E ORDER I42.8 OTHER CARDIOMYOPATHIES CHANGE OUT 1 wk s/p CRR-D generator change 1 Y FU Reason for Visit Biventricular ICD (i mplantable cardioverter-defibrillator) in place Left bundle branch block Non-ischemic cardiomyopathy Biventricular ICD (implantable cardioverter-defibrillator) in place Left bundle branch block Non-ischemic cardiomyopathy Biventricular ICD (implantable cardioverter-defibrillator) in place Essential (primary) hypertension HLD (hyperlipidemia) Non-ischemic cardiomyopathy Biventricular ICD (implantable cardioverter-defibrillator) in place Left bundle branch block Non-ischemic cardiomyopathy Biventricular ICD (implantable cardioverter-defibrillator) in place Essential (primary) hypertension HLD (hyperlipidemia) Non-ischemic cardiomyopathy Chief Complaint Remote ALERT TEACHING BEFORE GEN CHANGE/[id number] UPDATE H & P BEFORE GEN CHANGE/eliseo@330 E ORDER I42.8 OTHER CARDIOMYOPATHIES CHANGE OUT 1 wk s/p CRR-D generator change 1 Y FU BACK Reason for Visit Biventricular ICD (i mplantable cardioverter-defibrillator) in place Left bundle branch block Non-ischemic cardiomyopathy Biventricular ICD (implantable cardioverter-defibrillator) in place Left bundle branch block Non-ischemic cardiomyopathy Biventricular ICD (implantable cardioverter-defibrillator) in place Essential (primary) hypertension HLD (hyperlipidemia) Non-ischemic cardiomyopathy Biventricular ICD (implantable cardioverter-defibrillator) in place Left bundle branch block Non-ischemic cardiomyopathy Biventricular ICD (implantable cardioverter-defibrillator) in place Essential (primary) hypertension HLD (hyperlipidemia) Non-ischemic cardiomyopathy Chief Complaint TEACHING BEFORE GEN CHANGE/[id number] UPDATE H & P BEFORE GEN CHANGE/eliseo@330 E ORDER I42.8 OTHER CARDIOMYOPATHIES CHANGE OUT 1 wk s/p CRR-D generator change 1 Y FU BACK Reason for Visit Biventricular ICD (i mplantable cardioverter-defibrillator) in place Left bundle branch block Non-ischemic cardiomyopathy Biventricular ICD (implantable cardioverter-defibrillator) in place Essential (primary) hypertension HLD (hyperlipidemia) Non-ischemic cardiomyopathy Biventricular ICD (implantable cardioverter-defibrillator) in place Left bundle branch block Non-ischemic cardiomyopathy Biventricular ICD (implantable cardioverter-defibrillator) in place Essential (primary) hypertension HLD (hyperlipidemia) Non-ischemic cardiomyopathy Chief Complaint CHANGE OUT 1 wk s/p CRR-D generator change 1 Y FU BACK COLONOSCOPY Pain at incision site Reason for Visit Biventricular ICD (i mplantable cardioverter-defibrillator) in place Left bundle branch block Non-ischemic cardiomyopathy Biventricular ICD (implantable cardioverter-defibrillator) in place Essential (primary) hypertension HLD (hyperlipidemia) Non-ischemic cardiomyopathy Villous adenoma of colon Biventricular ICD (implantable cardioverter-defibrillator) in place Biventricular ICD (implantable cardioverter-defibrillator) in place Left bundle branch block Non-ischemic cardiomyopathy Chief Complaint 1 wk s/p CRR-D gener ator change 1 Y FU BACK COLONOSCOPY Pain at incision site SCREENING Reason for Visit Biventricular ICD (i mplantable cardioverter-defibrillator) in place Left bundle branch block Non-ischemic cardiomyopathy Biventricular ICD (implantable cardioverter-defibrillator) in place Essential (primary) hypertension HLD (hyperlipidemia) Non-ischemic cardiomyopathy Villous adenoma of colon Biventricular ICD (implantable cardioverter-defibrillator) in place Biventricular ICD (implantable cardioverter-defibrillator) in place Left bundle branch block Non-ischemic cardiomyopathy Chief Complaint SCREENING Chief Complaint Hallucinations, unsp ecified Pacer Check Remote Chief Complaint Pacer Check Remote Pacer Check Remote Pacer Check Remote 1 Y FU RLE PAIN Pacer Check Remote Reason for Visit Right leg pain Biventricular ICD (implantable cardioverter-defibrillator) in place Essential (primary) hypertension HLD (hyperlipidemia) Non-ischemic cardiomyopathy Chief Complaint Admit Date Pacer Check Remote June 12, 2024 3:01am Pacer Check Remote August 16, 2024 3:1 4am Chief Complaint Admit Date Pacer Check Remote June 12, 2024 3:01am Pacer Check Remote August 16, 2024 3:1 4am Pacer Check Remote September 11, 2024 3:01a m Chief Complaint Admit Date Pacer Check Remote August 16, 2024 3:1 4am Pacer Check Remote September 11, 2024 3:01a m Annual In-Clinic Check/Sees MMM @ 4 November 02, 2024 3:04pm 1 Y FU/Sees Eliseo @ 3:30 November 02, 2024 3 :05pm Reason for Visit Admit Date Right leg pain November 02, 2024 3:05 pm Biventricular ICD (implantab le cardioverter-defibrillator) in place November 02, 2024 3:05pm Essential (primary) hypertension November 022024 3:05pm HLD (hyperlipidemia) November 02, 2024 3:0 5pm Non-ischemic cardiomyopathy November 02, 2 025 3:05pm Reason for Visit Admit Date Biventricular ICD (implantab le cardioverter-defibrillator) in place November 02, 2024 3:04pm Non-ischemic cardiomyopathy November 02, 2 025 3:04pm Biventricular ICD (implantab le cardioverter-defibrillator) in place November 02, 2024 3:05pm Essential (primary) hypertension November 022024 3:05pm HLD (hyperlipidemia) November 02, 2024 3:0 5pm Non-ischemic cardiomyopathy November 02, 2 025 3:05pm Chief Complaint Admit Date Pacer Check Remote August 16, 2024 3:1 4am Pacer Check Remote September 11, 2024 3:01a m Pacer Check Remote November 02, 2024 9:00 am Annual In-Clinic Check/Sees MMM @ 4 November 02, 2024 3:04pm 1 Y FU/Sees Eliseo @ 3:30 November 02, 2024 3 :05pm Chief Complaint Admit Date Pacer Check Remote August 16, 2024 3:1 4am Pacer Check Remote September 11, 2024 3:01a m Pacer Check Remote November 02, 2024 9:00 am Annual In-Clinic Check/Sees MMM @ 4 November 02, 2024 3:04pm 1 Y FU/Sees Eliseo @ 3:30 November 02, 2024 3 :05pm Pacer Check Remote November 15, 2024 3:01 am SCREENING,dilated cardiomyopathy November 28, 2024 1:56pm Family History No Family History Records Found Relationship Condition Age at Onset Recorded Date/T epi sister Malignant neoplasm of breast Unknown sister Malignant neoplasm of colon Unknown Advance Directives No Advanced Directives Records Found Advance Directive Response Recorded Date/ Time Living Will No September 06, 2018 2 :34pm Power of Acid Changer No September 06, 2018 2:34pm Advance Directive Response Recorded Date/ Time Living Will No September 06, 2018 1 :34pm Power of Acid Changer No September 06, 2018 1:34pm Advance Directive Response Recorded Date/ Time Advance Directives on File No July 23, 2022 10:20am Name of Medical Power of Acid Changer Jaguar Newton ms (daughter) July 23, 2022 10:20am Advance Directives Yes July 23 10:20am Living Will Yes July 23, 2022 10:20am Power of Acid Changer Yes July 23 10:20am Advance Directive Response Recorded Date/ Time Advance Directives on File No July 23, 2022 10:20am Name of Medical Power of Acid Changer Jaguar Newton ms (daughter) July 23, 2022 10:20am Name of Medical Power of Acid Changer JAGUAR NEWTON MS September 18, 2022 11:59am Advance Directives Yes July 23 10:20am Living Will Yes September 18, 2022 1 1:59am Power of Acid Changer Yes September 18, 2022 11:59am Advance Directive Response Recorded Date/ Time Advance Directives on File No July 23, 2022 10:20am Name of Medical Power of Acid Changer Jaguar Newton ms (daughter) July 23, 2022 10:20am Name of Medical Power of Acid Changer JAGUAR NEWTON MS September 18, 2022 11:59am Name of Medical Power of Acid Changer DTR November 18, 2022 3:14pm Advance Directives Yes July 23 10:20am Living Will Yes November 18, 2022 3:14pm Power of Acid Changer Yes November 18 3:14pm Advance Directive Response Recorded Date/ Time Name of Medical Power of Acid Changer JAGUAR NEWTON MS September 18, 2022 11:59am Name of Medical Power of Acid Changer DTR November 18, 2022 3:14pm Advance Directives Yes July 23 10:20am Living Will Yes November 18, 2022 3:14pm Power of Acid Changer Yes November 18 3:14pm Advance Directive Response Recorded Date/ Time Name of Medical Power of Acid Changer DTR November 18, 2022 2:14pm Advance Directives Yes July 23 9:20am Living Will Yes November 18, 2022 2:14pm Power of Acid Changer Yes November 18 2:14pm Advance Directive Response Recorded Date/ Time Advance Directives Yes July 23 9:20am Living Will Yes November 18, 2022 2:14pm Power of Acid Changer Yes November 18 2:14pm Advance Directive Response Recorded Date/ Time Advance Directives Yes July 23 10:20am Living Will Yes November 18, 2022 3:14pm Power of Acid Changer Yes November 18 3:14pm Advance Directive Response Recorded Date/ Time Advance Directives Yes July 23 10:20am Summary Purpose Additional Source Comments Goals (unrecognized section and content) Goals may be documented in a n alternate sectionGoals may be documented in an alternate sectionGoals may be documented in an alternate sectionGoals may be documented in an alternate sectionGoals may be documented in an alternate sectionGoals may be documented in an alternate sectionGoals may be documented in an alternate sectionGoals may be documented in an alternate sectionGoals may be documented in an alternate section No data available for this sectionGoals may be documented in an alternate sectionGoals may be documented in an alternate section No data available for this section No data available for this section No data available for this sectionGoals may be documented in an alternate sectionGoals may be documented in an alternate sectionGoals may be documented in an alternate sectionGoals may be documented in an alternate sectionGoals may be documented in an alternate sectionGoals may be documented in an alternate sectionGoals may be documented in an alternate section Care Teams (unrecognized sec tion and content) Team Status: Active Member Role Status Dates Dr. Tej Lloyd MD Family Provider Active Dr. Tej Lloyd MD Primary Care Provider Active Team Status: Inactive Member Role Status Dates Dr. Tej Lloyd MD Primary Care Provider Active Kayla Queen Active Dr. Nik Felton MD Attending Provider, Referring Pro vider Active Team Status: Inactive Member Role Status Dates Dr. Tej Lloyd MD Primary Care Provider, Referring Provider Active Kayla Queen Attending Provider Active Team Status: Inactive Member Role Status Dates Dr. Tej Lloyd MD Primary Care Provider, Referring Provider Active Lisset Vo PA, PA Attending Provider Active Team Status: Active Member Role Status Dates Dr. Tej Lloyd MD Primary Care Provider Active Dr. Nik Felton MD Attending Provider Active Team Status: Active Member Role Status Dates Dr. Tej Lloyd MD Primary Care Provider Active Lisset Vo PA, PA Attending Provider, Referr ing Provider Active Team Status: Inactive Member Role Status Dates Dr. Tej Lloyd MD Primary Care Provider Active Dr. Nik Felton MD Attending Provider Active Team Status: Inactive Member Role Status Dates Dr. Tej Lloyd MD Primary Care Provider Active Dr. Butch Del Cid MD Attending Provider, Referring Pro vider Active Team Status: Inactive Member Role Status Dates Dr. Tej Lloyd MD Primary Care Provider Active Lisset Vo PA, PA Attending Provider, Referr ing Provider Active Team Status: Inactive Member Role Status Dates Dr. Tej Lloyd MD Primary Care Provider, Referring Provider Active Dr. Nik Felton MD Attending Provider Active Team Status: Inactive Member Role Status Dates Dr. Tej Lloyd MD Primary Care Provider, Attending Provider Active Team Status: Active Member Role Status Dates Dr. Tej Lloyd MD Primary Care Provi melquiades, Attending Provider, Referring Provider Active Team Status: Inactive Member Role Status Dates Dr. Tej Lloyd MD Primary Care Provider Active Dr. Bill Foreman DO Emergency Provider Active Mold Sander Relationship Specialty Start Date End Date Tej Lloyd [address] [address] PCP - General 01/20/08 Team Status: Inactive Member Role Status Dates Dr. Tej Lloyd MD Primary Care Provi melquiades, Attending Provider, Referring Provider Active Team Status: Inactive Member Role Status Dates Dr. Tej Lloyd MD Primary Care Provider Active Dr. Bill Foreman DO Attending Provider, Emergency P rovider Active Team Status: Inactive Member Role Status Dates Dr. Tej Lloyd MD Primary Care Provider, Referring Provider Active Dr. Kellie Jc MD Attending Provider Active Team Status: Active Member Role Status Dates Dr. Tej Lloyd MD Primary Care Provider, Referring Provider Active Dr. Kellie Jc MD Attending Provider, Other Pro vider Active Team Status: Inactive Member Role Status Dates Dr. Tej Lloyd MD Primary Care Provider Active Dr. Naye Adam MD Attending Provider, Referring Pr ovider Active Team Status: Inactive Member Role Status Dates Dr. Tej Lloyd MD Primary Care Provider Active Dr. Nik Felton MD Attending Provider, Referring Pro vider Active Team Status: Active Member Role Status Dates Dr. Tej Lloyd MD Primary Care Provider Active Dr. Ron Diaz MD Attending Provider Active Dr. Nik Felton MD Referring Provider Active Team Status: Inactive Member Role Status Dates Dr. Tej Lloyd MD Primary Care Provider Active Start: June 12, 2024 End: June 12, 2024 Dr. Nik Felton MD Attending Provider Active S tart: June 12, 2024 End: June 12, 2024 Dr. Nik Felton MD Referring Provider Active S tart: June 12, 2024 End: June 12, 2024 Team Status: Inactive Member Role Status Dates Dr. Tej Lloyd MD Primary Care Provider Active Start: August 16, 2024 End: August 16, 2024 Dr. Nik Felton MD Attending Provider Active S tart: August 16, 2024 End: August 16, 2024 Dr. Nik Felton MD Referring Provider Active S tart: August 16, 2024 End: August 16, 2024 Team Status: Inactive Member Role Status Dates Dr. Tej Lloyd MD Primary Care Provider Active Start: September 13, 2024 End: September 13, 2024 Dr. Tej Lloyd MD Attending Provider Active Start: September 13, 2024 End: September 13, 2024 Dr. Tej Lloyd MD Referring Provider Active Start: September 13, 2024 End: September 13, 2024 Team Status: Active Member Role Status Dates Dr. Tej Lloyd MD Primary Care Provider Active Team Status: Inactive Member Role Status Dates Dr. Tej Lloyd MD Primary Care Provider Active Start: September 11, 2024 End: September 11, 2024 Dr. Nik Felton MD Attending Provider Active S tart: September 11, 2024 End: September 11, 2024 Team Status: Active Member Role/Relationship Status Dates Dr. Tej Lloyd MD Primary Care Provider Active Team Status: Inactive Member Role/Relationship Status Dates Dr. Tej Lloyd MD Primary Care Provider Active Start: August 16, 2024 End: August 16, 2024 Dr. Nik Felton MD Attending Provider Active S tart: August 16, 2024 End: August 16, 2024 Dr. Nik Felton MD Referring Provider Active S tart: August 16, 2024 End: August 16, 2024 Team Status: Inactive Member Role/Relationship Status Dates Dr. Tej Lloyd MD Primary Care Provider Active Start: September 11, 2024 End: September 11, 2024 Dr. Nik Felton MD Attending Provider Active S tart: September 11, 2024 End: September 11, 2024 Dr. Nik Felton MD Referring Provider Active S tart: September 11, 2024 End: September 11, 2024 Team Status: Inactive Member Role/Relationship Status Dates Dr. Tej Lloyd MD Primary Care Provider Active Start: September 13, 2024 End: September 13, 2024 Dr. Tej Lloyd MD Attending Provider Active Start: September 13, 2024 End: September 13, 2024 Dr. Tej Lloyd MD Referring Provider Active Start: September 13, 2024 End: September 13, 2024 Team Status: Active Member Role/Relationship Status Dates Dr. Tej Lloyd MD Primary Care Provider Active Start: November 02, 2024 Dr. Tej Lloyd MD Referring Provider Active Start: November 02, 2024 Kayla Queen Attending Provider Active Start: 2024 Team Status: Inactive Member Role/Relationship Status Dates Dr. Tej Lloyd MD Primary Care Provider Active Start: November 02, 2024 End: November 02, 2024 Dr. Tej Lloyd MD Referring Provider Active Start: November 02, 2024 End: November 02, 2024 Lisset Vo PA, PA Attending Provider Active Start: November 02, 2024 End: November 02, 2024 Team Status: Inactive Member Role/Relationship Status Dates Dr. Tej Lloyd MD Primary Care Provider Active Start: November 02, 2024 End: November 02, 2024 Dr. Tej Lloyd MD Referring Provider Active Start: November 02, 2024 End: November 02, 2024 Kayla Queen Attending Provider Active Start: 2024 End: November 02, 2024 Team Status: Inactive Member Role/Relationship Status Dates Dr. Tej Lloyd MD Primary Care Provider Active Start: November 02, 2024 End: November 02, 2024 Dr. Nik Felton MD Attending Provider Active S tart: November 02, 2024 End: November 02, 2024 Team Status: Inactive Member Role/Relationship Status Dates Dr. Tej Lloyd MD Primary Care Provider Active Start: November 02, 2024 End: November 02, 2024 Dr. Tej Lloyd MD Referring Provider Active Start: November 02, 2024 End: November 02, 2024 Kayla Queen Attending Provider Active Start: 2024 End: November 02, 2024 Team Status: Inactive Member Role/Relationship Status Dates Dr. Tej Lloyd MD Primary Care Provider Active Start: November 02, 2024 End: November 02, 2024 Dr. Tej Lloyd MD Referring Provider Active Start: November 02, 2024 End: November 02, 2024 Lisset Vo PA, PA Attending Provider Active Start: November 02, 2024 End: November 02, 2024 Team Status: Inactive Member Role/Relationship Status Dates Dr. Tej Lloyd MD Primary Care Provider Active Start: November 02, 2024 End: November 02, 2024 Dr. Nik Felton MD Attending Provider Active S tart: November 02, 2024 End: November 02, 2024 Dr. Nik Felton MD Referring Provider Active S tart: November 02, 2024 End: November 02, 2024 Team Status: Inactive Member Role/Relationship Status Dates Dr. Tej Lloyd MD Primary Care Provider Active Start: November 15, 2024 End: November 15, 2024 Dr. Nik Felton MD Attending Provider Active S tart: November 15, 2024 End: November 15, 2024 Team Status: Active Member Role/Relationship Status Dates Dr. Tej Lloyd MD Primary Care Provider Active Start: November 28, 2024 Dr. Naye Adam MD Other Provider Active Star t: November 28, 2024 Lisset Vo PA, PA Attending Provider Active Start: November 28, 2024 FEMI Wilson Referring Provider Active Start: November 28, 2024 Team Status: Active Member Role/Relationship Status Dates Dr. Tej Lloyd MD Primary Care Provider Active Start: November 28, 2024 Dr. Nik Felton MD Attending Provider Active S tart: November 28, 2024 Team Status: Inactive Member Role/Relationship Status Dates Dr. Tej Lloyd MD Primary Care Provider Active Start: November 28, 2024 End: November 28, 2024 Dr. Naye Adam MD Other Provider Active Star t: November 28, 2024 End: November 28, 2024 FEMI Wilson Attending Provider Active Start: November 28, 2024 End: November 28, 2024 FEMI Wilson Referring Provider Active Start: November 28, 2024 End: November 28, 2024 Source Comments (unrecognize d section and content) In the event this informatio n is protected by the Federal Confidentiality of Alcohol and Drug Abuse Patient Records regulations: The Federal rules restrict any use of the information to criminally investigate or prosecute any alcohol or drug abuse patient.[facility] Reason for Visit (unrecogniz ed section and content) Reason Comments Orders Screening checklist, order - pt has Implanted defibrillator - gave number to schedule at hospital INFORMATION SOURCE (unrecogn ized section and content) DATE CREATED AUTHOR 09/27/2022 [facility] DATE CREATED AUTHOR AUTHOR'S ORGANIZ ATION 02/21/2023 [facility] ([place]) DATE CREATED AUTHOR AUTHOR'S ORGANIZ ATION 10/02/2024 [facility] DATE CREATED AUTHOR AUTHOR'S ORGANIZ ATION 10/05/2024 [facility] DATE CREATED AUTHOR AUTHOR'S ORGANIZ ATION 01/10/2025 [facility] FOR RECORDS PERTAINING TO PATIENTS WHO ARE OR HAVE BEEN ENROLLED IN A CHEMICAL DEPENDENCY/SUBSTANCEABUSE PROGRAM, SOME INFORMATION MAY BE OMITTED. This clinical summary was aggregated from multiple sources. Caution should be exercised in using it in the provision of clinical care. This summary normalizes information from multiple sources, and as a consequence, information in this document may materially change the coding, format and clinical context of patient data. In addition, data may be omitted in some cases. CLINICAL DECISIONS SHOULD BE BASED ON THE PRIMARY CLINICAL RECORDS. [facility] provides no warranty or guarantee of the accuracy or completeness of information in this document.
--- NOTE | 2025-03-09 18:23 | EX.ED.UPPERE ---
HPI History of Present Illness HPI Narrative: Patient presents with pain in her right arm, elbow, and hand that began yesterday. Patient states it has gradually gotten worse. Patient describes it as stabbing. Patient states it is worse with certain movements. Patient states nothing seems to help with it. Patient denies any paresthesias or weakness. Patient denies any fevers or chills. Patient denies any trauma or injury. Chief Complaint: Upper Extremity Injury Informant: patient Onset/Context/Timing Onset: Yesterday Context: Gradual Onset Timing: Continuous Quality of Pain: Stabbing Location: Right arm, elbow, forearm, and hand Worsened by: Nothing Relieved by: Nothing Associated Symptoms Associated Symptoms: Negative for Parasthesia or Weakness PFSH PFS Medical History Diabetes mellitus type II, controlled Wears glasses High cholesterol DVT (deep venous thrombosis) Non-smoker History of echocardiogram History of CHF (congestive heart failure) Hypertension Cardiology follow-up encounter Non-ischemic cardiomyopathy ROB (iron deficiency anemia) Anemia Essential (primary) hypertension HLD (hyperlipidemia) Left bundle branch block Home Medications ?Medication ?Instructions ?Recorded ?Last Taken ?Type timolol maleate 0.5 % eye drops 1 drp EACH EYE BID 03/01/13 03/02/13 History atorvastatin 40 mg tablet 40 mg PO QHS 09/06/18 Unknown History dorzolamide (PF) 2 % (PF) eye drops 10 ml OP BID 09/06/18 Unknown History metformin 500 mg tablet 500 mg PO BID 02/16/19 Unknown History cholecalciferol (vitamin D3) 25 25 mcg PO DAILY 02/13/20 Unknown History mcg (1,000 unit) capsule latanoprost (PF) 0.005 % eye drops 1 drp ophthalmic (eye) QHS 07/02/21 07/23/22 History amlodipine 10 mg tablet 10 mg PO QDAY #90 tabs 11/08/24 Unknown Rx carvedilol 25 mg tablet (Coreg) 25 mg PO BID #180 tabs 11/08/24 Unknown Rx spironolactone 25 mg tablet 25 mg PO DAILY #90 tabs 11/29/24 Unknown Rx blood sugar diagnostic (Accu-Chek #100 ea 12/12/24 Unknown Rx Guide test strips) hydrocodone-acetaminophen 5-325mg 1 tab PO Q6H PRN PRN Pain 3 days 03/09/25 Unknown Rx 5mg-325mg #10 TABLETS Allergy/AdvReac Type Severity Reaction Status Date / Time RAND Inhibitors Allergy Severe Swelling Verified 03/09/25 13:52 Environmental Allergies: Allergy Mild Other Verified 03/09/25 13:52 Uncoded Sulfa (Sulfonamide Allergy Mild Rash Verified 03/09/25 13:52 Antibiotics) Family History Father No problems noted. Sister Breast cancer Sister Colon cancer Surgical History History of cardiac catheterization History of left heart catheterization (1994) Biventricular ICD (implantable cardioverter-defibrillator) in place (07/23/22) H/O: hysterectomy Hx of cataract surgery Social History Smoking Status: Never smoker alcohol intake: never substance use type: does not use caffeine: No ROS ROS ED Constitutional Constitutional ED: Denies chills or fever(s) Eyes Eyes: Denies blurry vision or change in vision ENT ENT ED: Denies rhinorrhea or sore throat Cardiovascular Cardiovascular: Denies chest pain or palpitations Respiratory/Chest Respiratory/Chest: Denies cough or dyspnea Gastrointestinal Gastrointestinal: Denies nausea or vomiting Genitourinary Genitourinary ED: Denies dysuria or hematuria Musculoskeletal Musculoskeletal: Denies back pain or neck pain Integumentary Denies abscess or rash Neurologic Neurologic: Denies headache(s) or weakness Allergic/Immunologic Allergic/Immunologic ED: Denies mouth swelling or urticaria EXAM Physical Exam Const Vital Signs: 03/09/25 13:53 Temperature 96.4 F L Temperature Source Temporal Pulse Rate 84 Respiratory Rate 16 Blood Pressure 155/84 H Blood Pressure Mean 107 Pulse Ox 100 Oxygen Delivery Method Room Air Positive well nourished and well developed General Appearance ED: well developed and NAD HEENT Reports moist mucous membranes normocephalic and atraumatic Neck full ROM and supple Extremity Extremity Narrative: There is tenderness over the right distal humerus, elbow, forearm, and hand. There is no deformity noted. Range of motion was slightly limited in all motions of the right elbow secondary to pain. Strength is 5/5 in the radial, median, and ulnar areas. Sensation was intact to light touch in the radial, median, and ulnar areas. Radial pulses are equal bilaterally. Neuro oriented x3, CN's II-XII intact bilaterally, moves all extremities, no focal motor deficits and no sensory deficits noted Sensorium / Orientation: alert Motor Exam: strength 5/5 throughout Psych mental status grossly normal MDM MDM MDM Narrative Medical decision making narrative: Differential diagnosis includes fracture, sprain, and contusion. X-rays of the right wrist will be obtained to assess for fracture. X-rays of the right elbow will be obtained to assess for fracture. Radiography Diagnostic Testing: Clinical Impression(s) from Imaging Studies Elbow X-Ray 03/09/25 16:06 IMPRESSION: Elbow joint effusion, without a fracture seen. In the setting of trauma, this often indicates an occult fracture. If no trauma, consider intra-articular infection or inflammation. Reading Location: [facility] [place] Wrist X-Ray 03/09/25 16:35 IMPRESSION: NO ACUTE FRACTURE OR DISLOCATION. If acute hand or wrist trauma is suspected and initial radiographs are negative or equivocal repeat radiographs in 10-14 days MRI without IV contrast or CT without IV contrast is usually appropriate as the next imaging study. (ACR Appropriateness Criteria: Acute Hand and Wrist Trauma 2018) Reading Location: [facility]– [place] X-rays of the right wrist were obtained. There are 3 views. On my independent interpretation, there is no acute fracture or dislocation noted. There is no soft tissue swelling noted. Radiologist also interpreted the x-rays and agrees. X-rays of the right elbow are obtained. There are 3 views. On my independent interpretation, there is a joint effusion noted with displacement of the anterior posterior fat pads. There is some calcification noted in the radiocapitellar joint. There is no definite fracture noted. Radiologist also interpreted the x-rays and agrees. Treatment and Re-Evaluation Narrative: There is no erythema or warmth noted over the elbow. There is no pain with short arc motion. I do not feel that this is a septic joint. Patient was given a sling for comfort. Patient was instructed to use ice to her elbow. Patient was instructed to watch for any signs of infection. Patient was instructed to follow-up with her primary care physician in 5 to 7 days. Patient was instructed return if worse in any way. Patient understood and was agreeable with the plan. All questions were answered. Discharge Plan Triage Chief Complaint: Upper Extremity Injury ED Provider: Ron Reynaga Dx/Rx/DC Orders Clinical Impression: Effusion of right elbow, Essential (primary) hypertension Instructions: ED Sprain, Elbow, ED Osteoarthritis Prescriptions: New hydrocodone-acetaminophen 5-325 mg tablet 1 tab PO Q6H PRN PRN (Reason: Pain) 3 Days Qty: 10 0RF No Action metformin 500 mg tablet 500 mg PO BID cholecalciferol (vitamin D3) 25 mcg (1,000 unit) capsule 25 mcg PO DAILY timolol maleate 1 DROP drops 1 drp EACH EYE BID atorvastatin 40 MG tablet 40 mg PO QHS dorzolamide (PF) 10 ML drops 10 ml OP BID Rx Instructions: 1 gtt both eyes bid latanoprost (PF) 0.005 % drops 1 drp ophthalmic (eye) QHS Rx Instructions: 1 gtt both eyes qhs amlodipine 10 mg tablet 10 mg PO QDAY Qty: 90 3RF carvedilol [Coreg] 25 mg tablet 25 mg PO BID Qty: 180 3RF Rx Instructions: give with food (meal/snack) spironolactone 25 mg tablet 25 mg PO DAILY Qty: 90 3RF (DME) Accu-Chek Guide test strips Strip See Rx Instructions .Route Qty: 100 0RF Rx Instructions: As directed: Fill as a courtesy until pt sees Dr. Lloyd, her PCP Primary Care Provider: Tej Lloyd Chi Referrals: Tej Lloyd Chi, MD [Primary Care Provider, Geriatrics] - 5-7 Days Print Language: Uzbek Disposition Disposition: Home, Self Care
[2025-03-09 19:12] VITALS: BP 132/78; PULSE 64; RESP 18; TEMP 36.6; O2SAT 99
== END 2025-03-09 19:14 | disposition home or self-care (01) ==
PROVIDERS: Emergency Provider Emergency Medicine; PCP Family Medicine Geriatric Medicine; Visit Provider Emergency Medicine
DX: M25.421 Effusion, right elbow (principal); I11.0 Hypertensive heart disease with heart failure; I50.9 Heart failure, unspecified; E11.9 Type 2 diabetes mellitus without complications; E78.00 Pure hypercholesterolemia, unspecified
CPT/HCPCS: 73080; 73110; 99283

== ENCOUNTER → 2025-04-05 | Outpatient (CLI) | payer MEDICARE, SELFPAY ==
[2025-04-05 15:27] LABS: Hematocrit 38.2 % (37-47); Hemoglobin 12.5 g/dL (12.0-15.0); Immature Granulocytes Count 0.010 X10^3/uL (0.0-0.0); Mean Corp Hgb Conc 32.7 g/dL (32-36); Mean Corpuscular Volume 85.7 fL (81-99); Mean Platelet Vol. 10.9 fl (6.2-12.0); NRBC Flagged by Analyzer 0 % (0-5); Platelet Count 229 K/mm3 (150-450); RBC Distribution Width CV 14.1 % (11.6-14.6); RBC Distribution Width SD 43.8 fl (35.1-43.9); Red Blood Count 4.46 M/mm3 (4.2-5.4); White Blood Count 5.6 K/mm3 (4.4-11.0)
[2025-04-05 16:35] LABS: Anion Gap 14 (5-15); BUN 20 mg/dL (4-19); BUN/Creat Ratio 20.5 RATIO (10-20); Calcium,Total 10.3 mg/dL (7.6-11.0); Carbon Dioxide 22.4 mmol/L (21.0-32.0); Chloride 103 mmol/L (98-108); Glucose 146 mg/dL (70-99); Potassium 4.1 mmol/L (3.3-5.1)
[2025-04-05 16:51] LABS: AST(SGOT) 21 U/L (<=31); Alanine Aminotransfer ALT/SGPT 9 U/L (<=34); Albumin, Serum 4.2 g/dL (3.4-4.8); Alkaline Phosphatase 87 U/L (35-104); Anion Gap 12 (5-15); BUN 20 mg/dL (4-19); BUN/Creat Ratio 19.4 RATIO (10-20); Calcium,Total 10.3 mg/dL (7.6-11.0); Carbon Dioxide 21.9 mmol/L (21.0-32.0); Chloride 103 mmol/L (98-108); Globulin 3.4 g/dL (2.2-4.2); Glucose 147 mg/dL (70-99); Potassium 3.8 mmol/L (3.3-5.1); Vitamin D,25 Hydroxy 50.1 ng/mL (30-100)
== END | disposition home or self-care (01) ==
LOC: POLAB3 15:06
PROVIDERS: Physician Assistant Medical; PCP Family Medicine Geriatric Medicine; Visit Provider Family Medicine Geriatric Medicine
DX: E55.9 Vitamin D deficiency, unspecified (principal); I42.8 Other cardiomyopathies; I10 Essential (primary) hypertension
CPT/HCPCS: 36415; 80048; 80053; 82306; 84443; 85025